=== PATIENT | female | born 1960 | race Caucasian/White ===

== ENCOUNTER 2020-05-12 14:01 | Outpatient (REF) | payer OTHER, SELFPAY | END 2020-05-12 14:02 | disposition home or self-care (01) | LOC: HO.HMGCX 14:01 | PROVIDERS: PCP Internal Medicine; Visit Provider Internal Medicine | DX: Z20.828 Contact with and (suspected) exposure to other viral communicable diseases (principal) | CPT/HCPCS: C9803; U0003 ==

== ENCOUNTER 2020-07-01 11:53 | Outpatient (REF) | payer OTHER, SELFPAY ==
--- NOTE | 2020-07-01 11:57 | MM_ITS ---
EXAMINATION: MM SCREENING DIGITAL BREAST TOMOSYNTHESIS, BILATERAL CLINICAL INFORMATION: Screening. Asymptomatic. The lifetime risk of breast cancer based on the Tyrer-Cuzick Model is 7%. COMPARISON: Mammography: 02/18/2019, 02/14/2019, 01/25/2018, 12/12/2016 TECHNIQUE: Digital breast tomosynthesis is performed in both the craniocaudal and mediolateral oblique views along with computer-aided detection (CAD). Synthesized 2D images are generated from the tomosynthesis. FINDINGS: There are scattered areas of fibroglandular density (ACR BI-RADS breast composition Category b). There are no significant masses, abnormal calcifications, or other abnormalities. There is biopsy clip marker again seen central 6:00 left breast. There is no developing density. No significant changes from prior exams. MM/MM tomosynthesis screening BI IMPRESSION: No mammographic evidence of malignancy. ASSESSMENT: BI-RADS 1: Negative RECOMMENDATION: Routine annual mammography screening. This patient's information was entered into a reminder system with a target due date for their next mammogram.
== END 2020-07-01 11:54 | disposition home or self-care (01) ==
LOC: HO.MAMMO 11:53
PROVIDERS: PCP Internal Medicine; Visit Provider Internal Medicine
DX: Z12.31 Encounter for screening mammogram for malignant neoplasm of breast (principal)
CPT/HCPCS: 77063; 77067

== ENCOUNTER 2020-07-30 11:33 | Outpatient (REF) | payer OTHER, SELFPAY ==
[2020-08-05 06:02] LABS: HPV mRNA E6/E7 rflx Not Detected (Not Detected)
== END 2020-07-30 11:34 | disposition home or self-care (01) ==
LOC: HO.LNP 11:33
PROVIDERS: Visit Provider Internal Medicine
DX: M81.0 Age-related osteoporosis without current pathological fracture (principal); Z78.0 Asymptomatic menopausal state; I48.0 Paroxysmal atrial fibrillation; E03.9 Hypothyroidism, unspecified; Z12.4 Encounter for screening for malignant neoplasm of cervix
CPT/HCPCS: 87624; 88142

== ENCOUNTER 2020-08-24 | Outpatient (REF) | payer OTHER, SELFPAY ==
[2020-08-28 14:15] LABS: FIT Int Ctl YES; FIT1 NEGATIVE (NEGATIVE); FIT2 NEGATIVE (NEGATIVE)
== END 2020-08-24 00:01 | disposition home or self-care (01) ==
LOC: HO.LNP
PROVIDERS: Visit Provider Internal Medicine
DX: Z12.11 Encounter for screening for malignant neoplasm of colon (principal)
CPT/HCPCS: 82274

== ENCOUNTER 2020-08-28 09:11 | Outpatient (REF) | payer OTHER, SELFPAY ==
[2020-08-28 11:10] LABS: MANUAL DIFF FLAG NO
[2020-08-28 11:25] LABS: Basophils Percent Auto 0.5 % (0-2); Eosinophils Absolute Auto 0.3 X10*3/uL (0.0-0.4); Eosinophils Percent Auto 7.5 % (0-4); Hematocrit 40.5 % (37-47); Hemoglobin 12.9 g/dl (12.0-16.0); Lymphocytes Absolute Auto 1.4 X10*3/uL (1.2-4.9); Lymphocytes Percent Auto 37.9 % (20-40); Mean Corpuscular HGB Conc 31.9 g/dl (31.0-35.0); Mean Corpuscular Hemoglobin 29.7 pg (27.0-33.0); Mean Corpuscular Volume 93.1 fL (80-98); Mean Platelet Volume 10.4 fL (9.4-12.3); Monocytes Absolute Auto 0.4 X10*3/uL (0.1-1.2); Monocytes Percent Auto 11.5 % (2-11); Neutrophils Absolute Auto 1.6 X10*3/uL (2.0-8.3); Neutrophils Percent Auto 42.6 % (45-73); Platelet Count 177 X10*3/uL (160-400); Red Blood Count 4.35 X10*6/uL (4.20-5.50); Red Cell Distribution Width 12.5 % (11.0-16.0); White Blood Count 3.8 X10*3/uL (4.8-10.8)
[2020-08-28 12:15] LABS: Free T4 (Free Thyroxine) 1.21 ng/dL (0.71-1.85); Thyroid Stimulating Hormone 2.94 uIU/mL (0.32-4.0); Vitamin D 25-OH Total 32.8 ng/mL (>30)
[2020-08-28 12:19] LABS: Alanine Aminotransferase 19 U/L (0-31); Albumin Level 4.3 g/dL (3.5-5.0); Alkaline Phosphatase 76 U/L (39-117); Anion Gap 14 (12-20); Aspartate Amino Transferase 19 U/L (5-31); Bilirubin Total 0.7 mg/dL (0.0-1.0); Blood Urea Nitrogen 15 mg/dL (9-16); Calcium 9.2 mg/dL (8.4-10.2); Carbon Dioxide 28 mmol/L (22-29); Chloride 106 mmol/L (96-108); Cholesterol 234 mg/dL; Estimated Glomerular Filt Rate > 60; Glucose Fasting 91 mg/dL (60-99); HDL Cholesterol 79 mg/dL; LDL Cholesterol Calculated 143 mg/dl; Potassium 4.5 mmol/L (3.3-5.1); Sodium 143 mmol/L (135-145); Total Protein 7.3 g/dL (6.5-8.0); Triglycerides 63 mg/dL
== END 2020-08-28 09:12 | disposition home or self-care (01) ==
LOC: HO.HMGCLDS 09:11
PROVIDERS: PCP Internal Medicine; Visit Provider Internal Medicine
DX: Z00.01 Encounter for general adult medical examination with abnormal findings (principal); I48.0 Paroxysmal atrial fibrillation; M81.0 Age-related osteoporosis without current pathological fracture; E03.9 Hypothyroidism, unspecified; Z78.0 Asymptomatic menopausal state
CPT/HCPCS: 36415; 80053; 80061; 82306; 84439; 84443; 85025

== ENCOUNTER 2021-06-10 11:19 | Outpatient (REF) | payer OTHER, SELFPAY | END 2021-06-10 11:20 | disposition home or self-care (01) | LOC: HO.HMGCLDS 11:19 | PROVIDERS: Visit Provider Internal Medicine | DX: Z20.822 Contact with and (suspected) exposure to COVID-19 (principal) | CPT/HCPCS: C9803; U0003; U0005 ==

== ENCOUNTER 2021-07-20 10:29 | Outpatient (REF) | payer OTHER, SELFPAY ==
--- NOTE | ~2021-07-20 | MM_ITS ---
EXAMINATION: MM SCREENING DIGITAL BREAST TOMOSYNTHESIS, BILATERAL CLINICAL INFORMATION: Screening. Asymptomatic. The lifetime risk of breast cancer based on the Tyrer-Cuzick Model is 6%. COMPARISON: Mammography: 07/01/2020, 02/18/2019, 02/14/2019, 01/25/2018 TECHNIQUE: Digital breast tomosynthesis is performed in both the craniocaudal and mediolateral oblique views along with computer-aided detection (CAD). Synthesized 2D images are generated from the tomosynthesis. FINDINGS: There are scattered areas of fibroglandular density (ACR BI-RADS breast composition Category b). There are no significant masses, abnormal calcifications, or other abnormalities. Parenchymal pattern is similar to prior studies. No developing density. Biopsy clip marker again noted central left breast. MM/MM tomosynthesis screening BI IMPRESSION: No mammographic evidence of malignancy. ASSESSMENT: BI-RADS 1: Negative RECOMMENDATION: Routine annual mammography screening. This patient's information was entered into a reminder system with a target due date for their next mammogram.
== END 2021-07-20 10:30 | disposition home or self-care (01) ==
LOC: HO.MAMMO 10:29
PROVIDERS: Visit Provider Internal Medicine
DX: Z12.31 Encounter for screening mammogram for malignant neoplasm of breast (principal)
CPT/HCPCS: 77063; 77067

== ENCOUNTER 2021-10-04 14:36 | Outpatient (REF) | payer OTHER, SELFPAY ==
[2021-10-04 16:51] LABS: Appearance Urine HAZY; Color Urine STRAW; Glucose Urine UA NEG (NEG); Leukocyte Esterase Urine NEG (NEG); Nitrite Urine NEG (NEG); Specific Gravity - Urine <= 1.005 (1.005-1.025); Urine Blood NEG (NEG); Urine Ketones NEG (NEG); Urine Protein NEG (NEG-TRACE)
== END 2021-10-04 14:37 | disposition home or self-care (01) ==
LOC: HO.HMGCLDS 14:36
PROVIDERS: Visit Provider Nurse Practitioner Family
DX: R30.0 Dysuria (principal)
CPT/HCPCS: 81003

== ENCOUNTER 2021-12-08 08:14 | Outpatient (REF) | payer OTHER, SELFPAY ==
[2021-12-08 12:12] LABS: Alanine Aminotransferase 13 U/L (0-31); Anion Gap 12 (12-20); Aspartate Amino Transferase 16 U/L (5-31); Blood Urea Nitrogen 8 mg/dL (9-16); Calcium 9.2 mg/dL (8.4-10.2); Carbon Dioxide 26 mmol/L (22-29); Chloride 108 mmol/L (96-108); Cholesterol 215 mg/dL; Estimated Glomerular Filt Rate > 60; Glucose Fasting 93 mg/dL (60-99); HDL Cholesterol 61 mg/dL; LDL Cholesterol Calculated 140 mg/dl; Sodium 142 mmol/L (135-145); Triglycerides 72 mg/dL
[2021-12-08 12:21] LABS: Free T4 (Free Thyroxine) 1.16 ng/dL (0.71-1.85); Thyroid Stimulating Hormone 1.57 uIU/mL (0.32-4.0); Vitamin D 25-OH Total 44.4 ng/mL (>30)
== END 2021-12-08 08:15 | disposition home or self-care (01) ==
LOC: HO.HMGCLDS 08:14
PROVIDERS: PCP Internal Medicine; Visit Provider Internal Medicine
DX: E03.9 Hypothyroidism, unspecified (principal); I48.0 Paroxysmal atrial fibrillation; I10 Essential (primary) hypertension; N95.9 Unspecified menopausal and perimenopausal disorder; M81.0 Age-related osteoporosis without current pathological fracture; Z78.0 Asymptomatic menopausal state
CPT/HCPCS: 36415; 80048; 80061; 82306; 84439; 84443; 84450; 84460

== ENCOUNTER 2022-01-18 15:17 | Outpatient (REF) | payer OTHER, SELFPAY ==
--- NOTE | ~2022-01-18 | US_ITS ---
EXAMINATION: US THYROID CLINICAL INFORMATION: Dysphagia, unspecified. COMPARISON: None TECHNIQUE: Linear transducer grayscale and color Doppler examination with attention to the region of the thyroid. FINDINGS: SIZE: Measurements of the thyroid lobes and nodules are given in sagittal, anteroposterior and transverse dimensions respectively. Right Thyroid Lobe: 2.6 x 0.8 x 0.8 cm, volume 0.6 mL. Parenchyma: The gland echotexture is heterogeneous. Thyroid vascularity is normal. Left Thyroid Lobe: 2.5 x 1.0 x 0.7 cm, volume 1.0 mL. Parenchyma: The gland echotexture is heterogeneous. Thyroid vascularity is normal. Isthmus: 0.1 cm in maximum AP dimension. No focal thyroid nodule is seen. NODES: No lymphadenopathy is seen in the tissue surrounding the thyroid gland. US/US thyroid IMPRESSION: Heterogeneous atrophic thyroid which can be seen in the setting of chronic thyroiditis. ACR TI-RADS RECOMMENDATION REFERENCE: Ultrasound-guided fine-needle aspiration, followup ultrasound, no further follow up. * TR1 (0 point) and TR 2 (2 points): No FNA or follow up * TR3 (3 points): FNA if more than or equal to 2.5 cm in maximum dimension, followup ultrasound in 1, 3 and 5 years if 1.5 to 2.4 cm in maximum dimension. * TR4 (4-6 points): FNA if more than or equal to 1.5 cm in maximum dimension, followup ultrasound in 1, 2, 3 and 5 years if 1 to 1.4 cm in maximum dimension. * TR5 (more than or equal to 7 points): FNA if more than or equal to 1 cm in maximum dimension, followup ultrasound every year for 5 years if 0.5 to 0.9 cm in maximum dimension. * TR3, TR4 or TR5 nodules that are below the size threshold for follow up receive no follow up.
== END 2022-01-18 15:18 | disposition home or self-care (01) ==
LOC: HO.HMGCX 15:17
PROVIDERS: Visit Provider Internal Medicine
DX: R13.10 Dysphagia, unspecified (principal); E03.9 Hypothyroidism, unspecified
CPT/HCPCS: 76536

== ENCOUNTER 2022-03-17 10:10 | Outpatient (REF) | payer OTHER, SELFPAY ==
--- NOTE | ~2022-03-17 | FL_ITS ---
EXAMINATION: FL BARIUM SWALLOW CLINICAL INFORMATION: Dysphagia. COMPARISON: None TECHNIQUE: Barium swallow examination is performed using fluoroscopic evaluation in addition to multiple fluoroscopic spot views. The patient is imaged both upright and prone and using both thick and thin sulfate along with effervescent granules. Fluoroscopy Time: 1.9 minutes. DAP: 5.49 Gycm2. Images: 57. FINDINGS: Following oral administration of thick barium, barium coated solid food such as turkey and barium tablet, there is normal propagation of bolus from the oral cavity through the pharynx, esophagus into stomach without any evidence of obstruction or narrowing. There is no extrinsic compression either. The barium tablet travelled faster than visualized by fluoroscopy. There is no laryngeal penetration, aspiration or retention of food in the valleculae or piriform sinuses. FL/FL barium swallow IMPRESSION: Unremarkable barium swallow exam.
== END 2022-03-17 10:11 | disposition home or self-care (01) ==
LOC: HO.XRAY 10:10
PROVIDERS: PCP Internal Medicine; Visit Provider Otolaryngology
DX: R13.10 Dysphagia, unspecified (principal); K21.9 Gastro-esophageal reflux disease without esophagitis
CPT/HCPCS: 74220

== ENCOUNTER 2022-07-19 09:21 | Outpatient (REF) | payer OTHER, SELFPAY ==
[2022-07-19 12:43] LABS: Cholesterol 234 mg/dL; HDL Cholesterol 74 mg/dL; LDL Cholesterol Calculated 147 mg/dl; Triglycerides 69 mg/dL
[2022-07-19 13:12] LABS: Free T4 (Free Thyroxine) 1.05 ng/dL (0.71-1.85); Thyroid Stimulating Hormone 6.14 uIU/mL (0.32-4.0); Vitamin D 25-OH Total 48.9 ng/mL (>30)
[2022-07-19 14:49] LABS: Folate 8.3 ng/mL (> or = 4.0); Vitamin B12 302 pg/mL (200-900)
== END 2022-07-19 09:22 | disposition home or self-care (01) ==
LOC: HO.HMGCLDS 09:21
PROVIDERS: PCP Internal Medicine; Visit Provider Internal Medicine
DX: F51.04 Psychophysiologic insomnia (principal); R53.83 Other fatigue; E03.9 Hypothyroidism, unspecified; E78.5 Hyperlipidemia, unspecified; M81.0 Age-related osteoporosis without current pathological fracture; N95.9 Unspecified menopausal and perimenopausal disorder
CPT/HCPCS: 36415; 80061; 82306; 82607; 82746; 84439; 84443

== ENCOUNTER 2022-07-26 09:23 | Outpatient (REF) | payer OTHER, SELFPAY ==
--- NOTE | ~2022-07-26 | MM_ITS ---
EXAMINATION: MM SCREENING DIGITAL BREAST TOMOSYNTHESIS, BILATERAL CLINICAL INFORMATION: Screening. Asymptomatic. The lifetime risk of breast cancer based on the Tyrer-Cuzick Model is 9%. COMPARISON: Mammography: July 20 2021 and studies dating back to November 16, 2015 TECHNIQUE: Digital breast tomosynthesis is performed in both the craniocaudal and mediolateral oblique views along with computer-aided detection (CAD). Synthesized 2D images are generated from the tomosynthesis. FINDINGS: There are scattered areas of fibroglandular density (ACR BI-RADS breast composition Category b). There are no significant masses, abnormal calcifications, or other abnormalities. MM/MM tomosynthesis screening BI IMPRESSION: No significant changes from prior exam. ASSESSMENT: BI-RADS 1: Negative RECOMMENDATION: Routine annual mammography screening. This patient's information was entered into a reminder system with a target due date for their next mammogram.
== END 2022-07-26 09:24 | disposition home or self-care (01) ==
LOC: HO.MAMMO 09:23
PROVIDERS: PCP Internal Medicine; Visit Provider Internal Medicine
DX: Z12.31 Encounter for screening mammogram for malignant neoplasm of breast (principal)
CPT/HCPCS: 77063; 77067

== ENCOUNTER 2022-09-09 11:29 | Outpatient (REF) | payer OTHER, SELFPAY ==
[2022-09-09 15:39] LABS: Thyroid Stimulating Hormone 1.95 uIU/mL (0.32-4.0)
== END 2022-09-09 11:30 | disposition home or self-care (01) ==
LOC: HO.HMGCLDS 11:29
PROVIDERS: PCP Internal Medicine; Visit Provider Internal Medicine
DX: E03.9 Hypothyroidism, unspecified (principal)
CPT/HCPCS: 36415; 84443

== ENCOUNTER 2022-10-26 07:43 | Outpatient (REF) | payer OTHER, SELFPAY ==
[2022-10-26 11:23] LABS: Cholesterol 213 mg/dL; HDL Cholesterol 66 mg/dL; LDL Cholesterol Calculated 132 mg/dl; Triglycerides 77 mg/dL
== END 2022-10-26 07:44 | disposition home or self-care (01) ==
LOC: HO.HMGCLDS 07:43
PROVIDERS: PCP Internal Medicine; Visit Provider Internal Medicine
DX: I48.0 Paroxysmal atrial fibrillation (principal); E78.00 Pure hypercholesterolemia, unspecified
CPT/HCPCS: 36415; 80061

== ENCOUNTER 2022-12-14 08:54 | Outpatient (REF) | payer OTHER, SELFPAY ==
--- NOTE | ~2022-12-14 | XR_ITS ---
EXAMINATION: XR CERVICAL SPINE CLINICAL INFORMATION: Neck pain COMPARISON: None available. TECHNIQUE: 5 views of the cervical spine were obtained. FINDINGS: Bone alignment is normal. No fracture or dislocation. The bones may be osteopenic. Disc spaces are normal. There is right-sided mild neuroforaminal narrowing at C3-C4 from bony osteophyte. There is is left-sided mild neuroforaminal narrowing from bony osteophyte at C3-C4 and C4-C5. Prevertebral soft tissues are normal. XR/XR cervical spine 4V IMPRESSION: Mild degenerative changes.
== END 2022-12-14 08:55 | disposition home or self-care (01) ==
LOC: HO.HMGCX 08:54
PROVIDERS: PCP Internal Medicine; Visit Provider Internal Medicine
DX: M54.2 Cervicalgia (principal)
CPT/HCPCS: 72050

== ENCOUNTER 2023-04-25 09:15 | Outpatient (REF) | payer MEDICARE, SELFPAY ==
[2023-04-25 11:20] LABS: MANUAL DIFF FLAG NO
[2023-04-25 11:45] LABS: Basophils Percent Auto 0.9 % (0-2); Eosinophils Absolute Auto 0.2 X10*3/uL (0.0-0.4); Eosinophils Percent Auto 5.1 % (0-4); Hematocrit 40.9 % (37.0-47.0); Hemoglobin 13.3 g/dl (12.0-16.0); Lymphocytes Absolute Auto 1.2 X10*3/uL (1.2-4.9); Lymphocytes Percent Auto 36.4 % (20-40); Mean Corpuscular HGB Conc 32.5 g/dl (31.0-35.0); Mean Corpuscular Hemoglobin 29.8 pg (27.0-33.0); Mean Corpuscular Volume 91.7 fL (80.0-98.0); Monocytes Absolute Auto 0.3 X10*3/uL (0.1-1.2); Monocytes Percent Auto 7.8 % (2-11); Neutrophils Absolute Auto 1.7 x10*3/uL (2.0-8.3); Neutrophils Percent Auto 49.8 % (45-73); Platelet Count 175 X10*3/uL (160-400); Red Blood Count 4.46 X10*6/uL (4.20-5.50); Red Cell Distribution Width 12.6 % (11.0-16.0); White Blood Count 3.3 X10*3/uL (4.8-10.8)
[2023-04-25 12:27] LABS: Alanine Aminotransferase 14 U/L (0-31); Anion Gap 13 (12-20); Aspartate Amino Transferase 15 U/L (5-31); Blood Urea Nitrogen 12 mg/dL (9-16); Calcium 9.5 mg/dL (8.4-10.2); Carbon Dioxide 26 mmol/L (22-29); Chloride 108 mmol/L (96-108); Cholesterol 217 mg/dL (<200); Estimated Glomerular Filt Rate > 60; Glucose Fasting 88 mg/dL (60-99); HDL Cholesterol 75 mg/dL (>40); LDL Cholesterol Calculated 130 mg/dL (<100); Potassium 4.2 mmol/L (3.3-5.1); Sodium 143 mmol/L (135-145); Triglycerides 62 mg/dL (<150)
[2023-04-25 12:32] LABS: Free T4 (Free Thyroxine) 1.03 ng/dL (0.71-1.85); Thyroid Stimulating Hormone 2.83 uIU/mL (0.32-4.0)
== END 2023-04-25 09:16 | disposition home or self-care (01) ==
LOC: HO.HMGCLDS 09:15
PROVIDERS: PCP Internal Medicine; Visit Provider Internal Medicine
DX: E78.5 Hyperlipidemia, unspecified (principal); I10 Essential (primary) hypertension; E03.9 Hypothyroidism, unspecified
CPT/HCPCS: 36415; 80048; 80061; 84439; 84443; 84450; 84460; 85025

== ENCOUNTER 2023-05-02 10:41 | Outpatient (AMB) | payer MEDICARE, SELFPAY ==
--- NOTE | 2023-05-02 10:42 | MHC.OFFVIS ---
Intake Vital Signs 05/02/23 10:46 Height 5 ft 6 in Weight 190 lb 3 oz BMI 30.7 BP 190/94 H Blood Pressure Location Rt brachial Position Sitting Pulse 68 Pulse Source Pulse Oximeter Pulse Oximetry (%) 100 Oxygen Delivery Method Room Air Intake Visit Reasons: CERVICALGIA/CONFIRMED Intake Note: Pain today 7/10. Re Recording Mixer Required: No Accompanied by: Self / Same As Patient Allergies levofloxacin [Levaquin] Allergy (Unknown, Verified 05/02/23 10:45) hives Sulfa (Sulfonamide Antibiotics) Allergy (Unknown, Verified 05/02/23 10:45) itchy, hives sulfamethoxazole [From Bactrim] Allergy (Unknown, Verified 05/02/23 10:45) itchy, hives Tetanus Vaccines and Toxoid Allergy (Unknown, Verified 05/02/23 10:45) convulsion trimethoprim [From Bactrim] Allergy (Unknown, Verified 05/02/23 10:45) itchy, hives codeine cough syrup Allergy (Unknown, Uncoded 12/14/22 08:18) hives zpack Adverse Reaction (Unknown, Uncoded 12/14/22 08:18) vomiting HPI CERVICALGIA/CONFIRMED HPI Details Patient is a pleasant 63 years old female presents today for initial evaluation for neck pain. Medical history noted for paroxysmal atrial fibrillation s/p ablation and osteoporosis. Denies any trauma, injury or falls. Neck pain increases with movements, looking down while reading or working on computer at home, and side rotations, especially on the right side or driving and quick rotations to the right will significantly increase her pain. Occasionally pain will radiate into her left lower arm and shoulders and more frequently into her lower occipital regions. Right hand dominant. Reports previous left shoulder surgery. Patient did not make any gains regarding pain or function with physical therapy. Pain is rated at 7/10. Denies spine surgery or injections. PT, TENS unit, position modifications, NSAIDs have not been beneficial to her. Pain affects her daily activities, functioning, sleep, social activities and quality of life. Denies any fever, chills, weight loss, visual disturbances, headaches, clumsiness of hands and feet, tenderness at the posterior midline of cervical spine, changes in gait, lack of coordination, bladder or bowel incontinence or saddle anesthesia. Patient presents with a normal level of alertness without any focal neurological deficits. Recent cervical spine imaging consistent with degenerative changes and spondylosis. Location Neck pain Duration October 2022 Characteristics of symptom or complaint Aching, sharp, numbness, stabbing, tingling, shooting Aggravating or associated factors Movement, sleeping Relieving factors Ibuprofen, rest-partial relief Treatment PT- made pain worse, TENS unit [facility] Medical History Degenerative disc disease, cervical Anxiety with flying Cervicalgia Hair loss Dysphagia Chronic insomnia Fatigue Dyslipidemia Essential hypertension Essential hypertension Postmenopause Atrophic vaginitis Paroxysmal atrial fibrillation Osteoporosis Acquired hypothyroidism Surgical History History of prior ablation treatment Family History Father Hx of CABG Craig's palsy Thyroid disorder Myocardial infarction Mother HTN (hypertension) Hypothyroidism Sister Hypothyroidism Multiple sclerosis Pancreatic cancer Breast cancer Brother No problems noted. Brother No problems noted. Brother No problems noted. Sister Substance use disorder Sister No problems noted. Son No problems noted. Social History Housing: House Alcohol intake: current Patient Tobacco Use Status: Never used Tobacco e-Cigarette/Vaping Use: Never Used service: No Current occupational status: retired Cognitive needs: No Hearing needs: No Vision needs: Yes Review of Systems Const All systems reviewed & are unremarkable except as noted in HPI and below ENT Reports Normal hearing present Neuro Reports Normal hearing present and Denies Sensory deficit (Neuro) Physical Exam Vital Signs: Last Vital Signs Pulse 68 05/02/23 10:46 BP 190/94 H 05/02/23 10:46 Pulse Ox 100 05/02/23 10:46 Oxygen Delivery Method Room Air 05/02/23 10:46 BMI result Body Mass Index 30.7 General: Appears afebrile. Alert and oriented. Mood and affect appropriate. Follows and participates in conversation appropriately. Respiratory effort is unlabored. No cough. Able to transition from sit to stand unassisted. Ambulates with bilaterally normal heel strike and toe off. Eyes Pupils: Equal, round and reactive pupils present Neck Other: Patient with decreased cervical ROM in all planes/especially with right lateral rotation. Reports increased pain with cervical extension and minimally with flexion. Spurling compression test is negative. Pain is unchanged by Spurling maneuver with retraction. Elvey's tension test was negative bilaterally. Lhermitte's test was negative. 2 + radial pulses. Mild to moderate tightness throughout right upper trapezius as well as TTP throughout bilateral upper trapezius muscles. No paravertebral tenderness over facet joints. Neck: Yes no lymphadenopathy, Yes supple, No anterior neck swelling, Yes no JVD, No prominent supraclavicular fat pad and No prominent dorsocervical fat pad Back/Spine/Pelvis Cervical Spine: cervical ROM normal, cervical muscular tenderness, pain with cervical ROM, No Cervical spine scars present, cervical spasm, No Cervical spine tenderness and No step off deformity Thoracic/Lumbar Spine: thoracic and lumbar spine normal to inspection, No Thoracic/lumbar spine scar(s), Lasegue's sign negative, No thoracic spinal tenderness and No lumbar spinal tenderness Neuro General: moves all extremities, Normal light touch and pain sensation and deep tendon reflexes 2+ bilaterally Cranial nerves: Yes CN's II-XII intact bilaterally, Yes Equal, round and reactive pupils present, Yes Nystagmus not present, Yes Normal hearing present and Yes Ability to bilaterally elevate shoulders present Cognition (Neuro): normal cognition Gait exam (Neuro): Normal gait present Motor exam (neuro): 5/5 motor strength present throughout, no tremor noted and Motor abnormalities not present Sensory Exam: No Sensory deficit (Neuro) Results Reviewed Results Reviewed: XR CERVICAL SPINE 12/14/22 CLINICAL INFORMATION: Neck pain COMPARISON: None available. TECHNIQUE: 5 views of the cervical spine were obtained. FINDINGS: Bone alignment is normal. No fracture or dislocation. The bones may be osteopenic. Disc spaces are normal. There is right-sided mild neuroforaminal narrowing at C3-C4 from bony osteophyte. There is is left-sided mild neuroforaminal narrowing from bony osteophyte at C3-C4 and C4-C5. Prevertebral soft tissues are normal. IMPRESSION: Mild degenerative changes. Assessment & Plan Assessment & Plan (1) Degenerative disc disease, cervical: Code(s): M50.30 - Other cervical disc degeneration, unspecified cervical region (2) Cervicalgia: Code(s): M54.2 - Cervicalgia (3) Muscle spasm: Code(s): M62.838 - Other muscle spasm (4) Cervical spondylosis: Code(s): M47.812 - Spondylosis without myelopathy or radiculopathy, cervical region Plan Discussed treatments for axial cervical spine pain, including diagnostic cervical medial branch blocks for potential Sprint PNS trial or cervical medial branch RFA. She has history of osteoporosis, we will avoid therapeutic injections. At this time, patient would like to continue to use TENS unit and medically treat her symptoms. Scripts sent for Tylenol Arthritis, methocarbamol and topical applications. Side effects and precautions were reviewed with patient. Continue home exercise program, good posture, adequate hydration, and TENS unit. All questions and concerns have been answered and patient agreed with the plan. Follow up for medication review and sooner if needed. Medications: New acetaminophen ER (Arthritis Pain Relief (acetaminophen) ER) 1,300 mg (2 x 650 mg) PO Q12H 30 days PRN 120 tabs 0RF fever or pain M50.30 - Other cervical disc degeneration, unspecified cervical region, M54.2 - Cervicalgia, M62.838 - Other muscle spasm methocarbamol 750 mg PO BID 30 days PRN 60 tabs 0RF muscle spasm M50.30 - Other cervical disc degeneration, unspecified cervical region, M54.2 - Cervicalgia, M62.838 - Other muscle spasm diclofenac sodium 1% (Voltaren Arthritis Pain) 4 grams topical QID 100 grams 0RF pain M50.30 - Other cervical disc degeneration, unspecified cervical region, M54.2 - Cervicalgia lidocaine 5% 1 patch topical DAILY 30 days 30 ea 0RF pain M50.30 - Other cervical disc degeneration, unspecified cervical region, M54.2 - Cervicalgia Coding Level of Care Code New Pt Level 4 (75613) Diagnoses Degenerative disc disease, cervical M50.30 Cervicalgia M54.2 Muscle spasm M62.838 Cervical spondylosis M47.812
[2023-05-02 10:46] VITALS: BP 190/94; PULSE 68; O2SAT 100; BMI 30.7
== END 2023-05-02 11:26 | disposition home or self-care (01) ==
PROVIDERS: PCP Internal Medicine; Referring Provider Internal Medicine; Visit Provider Nurse Practitioner Family
DX: M50.30 Other cervical disc degeneration, unspecified cervical region (principal); M62.838 Other muscle spasm; M47.812 Spondylosis without myelopathy or radiculopathy, cervical region
CPT/HCPCS: 99204

== ENCOUNTER → 2023-05-02 10:41 | Outpatient (BNVA) | payer MEDICARE, SELFPAY | PROVIDERS: PCP Internal Medicine; Referring Provider Internal Medicine; Visit Provider Nurse Practitioner Family | DX: M50.30 Other cervical disc degeneration, unspecified cervical region (principal); M54.2 Cervicalgia; M62.838 Other muscle spasm; M47.812 Spondylosis without myelopathy or radiculopathy, cervical region | CPT/HCPCS: 99202 ==

== ENCOUNTER 2023-07-25 09:21 | Outpatient (REF) | payer MEDICARE, SELFPAY | END 2023-07-25 09:22 | disposition home or self-care (01) | LOC: HO.HMGCLDS 09:21 | PROVIDERS: PCP Internal Medicine; Visit Provider Internal Medicine | DX: E03.9 Hypothyroidism, unspecified (principal); E78.5 Hyperlipidemia, unspecified; I10 Essential (primary) hypertension | CPT/HCPCS: 36415; 84439 ==

== ENCOUNTER 2023-07-27 12:27 | Outpatient (REF) | payer MEDICARE, SELFPAY ==
--- NOTE | ~2023-07-27 | MM_ITS ---
EXAMINATION: MM SCREENING DIGITAL BREAST TOMOSYNTHESIS, BILATERAL CLINICAL INFORMATION: Screening. Asymptomatic. COMPARISON: Mammography: This study is compared with prior exams dating back to 2019. TECHNIQUE: Digital breast tomosynthesis is performed in both the craniocaudal and mediolateral oblique views along with computer-aided detection (CAD). Synthesized 2D images are generated from the tomosynthesis. FINDINGS: There are scattered areas of fibroglandular density (ACR BI-RADS breast composition Category b). There are no significant masses, abnormal calcifications, or other abnormalities. There is a tissue marker in the central portion of the left breast. There are few, coarse benign calcifications in the superior aspect of the left breast. MM/MM tomosynthesis screening BI IMPRESSION: No mammographic evidence of malignancy. ASSESSMENT: BI-RADS BI-RADS 2 - Benign Findings RECOMMENDATION: Routine annual mammography screening. 1 year F/U This examination should not preclude the clinical evaluation of a suspicious palpable abnormality. This patient's information was entered into a reminder system with a target due date for their next mammogram.
--- NOTE | ~2023-07-27 | MM_ITS ---
EXAMINATION: BONE DENSITOMETRY CLINICAL INDICATION: Age-related osteoporosis without current pathological fracture. COMPARISON: Previous BD dated 02/26/2019 and baseline BD dated 07/21/2008. TECHNIQUE: Using a [employer] DXA System (software version: 13.1) manufactured by [employer], dual-energy x-ray absorptiometry was performed of the lumbar spine and left hip. The images are of good technical quality. Summary results are attached. FINDINGS: AP SPINE L1-L4: Current: BMD 0.768 g/cm2, Z-score -2.5, T-score -3.4, osteoporosis, 11.1% decrease from previous, 14.9% decrease from baseline (<5% change is not significant). Prior: BMD 0.864 g/cm2. Baseline: BMD 0.902 g/cm2. LEFT FEMUR, NECK: Current: BMD 0.778 g/cm2, Z-score -0.8, T-score -1.9, osteopenia. Prior: BMD 0.808 g/cm2. Baseline: BMD 0.876 g/cm2. LEFT FEMUR, TOTAL: Current: BMD 0.776 g/cm2, Z-score -1.1, T-score -1.8, osteopenia, 1.4% decrease from previous, 10.3% decrease from baseline (<5% change is not significant). Prior: BMD 0.787 g/cm2. Baseline: BMD 0.865 g/cm2. IDENTIFIED RISK FACTORS: Menopause. HISTORY OF FRACTURE: None listed. MEDICATIONS: Vitamin D. MM/XR DEXA axial skeleton IMPRESSION: 1. DIAGNOSIS: Osteoporosis based on the lowest T-score value of -3.4 in the lumbar spine applying World Health Organization criteria. 2. 10-YEAR FRACTURE RISK PREDICTION, FRAX: According to the guidelines, FRAX calculation should only be performed on patients in the osteopenia bone density category.?Therefore, FRAX was not performed on this patient.? 3. Treatment Recommendations: NOF guidelines recommend consideration for treatment in postmenopausal women and men age 50 and older presenting with the following: -A hip or vertebral (clinical or morphometric) fracture. -T-score less than or equal to -2.5 at the femoral neck or spine after appropriate evaluation to exclude secondary causes. -Low bone mass at the hip or spine and a 10-year fracture probability by FRAX of greater than or equal to 3% for hip fracture or greater than or equal to 20% for major osteoporotic fracture based on the [place] adapted WHO algorithm. 4. Other Recommendations: All treatment decisions require clinical judgment and consideration of individual patient factors, including patient preferences, comorbidities, previous drug use, risk factors not captured in the FRAX model (e.g. frailty, falls, vitamin D deficiency, increased bone turnover, interval significant decline in bone density) and possible under or overestimation of fracture risk by FRAX. Additional medical evaluation for secondary cause of low bone mineral density may be appropriate. FUTURE SCAN RECOMMENDATION: People with diagnosed cases of osteoporosis or at high risk for fracture should have regular bone mineral density tests. For patients eligible for Medicare, routine testing is allowed once every 2 years. The testing frequency can be increased to one year for patients who have rapidly progressing disease, those who are receiving or discontinuing medical therapy to restore bone mass, or have additional risk factors.
== END 2023-07-27 12:28 | disposition home or self-care (01) ==
LOC: HO.MAMMO 12:27
PROVIDERS: PCP Internal Medicine; Visit Provider Internal Medicine
DX: M81.0 Age-related osteoporosis without current pathological fracture (principal); Z12.31 Encounter for screening mammogram for malignant neoplasm of breast
CPT/HCPCS: 77063; 77067; 77080

== ENCOUNTER → 2023-07-27 13:00 | Outpatient (BNV) | payer MEDICARE, SELFPAY | PROVIDERS: PCP Internal Medicine; Visit Provider Radiology Diagnostic Radiology | DX: Z12.31 Encounter for screening mammogram for malignant neoplasm of breast (principal) | CPT/HCPCS: 77063; 77067 ==

== ENCOUNTER 2023-11-15 13:30 | Outpatient (AMB) | payer MEDICARE, SELFPAY ==
[2023-11-15 13:58] VITALS: BP 140/72; PULSE 102; O2SAT 99; BMI 31.0
--- NOTE | 2023-11-15 13:58 | A.OFFPC_ITS ---
Vital Signs 11/15/23 13:58 Height 5 ft 6 in Weight 192 lb BMI 31.0 BP 140/72 H Blood Pressure Location Rt brachial Position Sitting Pulse 102 H Pulse Source Pulse Oximeter Pulse Oximetry (%) 99 Oxygen Delivery Method Room Air Intake Visit Reasons: veritgo Intake Note: Pt is here today c/o vertigo: orthostatic b/p lying 146/72, sitting 146/90 and standing 144/92 no dizziness noted Allergies levofloxacin [Levaquin] Allergy (Unknown, Verified 11/15/23 14:47) hives Sulfa (Sulfonamide Antibiotics) Allergy (Unknown, Verified 11/15/23 14:47) itchy, hives sulfamethoxazole [From Bactrim] Allergy (Unknown, Verified 11/15/23 14:47) itchy, hives Tetanus Vaccines and Toxoid Allergy (Unknown, Verified 11/15/23 14:47) convulsion trimethoprim [From Bactrim] Allergy (Unknown, Verified 11/15/23 14:47) itchy, hives codeine cough syrup Allergy (Unknown, Uncoded 11/15/23 14:47) hives zpack Adverse Reaction (Unknown, Uncoded 11/15/23 14:47) vomiting Medication List - Last Reconciled 11/15/23 by Iliana Lopez MD acetaminophen ER (Arthritis Pain Relief (acetaminophen) ER) 1,300 mg (2 x 650 mg) PO Q12H PRN 30 days aspirin (Adult Low Dose Aspirin) 81 mg PO DAILY calcium carbonate-vitamin D3 600 mg-12.5 mcg (500 unit) (Calcium 600 with Vitamin D3) caps PO cholecalciferol (vitamin D3) 50 mcg PO DAILY diclofenac sodium 1% (Voltaren Arthritis Pain) 4 grams topical QID Levoxyl (levothyroxine) 100 mcg PO QAM NS lorazepam 0.5 mg PO DAILY PRN metoprolol tartrate 50 mg PO BID zolpidem 5 mg PO BEDTIME PRN Tobacco use date assessed: 11/15/23 Fall risk assessment: No Falls in past year Last assessed Fall Risk: 11/15/23 Dental Screening Dental Screen Date: 11/15/23 Did you have a dental visit in the last 12 months?: No Was dental information given to patient?: Patient has dentist SANDHYA lester HPI Details 63-year-old lady here today complaining of intermittent episodes of lightheadedness, positional in nature. Blood pressure at home has been running from between 120/70 to 130/80 with pulse running between 55-60 beats per minute. Blood pressure here at office small elevated with no evidence of orthostatic hypotension. She has also been having frequent episodes of anxiety attacks, anhedonia, has difficulty with sleeping, has been taking zolpidem most nights to help her sleep. [facility] Medical History (Updated 12/21/23 @ 08:23 by Iliana Lopez MD) Depression with anxiety Generalized anxiety disorder Degenerative disc disease, cervical Anxiety with flying Cervicalgia Hair loss Dysphagia Chronic insomnia Fatigue Dyslipidemia Essential hypertension Postmenopause Atrophic vaginitis Paroxysmal atrial fibrillation Osteoporosis Acquired hypothyroidism Surgical History History of prior ablation treatment Family History Father Hx of CABG Craig's palsy Thyroid disorder Myocardial infarction Mother HTN (hypertension) Hypothyroidism Sister Hypothyroidism Multiple sclerosis Pancreatic cancer Breast cancer Brother No problems noted. Brother No problems noted. Brother No problems noted. Sister Substance use disorder Sister No problems noted. Son No problems noted. Social History Housing: House Alcohol intake: current Patient Tobacco Use Status: Never used Tobacco e-Cigarette/Vaping Use: Never Used service: No Current occupational status: retired Cognitive needs: No Hearing needs: No Vision needs: Yes Questionnaire PHQ-9 Over the last 2 weeks, how often have you been bothered by any of the following problems? 1. Little interest or pleasure in doing things: not at all 2. Feeling down, depressed, or hopeless: several days 3. Trouble falling or staying asleep, or sleeping too much: several days 4. Feeling tired or having little energy: several days 5. Poor appetite or overeating: several days 6. Feeling bad about yourself - or that you are a failure or have let yourself or your family down: several days 7. Trouble concentrating on things, such as reading the newspaper or watching television: several days 8. Moving or speaking so slowly that other people could have noticed. Or the opposite - being so fidgety or restless that you have been moving around a lot more than usual: several days 9. Thoughts that you would be better off or of hurting yourself in some way: not at all Total score: 7 Depression Screening Interpretation: Positive Depression Screening Follow-up: Existing condition, In treatment and New Medication prescribed Depression Screening Done: Yes Source: Developed by Drs. Angel Linder, Shanta Campbell, Hernan Baldwin and colleagues, with an educational landon from [employer]. Thrive Questionnaire Date Thrive assessed: 11/15/23 I am a: Patient What is your living situation today?: I have a steady place to live Within the past 12 months, did the food you bought not last and you didn't have the money to get more?: Never true Within the past 12 months, did you worry whether your food would run out before you got money to buy more?: Never true Do you have trouble paying for medicines?: No Do you have trouble getting transportation to medical appointments?: No Do you have trouble paying your heating and electricity bill?: No Do you have trouble taking care of your child, family member or friend?: No Do you have trouble with day-to-day activities such as bathing, preparing meals, shopping, managing finances, etc.?: No Are you currently unemployed and looking for a job?: No Are you interested in more education?: No THRIVE Score: 0 AUDIT C Alcohol Use Questionnaire (AUDIT-C) 1. How often do you have a drink containing alcohol?: Never Total Score: 0 LARA-7 AMB Questionnaire LARA-7 Date LARA - 7 assessed: 11/15/23 Feeling nervous, anxious, or on edge: 1 = Several days Not being able to stop or control worryin = Several days Worrying too much about different things: 1 = Several days Trouble relaxin = Not at all Being so restless that it is hard to sit still: 0 = Not at all Becoming easily annoyed or irritable: 1 = Several days Feeling afraid as if something awful might happen: 0 = Not at all Total LARA-7 score (0-4 normal; 5-9 mild; 10-14 moderate; 15-21 severe): 4 Source: Developed by Shanta Conde, Hernan Baldwin and colleagues, with an educational landon from [employer]. Review of Systems Const Denies fever(s), Denies headache(s), Denies snoring, Denies stops breathing during sleep and Denies weakness Eyes Details: Is up-to-date with her eye exam ENT Denies headache(s) and Denies nasal congestion Card Denies chest pain, Denies palpitations and Denies dyspnea Resp Denies chest congestion, Denies cough, Denies dyspnea, Denies snoring and Denies wheezing GI Denies abdominal pain, Denies change in bowel habits and Denies heartburn Denies urinary frequency, Denies dysuria, Reports urinary incontinence (Occasional incontinence with sneezing or coughing) and Reports vaginal dryness Musc Denies back pain, Denies myalgias, Denies arthralgias, Denies muscle cramps and Denies muscle weakness Skin/Breast Denies lesions and Denies rash Neuro Denies headache(s) and Denies weakness Psych Reports as per HPI Endo Denies polydipsia, Denies polyuria and Denies palpitations Shay/Lymph Denies easy bruising Aller/Immun Denies seasonal rhinorrhea and Denies wheezing Physical exam (Primary Care) Vital Signs: Last Vital Signs Pulse 102 H 11/15/23 13:58 BP 140/72 H 11/15/23 13:58 Pulse Ox 99 11/15/23 13:58 Oxygen Delivery Method Room Air 11/15/23 13:58 BMI result Body Mass Index 31.0 Tobacco/Smoking Status: Tobacco use Status Tobacco use date assessed 11/15/23 11/15/23 13:59 Patient Tobacco Use Status Never used Tobacco 11/15/23 13:59 e-Cigarette/Vaping Use Never Used 11/15/23 13:59 PHQ-9: PHQ-9 Score PHQ-9: Total score 12 11/15/23 15:10 Depression Screening Interpretation: Positive Depression Screening Follow-up: Existing condition, In treatment and New Medication prescribed Thrive Assessment: Date of Thrive Assessment Date Thrive assessed 11/15/23 11/15/23 14:13 Const General: comfortable, no acute distress and alert Orientation/consciousness: patient oriented x3 HENMT Ears: external ears normal, TM's normal bilaterally and EAC's normal General nose exam: Normal external nose present and No nasal discharge present Mouth: Normal oral and palatal mucosa present, oropharynx normal and moist mucous membranes Eyes General: appearance normal, both eyes and all related structures Conjunctivae: conjunctivae normal Sclerae: sclerae normal Pupils: Equal, round and reactive pupils present EOM: EOMs intact bilaterally Neck Neck: Yes full ROM, Yes no lymphadenopathy and Yes supple Resp Effort & Inspection: normal respiratory effort and able to speak in complete sentences Auscultation: clear to auscultation bilaterally Cardio Rate: regular rate Rhythm: regular rhythm Heart sounds: S1 normal heart sound present and S2 normal heart sound present GI Palpation (GI): Soft to palpation, nontender and no masses Auscultation: normal bowel sounds Back/Spine/Pelvis Back: No back tenderness Skin General skin exam: no rashes or lesions noted Neuro General: patient oriented x3, gait normal, tone normal, moves all extremities, Normal light touch and pain sensation and no focal motor deficits Cranial nerves: Yes CN's II-XII intact bilaterally and Yes Equal, round and reactive pupils present Cognition (Neuro): normal cognition Extrem General: Yes full ROM, Yes no joint enlargement, Yes no clubbing, cyanosis or edema and Yes no calf tenderness Psych Appearance: grossly normal and well kempt Mental Status: mental status grossly normal Speech and movement: Normal speech and movement present Affect: normal affect Attitude: cooperative Thought process: Normal thought process present Thought content: Normal thought content present Assessment and Plan Assessment & Plan (1) Depression with anxiety: Code(s): F41.8 - Other specified anxiety disorders Plan: Started on escitalopram 5 mg per tablet to take once a day, Discussed symptoms of anxiety. Prescribed lorazepamdiscuss 0.5 mg 1 tablet only as needed for acute anxiety attacks. Pt instructed to take medicines exactly as directed and that these medications can be habit forming. Discussed other ways to relieve stress including : exercise or a massage, Get enough rest, Avoid alcohol, caffeine, nicotine, and illegal drugs which can increase your anxiety level and cause sleep problems. Will see her back for follow-up on her next visit for his physical in December 2023 (2) Chronic insomnia: Code(s): F51.04 - Psychophysiologic insomnia Plan: Currently on zolpidem 5 mg 1 tablet at bedtime as needed for difficulty sleeping Orders: Orders Vitamin D 25-OH Total 12/11/23 E03.9 - Hypothyroidism, unspecified, M81.0 - Age-related osteoporosis without current pathological fracture, I10 - Essential (primary) hypertension, E78.5 - Hyperlipidemia, unspecified Aspartate Amino Transferase 12/11/23 E03.9 - Hypothyroidism, unspecified, M81.0 - Age-related osteoporosis without current pathological fracture, I10 - Essential (primary) hypertension, E78.5 - Hyperlipidemia, unspecified Alanine Aminotransferase 12/11/23 E03.9 - Hypothyroidism, unspecified, M81.0 - Age-related osteoporosis without current pathological fracture, I10 - Essential (primary) hypertension, E78.5 - Hyperlipidemia, unspecified Thyroid Stimulating Hormone 12/11/23 E03.9 - Hypothyroidism, unspecified, M81.0 - Age-related osteoporosis without current pathological fracture, I10 - Essential (primary) hypertension, E78.5 - Hyperlipidemia, unspecified Free T4 (Free Thyroxine) 12/11/23 E03.9 - Hypothyroidism, unspecified, M81.0 - Age-related osteoporosis without current pathological fracture, I10 - Essential (primary) hypertension, E78.5 - Hyperlipidemia, unspecified Lipid Panel 12/11/23 E03.9 - Hypothyroidism, unspecified, M81.0 - Age-related osteoporosis without current pathological fracture, I10 - Essential (primary) hypertension, E78.5 - Hyperlipidemia, unspecified Basic Metabolic Panel Fasting 12/11/23 E03.9 - Hypothyroidism, unspecified, M81.0 - Age-related osteoporosis without current pathological fracture, I10 - Essential (primary) hypertension, E78.5 - Hyperlipidemia, unspecified Medications: New escitalopram oxalate 5 mg PO DAILY 30 tabs 1RF F41.1 - Generalized anxiety disorder Refilled lorazepam 0.5 mg PO DAILY PRN 30 tabs 0RF Acute anxiety/panic attack Coding Level of Care Code Est Pt Level 4 (42264) Diagnoses Depression with anxiety F41.8 Chronic insomnia F51.04
== END 2023-11-15 16:27 | disposition home or self-care (01) ==
PROVIDERS: PCP Internal Medicine; Visit Provider Internal Medicine
DX: F41.8 Other specified anxiety disorders (principal); F51.04 Psychophysiologic insomnia
CPT/HCPCS: 99214

== ENCOUNTER 2023-12-01 09:34 | Outpatient (REF) | payer MEDICARE, SELFPAY ==
[2023-12-01 11:32] LABS: Alanine Aminotransferase 14 U/L (0-31); Anion Gap 17 (12-20); Aspartate Amino Transferase 15 U/L (5-31); Blood Urea Nitrogen 18 mg/dL (9-16); Calcium 9.7 mg/dL (8.4-10.2); Carbon Dioxide 25 mmol/L (22-29); Chloride 104 mmol/L (96-108); Cholesterol 237 mg/dL (<200); Estimated Glomerular Filt Rate > 60; Glucose Fasting 93 mg/dL (60-99); HDL Cholesterol 70 mg/dL (>40); LDL Cholesterol Calculated 151 mg/dL (<100); Sodium 142 mmol/L (135-145); Triglycerides 81 mg/dL (<150)
[2023-12-01 11:52] LABS: Free T4 (Free Thyroxine) 1.01 ng/dL (0.71-1.85); Thyroid Stimulating Hormone 3.45 uIU/mL (0.32-4.0); Vitamin D 25-OH Total 51.8 ng/mL (>30)
== END 2023-12-01 09:35 | disposition home or self-care (01) ==
LOC: HO.HMGCLDS 09:34
PROVIDERS: PCP Internal Medicine; Visit Provider Internal Medicine
DX: E03.9 Hypothyroidism, unspecified (principal); M81.0 Age-related osteoporosis without current pathological fracture; I10 Essential (primary) hypertension; E78.5 Hyperlipidemia, unspecified
CPT/HCPCS: 36415; 80048; 80061; 82306; 84439; 84443; 84450; 84460

== ENCOUNTER 2023-12-21 08:03 | Outpatient (AMB) | payer MEDICARE, SELFPAY ==
--- NOTE | 2023-12-21 08:04 | A.OFFPC_ITS ---
Vital Signs 12/21/23 08:06 Height 5 ft 6 in Weight 194 lb 8 oz BMI 31.4 BP 130/80 Blood Pressure Location Lt brachial Position Sitting Pulse 64 Pulse Source Pulse Oximeter Pulse Oximetry (%) 98 Oxygen Delivery Method Room Air Intake Visit Reasons: Follow-up lipids, hypothyroidism, osteoporosis Allergies levofloxacin [Levaquin] Allergy (Unknown, Verified 12/22/23 10:29) hives Sulfa (Sulfonamide Antibiotics) Allergy (Unknown, Verified 12/22/23 10:29) itchy, hives sulfamethoxazole [From Bactrim] Allergy (Unknown, Verified 12/22/23 10:29) itchy, hives Tetanus Vaccines and Toxoid Allergy (Unknown, Verified 12/22/23 10:29) convulsion trimethoprim [From Bactrim] Allergy (Unknown, Verified 12/22/23 10:29) itchy, hives codeine cough syrup Allergy (Unknown, Uncoded 12/22/23 10:29) hives zpack Adverse Reaction (Unknown, Uncoded 12/22/23 10:29) vomiting Medication List - Last Reconciled 12/21/23 by Iliana Lopez MD acetaminophen ER (Arthritis Pain Relief (acetaminophen) ER) 1,300 mg (2 x 650 mg) PO Q12H PRN 30 days aspirin (Adult Low Dose Aspirin) 81 mg PO DAILY azelastine 2 sprays intranasal BID calcium carbonate-vitamin D3 600 mg-12.5 mcg (500 unit) (Calcium 600 with Vitamin D3) caps PO cholecalciferol (vitamin D3) 50 mcg PO DAILY diclofenac sodium 1% (Voltaren Arthritis Pain) 4 grams topical QID escitalopram oxalate 5 mg PO DAILY Levoxyl (levothyroxine) 100 mcg PO QAM NS lorazepam 0.5 mg PO DAILY PRN metoprolol tartrate 50 mg PO BID zolpidem 5 mg PO BEDTIME PRN Tobacco use date assessed: 11/15/23 Fall risk assessment: No Falls in past year Last assessed Fall Risk: 12/21/23 Dental Screening Dental Screen Date: 11/15/23 HPI Follow-up lipids, hypothyroidism, osteoporosis HPI Details 63-year-old lady with hypothyroidism, hy perlipidemia, here today for follow-up. Has been compliant with her diet, but as not been has not regularly. She is feeling well on current dose of levothyroxine at 100 mcg daily in a.m.. Recent bone density scan showed presence of osteoporosis in her lumbar spine, with a T-score of-3.4, osteopenia in femoral neck and left femur. She takes calcium with vitamin-D supplements and additional vitamin-D supplements as well. She has taken Boniva in the past but only took it for several months but stopped taking it due to severe GI upset. No history of fracture She was started on escitalopram 5 mg taken once a day at night on last visit for her generalized anxiety disorder. No side effects ordered from taking medication except fluids for some sleepiness but does not feel much difference in her anxiety level Has been having more frequent posterior neck pain now radiating to upper back and down shoulder and sometimes going down the arms accompanied by some numbness and tingling in fingers. Denies any accompanying weakness. Takes acetaminophen ER 650 mg every 8 hours as needed for pain which affords only temporary relief Complains of recurrent nasal congestion and postnasal drainage, taking fluticasone nasal spray which she states has not really been helping much. She has been having recurrent episodes of sleep paralysis where in she is lying in bed and could not move for several seconds. This has been occurring at least once a month for the last several months. Patient states her father has the same problem. [facility] Medical History (Updated 12/22/23 @ 16:48 by Iliana Lopez MD) Seasonal allergies Recurrent isolated sleep paralysis Cervical radiculopathy due to degenerative joint disease of spine Depression with anxiety Degenerative disc disease, cervical Anxiety with flying Cervicalgia Hair loss Dysphagia Chronic insomnia Fatigue Dyslipidemia Essential hypertension Postmenopause Atrophic vaginitis Paroxysmal atrial fibrillation Osteoporosis Acquired hypothyroidism Surgical History History of prior ablation treatment Family History Father Hx of CABG Craig's palsy Thyroid disorder Myocardial infarction Mother HTN (hypertension) Hypothyroidism Sister Hypothyroidism Multiple sclerosis Pancreatic cancer Breast cancer Brother No problems noted. Brother No problems noted. Brother No problems noted. Sister Substance use disorder Sister No problems noted. Son No problems noted. Social History Housing: House Alcohol intake: current Patient Tobacco Use Status: Never used Tobacco e-Cigarette/Vaping Use: Never Used service: No Current occupational status: retired Cognitive needs: No Hearing needs: No Vision needs: Yes Questionnaire PHQ-9 Over the last 2 weeks, how often have you been bothered by any of the following problems? 1. Little interest or pleasure in doing things: several days 2. Feeling down, depressed, or hopeless: several days 3. Trouble falling or staying asleep, or sleeping too much: several days 4. Feeling tired or having little energy: several days 5. Poor appetite or overeating: more than half the days 6. Feeling bad about yourself - or that you are a failure or have let yourself or your family down: not at all 7. Trouble concentrating on things, such as reading the newspaper or watching television: not at all 8. Moving or speaking so slowly that other people could have noticed. Or the opposite - being so fidgety or restless that you have been moving around a lot more than usual: not at all 9. Thoughts that you would be better off or of hurting yourself in some way: not at all Total score: 6 Depression Screening Interpretation: Negative Depression Screening Done: Yes 67837 - PHQ-9 Billing: Yes Source: Developed by Drs. Angel Linder, Shanta Campbell, Hernan Baldwin and colleagues, with an educational landon from [employer]. Thrive Questionnaire Date Thrive assessed: 11/15/23 I am a: Patient What is your living situation today?: I have a steady place to live Within the past 12 months, did the food you bought not last and you didn't have the money to get more?: Never true Within the past 12 months, did you worry whether your food would run out before you got money to buy more?: Never true Do you have trouble paying for medicines?: No Do you have trouble getting transportation to medical appointments?: No Do you have trouble paying your heating and electricity bill?: No Do you have trouble taking care of your child, family member or friend?: No Do you have trouble with day-to-day activities such as bathing, preparing meals, shopping, managing finances, etc.?: No Are you currently unemployed and looking for a job?: No Are you interested in more education?: No Please select the resources that you would like help with: None Currently or been in a relationship where the following occur: no concerns reported THRIVE Score: 0 AUDIT C Alcohol Use Questionnaire (AUDIT-C) 1. How often do you have a drink containing alcohol?: Monthly or less 2. How many drinks containing alcohol do you have on a typical day when you are drinking?: 1 or 2 3. How often do you have six or more drinks on one occasion?: Never Total Score: 1 LARA-7 AMB Questionnaire LARA-7 Date LARA - 7 assessed: 11/15/23 Feeling nervous, anxious, or on edge: 2 = More than half the days Not being able to stop or control worryin = More than half the days Worrying too much about different things: 2 = More than half the days Trouble relaxin = Several days Being so restless that it is hard to sit still: 0 = Not at all Becoming easily annoyed or irritable: 1 = Several days Feeling afraid as if something awful might happen: 2 = More than half the days Total LARA-7 score (0-4 normal; 5-9 mild; 10-14 moderate; 15-21 severe): 10 Source: Developed by Drs. Angel Linder, Shanta Campbell, Hernan Baldwin and colleagues, with an educational landon from [employer]. LARA-7 Assessment Billing LARA-7 Assessment Tool: LARA-7 Assessment 55122 Review of Systems Const Reports as per HPI, Denies fever(s), Denies headache(s), Denies snoring, Denies stops breathing during sleep and Denies weakness Eyes Details: Is up-to-date with her eye exam ENT Reports as per HPI and Denies headache(s) Card Denies chest pain, Denies palpitations and Denies dyspnea Resp Denies chest congestion, Denies cough, Denies dyspnea, Denies snoring and Denies wheezing GI Denies abdominal pain, Denies change in bowel habits and Denies heartburn Denies urinary frequency, Denies dysuria, Reports urinary incontinence (Occasional incontinence with sneezing or coughing) and Reports vaginal dryness Musc Reports as per HPI, Denies myalgias, Denies arthralgias, Denies muscle cramps and Denies muscle weakness Skin/Breast Denies lesions and Denies rash Neuro Reports as per HPI, Denies headache(s) and Denies weakness Psych Reports as per HPI Endo Denies polydipsia, Denies polyuria and Denies palpitations Shay/Lymph Denies easy bruising Aller/Immun Reports as per HPI and Denies wheezing Physical exam (Primary Care) Vital Signs: Last Vital Signs Pulse 64 12/21/23 08:06 BP 130/80 12/21/23 08:06 Pulse Ox 98 12/21/23 08:06 Oxygen Delivery Method Room Air 12/21/23 08:06 BMI result Body Mass Index 31.4 Tobacco/Smoking Status: Tobacco use Status Tobacco use date assessed 11/15/23 12/21/23 08:05 Patient Tobacco Use Status Never used Tobacco 12/21/23 08:05 e-Cigarette/Vaping Use Never Used 12/21/23 08:05 PHQ-9: PHQ-9 Score PHQ-9: Total score 6 12/22/23 10:31 Depression Screening Interpretation: Negative Thrive Assessment: Date of Thrive Assessment Date Thrive assessed 11/15/23 12/21/23 08:05 Currently or been in a relationship where the following occur: no concerns reported Const General: comfortable, no acute distress and alert Orientation/consciousness: patient oriented x3 HENMT Ears: external ears normal, TM's normal bilaterally and EAC's normal General nose exam: Normal external nose present and No nasal discharge present Mouth: Normal oral and palatal mucosa present, oropharynx normal and moist mucous membranes Eyes General: appearance normal, both eyes and all related structures Neck Neck: Yes full ROM, Yes no lymphadenopathy, Yes supple and Yes other (Tenderness on paraspinal muscles cervical area and both trapezius) Resp Effort & Inspection: normal respiratory effort and able to speak in complete sentences Auscultation: clear to auscultation bilaterally Cardio Rate: regular rate Rhythm: regular rhythm Heart sounds: S1 normal heart sound present and S2 normal heart sound present GI Palpation (GI): Soft to palpation, nontender and no masses Auscultation: normal bowel sounds Back/Spine/Pelvis Other: Tenderness on palpation over paracervical muscles and trapezius Skin General skin exam: no rashes or lesions noted Neuro General: patient oriented x3, gait normal, tone normal, moves all extremities, Normal light touch and pain sensation and no focal motor deficits Cranial nerves: Yes CN's II-XII intact bilaterally Cognition (Neuro): normal cognition Extrem General: Yes full ROM, Yes no joint enlargement, Yes no clubbing, cyanosis or edema and Yes no calf tenderness Psych Appearance: grossly normal and well kempt Mental Status: mental status grossly normal Speech and movement: Normal speech and movement present Affect: normal affect Attitude: cooperative Thought process: Normal thought process present Thought content: Normal thought content present Results Reviewed Results Reviewed: Name: Libra Sandoval Age/Sex: 63/F : 1960 Unit#: [id number] Attend Dr: Iliana Lopez MD Re12/01/23 Status: DEP [facility] Disch: SPEC : [id number] BEN: 12/01/23 STATUS: COMP REQ : [id number] RECD: 12/01/23-[address]: Iliana Lopez MD COMP: 12/01/23 ENTERED: 12/01/[address]: ORDERED: Met Prof Fast, AST, ALT, Lipid Panel, Vitamin D 25-OH, Free T4, TSH Test Result Flag Reference Sodium 142 135-145 mmol/L Potassium 4.0 3.3-5.1 mmol/L CL 104 96-108 mmol/L CO2 25 22-29 mmol/L Gap 17 12-20 BUN 18 H 9-16 mg/dL Creat 0.86 0.5-1.4 mg/dL EGFR > 60 NOTE: For -[place] individuals, multiply the result by 1.210. Chronic Kidney Disease: Estimated GFR < 60 mL/min/1. 73m2 Severe Kidney Disease: Estimated GFR < 15 mL/min/1.73m2 FBS 93 60-99 mg/dL CA 9.7 8.4-10.2 mg/dL AST (GOT) 15 5-31 U/L ALT (GPT) 14 0-31 U/L Triglyceride 81 <150 mg/dL Desirable Triglyceride: less than 150 mg/dL Borderline High Triglyceride 150-199 mg/dL High Triglyceride: 200-499 mg/dL Very High Triglyceride: greater than or equal to 5OO mg/dL Cholesterol 237 H <200 mg/dL Desirable Cholesterol: less than 200 mg/dL Borderline High Cholesterol: 200-239 mg/dL High Cholesterol: greater than 239 mg/dL LDL Calculated 151 H <100 mg/dL Desirable LDL: less than 100 mg/dL Near Optimal/Above Optimal LDL: 110-129 mg/dL Borderline High LDL: 130-159 mg/dL High LDL: 160-189 mg/dL Very High LDL: greater than or equal to 190 mg/dL HDL 70 >40 mg/dL Desirable HDL: greater than 40 mg/dL Note: This HDL assay may give artificially low results in patients with liver disease. Vit D 25-OH Tot 51.8 >30 ng/mL Health Based Reference Values* < 20 ng/mL Deficient 20-30 ng/mL Insufficient > 30 ng/mL Sufficient Assessment and Plan Assessment & Plan (1) Dyslipidemia: Code(s): E78.5 - Hyperlipidemia, unspecified Plan: Reviewed recent fasting lipid profile with patient with elevated LDL levels . Reinforced adherence to low-cholesterol diet and regular exercise, at least 30 minutes 3 to 4 times a week. Advised patient to make healthy food choices, eat more fruits, vegetables, whole grains, wild caught fish and low-fat dairy. Limit amount of meat and fried or fatty food products, as well as processed foods and fast foods. (2) Osteoporosis: Code(s): M81.0 - Age-related osteoporosis without current pathological fracture Qualifiers: Osteoporosis type: age-related Presence of current pathological fracture: without current pathological fracture Qualified Code(s): M81.0 - Age- related osteoporosis without current pathological fracture Plan: Referred to endocrine clinic, patient unable to tolerate Boniva due to severe GI upset, does not want to try Fosamax, advised to continue with her vitamin D3 and calcium supplements, encouraged to start doing regular weight-bearing exercise (3) Acquired hypothyroidism: Code(s): E03.9 - Hypothyroidism, unspecified Plan: Continue with current dose of levothyroxine (4) Cervical radiculopathy due to degenerative joint disease of spine: Code(s): M47.22 - Other spondylosis with radiculopathy, cervical region Plan: Worsening pain in posterior neck, unrelieved with conservative measures, with intermittent numbness and tingling going down posterior back and extremities. Will obtain MRI of cervical spine (5) Recurrent isolated sleep paralysis: Code(s): G47.53 - Recurrent isolated sleep paralysis (6) Seasonal allergies: Code(s): J30.2 - Other seasonal allergic rhinitis Plan: Continue with Fluticasone nasal spray, prescription also sent for as a lasting nasal spray 1-2 sprays per nostril twice a day as needed (7) Depression with anxiety: Code(s): F41.8 - Other specified anxiety disorders Plan: Will increase escitalopram dose to 10 mg once a day. Orders: Orders Thyroid Stimulating Hormone 3 Months E03.9 - Hypothyroidism, unspecified, E78.5 - Hyperlipidemia, unspecified, M81.0 - Age-related osteoporosis without current pathological fracture, Z78.0 - Asymptomatic menopausal state Free T4 (Free Thyroxine) 3 Months E03.9 - Hypothyroidism, unspecified, E78.5 - Hyperlipidemia, unspecified, M81.0 - Age-related osteoporosis without current pathological fracture, Z78.0 - Asymptomatic menopausal state Alanine Aminotransferase 3 Months E03.9 - Hypothyroidism, unspecified, E78.5 - Hyperlipidemia, unspecified, M81.0 - Age-related osteoporosis without current pathological fracture, Z78.0 - Asymptomatic menopausal state Aspartate Amino Transferase 3 Months E03.9 - Hypothyroidism, unspecified, E78.5 - Hyperlipidemia, unspecified, M81.0 - Age-related osteoporosis without current pathological fracture, Z78.0 - Asymptomatic menopausal state Lipid Panel 3 Months E03.9 - Hypothyroidism, unspecified, E78.5 - Hyperlipidemia, unspecified, M81.0 - Age-related osteoporosis without current pathological fracture, Z78.0 - Asymptomatic menopausal state Complete Blood Count Auto Diff 3 Months E03.9 - Hypothyroidism, unspecified, E78.5 - Hyperlipidemia, unspecified, M81.0 - Age-related osteoporosis without current pathological fracture, Z78.0 - Asymptomatic menopausal state MR cervical spine wo con 12/21/23 M47.22 - Other spondylosis with radiculopathy, cervical region, M54.2 - Cervicalgia Referrals Endocrinology Referral M81.0 - Age-related osteoporosis without current pathological fracture Sleep Medicine Referral G47.53 - Recurrent isolated sleep paralysis Medications: New azelastine administer into each nostril 2 sprays intranasal BID 30 mL 0RF Changed From escitalopram oxalate 5 mg PO DAILY 30 tabs 1RF F41.1 - Generalized anxiety disorder To escitalopram oxalate 10 mg PO DAILY 30 tabs 1RF F41.1 - Generalized anxiety disorder Coding Level of Care Code Est Pt Level 4 (95528) Diagnoses Dyslipidemia E78.5 Age-related osteoporosis without current pathological fracture M81.0 Osteoporosis type: age-related Presence of current pathological fracture: without current pathological fracture Acquired hypothyroidism E03.9 Cervical radiculopathy due to degenerative joint disease of spine M47.22 Recurrent isolated sleep paralysis G47.53 Seasonal allergies J30.2 Depression with anxiety F41.8 Additional Codes LARA-7 Assessment Billing - LARA-7 Assessment Tool: LARA-7 Assessment 60641 ([id number])
[2023-12-21 08:06] VITALS: BP 130/80; PULSE 64; O2SAT 98; BMI 31.4
== END 2023-12-21 16:03 | disposition home or self-care (01) ==
PROVIDERS: PCP Internal Medicine; Visit Provider Internal Medicine
DX: E78.5 Hyperlipidemia, unspecified (principal); M81.0 Age-related osteoporosis without current pathological fracture; E03.9 Hypothyroidism, unspecified; M47.22 Other spondylosis with radiculopathy, cervical region; G47.53 Recurrent isolated sleep paralysis; J30.2 Other seasonal allergic rhinitis; F41.8 Other specified anxiety disorders
CPT/HCPCS: 99214

== ENCOUNTER 2024-01-25 08:53 | Outpatient (AMB) | payer MEDICARE, SELFPAY ==
[2024-01-25 09:05] VITALS: BP 152/86; PULSE 47
--- NOTE | 2024-01-25 09:05 | A.OFFVIS_ITS ---
Vital Signs 01/25/24 09:05 Height 5 ft 6 in BP 152/86 H Blood Pressure Location Lt brachial Position Sitting Pulse 47 L Pulse Source Pulse Oximeter Intake Visit Reasons: Osteoporosis-confirmed Intake Note: Patient present today for Osteoporosis follow up visit. 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 Services Required: No Accompanied by: Self / Same As Patient Allergies levofloxacin [Levaquin] Allergy (Unknown, Verified 01/25/24 09:09) hives Sulfa (Sulfonamide Antibiotics) Allergy (Unknown, Verified 01/25/24 09:09) itchy, hives sulfamethoxazole [From Bactrim] Allergy (Unknown, Verified 01/25/24 09:09) itchy, hives Tetanus Vaccines and Toxoid Allergy (Unknown, Verified 01/25/24 09:09) convulsion trimethoprim [From Bactrim] Allergy (Unknown, Verified 01/25/24 09:09) itchy, hives codeine cough syrup Allergy (Unknown, Uncoded 01/25/24 09:09) hives zpack Adverse Reaction (Unknown, Uncoded 01/25/24 09:09) vomiting HPI Comments Details: 63 YO Female is seen in consultation at the request of PCP for Osteoporosis. First diagnosed in Jul 2023 . Received treatment in the past with Boniva , 1 mo several yrs ago . Could not Tolerated treatment because of GERD No history of pathologic fracture or ONJ. Has several servings of dietary calcium per day in the form of cheese , ice cream . Not Takes Calcium supplement . Takes 2000 IU of Vitamin D daily. Takes PPI intermittedly , anticoagulant, antiepileptic or glucocorticoid medication. Not Does weight bearing exercise Fracture history: No Height loss: No [employer] history: menarche at age 12 - menopause at age 48 Denies history of Kidney stones: Denies family history of Osteoporosis or hip fracture. UTD on dental cleanings and sees dentist every 6 months. No planned upcoming dental work or extractions. No smoking DXA dated 07/27/23 :FINDINGS: AP SPINE L1-L4: Current: BMD 0.768 g/cm2, Z-score -2.5, T-score -3.4, osteoporosis, 11.1% decrease from previous, 14.9% decrease from baseline (<5% change is not significant). Prior: BMD 0.864 g/cm2. Baseline: BMD 0.902 g/cm2. LEFT FEMUR, NECK: Current: BMD 0.778 g/cm2, Z-score -0.8, T-score -1.9, osteopenia. Prior: BMD 0.808 g/cm2. Baseline: BMD 0.876 g/cm2. LEFT FEMUR, TOTAL: Current: BMD 0.776 g/cm2, Z-score -1.1, T-score -1.8, osteopenia, 1.4% decrease from previous, 10.3% decrease from baseline (<5% change is not significant). Prior: BMD 0.787 g/cm2. Baseline: BMD 0.865 g/cm2. IDENTIFIED RISK FACTORS: Menopause. HISTORY OF FRACTURE: None listed. MEDICATIONS: Vitamin D. MM/XR DEXA axial skeleton IMPRESSION: 1. DIAGNOSIS: Osteoporosis based on the lowest T-score value of -3.4 in the lumbar spine applying World Health Organization criteria. Labs: [facility] Medical History (Updated 12/22/23 @ 16:48 by Iliana Lopez MD) Seasonal allergies Recurrent isolated sleep paralysis Cervical radiculopathy due to degenerative joint disease of spine Depression with anxiety Degenerative disc disease, cervical Anxiety with flying Cervicalgia Hair loss Dysphagia Chronic insomnia Fatigue Dyslipidemia Essential hypertension Postmenopause Atrophic vaginitis Paroxysmal atrial fibrillation Osteoporosis Acquired hypothyroidism Surgical History History of prior ablation treatment Family History Father Hx of CABG Craig's palsy Thyroid disorder Myocardial infarction Mother HTN (hypertension) Hypothyroidism Sister Hypothyroidism Multiple sclerosis Pancreatic cancer Breast cancer Brother No problems noted. Brother No problems noted. Brother No problems noted. Sister Substance use disorder Sister No problems noted. Son No problems noted. Social History Housing: House Alcohol intake: current Patient Tobacco Use Status: Never used Tobacco e-Cigarette/Vaping Use: Never Used service: No Current occupational status: retired Cognitive needs: No Hearing needs: No Vision needs: Yes Physical Exam There are no Cushingoid features. Absence of blue sclera. Absence of kyphosis. Thyroid gland is of nl size and weighs 15 gms. There are no thyroid nodules palpated. Lungs CTA. Heart S1 S2 Reg R/R Abdominal exam benign. Muscle strength 5/5 . Examination of spine reveals absence of tenderness on palpation Assessment & Plan Assessment & Plan (1) Osteoporosis: Code(s): M81.0 - Age-related osteoporosis without current pathological fracture Category: Medical Qualifiers: Osteoporosis type: age-related Presence of current pathological fracture: without current pathological fracture Qualified Code(s): M81.0 - Age- related osteoporosis without current pathological fracture Plan: This is a 63-year-old white female with a history of osteoporosis. We will comp lete secondary workup. Plan is to check a 24 hour urine for calcium and creatinine, serum phosphorus, SPEP, urine immunofixation. We will ensure 1200 mg of calcium and vitamin-D supplementation. Assuming above is normal will talk to patient about pharmacologic therapy and considering very low bone density and spine would consider anabolic therapy initially with either Evenity. Brett or Yvan proceeded by anti resorptive therapy Orders: Orders Protein Electrophoresis, Serum Today M81.0 - Age-related osteoporosis without current pathological fracture Immunofixation, Random Urine Today M81.0 - Age-related osteoporosis without current pathological fracture Phosphorus Today M81.0 - Age-related osteoporosis without current pathological fracture Calcium, 24 Hr Ur Today M81.0 - Age-related osteoporosis without current pathological fracture Creatinine, 24 Hr Group Today M81.0 - Age-related osteoporosis without current pathological fracture Coding Level of Care Code New Pt Level 4 (65787) Diagnoses Age-related osteoporosis without current pathological fracture M81.0 Osteoporosis type: age-related Presence of current pathological fracture: without current pathological fracture
== END 2024-01-25 09:40 | disposition home or self-care (01) ==
PROVIDERS: PCP Internal Medicine; Visit Provider Internal Medicine Endocrinology, Diabetes & Metabolism
DX: M81.0 Age-related osteoporosis without current pathological fracture (principal)
CPT/HCPCS: 99204

== ENCOUNTER → 2024-01-25 08:53 | Outpatient (BNVA) | payer MEDICARE, SELFPAY | PROVIDERS: PCP Internal Medicine; Visit Provider Internal Medicine Endocrinology, Diabetes & Metabolism | DX: M81.0 Age-related osteoporosis without current pathological fracture (principal); E27.49 Other adrenocortical insufficiency; Z78.0 Asymptomatic menopausal state; Z79.01 Long term (current) use of anticoagulants | CPT/HCPCS: 99202 ==

== ENCOUNTER 2024-02-20 10:10 | Outpatient (REF) | payer MEDICARE, SELFPAY ==
[2024-02-20 14:00] LABS: Phosphorus 3.5 mg/dL (2.7-4.5)
[2024-02-22 12:48] LABS: Prot Elec - Albumin 4.1 g/dL (3.8-4.8); Prot Elec - Alpha1 0.3 g/dL (0.2-0.3); Prot Elec - Alpha2 0.7 g/dL (0.5-0.9); Prot Elec - Beta 1 0.5 g/dL (0.4-0.6); Prot Elec - Beta 2 0.4 g/dL (0.2-0.5); Prot Elec - Gamma 1.2 g/dL (0.8-1.7)
== END 2024-02-20 10:11 | disposition home or self-care (01) ==
LOC: HO.HMGCLDS 10:10
PROVIDERS: PCP Internal Medicine; Visit Provider Internal Medicine Endocrinology, Diabetes & Metabolism
DX: M81.0 Age-related osteoporosis without current pathological fracture (principal)
CPT/HCPCS: 84100; 84165; 86335

== ENCOUNTER 2024-02-26 07:40 | Outpatient (REF) | payer MEDICARE, SELFPAY ==
[2024-02-26 11:35] LABS: Creatinine, mg/dL 71.26
[2024-02-26 14:10] LABS: Creatinine, 24Hr Urine 1.1 G/Day (1.0-2.0); Total Volume 24 Hour Urine 1500 mL
[2024-02-27 20:03] LABS: Calcium, 24 Hr Urine 87 mg/24 h; Calcium/Creatinine Ratio 81 mg/g creat (30-275); Creatinine 24Hr Urine 1.08 g/24 h (0.50-2.15)
== END 2024-02-26 07:41 | disposition home or self-care (01) ==
LOC: HO.HMGCLDS 07:40
PROVIDERS: PCP Internal Medicine; Visit Provider Internal Medicine Endocrinology, Diabetes & Metabolism
DX: M81.0 Age-related osteoporosis without current pathological fracture (principal)
CPT/HCPCS: 82340; 82570

== ENCOUNTER 2024-03-12 14:53 | Outpatient (AMB) | payer MEDICARE, SELFPAY ==
--- NOTE | 2024-03-12 15:07 | MHC.OFFVIS ---
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: No Accompanied by: Self / Same As Patient Allergies levofloxacin [Levaquin] Allergy (Unknown, Verified 03/12/24 15:11) hives Sulfa (Sulfonamide Antibiotics) Allergy (Unknown, Verified 03/12/24 15:11) itchy, hives sulfamethoxazole [From Bactrim] Allergy (Unknown, Verified 03/12/24 15:11) itchy, hives Tetanus Vaccines and Toxoid Allergy (Unknown, Verified 03/12/24 15:11) convulsion trimethoprim [From Bactrim] Allergy (Unknown, Verified 03/12/24 15:11) itchy, hives codeine cough syrup Allergy (Unknown, Uncoded 01/25/24 09:09) hives zpack Adverse Reaction (Unknown, Uncoded 01/25/24 09:09) vomiting HPI Comments Details: Patient presents today for follow up for worsening neck pain and new onset low back pain. Reports lifting her 2 years old grandchild in December with worsening of her neck pain with occasional numbness and tingling in her left occipital region and left upper extremity with weakness. Previously, neck pain was worse on the right side. She also reports low back pain with bilateral radiculopathy with most movements, bending, twisting, backwards extension and prolonged walking. She completed PT last year with minimal relief and chiropractic adjustments in neck this spring which resolved in significant vertigo and required Vestibular PT with 4 Epleys maneuvers. Recent bone density scan showed osteoporosis in her lumbar spine, with a T-score of-3.4, osteopenia in femoral neck and left femur. Takes calcium with vitamin-D supplements. Patient was unable to tolerate Boniva in the past due to severe GI upset. Denies history of compression fractures. Patient reports she had follow up with her PCP provider in December for worsening symptoms and MRI was ordered but no one is contacting her to schedule it. Patient reports she has significant claustrophobia and requires open MRI and oral Ativan. Denies any fever, chills, abdominal or groin pain, shortness of breaths, chest pain, gait imbalances, foot drop, bladder or bowel dysfunction or saddle anesthesia. PRIOR 05/02/23: Patient is a pleasant 63 years old female presents today for initial evaluation for neck pain. Medical history noted for paroxysmal atrial fibrillation s/p ablation and osteoporosis. Denies any trauma, injury or falls. Neck pain increases with movements, looking down while reading or working on computer at home, and side rotations, especially on the right side or driving and quick rotations to the right will significantly increase her pain. Occasionally pain will radiate into her left lower arm and shoulders and more frequently into her lower occipital regions. Right hand dominant. Reports previous left shoulder surgery. Patient did not make any gains regarding pain or function with physical therapy. Pain is rated at 7/10. Denies spine surgery or injections. PT, TENS unit, position modifications, NSAIDs have not been beneficial to her. Pain affects her daily activities, functioning, sleep, social activities and quality of life. Denies any fever, chills, weight loss, visual disturbances, headaches, clumsiness of hands and feet, tenderness at the posterior midline of cervical spine, changes in gait, lack of coordination, bladder or bowel incontinence or saddle anesthesia. Patient presents with a normal level of alertness without any focal neurological deficits. Recent cervical spine imaging consistent with degenerative changes and spondylosis. Location Neck pain Duration October 2022 Characteristics of symptom or complaint Aching, sharp, numbness, stabbing, tingling, shooting Aggravating or associated factors Movement, sleeping Relieving factors Ibuprofen, rest-partial relief Treatment PT- made pain worse, TENS unit [facility] Medical History (Updated 03/12/24 @ 15:19 by DARRICK Abarca) Seasonal allergies Recurrent isolated sleep paralysis Cervical radiculopathy due to degenerative joint disease of spine Depression with anxiety Degenerative disc disease, cervical Anxiety with flying Cervicalgia Hair loss Dysphagia Chronic insomnia Fatigue Dyslipidemia Essential hypertension Postmenopause Atrophic vaginitis Paroxysmal atrial fibrillation Osteoporosis Acquired hypothyroidism Surgical History History of prior ablation treatment Family History Father Hx of CABG Craig's palsy Thyroid disorder Myocardial infarction Mother HTN (hypertension) Hypothyroidism Sister Hypothyroidism Multiple sclerosis Pancreatic cancer Breast cancer Brother No problems noted. Brother No problems noted. Brother No problems noted. Sister Substance use disorder Sister No problems noted. Son No problems noted. Social History Housing: House Alcohol intake: current Patient Tobacco Use Status: Never used Tobacco e-Cigarette/Vaping Use: Never Used service: No Current occupational status: retired Cognitive needs: No Hearing needs: No Vision needs: Yes Review of Systems Const All systems reviewed & are unremarkable except as noted in HPI and below Physical Exam Vital Signs: Last Vital Signs Pulse 69 03/12/24 15:11 BP 147/68 H 03/12/24 15:11 Pulse Ox 98 03/12/24 15:11 Oxygen Delivery Method Room Air 03/12/24 15:11 General: Appears afebrile. Alert and oriented. Mood and affect appropriate. Follows and participates in conversation appropriately. Respiratory effort is unlabored. No cough. Able to transition from sit to stand unassisted. Ambulates with bilaterally normal heel strike and toe off. Neck Other: Patient with decreased cervical ROM in all planes/especially with right lateral rotation and bending down. Reports increased pain with cervical extension and flexion. Spurling compression test is negative. Pain is unchanged by Spurling maneuver with retraction. Elvey's tension test reproduces pain from neck into her left upper arm and elbow with tingling in her fingers. Lhermitte's test was negative. 2 + radial pulses. Mild to moderate tightness throughout bilateral upper trapezius muscles. No paravertebral tenderness over facet joints. Neck: Yes normal visual inspection, Yes no lymphadenopathy, Yes supple, No anterior neck swelling, Yes no JVD, No prominent supraclavicular fat pad and No prominent dorsocervical fat pad General: Yes no CVA tenderness Back/Spine/Pelvis Other: Limited lumbar ROM due to pain. Positive facet loading bilaterally. Minimal midline tenderness in the lower lumbar spine, no midline tenderness in cervical or thoracic spine. Strength 5/5 hip flexion bilaterally. DTR intact and symmetric, no clonus. Negative Alex's test. Back: no CVA tenderness Cervical Spine: cervical muscular tenderness, pain with cervical ROM, No Cervical spine scars present, cervical spasm, No Cervical spine tenderness and No step off deformity Thoracic/Lumbar Spine: thoracic and lumbar spine normal to inspection, No Thoracic/lumbar spine scar(s), Lasegue's sign negative, straight leg raise negative bilaterally, pain with thoraco-lumbar ROM, paraspinal muscle tenderness, thoraco-lumbar ROM limited, No thoracic spinal tenderness and lumbar spinal tenderness (L4-S1) Pelvis: no buttock tenderness Sacroiliac joints: bilaterally nontender Results Reviewed Results Reviewed: XR CERVICAL SPINE 12/14/22 FINDINGS: Bone alignment is normal. No fracture or dislocation. The bones may be osteopenic. Disc spaces are normal. There is right-sided mild neuroforaminal narrowing at C3-C4 from bony osteophyte. There is is left-sided mild neuroforaminal narrowing from bony osteophyte at C3-C4 and C4-C5. Prevertebral soft tissues are normal. IMPRESSION: Mild degenerative changes. MM/XR DEXA axial skeleton 07/27/23 IMPRESSION: 1. DIAGNOSIS: Osteoporosis based on the lowest T-score value of -3.4 in the lumbar spine applying World Health Organization criteria. Assessment & Plan Assessment & Plan (1) Lumbar radiculopathy: Code(s): M54.16 - Radiculopathy, lumbar region Category: Medical (2) Lumbosacral spondylosis: Code(s): M47.817 - Spondylosis without myelopathy or radiculopathy, lumbosacral region Category: Medical (3) Osteoporosis: Code(s): M81.0 - Age-related osteoporosis without current pathological fracture Category: Medical Qualifiers: Osteoporosis type: age-related Presence of current pathological fracture: without current pathological fracture Qualified Code(s): M81.0 - Age-related osteoporosis without current pathological fracture (4) Cervical radiculopathy due to degenerative joint disease of spine: Code(s): M47.22 - Other spondylosis with radiculopathy, cervical region Category: Medical (5) Cervical spondylosis: Code(s): M47.812 - Spondylosis without myelopathy or radiculopathy, cervical region Category: Medical Plan MRI of the cervical and lumbar spine to assess for neural integrity and compression. Neck pain with radicular symptoms has been resistant to conservative treatments for one year, including PT, chiropractic therapy, NSAIDs, TENS unit. Patient recently was started on Eliquis with h/o Afib, cannot take oral NSAIDs. Back pain with localized midline tenderness and osteoporosis in the lumbar spine with pain exacerbation >3 months after lifting injury. Patient will return to the clinic to discuss results of the MRI findings when it is done and consider interventional therapy as indicated.?She requests open MRI at [facility] with oral Ativan. Script provided. Refills provided for methocarbamol and diclofenac gel. Continue to monitor for side effects. All questions and concerns have been answered and patient agreed with the treatment plan. Follow up for MRI results and sooner as needed. Orders: Orders MR cervical spine wo con Today M47.22 - Other spondylosis with radiculopathy, cervical region, Z86.59 - Personal history of other mental and behavioral disorders MR lumbar spine wo con Today M47.817 - Spondylosis without myelopathy or radiculopathy, lumbosacral region, M54.16 - Radiculopathy, lumbar region, M81.0 - Age-related osteoporosis without current pathological fracture, Z86.59 - Personal history of other mental and behavioral disorders Medications: New lorazepam Please take one tablet 30 min prior to MRI, may repeat x1 1 mg PO ONCE PRN 2 tabs 0RF anxiety M47.22 - Other spondylosis with radiculopathy, cervical region, M54.16 - Radiculopathy, lumbar region, Z86.59 - Personal history of other mental and behavioral disorders Refilled diclofenac sodium 1% (Voltaren Arthritis Pain) 4 grams topical QID 100 grams 0RF pain M50.30 - Other cervical disc degeneration, unspecified cervical region, M54.2 - Cervicalgia methocarbamol 750 mg PO BID 30 days PRN 60 tabs 0RF muscle spasm M50.30 - Other cervical disc degeneration, unspecified cervical region, M54.2 - Cervicalgia, M62.838 - Other muscle spasm Coding Level of Care Code Est Pt Level 4 (05287) Complex EM visit Add On G2211 Diagnoses Lumbar radiculopathy M54.16 Lumbosacral spondylosis M47.817 Age-related osteoporosis without current pathological fracture M81.0 Osteoporosis type: age-related Presence of current pathological fracture: without current pathological fracture Cervical radiculopathy due to degenerative joint disease of spine M47.22 Cervical spondylosis M47.812
[2024-03-12 15:11] VITALS: BP 147/68; PULSE 69; O2SAT 98
== END 2024-03-12 15:33 | disposition home or self-care (01) ==
PROVIDERS: PCP Internal Medicine; Visit Provider Nurse Practitioner Family
DX: M54.16 Radiculopathy, lumbar region (principal); M47.817 Spondylosis without myelopathy or radiculopathy, lumbosacral region; M81.0 Age-related osteoporosis without current pathological fracture; M47.22 Other spondylosis with radiculopathy, cervical region; M47.812 Spondylosis without myelopathy or radiculopathy, cervical region
CPT/HCPCS: 99214; G2211

== ENCOUNTER → 2024-03-12 14:53 | Outpatient (BNVA) | payer MEDICARE, SELFPAY | PROVIDERS: PCP Internal Medicine; Visit Provider Nurse Practitioner Family | DX: M54.16 Radiculopathy, lumbar region (principal); M81.0 Age-related osteoporosis without current pathological fracture; M47.817 Spondylosis without myelopathy or radiculopathy, lumbosacral region; M47.812 Spondylosis without myelopathy or radiculopathy, cervical region | CPT/HCPCS: 99212 ==

== ENCOUNTER 2024-04-18 10:04 | Outpatient (AMB) | payer MEDICARE, SELFPAY ==
--- NOTE | 2024-04-18 10:12 | MHC.OFFVIS ---
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: No Accompanied by: Self / Same As Patient Allergies levofloxacin [Levaquin] Allergy (Unknown, Verified 04/18/24 10:16) hives Sulfa (Sulfonamide Antibiotics) Allergy (Unknown, Verified 04/18/24 10:16) itchy, hives sulfamethoxazole [From Bactrim] Allergy (Unknown, Verified 04/18/24 10:16) itchy, hives Tetanus Vaccines and Toxoid Allergy (Unknown, Verified 04/18/24 10:16) convulsion trimethoprim [From Bactrim] Allergy (Unknown, Verified 04/18/24 10:16) itchy, hives codeine cough syrup Allergy (Unknown, Uncoded 01/25/24 09:09) hives zpack Adverse Reaction (Unknown, Uncoded 01/25/24 09:09) vomiting HPI Comments Details: Patient presents today for follow up to discuss recent cervical and lumbar spine MRI results which she completed at [facility] on 03/21/24. Denies any recent cough, cold, infection, fever or other significant changes in medical history since last office visit. PRIOR: Patient presents today for follow up for worsening neck pain and new onset low back pain. Reports lifting her 2 years old grandchild in December with worsening of her neck pain with occasional numbness and tingling in her left occipital region and left upper extremity with weakness. Previously, neck pain was worse on the right side. She also reports low back pain with bilateral radiculopathy with most movements, bending, twisting, backwards extension and prolonged walking. She completed PT last year with minimal relief and chiropractic adjustments in neck this spring which resolved in significant vertigo and required Vestibular PT with 4 Epleys maneuvers. Recent bone density scan showed osteoporosis in her lumbar spine, with a T-score of-3.4, osteopenia in femoral neck and left femur. Takes calcium with vitamin-D supplements. Patient was unable to tolerate Boniva in the past due to severe GI upset. Denies history of compression fractures. Patient reports she had follow up with her PCP provider in December for worsening symptoms and MRI was ordered but no one is contacting her to schedule it. Patient reports she has significant claustrophobia and requires open MRI and oral Ativan. Denies any fever, chills, abdominal or groin pain, shortness of breaths, chest pain, gait imbalances, foot drop, bladder or bowel dysfunction or saddle anesthesia. PRIOR 05/02/23: Patient is a pleasant 63 years old female presents today for initial evaluation for neck pain. Medical history noted for paroxysmal atrial fibrillation s/p ablation and osteoporosis. Denies any trauma, injury or falls. Neck pain increases with movements, looking down while reading or working on computer at home, and side rotations, especially on the right side or driving and quick rotations to the right will significantly increase her pain. Occasionally pain will radiate into her left lower arm and shoulders and more frequently into her lower occipital regions. Right hand dominant. Reports previous left shoulder surgery. Patient did not make any gains regarding pain or function with physical therapy. Pain is rated at 7/10. Denies spine surgery or injections. PT, TENS unit, position modifications, NSAIDs have not been beneficial to her. Pain affects her daily activities, functioning, sleep, social activities and quality of life. Denies any fever, chills, weight loss, visual disturbances, headaches, clumsiness of hands and feet, tenderness at the posterior midline of cervical spine, changes in gait, lack of coordination, bladder or bowel incontinence or saddle anesthesia. Patient presents with a normal level of alertness without any focal neurological deficits. Recent cervical spine imaging consistent with degenerative changes and spondylosis. Location Neck pain Duration October 2022 Characteristics of symptom or complaint Aching, sharp, numbness, stabbing, tingling, shooting Aggravating or associated factors Movement, sleeping Relieving factors Ibuprofen, rest-partial relief Treatment PT- made pain worse, TENS unit [facility] Medical History (Updated 04/18/24 @ 16:17 by DARRICK Abarca) Seasonal allergies Recurrent isolated sleep paralysis Cervical radiculopathy due to degenerative joint disease of spine Depression with anxiety Degenerative disc disease, cervical Anxiety with flying Cervicalgia Hair loss Dysphagia Chronic insomnia Fatigue Dyslipidemia Essential hypertension Postmenopause Atrophic vaginitis Paroxysmal atrial fibrillation Osteoporosis Acquired hypothyroidism Surgical History History of prior ablation treatment Family History Father Hx of CABG Craig's palsy Thyroid disorder Myocardial infarction Mother HTN (hypertension) Hypothyroidism Sister Hypothyroidism Multiple sclerosis Pancreatic cancer Breast cancer Brother No problems noted. Brother No problems noted. Brother No problems noted. Sister Substance use disorder Sister No problems noted. Son No problems noted. Social History Housing: House Alcohol intake: current Patient Tobacco Use Status: Never used Tobacco e-Cigarette/Vaping Use: Never Used service: No Current occupational status: retired Cognitive needs: No Hearing needs: No Vision needs: Yes Review of Systems Const All systems reviewed & are unremarkable except as noted in HPI and below Physical Exam Vital Signs: Last Vital Signs Pulse 64 04/18/24 10:16 BP 148/67 H 04/18/24 10:16 Pulse Ox 97 04/18/24 10:16 Oxygen Delivery Method Room Air 04/18/24 10:16 General: Appears afebrile. No acute distress. Alert and oriented. Mood and affect appropriate. Follows and participates in conversation appropriately. Respiratory effort is unlabored. No cough. Able to transition from sit to stand unassisted. Ambulates with bilaterally normal heel strike and toe off. Neck Other: Patient with decreased cervical ROM in all planes/especially with lateral rotations and bending down, left>right. Reports increased pain with cervical extension and flexion, worse with extension. Spurling compression test is negative. Pain is unchanged by Spurling maneuver with retraction. Elvey's tension test reproduces pain from neck into her left upper arm and elbow with tingling in her fingers. Lhermitte's test was negative. 2 + radial pulses. Mild to moderate tightness throughout bilateral upper trapezius muscles. No paravertebral tenderness over facet joints. Neck: Yes normal visual inspection, Yes no lymphadenopathy, Yes supple, No anterior neck swelling, No torticollis, Yes no JVD, No prominent supraclavicular fat pad and No prominent dorsocervical fat pad General: Yes no CVA tenderness Back/Spine/Pelvis Other: Limited lumbar ROM due to pain. Positive facet loading bilaterally. No midline tenderness in the lower lumbar spine, no midline tenderness in cervical or thoracic spine. Strength 5/5 hip flexion bilaterally. DTR intact and symmetric, no clonus. Negative Alex's test. Back: no CVA tenderness Cervical Spine: cervical muscular tenderness, pain with cervical ROM, No Cervical spine scars present, cervical spasm, No Cervical spine tenderness and No step off deformity Thoracic/Lumbar Spine: thoracic and lumbar spine normal to inspection, No Thoracic/lumbar spine scar(s), Lasegue's sign negative, straight leg raise negative bilaterally, pain with thoraco-lumbar ROM, paraspinal muscle tenderness, thoraco-lumbar ROM limited, No thoracic spinal tenderness and lumbar spinal tenderness (L4-S1) Pelvis: no buttock tenderness Sacroiliac joints: bilaterally nontender Extrem General: Yes capillary refill normal, Yes no clubbing, cyanosis or edema and Yes no calf tenderness Results Reviewed Results Reviewed: XR CERVICAL SPINE 12/14/22 FINDINGS: Bone alignment is normal. No fracture or dislocation. The bones may be osteopenic. Disc spaces are normal. There is right-sided mild neuroforaminal narrowing at C3-C4 from bony osteophyte. There is is left-sided mild neuroforaminal narrowing from bony osteophyte at C3-C4 and C4-C5. Prevertebral soft tissues are normal. IMPRESSION: Mild degenerative changes. MM/XR DEXA axial skeleton 07/27/23 IMPRESSION: 1. DIAGNOSIS: Osteoporosis based on the lowest T-score value of -3.4 in the lumbar spine applying World Health Organization criteria. MR SPINE LUMBAR without CONTRAST 03/21/24 at [facility] INDICATION: Lumbar Spine Spondylosis. Lower back pain radiating to both sides since 10/2022 COMPARISON: None Available. FINDINGS: Slight dextroscoliosis. Otherwise normal lumbar alignment is demonstrated. There is a Schmorl''s node involving the superior endplate of L1 on the right. There appears to be slight depression of the superior endplate of L4 on the left. There is no associated edema to suggest these are acute findings. The height of the vertebral bodies is otherwise maintained. Bone marrow signal is within normal limits, and no suspicious osseous lesion is identified. Conus medullaris is unremarkable. Paraspinal soft tissues and visualized portions of the abdomen and pelvis are unremarkable. At T12-L1 there is no significant disc herniation or protrusion. No central canal or neural foraminal stenosis is demonstrated. At L1-2 there is no significant disc herniation or protrusion. No central canal or neural foraminal stenosis is demonstrated. At L2-3 there is disc desiccation with a mild bulging disc. Mild hypertrophic changes in the posterior elements. Mild narrowing of the central spinal canal with the AP dimension of the thecal sac reduced to approximately 10 mm. Mild bilateral encroachment upon the neural foramina. At L3-4 there is a mild bulging disc. Mild hypertrophic changes in the posterior elements. Mild spinal stenosis with narrowing of the AP dimension of the thecal sac to approximately 9 mm. Mild bilateral encroachment upon the neural foramina. At L4-5 there is minimal bulging of the disc with minimal endplate osteophytes. There is only slight narrowing of the canal with mild bilateral encroachment upon the neural foramina. At L5-S1 there is minimal bulging of the disc. No central canal or neural foraminal stenosis is demonstrated. IMPRESSION: Mild degenerative changes in the lumbar spine. Mild spinal stenosis at L2-3 and L3-4. Mild bilateral encroachment upon the neural foramina at L2-3 and L3-4. MR SPINE CERVICAL without CONTRAST 03/21/24 at [facility] INDICATION: Cervicalgia. Spondylosis with radiculopathy, cervical region. COMPARISON: None available. FINDINGS: Normal cervical alignment is demonstrated. Vertebral heights are well maintained. Craniocervical junction is unremarkable. Bone marrow signal is within normal limits, and no suspicious osseous lesion is identified. Prevertebral and paraspinal soft tissues are within normal limits. Visualized portions of the posterior fossa are unremarkable. Cervical cord demonstrates normal course, caliber, and signal characteristics. No epidural fluid collection or hematoma is identified. At C2-3 there is no significant disc herniation or protrusion. No central canal or neural foraminal stenosis is demonstrated. At C3-4 there is minor broad-based central disc osteophyte without significant central canal stenosis or foraminal narrowing. At C4-5 there is minor central disc bulge without significant central canal stenosis. There is mild facet arthrosis on the right with uncovertebral joint degenerative change causing moderate right neural foraminal narrowing. Probable impingement exiting nerve root. Left neural foramen preserved. At C5-6 there is no significant disc herniation or protrusion. No central canal or neural foraminal stenosis is demonstrated. At C6-7 there is no significant disc herniation or protrusion. No central canal or neural foraminal stenosis is demonstrated. At C7-T1 there is no significant disc herniation or protrusion. No central canal or neural foraminal stenosis is demonstrated. Right-sided neural sheath cysts approximately 5 mm in size seen at C7-T1 and T1-2 levels. IMPRESSION: Mild degenerative change of the cervical spine with moderate right C4-5 neural foraminal narrowing with probable impingement exiting nerve root. Assessment & Plan Assessment & Plan (1) Cervical spondylosis: Code(s): M47.812 - Spondylosis without myelopathy or radiculopathy, cervical region Category: Medical (2) Degenerative disc disease, cervical: Code(s): M50.30 - Other cervical disc degeneration, unspecified cervical region Category: Medical (3) Muscle spasms of neck: Code(s): M62.838 - Other muscle spasm Category: Medical (4) Lumbosacral spondylosis: Code(s): M47.817 - Spondylosis without myelopathy or radiculopathy, lumbosacral region Category: Medical (5) Cervical radiculopathy due to degenerative joint disease of spine: Code(s): M47.22 - Other spondylosis with radiculopathy, cervical region Category: Medical (6) Muscle spasm: Code(s): M62.838 - Other muscle spasm Category: Medical (7) Perineural cysts: Code(s): G96.191 - Perineural cyst Category: Medical Plan MRI of the cervical and lumbar spine imaging results were discussed with patient today. Neck pain has been more bothersome than lower back pain. Discussed interventional treatments for axial neck pain. Cervical spine MRI noted for mild degenerative change of the cervical spine with moderate right C4-5 neural foraminal narrowing with probable impingement exiting nerve root. Right-sided neural sheath cysts approximately 5 mm in size seen at C7-T1 and T1-2 levels. We will plan for Bilateral Diagnostic C4-C5-C6 MBB with local and fluoroscopy for potential Sprint PNS trial or RFA procedures. If no pain relief, will consider ultrasound-guided selective nerve root block on cervical perineural cysts at right C7-T1 and T1-T2 levels if remains symptomatic. Patient has significant osteoporosis in the lumbar spine and is not candidate for therapeutic injections. Script provided for tizanidine. We will stop methocarbamol. Side effects and precautions were discussed with patient. All questions and concerns have been answered and patient agreed with the treatment plan. Follow up after injections and sooner as needed. Medications: New tizanidine 2 mg PO TID PRN 90 tabs 0RF muscle spasm 30 days M47.812 - Spondylosis without myelopathy or radiculopathy, cervical region, M50.30 - Other cervical disc degeneration, unspecified cervical region, M62.838 - Other muscle spasm Discontinued methocarbamol Discontinued Reason: Patient no longer taking 750 mg PO BID 30 days PRN 60 tabs 0RF muscle spasm M50.30 - Other cervical disc degeneration, unspecified cervical region, M54.2 - Cervicalgia, M62.838 - Other muscle spasm Coding Level of Care Code Est Pt Level 4 (18746) Complex EM visit Add On G2211 Diagnoses Cervical spondylosis M47.812 Degenerative disc disease, cervical M50.30 Muscle spasms of neck M62.838 Lumbosacral spondylosis M47.817 Cervical radiculopathy due to degenerative joint disease of spine M47.22 Muscle spasm M62.838 Perineural cysts G96.191
[2024-04-18 10:16] VITALS: BP 148/67; PULSE 64; O2SAT 97
== END 2024-04-18 10:46 | disposition home or self-care (01) ==
PROVIDERS: PCP Internal Medicine; Visit Provider Nurse Practitioner Family
DX: M47.812 Spondylosis without myelopathy or radiculopathy, cervical region (principal); M50.30 Other cervical disc degeneration, unspecified cervical region; M62.838 Other muscle spasm; M47.817 Spondylosis without myelopathy or radiculopathy, lumbosacral region; M47.22 Other spondylosis with radiculopathy, cervical region; G96.191 Perineural cyst
CPT/HCPCS: 99214; G2211

== ENCOUNTER → 2024-04-18 10:04 | Outpatient (BNVA) | payer MEDICARE, SELFPAY | PROVIDERS: PCP Internal Medicine; Visit Provider Nurse Practitioner Family | DX: M50.30 Other cervical disc degeneration, unspecified cervical region (principal); M62.838 Other muscle spasm; M47.817 Spondylosis without myelopathy or radiculopathy, lumbosacral region; M47.22 Other spondylosis with radiculopathy, cervical region; G96.191 Perineural cyst; Z71.2 Person consulting for explanation of examination or test findings | CPT/HCPCS: 99212 ==

== ENCOUNTER 2024-04-19 12:58 | Outpatient (AMB) | payer MEDICARE, SELFPAY ==
--- NOTE | 2024-04-19 13:11 | MHC.OFFVIS ---
Vital Signs 04/19/24 13:14 Height 5 ft 6 in Intake Visit Reasons: INP-Sleep Paralisis Intake Note: Patient presents for sleep paralisis Allergies levofloxacin [Levaquin] Allergy (Unknown, Verified 04/19/24 13:15) hives Sulfa (Sulfonamide Antibiotics) Allergy (Unknown, Verified 04/19/24 13:15) itchy, hives sulfamethoxazole [From Bactrim] Allergy (Unknown, Verified 04/19/24 13:15) itchy, hives Tetanus Vaccines and Toxoid Allergy (Unknown, Verified 04/19/24 13:15) convulsion trimethoprim [From Bactrim] Allergy (Unknown, Verified 04/19/24 13:15) itchy, hives codeine cough syrup Allergy (Unknown, Uncoded 04/19/24 13:15) hives zpack Adverse Reaction (Unknown, Uncoded 04/19/24 13:15) vomiting Medication List - Last Reconciled 04/19/24 by Anabel Ramos MD acetaminophen ER (Arthritis Pain Relief (acetaminophen) ER) 1,300 mg (2 x 650 mg) PO Q12H PRN 30 days apixaban (Eliquis) 5 mg PO BID aspirin (Adult Low Dose Aspirin) 81 mg PO DAILY azelastine 2 sprays intranasal BID calcium carbonate-vitamin D3 600 mg-12.5 mcg (500 unit) (Calcium 600 with Vitamin D3) caps PO cholecalciferol (vitamin D3) 50 mcg PO DAILY diclofenac sodium 1% (Voltaren Arthritis Pain) 4 grams topical QID escitalopram oxalate 10 mg PO DAILY gabapentin 300 mg PO BEDTIME Levoxyl (levothyroxine) 100 mcg PO QAM NS lorazepam 1 mg PO ONCE PRN metoprolol tartrate 50 mg PO BID tizanidine 2 mg PO TID PRN 30 days zolpidem 5 mg PO BEDTIME PRN HPI Comments Details: 64y/o female comes here for evaluation of sleep issues. she has trouble falling asleep and staying asleep for over 15 years. she goes to bed around 9.20-10 tosses and turns , legs bother her and finally sleeps around 11pm. she wakes up twice to use the bathroom and stays awake for 2-3 hrs before she sleeps . she wakes up at 7.30am and is very fatigued. But she is unable to nap. she snores intermittently. she has on and off leg discomfort at night in bed better with movement.It does not wake her up from sleep. No leg spasms. she has vivid dreams . No cataplexy like symptoms she has very rare sleep paralysis and her father used to get it. [facility] Medical History (Updated 04/19/24 @ 13:52 by Anabel Ramos MD) Restless legs syndrome (RLS) Sleep paralysis Insomnia Snoring Hypersomnia Seasonal allergies Recurrent isolated sleep paralysis Cervical radiculopathy due to degenerative joint disease of spine Depression with anxiety Degenerative disc disease, cervical Anxiety with flying Cervicalgia Hair loss Dysphagia Chronic insomnia Fatigue Dyslipidemia Essential hypertension Postmenopause Atrophic vaginitis Paroxysmal atrial fibrillation Osteoporosis Acquired hypothyroidism Surgical History History of prior ablation treatment Family History Father Hx of CABG Craig's palsy Thyroid disorder Myocardial infarction Mother HTN (hypertension) Hypothyroidism Sister Hypothyroidism Multiple sclerosis Pancreatic cancer Breast cancer Brother No problems noted. Brother No problems noted. Brother No problems noted. Sister Substance use disorder Sister No problems noted. Son No problems noted. Social History Housing: House Alcohol intake: current Patient Tobacco Use Status: Never used Tobacco e-Cigarette/Vaping Use: Never Used service: No Current occupational status: retired Cognitive needs: No Hearing needs: No Vision needs: Yes Physical Exam Const General: cooperative, healthy appearing and comfortable Nutritional Appearance: average body habitus and overweight Orientation/consciousness: patient oriented x3 Eyes Pupils: Equal, round and reactive pupils present Neuro General: patient oriented x3, gait normal, tone normal, moves all extremities and no focal motor deficits Cranial nerves: Yes Facial sensation intact/muscles of mastication intact, Yes Equal, round and reactive pupils present, Yes Bilaterally intact EOM present, Yes Nystagmus not present, Yes Normal facial strength present, Yes Midline tongue present and Yes Symmetric palate elevation present Cognition (Neuro): normal cognition Gait exam (Neuro): Normal gait present Motor exam (neuro): 5/5 motor strength present throughout and Normal motor muscle tone present throughout Deep tendon reflexes (DTR's): Right triceps reflex intensity grade: 3+, Left triceps reflex intensity grade: 3+, Rt Biceps (C5, C6): 3+, Left biceps reflex intensity grade: 3+, Right brachioradialis reflex intensity grade: 3+, Left brachioradialis reflex intensity grade: 3+, Right patellar reflex intensity grade: 3+ and Left patellar reflex intensity grade: 3+ Coordination: [id number] test normal Assessment & Plan Assessment & Plan (1) Hypersomnia: Code(s): G47.10 - Hypersomnia, unspecified Category: Medical (2) Insomnia: Code(s): G47.00 - Insomnia, unspecified Category: Medical Qualifiers: Insomnia type: psychophysiologic Qualified Code(s): F51.04 - Psychophysiologic insomnia (3) Sleep paralysis: Code(s): G47.8 - Other sleep disorders Category: Medical (4) Restless legs syndrome (RLS): Code(s): G25.81 - Restless legs syndrome Category: Medical Plan Sleep study to r/o sleep apnea gabapentin 300mg qhs for RLS and insomnia will monitor sleep paralysis Discussed sleep hygiene Orders: Orders RT home sleep study Today G47.10 - Hypersomnia, unspecified, R06.83 - Snoring Medications: New gabapentin 300 mg PO BEDTIME 30 caps 3RF Coding Level of Care Code New Pt Level 4 (79855) Complex EM visit Add On G2211 Diagnoses Hypersomnia G47.10 Psychophysiological insomnia F51.04 Insomnia type: psychophysiologic Sleep paralysis G47.8 Restless legs syndrome (RLS) G25.81
== END 2024-04-19 13:49 | disposition home or self-care (01) ==
PROVIDERS: PCP Internal Medicine; Visit Provider Psychiatry & Neurology Neurology
DX: G47.10 Hypersomnia, unspecified (principal); F51.04 Psychophysiologic insomnia; G47.8 Other sleep disorders; G25.81 Restless legs syndrome
CPT/HCPCS: 99204; G2211

== ENCOUNTER → 2024-04-19 12:58 | Outpatient (BNVA) | payer MEDICARE, SELFPAY | PROVIDERS: PCP Internal Medicine; Visit Provider Psychiatry & Neurology Neurology | DX: G47.10 Hypersomnia, unspecified (principal); G47.00 Insomnia, unspecified; F51.04 Psychophysiologic insomnia; G47.8 Other sleep disorders; G25.81 Restless legs syndrome | CPT/HCPCS: 99202 ==

== ENCOUNTER 2024-05-09 08:48 | Outpatient (AMB) | payer MEDICARE, SELFPAY ==
--- NOTE | 2024-05-09 08:50 | A.OFFVIS_ITS ---
Vital Signs 05/09/24 08:54 Height 5 ft 6.52 in Weight 203 lb 11.314 oz BMI 32.4 BP 134/76 Blood Pressure Location Rt brachial Position Sitting Pulse 60 Pulse Source Pulse Oximeter Intake Visit Reasons: Osteoporosis-lvm Intake Note: Patient present today for Osteoporosis follow up visit. 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 Accompanied by: Self / Same As Patient Allergies levofloxacin [Levaquin] Allergy (Unknown, Verified 05/09/24 08:55) hives Sulfa (Sulfonamide Antibiotics) Allergy (Unknown, Verified 05/09/24 08:55) itchy, hives sulfamethoxazole [From Bactrim] Allergy (Unknown, Verified 05/09/24 08:55) itchy, hives Tetanus Vaccines and Toxoid Allergy (Unknown, Verified 05/09/24 08:55) convulsion trimethoprim [From Bactrim] Allergy (Unknown, Verified 05/09/24 08:55) itchy, hives codeine cough syrup Allergy (Unknown, Uncoded 05/09/24 08:55) hives zpack Adverse Reaction (Unknown, Uncoded 05/09/24 08:55) vomiting HPI Comments Details: 64 YO Female is seen in consultation at the request of PCP for Osteoporosis. First diagnosed in Jul 2023 . Received treatment in the past with Boniva , 1 mo several yrs ago . Could not Tolerated treatment because of GERD No history of pathologic fracture or ONJ. Has several servings of dietary calcium per day in the form of cheese , ice cream . Not Takes Calcium supplement . Takes 2000 IU of Vitamin D daily. Takes PPI intermittedly , anticoagulant, antiepileptic or glucocorticoid medication. 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 UTD on dental cleanings and sees dentist every 6 months. No planned upcoming dental work or extractions. No smoking DXA dated 07/27/23 :FINDINGS: AP SPINE L1-L4: Current: BMD 0.768 g/cm2, Z-score -2.5, T-score -3.4, osteoporosis, 11.1% decrease from previous, 14.9% decrease from baseline (<5% change is not significant). Prior: BMD 0.864 g/cm2. Baseline: BMD 0.902 g/cm2. LEFT FEMUR, NECK: Current: BMD 0.778 g/cm2, Z-score -0.8, T-score -1.9, osteopenia. Prior: BMD 0.808 g/cm2. Baseline: BMD 0.876 g/cm2. LEFT FEMUR, TOTAL: Current: BMD 0.776 g/cm2, Z-score -1.1, T-score -1.8, osteopenia, 1.4% decrease from previous, 10.3% decrease from baseline (<5% change is not significant). Prior: BMD 0.787 g/cm2. Baseline: BMD 0.865 g/cm2. IDENTIFIED RISK FACTORS: Menopause. HISTORY OF FRACTURE: None listed. MEDICATIONS: Vitamin D. MM/XR DEXA axial skeleton IMPRESSION: 1. DIAGNOSIS: Osteoporosis based on the lowest T-score value of -3.4 in the lumbar spine applying World Health Organization criteria. Labs: Secondary workup was negative [facility] Medical History (Updated 04/19/24 @ 13:52 by Anabel Ramos MD) Restless legs syndrome (RLS) Sleep paralysis Insomnia Snoring Hypersomnia Seasonal allergies Recurrent isolated sleep paralysis Cervical radiculopathy due to degenerative joint disease of spine Depression with anxiety Degenerative disc disease, cervical Anxiety with flying Cervicalgia Hair loss Dysphagia Chronic insomnia Fatigue Dyslipidemia Essential hypertension Postmenopause Atrophic vaginitis Paroxysmal atrial fibrillation Osteoporosis Acquired hypothyroidism Surgical History History of prior ablation treatment Family History Father Hx of CABG Craig's palsy Thyroid disorder Myocardial infarction Mother HTN (hypertension) Hypothyroidism Sister Hypothyroidism Multiple sclerosis Pancreatic cancer Breast cancer Brother No problems noted. Brother No problems noted. Brother No problems noted. Sister Substance use disorder Sister No problems noted. Son No problems noted. Social History Housing: House Alcohol intake: current Patient Tobacco Use Status: Never used Tobacco e-Cigarette/Vaping Use: Never Used service: No Current occupational status: retired Cognitive needs: No Hearing needs: No Vision needs: Yes Physical Exam Vital Signs: Last Vital Signs Pulse 60 05/09/24 08:54 BP 134/76 05/09/24 08:54 BMI result Body Mass Index 32.4 Assessment & Plan Assessment & Plan (1) Osteoporosis: Code(s): M81.0 - Age-related osteoporosis without current pathological fracture Category: Medical Qualifiers: Osteoporosis type: age-related Presence of current pathological fracture: without current pathological fracture Qualified Code(s): M81.0 - Age- related osteoporosis without current pathological fracture Plan: . This is a 63-year-old white female with a history of osteoporosis. Secondary workup was negative Plan is to talk to patient about pharmacologic therapy and considering very low bone density and spine and high risk for fracture would consider anabolic therapy initially with either Evenity. Tymlos or Forteo proceeded by anti resorptive therapy. After careful conversation with the patient, we decided on initiating Evenity which will be proceeded by anti resorptive agent. We will try to get approval from insurance for Evenity Coding Level of Care Code Est Pt Level 3 (22855) Diagnoses Age-related osteoporosis without current pathological fracture M81.0 Osteoporosis type: age-related Presence of current pathological fracture: without current pathological fracture
[2024-05-09 08:54] VITALS: BP 134/76; PULSE 60; BMI 32.4
== END 2024-05-09 09:14 | disposition home or self-care (01) ==
LOC: HO.ENCR 08:49
PROVIDERS: PCP Internal Medicine; Visit Provider Internal Medicine Endocrinology, Diabetes & Metabolism
DX: M81.0 Age-related osteoporosis without current pathological fracture (principal)
CPT/HCPCS: 99213

== ENCOUNTER → 2024-05-09 08:48 | Outpatient (BNVA) | payer MEDICARE, SELFPAY | PROVIDERS: PCP Internal Medicine; Visit Provider Internal Medicine Endocrinology, Diabetes & Metabolism | DX: M81.0 Age-related osteoporosis without current pathological fracture (principal); Z78.0 Asymptomatic menopausal state | CPT/HCPCS: 99212 ==

== ENCOUNTER 2024-05-13 09:49 | Outpatient (AMB) | payer MEDICARE, SELFPAY ==
--- NOTE | 2024-05-13 10:24 | AM.OFFVISNUR ---
Intake Visit Reasons: Evenity #1 Allergies levofloxacin [Levaquin] Allergy (Unknown, Verified 05/09/24 08:55) hives Sulfa (Sulfonamide Antibiotics) Allergy (Unknown, Verified 05/09/24 08:55) itchy, hives sulfamethoxazole [From Bactrim] Allergy (Unknown, Verified 05/09/24 08:55) itchy, hives Tetanus Vaccines and Toxoid Allergy (Unknown, Verified 05/09/24 08:55) convulsion trimethoprim [From Bactrim] Allergy (Unknown, Verified 05/09/24 08:55) itchy, hives codeine cough syrup Allergy (Unknown, Uncoded 05/09/24 08:55) hives zpack Adverse Reaction (Unknown, Uncoded 05/09/24 08:55) vomiting Office Meds romosozumab-aqqg 210 mg/2.34 mL(105 mg/1.17 mL x2)subcutaneous syringe Performing Provider: Angel Winters MD Performing Location: [facility] [place] Endocrinology Administered by: Solange Carroll RN on 05/13/24 10:25 Dose Route Admin Location Dispensed Lot Number Expiration Date [facility] 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 Pt tolerated injections well. Pt observed for 15 minutes following injection with out s/sx of reaction. Pt advised to watch area for any redness, warmth or swelling and to call our office. Pt is agreeable to plan. Assessment & Plan Assessment & Plan Orders: Orders AMB Romosozumab Injection Patient Supplied Today M81.0 - Age-related osteoporosis without current pathological fracture Medications: New romosozumab-aqqg 210 mg (2.34 mL) subcut ONCE 2.34 mL 0RF M81.0 - Age-related osteoporosis without current pathological fracture
== END 2024-05-13 10:42 | disposition home or self-care (01) ==
PROVIDERS: PCP Internal Medicine
DX: M81.0 Age-related osteoporosis without current pathological fracture (principal)

== ENCOUNTER → 2024-05-13 09:49 | Outpatient (BNVA) | payer MEDICARE, SELFPAY | PROVIDERS: PCP Internal Medicine | DX: M81.0 Age-related osteoporosis without current pathological fracture (principal) | CPT/HCPCS: 96372; J3111 ==

== ENCOUNTER → 2024-05-28 10:52 | Outpatient (REF) | payer MEDICARE, SELFPAY | LOC: HO.SL 10:52 | PROVIDERS: PCP Internal Medicine; Visit Provider Psychiatry & Neurology Neurology | DX: G47.10 Hypersomnia, unspecified (principal); R06.83 Snoring | CPT/HCPCS: 95806 ==

== ENCOUNTER → 2024-05-28 11:10 | Outpatient (BNV) | payer MEDICARE, SELFPAY | PROVIDERS: PCP Internal Medicine; Visit Provider Psychiatry & Neurology Neurology | DX: G47.10 Hypersomnia, unspecified (principal); R06.83 Snoring | CPT/HCPCS: 95806 ==

== ENCOUNTER 2024-06-06 11:52 | Outpatient (REF) | payer MEDICARE, SELFPAY ==
[2024-06-06 12:58] LABS: MANUAL DIFF FLAG NO
[2024-06-06 13:06] LABS: Basophils Percent Auto 0.2 % (0-2); Eosinophils Absolute Auto 0.2 X10*3/uL (0.0-0.4); Eosinophils Percent Auto 4.4 % (0-4); Hematocrit 39.9 % (37.0-47.0); Hemoglobin 12.8 g/dl (12.0-16.0); Imm Gran Abs Auto 0.01 X10*3/uL (0.00-0.03); Imm Gran Pct Auto 0.2 % (0.0-0.4); Lymphocytes Absolute Auto 1.4 X10*3/uL (1.2-4.9); Lymphocytes Percent Auto 33.7 % (20-40); Mean Corpuscular HGB Conc 32.1 g/dl (31.0-35.0); Mean Corpuscular Hemoglobin 29.5 pg (27.0-33.0); Mean Corpuscular Volume 91.9 fL (80.0-98.0); Mean Platelet Volume 9.6 fL (9.4-12.3); Monocytes Absolute Auto 0.5 X10*3/uL (0.1-1.2); Monocytes Percent Auto 11.1 % (2-11); Neutrophils Percent Auto 50.4 % (45-73); Platelet Count 166 X10*3/uL (160-400); Red Blood Count 4.34 X10*6/uL (4.20-5.50); Red Cell Distribution Width 12.9 % (11.0-16.0); White Blood Count 4.1 X10*3/uL (4.8-10.8)
[2024-06-06 13:26] LABS: Alanine Aminotransferase 15 U/L (0-31); Aspartate Amino Transferase 21 U/L (5-31)
[2024-06-06 13:42] LABS: Free T4 (Free Thyroxine) 1.05 ng/dL (0.71-1.85); Thyroid Stimulating Hormone 5.32 uIU/mL (0.32-4.0)
== END 2024-06-06 11:53 | disposition home or self-care (01) ==
LOC: HO.HMGCLDS 11:52
PROVIDERS: PCP Internal Medicine; Visit Provider Internal Medicine
DX: E78.5 Hyperlipidemia, unspecified (principal); Z78.0 Asymptomatic menopausal state; M81.0 Age-related osteoporosis without current pathological fracture; E03.9 Hypothyroidism, unspecified
CPT/HCPCS: 36415; 84439; 84443; 84450; 84460; 85025

== ENCOUNTER 2024-06-13 06:09 | Outpatient (REF) | payer MEDICARE, SELFPAY ==
--- NOTE | ~2024-06-13 | FL_ITS ---
EXAMINATION: FLUORO GUIDANCE IN TREATMENT ROOM CLINICAL INFORMATION: Spondylosis without myelopathy or radiculopathy, cervical region. COMPARISON: None available. TECHNIQUE: Fluoroscopy supervised by: Dr. Dawson Navarro. Fluoroscopy time: 0.1 minutes. Cumulative Dose: 0.300 mGy. DAP: 0.81993 mGy-m2 (milligray-meter squared). Images: 4. FINDINGS: 3 epidural needles are present on both the left and right at C3, C4 and C5 . Contrast is injected which appears to be in the epidural space. FL/FL guidance in treatment room IMPRESSION: Fluoroscopy guidance for pain management procedure. Electronically signed by: Clarence Cosme MD 08/01/2024 07:36 AM MARY
== END 2024-06-13 06:10 | disposition home or self-care (01) ==
LOC: CF 06:09
PROVIDERS: Visit Provider Internal Medicine
DX: M47.812 Spondylosis without myelopathy or radiculopathy, cervical region (principal)
CPT/HCPCS: 64490; 64491; J2795; Q9967

== ENCOUNTER 2024-06-13 10:02 | Outpatient (AMB) | payer MEDICARE, SELFPAY ==
[2024-06-13 10:23] VITALS: BP 152/82; PULSE 56; O2SAT 99
--- NOTE | 2024-06-13 10:23 | MHC.OFFVIS ---
Vital Signs 06/13/24 10:23 06/13/24 10:47 BP 152/82 H 149/82 H Blood Pressure Location Lt brachial Lt brachial Position Sitting Sitting Pulse 56 58 Pulse Source Pulse Oximeter Pulse Oximeter Pulse Oximetry (%) 99 100 Oxygen Delivery Method Room Air Room Air Intake Visit Reasons: Sampson Dx C4-C5-C6 MBB/ Ativan Allergies levofloxacin [Levaquin] Allergy (Unknown, Verified 05/09/24 08:55) hives Sulfa (Sulfonamide Antibiotics) Allergy (Unknown, Verified 05/09/24 08:55) itchy, hives sulfamethoxazole [From Bactrim] Allergy (Unknown, Verified 05/09/24 08:55) itchy, hives Tetanus Vaccines and Toxoid Allergy (Unknown, Verified 05/09/24 08:55) convulsion trimethoprim [From Bactrim] Allergy (Unknown, Verified 05/09/24 08:55) itchy, hives codeine cough syrup Allergy (Unknown, Uncoded 05/09/24 08:55) hives zpack Adverse Reaction (Unknown, Uncoded 05/09/24 08:55) vomiting HPI HPI Sampson Dx C4-C5-C6 MBB/ Ativan: Details: Patient presents for scheduled procedure. Denies any recent cough, cold, infection, fever or other significant changes in medical history since last office visit. [facility] Medical History (Updated 04/19/24 @ 13:52 by Anabel Ramos MD) Restless legs syndrome (RLS) Sleep paralysis Insomnia Snoring Hypersomnia Seasonal allergies Recurrent isolated sleep paralysis Cervical radiculopathy due to degenerative joint disease of spine Depression with anxiety Degenerative disc disease, cervical Anxiety with flying Cervicalgia Hair loss Dysphagia Chronic insomnia Fatigue Dyslipidemia Essential hypertension Postmenopause Atrophic vaginitis Paroxysmal atrial fibrillation Osteoporosis Acquired hypothyroidism Surgical History History of prior ablation treatment Family History Father Hx of CABG Craig's palsy Thyroid disorder Myocardial infarction Mother HTN (hypertension) Hypothyroidism Sister Hypothyroidism Multiple sclerosis Pancreatic cancer Breast cancer Brother No problems noted. Brother No problems noted. Brother No problems noted. Sister Substance use disorder Sister No problems noted. Son No problems noted. Social History Housing: House Alcohol intake: current Patient Tobacco Use Status: Never used Tobacco e-Cigarette/Vaping Use: Never Used service: No Current occupational status: retired Cognitive needs: No Hearing needs: No Vision needs: Yes Physical Exam Vital Signs: Last Vital Signs Pulse 58 06/13/24 10:47 BP 149/82 H 06/13/24 10:47 Pulse Ox 100 06/13/24 10:47 Oxygen Delivery Method Room Air 06/13/24 10:47 Office Procedures Cervical/Thoracic Facet Inj Details: Diagnostic Cervical Medial Branch Block, Bilateral C3, C4, C5 medial branches After obtaining written consent, pre-procedure blood pressure and pulse were recorded and are in the nursing record for review. The patient was placed in a lateral position. The respective cervical area was prepped with chloraprep and draped in sterile fashion. The skin over the target medial branch nerves was anesthetized with 0.5% lidocaine. A 25 gauge 1.5 inch needle was inserted into the target medial branch nerve under fluoroscopic guidance. No paresthesias were elicited with needle placement and aspiration was negative for blood and CSF. Next, 0.2cc of omnipaque 180 was injected to verify positioning. Next 0.5 ml 0.5% ropivicaine was injected (0.5 cc total per level). The identical procedure was performed at the remaining levels. The skin was cleansed and a sterile bandage was applied. Following the procedure the patient's vital signs were stable. The patient tolerated the procedure well and no complications were encountered. Following the procedure the patient's vital signs were stable. The patient was discharged home in good condition with post-procedural instructions. Time Out: Immediately prior to the procedure, the following was verbally confirmed that there is a signed consent form and that the correct patient, planned procedure, site and side are consistent with documentation and that necessary equipment and/or blood products are available prior to the start of the case. Complications: none EBL: <5 cc 59032 - with Fluoroscopy 75150 - second level, with Fluoroscopy (bilateral) Procedure code (CPT) selection complete Assessment & Plan Assessment & Plan (1) Cervical spondylosis: Code(s): M47.812 - Spondylosis without myelopathy or radiculopathy, cervical region Category: Medical Plan Patient is status post bilateral C3, C4, C5 diagnostic medial branch blocks. The C3, C4, C5 levels were chosen due to patient's history of cervicogenic occipital pain.. Patient tolerated procedure well and was discharged home in stable condition with discharge instructions. All questions were answered. We will follow-up via telephone or in clinic to assess response to therapy. A follow-up appointment was made during today's visit. Orders: Orders FL guidance in treatment room Today M47.812 - Spondylosis without myelopathy or radiculopathy, cervical region Medications: New lorazepam (Ativan) Take 30 minutes prior to arrival to procedure 1 mg PO ONCE 1 tab 0RF anxiety Coding Level of Care Code Procedure Only Diagnoses Cervical spondylosis M47.812 CPT Codes Facet Injection Cervical/Thoracic - CPT: 57789 - with Fluoroscopy ([id number]) Facet Injection Cervical/Thoracic - CPT: 07224 - second level, with Fluoroscopy ([id number])
[2024-06-13 10:47] VITALS: BP 149/82; PULSE 58; O2SAT 100
== END 2024-06-13 10:48 | disposition home or self-care (01) ==
LOC: HO.PMCPRC 10:02
PROVIDERS: PCP Internal Medicine; Visit Provider Internal Medicine
DX: M47.812 Spondylosis without myelopathy or radiculopathy, cervical region (principal)
CPT/HCPCS: 64490; 64491

== ENCOUNTER 2024-06-20 09:23 | Outpatient (AMB) | payer MEDICARE, SELFPAY ==
--- NOTE | 2024-06-20 09:30 | A.OFFVIS_ITS ---
Vital Signs 06/20/24 09:34 Height 5 ft 6 in BMI Reason not done Patient refused/unable BP 194/93 H Blood Pressure Location Rt brachial Position Sitting Pulse 62 Pulse Source Pulse Oximeter Pulse Oximetry (%) 98 Oxygen Delivery Method Room Air Intake Visit Reasons: s/p madhu Dx C4-C5-C6 MBB Intake Note: Pain today 7.5/10 [place] Required: No Accompanied by: Self / Same As Patient Allergies levofloxacin [Levaquin] Allergy (Unknown, Verified 06/20/24 09:34) hives Sulfa (Sulfonamide Antibiotics) Allergy (Unknown, Verified 06/20/24 09:34) itchy, hives sulfamethoxazole [From Bactrim] Allergy (Unknown, Verified 06/20/24 09:34) itchy, hives Tetanus Vaccines and Toxoid Allergy (Unknown, Verified 06/20/24 09:34) convulsion trimethoprim [From Bactrim] Allergy (Unknown, Verified 06/20/24 09:34) itchy, hives codeine cough syrup Allergy (Unknown, Uncoded 05/09/24 08:55) hives zpack Adverse Reaction (Unknown, Uncoded 05/09/24 08:55) vomiting HPI Comments Details: Patient presents today 1 week status post Bilateral Diagnostic C3-C4-C5 MBB on 06/13/[address] Navarro. Patient reports 100% pain relief for first 2-3 hours and 50% for 4-6 hours after procedure with partial improvement in her neck pain, improved functioning and ROM. She continues to endorse left sided head and neck pain with sharp, burning, and tingling sensations. Patient is interested to repeat repeat diagnostic cervical medial branch block injections in order to establish reproducible response to the treatment for potential RFA procedure as well as undergo left occipital nerve block. Denies any recent cough, cold, infection, fever or other significant changes in medical history since last office visit. She presents with asymptomatic elevated BP today due to road rage on [place] and traffic. Denies any chest pain or tightness, shortness of breaths, dizziness, nausea, dyspnea or radicular symptoms. Past Procedures: 06/13/24: Bilateral Diagnostic N3-D1-O6-100% for initial 2-3 hours, 50% pain for 4-6 hours after procedure PRIOR: Patient presents today for follow up for worsening neck pain and new onset low back pain. Reports lifting her 2 years old grandchild in December with worsening of her neck pain with occasional numbness and tingling in her left occipital region and left upper extremity with weakness. Previously, neck pain was worse on the right side. She also reports low back pain with bilateral radiculopathy with most movements, bending, twisting, backwards extension and prolonged walking. She completed PT last year with minimal relief and chiropractic adjustments in neck this spring which resolved in significant vertigo and required Vestibular PT with 4 Epleys maneuvers. Recent bone density scan showed osteoporosis in her lumbar spine, with a T-score of-3.4, osteopenia in femoral neck and left femur. Takes calcium with vitamin-D supplements. Patient was unable to tolerate Boniva in the past due to severe GI upset. Denies history of compression fractures. Patient reports she had follow up with her PCP provider in December for worsening symptoms and MRI was ordered but no one is contacting her to schedule it. Patient reports she has significant claustrophobia and requires open MRI and oral Ativan. Denies any fever, chills, abdominal or groin pain, shortness of breaths, chest pain, gait imbalances, foot drop, bladder or bowel dysfunction or saddle anesthesia. PRIOR 05/02/23: Patient is a pleasant 63 years old female presents today for initial evaluation for neck pain. Medical history noted for paroxysmal atrial fibrillation s/p ablation and osteoporosis. Denies any trauma, injury or falls. Neck pain increases with movements, looking down while reading or working on computer at home, and side rotations, especially on the right side or driving and quick rotations to the right will significantly increase her pain. Occasionally pain will radiate into her left lower arm and shoulders and more frequently into her lower occipital regions. Right hand dominant. Reports previous left shoulder surgery. Patient did not make any gains regarding pain or function with physical therapy. Pain is rated at 7/10. Denies spine surgery or injections. PT, TENS unit, position modifications, NSAIDs have not been beneficial to her. Pain affects her daily activities, functioning, sleep, social activities and quality of life. Denies any fever, chills, weight loss, visual disturbances, headaches, clumsiness of hands and feet, tenderness at the posterior midline of cervical spine, changes in gait, lack of coordination, bladder or bowel incontinence or saddle anesthesia. Patient presents with a normal level of alertness without any focal neurological deficits. Recent cervical spine imaging consistent with degenerative changes and spondylosis. Location Neck pain Duration October 2022 Characteristics of symptom or complaint Aching, sharp, numbness, stabbing, tingling, shooting Aggravating or associated factors Movement, sleeping Relieving factors Ibuprofen, rest-partial relief Treatment PT- made pain worse, TENS unit PFS Medical History Restless legs syndrome (RLS) Sleep paralysis Insomnia Snoring Hypersomnia Seasonal allergies Recurrent isolated sleep paralysis Cervical radiculopathy due to degenerative joint disease of spine Depression with anxiety Degenerative disc disease, cervical Anxiety with flying Cervicalgia Hair loss Dysphagia Chronic insomnia Fatigue Dyslipidemia Essential hypertension Postmenopause Atrophic vaginitis Paroxysmal atrial fibrillation Osteoporosis Acquired hypothyroidism Surgical History History of prior ablation treatment Family History Father Hx of CABG Craig's palsy Thyroid disorder Myocardial infarction Mother HTN (hypertension) Hypothyroidism Sister Hypothyroidism Multiple sclerosis Pancreatic cancer Breast cancer Brother No problems noted. Brother No problems noted. Brother No problems noted. Sister Substance use disorder Sister No problems noted. Son No problems noted. Social History Housing: House Alcohol intake: current Patient Tobacco Use Status: Never used Tobacco e-Cigarette/Vaping Use: Never Used service: No Current occupational status: retired Cognitive needs: No Hearing needs: No Vision needs: Yes Review of Systems Const All systems reviewed & are unremarkable except as noted in HPI and below Physical Exam Vital Signs: Last Vital Signs Pulse 62 06/20/24 09:34 BP 194/93 H 06/20/24 09:34 Pulse Ox 98 06/20/24 09:34 Oxygen Delivery Method Room Air 06/20/24 09:34 General: Appears afebrile. No acute distress. Alert and oriented. Mood and affect appropriate. Follows and participates in conversation appropriately. Respiratory effort is unlabored. No cough. Able to transition from sit to stand unassisted. Ambulates with bilaterally normal heel strike and toe off. Neck Other: Neck ROM is limited due to pain and muscle stiffness, left>right. Reports increased pain with cervical extension and flexion, worse with extension. Spurling compression test is negative. Pain is unchanged by Spurling maneuver with retraction. Elvey's tension test reproduces pain from neck into her left upper arm and elbow with tingling in her fingers. Lhermitte's test was negative. 2 + radial pulses. Mild to moderate tightness throughout bilateral upper trapezius muscles. No paravertebral tenderness over facet joints. Neck: Yes normal visual inspection, Yes no lymphadenopathy, Yes supple, No anterior neck swelling, No torticollis, Yes no JVD, No prominent supraclavicular fat pad and No prominent dorsocervical fat pad Back/Spine/Pelvis Cervical Spine: No Lhermitte's sign positive, cervical muscular tenderness, pain with cervical ROM, No Cervical spine scars present, cervical spasm, No Cervical spine tenderness and No step off deformity Thoracic/Lumbar Spine: thoracic and lumbar spine normal to inspection, No Thoracic/lumbar spine scar(s), pain with thoraco-lumbar ROM, paraspinal muscle tenderness, thoraco-lumbar ROM limited, No thoracic spinal tenderness and lumbar spinal tenderness (L4-S1) Pelvis: no buttock tenderness Sacroiliac joints: bilaterally nontender Results Reviewed Results Reviewed: XR CERVICAL SPINE 12/14/22 FINDINGS: Bone alignment is normal. No fracture or dislocation. The bones may be osteopenic. Disc spaces are normal. There is right-sided mild neuroforaminal narrowing at C3-C4 from bony osteophyte. There is is left-sided mild neuroforaminal narrowing from bony osteophyte at C3-C4 and C4-C5. Prevertebral soft tissues are normal. IMPRESSION: Mild degenerative changes. MM/XR DEXA axial skeleton 07/27/23 IMPRESSION: 1. DIAGNOSIS: Osteoporosis based on the lowest T-score value of -3.4 in the lumbar spine applying World Health Organization criteria. MR SPINE LUMBAR without CONTRAST 03/21/24 at [facility] INDICATION: Lumbar Spine Spondylosis. Lower back pain radiating to both sides since 10/2022 COMPARISON: None Available. FINDINGS: Slight dextroscoliosis. Otherwise normal lumbar alignment is demonstrated. There is a Schmorl''s node involving the superior endplate of L1 on the right. There appears to be slight depression of the superior endplate of L4 on the left. There is no associated edema to suggest these are acute findings. The height of the vertebral bodies is otherwise maintained. Bone marrow signal is within normal limits, and no suspicious osseous lesion is identified. Conus medullaris is unremarkable. Paraspinal soft tissues and visualized portions of the abdomen and pelvis are unremarkable. At T12-L1 there is no significant disc herniation or protrusion. No central canal or neural foraminal stenosis is demonstrated. At L1-2 there is no significant disc herniation or protrusion. No central canal or neural foraminal stenosis is demonstrated. At L2-3 there is disc desiccation with a mild bulging disc. Mild hypertrophic changes in the posterior elements. Mild narrowing of the central spinal canal with the AP dimension of the thecal sac reduced to approximately 10 mm. Mild bilateral encroachment upon the neural foramina. At L3-4 there is a mild bulging disc. Mild hypertrophic changes in the posterior elements. Mild spinal stenosis with narrowing of the AP dimension of the thecal sac to approximately 9 mm. Mild bilateral encroachment upon the neural foramina. At L4-5 there is minimal bulging of the disc with minimal endplate osteophytes. There is only slight narrowing of the canal with mild bilateral encroachment upon the neural foramina. At L5-S1 there is minimal bulging of the disc. No central canal or neural foraminal stenosis is demonstrated. IMPRESSION: Mild degenerative changes in the lumbar spine. Mild spinal stenosis at L2-3 and L3-4. Mild bilateral encroachment upon the neural foramina at L2-3 and L3-4. MR SPINE CERVICAL without CONTRAST 03/21/24 at [facility] INDICATION: Cervicalgia. Spondylosis with radiculopathy, cervical region. COMPARISON: None available. FINDINGS: Normal cervical alignment is demonstrated. Vertebral heights are well maintained. Craniocervical junction is unremarkable. Bone marrow signal is within normal limits, and no suspicious osseous lesion is identified. Prevertebral and paraspinal soft tissues are within normal limits. Visualized portions of the posterior fossa are unremarkable. Cervical cord demonstrates normal course, caliber, and signal characteristics. No epidural fluid collection or hematoma is identified. At C2-3 there is no significant disc herniation or protrusion. No central canal or neural foraminal stenosis is demonstrated. At C3-4 there is minor broad-based central disc osteophyte without significant central canal stenosis or foraminal narrowing. At C4-5 there is minor central disc bulge without significant central canal stenosis. There is mild facet arthrosis on the right with uncovertebral joint degenerative change causing moderate right neural foraminal narrowing. Probable impingement exiting nerve root. Left neural foramen preserved. At C5-6 there is no significant disc herniation or protrusion. No central canal or neural foraminal stenosis is demonstrated. At C6-7 there is no significant disc herniation or protrusion. No central canal or neural foraminal stenosis is demonstrated. At C7-T1 there is no significant disc herniation or protrusion. No central canal or neural foraminal stenosis is demonstrated. Right-sided neural sheath cysts approximately 5 mm in size seen at C7-T1 and T1- 2 levels. IMPRESSION: Mild degenerative change of the cervical spine with moderate right C4-5 neural foraminal narrowing with probable impingement exiting nerve root. Assessment & Plan Assessment & Plan (1) Cervical spondylosis: Code(s): M47.812 - Spondylosis without myelopathy or radiculopathy, cervical region Category: Medical (2) Degenerative disc disease, cervical: Code(s): M50.30 - Other cervical disc degeneration, unspecified cervical region Category: Medical (3) Muscle spasms of neck: Code(s): M62.838 - Other muscle spasm Category: Medical (4) Cervicogenic headache: Code(s): G44.86 - Cervicogenic headache Category: Medical (5) Occipital neuralgia of left side: Code(s): M54.81 - Occipital neuralgia Category: Medical Plan For ongoing left occipital cervicogenic headache, will schedule Left Occipital Nerve Block with local and US guidance with Dr. Navarro. Schedule repeat Bilateral Diagnostic C3-C4-C5 MBB with local and fluoroscopy for potential RFA procedure. We also reviewed Sprint PNS trial. Patient has significant osteoporosis in the lumbar spine and is not candidate for therapeutic injections. Patient will trial gabapentin BID, instead of at bedtime only and monitor for her symptoms relief. She will notify our office or Neurologist if this would be helpful at which time we will update her prescription. All questions and concerns have been answered and patient agreed with the treatment plan. Follow up after injections and sooner as needed. Coding Level of Care Code Est Pt Level 4 (69274) Complex EM visit Add On G2211 Diagnoses Cervical spondylosis M47.812 Degenerative disc disease, cervical M50.30 Muscle spasms of neck M62.838 Cervicogenic headache G44.86 Occipital neuralgia of left side M54.81
[2024-06-20 09:34] VITALS: BP 194/93; PULSE 62; O2SAT 98
== END 2024-06-20 10:22 | disposition home or self-care (01) ==
PROVIDERS: PCP Internal Medicine; Visit Provider Nurse Practitioner Family
DX: M47.812 Spondylosis without myelopathy or radiculopathy, cervical region (principal); M50.30 Other cervical disc degeneration, unspecified cervical region; M62.838 Other muscle spasm; G44.86 Cervicogenic headache; M54.81 Occipital neuralgia
CPT/HCPCS: 99214; G2211

== ENCOUNTER → 2024-06-20 09:23 | Outpatient (BNVA) | payer MEDICARE, SELFPAY | PROVIDERS: PCP Internal Medicine; Visit Provider Nurse Practitioner Family | DX: M47.812 Spondylosis without myelopathy or radiculopathy, cervical region (principal); M50.30 Other cervical disc degeneration, unspecified cervical region; M62.838 Other muscle spasm; M54.81 Occipital neuralgia; G44.86 Cervicogenic headache | CPT/HCPCS: 99212 ==

== ENCOUNTER 2024-06-24 13:06 | Outpatient (AMB) | payer MEDICARE, SELFPAY ==
--- NOTE | 2024-06-24 13:47 | AM.OFFVISNUR ---
Intake Visit Reasons: Evenity #2 Allergies levofloxacin [Levaquin] Allergy (Unknown, Verified 06/20/24 09:34) hives Sulfa (Sulfonamide Antibiotics) Allergy (Unknown, Verified 06/20/24 09:34) itchy, hives sulfamethoxazole [From Bactrim] Allergy (Unknown, Verified 06/20/24 09:34) itchy, hives Tetanus Vaccines and Toxoid Allergy (Unknown, Verified 06/20/24 09:34) convulsion trimethoprim [From Bactrim] Allergy (Unknown, Verified 06/20/24 09:34) itchy, hives codeine cough syrup Allergy (Unknown, Uncoded 05/09/24 08:55) hives zpack Adverse Reaction (Unknown, Uncoded 05/09/24 08:55) vomiting Office Meds romosozumab-aqqg 210 mg/2.34 mL(105 mg/1.17 mL x2)subcutaneous syringe Performing Provider: Angel Winters MD [place] [facility] Administered by: Solange Carroll RN on 06/24/24 13:47 Dose Route Admin Location Dispensed Lot Number Expiration Date [employer]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 Pt tolerated injection well. Pt reporting headache did resolve and she will alert our office if headache were to return after this injection. Pt is aware we will have her met with Dr. Winters at this point to discuss other treatment options. Pt denies other adverse reactions. Assessment & Plan Assessment & Plan Orders: Orders AMB Romosozumab Injection Patient Supplied Today M81.0 - Age-related osteoporosis without current pathological fracture Medications: New romosozumab-aqqg 210 mg (2.34 mL) subcut ONCE 2.34 mL 0RF M81.0 - Age-related osteoporosis without current pathological fracture
== END 2024-06-24 13:28 | disposition home or self-care (01) ==
PROVIDERS: PCP Internal Medicine
DX: M81.0 Age-related osteoporosis without current pathological fracture (principal)

== ENCOUNTER → 2024-06-24 13:06 | Outpatient (BNVA) | payer MEDICARE, SELFPAY | PROVIDERS: PCP Internal Medicine | DX: M81.0 Age-related osteoporosis without current pathological fracture (principal) | CPT/HCPCS: 96372; J3111 ==

== ENCOUNTER 2024-07-05 09:04 | Outpatient (AMB) | payer MEDICARE, SELFPAY ==
[2024-07-05 09:20] VITALS: BP 137/68; PULSE 64; O2SAT 96; BMI 33.1
--- NOTE | 2024-07-05 09:20 | A.OFFVIS_ITS ---
Vital Signs 07/05/24 09:20 Height 5 ft 6 in Weight 205 lb BMI 33.1 BP 137/68 Blood Pressure Location Lt brachial Position Sitting Pulse 64 Pulse Source Pulse Oximeter Pulse Oximetry (%) 96 Oxygen Delivery Method Room Air Intake Visit Reasons: Left Occipital NB Allergies levofloxacin [Levaquin] Allergy (Unknown, Verified 06/20/24 09:34) hives Sulfa (Sulfonamide Antibiotics) Allergy (Unknown, Verified 06/20/24 09:34) itchy, hives sulfamethoxazole [From Bactrim] Allergy (Unknown, Verified 06/20/24 09:34) itchy, hives Tetanus Vaccines and Toxoid Allergy (Unknown, Verified 06/20/24 09:34) convulsion trimethoprim [From Bactrim] Allergy (Unknown, Verified 06/20/24 09:34) itchy, hives codeine cough syrup Allergy (Unknown, Uncoded 05/09/24 08:55) hives zpack Adverse Reaction (Unknown, Uncoded 05/09/24 08:55) vomiting HPI HPI Left Occipital NB: Details: Patient presents for scheduled procedure. Denies any recent cough, cold, infection, fever or other significant changes in medical history since last office visit. [facility] Medical History Restless legs syndrome (RLS) Sleep paralysis Insomnia Snoring Hypersomnia Seasonal allergies Recurrent isolated sleep paralysis Cervical radiculopathy due to degenerative joint disease of spine Depression with anxiety Degenerative disc disease, cervical Anxiety with flying Cervicalgia Hair loss Dysphagia Chronic insomnia Fatigue Dyslipidemia Essential hypertension Postmenopause Atrophic vaginitis Paroxysmal atrial fibrillation Osteoporosis Acquired hypothyroidism Surgical History History of prior ablation treatment Family History Father Hx of CABG Craig's palsy Thyroid disorder Myocardial infarction Mother HTN (hypertension) Hypothyroidism Sister Hypothyroidism Multiple sclerosis Pancreatic cancer Breast cancer Brother No problems noted. Brother No problems noted. Brother No problems noted. Sister Substance use disorder Sister No problems noted. Son No problems noted. Social History Housing: House Alcohol intake: current Patient Tobacco Use Status: Never used Tobacco e-Cigarette/Vaping Use: Never Used service: No Current occupational status: retired Cognitive needs: No Hearing needs: No Vision needs: Yes Physical Exam Vital Signs: Last Vital Signs Pulse 64 07/05/24 09:20 BP 137/68 07/05/24 09:20 Pulse Ox 96 07/05/24 09:20 Oxygen Delivery Method Room Air 07/05/24 09:20 BMI result Body Mass Index 33.1 Office Procedures Nerve Block Details: Greater and Lesser Occipital Nerve Block, left Physical exam was used to isolate the location of the targeted nerves. These injection sites were prepped with alcohol. Using sterile technique, a 30 gauge 1.5 inch needle was introduced into each each overlying nerve. A total of 5 mL ropivacaine 0.5% was injected around the left greater and lesser occipital nerves in a fan-like motion. The patient tolerated the procedure well and no complications were encountered. Following the procedure the patient's vital signs were stable. The patient was discharged home in good condition with post-procedural instructions. Time Out: Immediately prior to the procedure, the following was verbally confirmed that there is a signed consent form and that the correct patient, planned procedure, site and side are consistent with documentation and that necessary equipment and/or blood products are available prior to the start of the case. Complications: none EBL: <5 cc CPT: 81722-[id number] Occipital Procedure code (CPT) selection complete Assessment & Plan Assessment & Plan (1) Occipital neuralgia of left side: Code(s): M54.81 - Occipital neuralgia Category: Medical Plan Patient is status post left occipital nerve block. Patient tolerated procedure well and was discharged home in stable condition with discharge instructions. All questions were answered. We will follow-up via telephone or in clinic to assess response to therapy. A follow-up appointment was made during today's visit. Coding Level of Care Code Procedure Only Diagnoses Occipital neuralgia of left side M54.81 CPT Codes Nerve Block - CPT: [id number] Occipital ([id number])
== END 2024-07-05 09:32 | disposition home or self-care (01) ==
PROVIDERS: PCP Internal Medicine; Visit Provider Internal Medicine
DX: M54.81 Occipital neuralgia (principal)
CPT/HCPCS: 64405; 64450

== ENCOUNTER → 2024-07-05 09:04 | Outpatient (BNVA) | payer MEDICARE, SELFPAY | PROVIDERS: PCP Internal Medicine; Visit Provider Internal Medicine | DX: M54.81 Occipital neuralgia (principal) | CPT/HCPCS: 64405; 64450 ==

== ENCOUNTER → 2024-07-15 20:30 | Outpatient (REF) | payer MEDICARE, SELFPAY | LOC: HO.SL 20:30 | PROVIDERS: PCP Internal Medicine; Visit Provider Psychiatry & Neurology Neurology | DX: R06.83 Snoring (principal); G47.10 Hypersomnia, unspecified; G47.8 Other sleep disorders; G25.81 Restless legs syndrome | CPT/HCPCS: 95810 ==

== ENCOUNTER → 2024-07-15 20:30 | Outpatient (BNV) | payer MEDICARE, SELFPAY | PROVIDERS: PCP Internal Medicine; Visit Provider Psychiatry & Neurology Neurology | DX: R06.83 Snoring (principal); G47.10 Hypersomnia, unspecified | CPT/HCPCS: 95810 ==

== ENCOUNTER 2024-07-22 09:49 | Outpatient (AMB) | payer MEDICARE, SELFPAY ==
--- NOTE | 2024-07-22 10:02 | A.OFFVIS_ITS ---
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: No Accompanied by: Self / Same As Patient Allergies levofloxacin [Levaquin] Allergy (Unknown, Verified 07/22/24 10:07) hives Sulfa (Sulfonamide Antibiotics) Allergy (Unknown, Verified 07/22/24 10:07) itchy, hives sulfamethoxazole [From Bactrim] Allergy (Unknown, Verified 07/22/24 10:07) itchy, hives Tetanus Vaccines and Toxoid Allergy (Unknown, Verified 07/22/24 10:07) convulsion trimethoprim [From Bactrim] Allergy (Unknown, Verified 07/22/24 10:07) itchy, hives codeine cough syrup Allergy (Unknown, Uncoded 05/09/24 08:55) hives zpack Adverse Reaction (Unknown, Uncoded 05/09/24 08:55) vomiting HPI Comments Details: 64y/o female comes here for evaluation of sleep. She has trouble falling asleep and staying asleep for over 15 years. She goes to bed around 9.20-10 tosses and turns , legs bother her and finally sleeps around 11pm. She wakes up twice to use the bathroom and stays awake for 2-3 hrs before she sleeps. She wakes up at 7.30am feels fatigued. Denies napping. She has vivid dreams . No cataplexy like symptoms. She has sleep paralysis occasionally, her father used to have this also. Denies migraines. She has shooting pain from occipital lobe to the L. ear, lasting seconds, she moves her head and it goes away, and wears a neck-brace at night to sleep. She is followed by Pain management. She has vertigo spontaneously, with nausea, denies v/ +gait impairment, it lasts for a few seconds, takes Meclizine, prn and has Gill maneuvers with her chiropractor prn. RLS Legs are better, noticing less symptoms since starting Gabapentin, is planning to take it earlier in the evening. She has leg discomfort on and off at night, improves when she moves her legs, and it does not wake her from sleep. She denies cramps or spasms. HST, Jun 2024 is AHI is <2 with O2, and is awaiting PSG results - study. [facility] Medical History Restless legs syndrome (RLS) Sleep paralysis Insomnia Snoring Hypersomnia Seasonal allergies Recurrent isolated sleep paralysis Cervical radiculopathy due to degenerative joint disease of spine Depression with anxiety Degenerative disc disease, cervical Anxiety with flying Cervicalgia Hair loss Dysphagia Chronic insomnia Fatigue Dyslipidemia Essential hypertension Postmenopause Atrophic vaginitis Paroxysmal atrial fibrillation Osteoporosis Acquired hypothyroidism Surgical History History of prior ablation treatment Family History Father Hx of CABG Craig's palsy Thyroid disorder Myocardial infarction Mother HTN (hypertension) Hypothyroidism Sister Hypothyroidism Multiple sclerosis Pancreatic cancer Breast cancer Brother No problems noted. Brother No problems noted. Brother No problems noted. Sister Substance use disorder Sister No problems noted. Son No problems noted. Social History Housing: House Alcohol intake: current Patient Tobacco Use Status: Never used Tobacco e-Cigarette/Vaping Use: Never Used service: No Current occupational status: retired Cognitive needs: No Hearing needs: No Vision needs: Yes Review of Systems Const All systems reviewed & are unremarkable except as noted in HPI and below Physical Exam Vital Signs: Last Vital Signs Pulse 56 07/22/24 10:08 BP 160/80 H 07/22/24 10:08 Pulse Ox 98 07/22/24 10:08 Oxygen Delivery Method Room Air 07/22/24 10:08 Const Orientation/consciousness: patient oriented x3 Eyes Pupils: Equal, round and reactive pupils present Neuro General: patient oriented x3 and moves all extremities Cranial nerves: Yes CN's II-XII intact bilaterally, Yes Facial sensation intact/muscles of mastication intact, Yes Equal, round and reactive pupils present, Yes Normal accommodation reflex present, Yes Bilaterally intact EOM p resent, Yes Normal facial strength present, Yes Midline tongue present, Yes Ability to bilaterally rotate head present (pain on Ext and Flexion) and Yes Ability to bilaterally elevate shoulders present Cognition (Neuro): normal cognition Gait exam (Neuro): Normal gait present Motor exam (neuro): 5/5 motor strength present throughout and Normal motor muscle tone present throughout Deep tendon reflexes (DTR's): Right triceps reflex intensity grade: 3+, Left triceps reflex intensity grade: 3+, Rt Biceps (C5, C6): 3+, Left biceps reflex intensity grade: 3+, Right brachioradialis reflex intensity grade: 3+, Left brachioradialis reflex intensity grade: 3+, Right patellar reflex intensity grade: 3+ and Left patellar reflex intensity grade: 3+ Results Reviewed Results Reviewed: Labs HST Assessment & Plan Assessment & Plan (1) Hypersomnia: Code(s): G47.10 - Hypersomnia, unspecified Category: Medical (2) Insomnia: Code(s): G47.00 - Insomnia, unspecified Category: Medical Qualifiers: Insomnia type: psychophysiologic Qualified Code(s): F51.04 - Psychophysiologic insomnia (3) Sleep paralysis: Code(s): G47.8 - Other sleep disorders Category: Medical (4) Restless legs syndrome (RLS): Code(s): G25.81 - Restless legs syndrome Category: Medical Plan Sleep study completed 07/01/2024 inconclusive PSG - Completed on Jul 14, 2024 - awaiting results, will evaluate her. RLS: PLMD? PLMS? Gabapentin 300mg qhs for RLS and insomnia Patient Education: Sleep Hygiene, Dark room, no devices in bed, red light therapy in the bedroom can be relaxing, limit fluids 2-4 hours prior to bedtime. Vestibular Neuritis:Layrinthitis Continue chiropractor visits for gill maneuvers, and occipital blocks with pain management prn. Will F/U in 3 months. Coding Level of Care Code Est Pt Level 4 (71271) Diagnoses Hypersomnia G47.10 Psychophysiological insomnia F51.04 Insomnia type: psychophysiologic Sleep paralysis G47.8 Restless legs syndrome (RLS) G25.81 Time Spent (min) 30
[2024-07-22 10:08] VITALS: BP 160/80; PULSE 56; O2SAT 98
== END 2024-07-22 10:40 | disposition home or self-care (01) ==
PROVIDERS: PCP Internal Medicine; Visit Provider Physician Assistant Medical
DX: G47.10 Hypersomnia, unspecified (principal); F51.04 Psychophysiologic insomnia; G47.8 Other sleep disorders; G25.81 Restless legs syndrome
CPT/HCPCS: 99214

== ENCOUNTER → 2024-07-22 09:49 | Outpatient (BNVA) | payer MEDICARE, SELFPAY | PROVIDERS: PCP Internal Medicine; Visit Provider Physician Assistant Medical | DX: G47.10 Hypersomnia, unspecified (principal); G47.8 Other sleep disorders; G25.81 Restless legs syndrome; F51.04 Psychophysiologic insomnia | CPT/HCPCS: 96372; 99212; J3111 ==

== ENCOUNTER 2024-07-22 13:00 | Outpatient (AMB) | payer MEDICARE, SELFPAY ==
--- NOTE | 2024-07-22 13:26 | AM.OFFVISNUR ---
Intake Visit Reasons: Evenity #3 Allergies levofloxacin [Levaquin] Allergy (Unknown, Verified 07/22/24 10:07) hives Sulfa (Sulfonamide Antibiotics) Allergy (Unknown, Verified 07/22/24 10:07) itchy, hives sulfamethoxazole [From Bactrim] Allergy (Unknown, Verified 07/22/24 10:07) itchy, hives Tetanus Vaccines and Toxoid Allergy (Unknown, Verified 07/22/24 10:07) convulsion trimethoprim [From Bactrim] Allergy (Unknown, Verified 07/22/24 10:07) itchy, hives codeine cough syrup Allergy (Unknown, Uncoded 05/09/24 08:55) hives zpack Adverse Reaction (Unknown, Uncoded 05/09/24 08:55) vomiting Nursing Note Patient arrived for Evenity #3 injection. Pt denies any reactions to previous injections. Patient tolerated injection well. Observed x15 minutes. No adverse reactions noted. Patient scheduled for next procedure. Appt card given. Patient instructed to seek immediate medical attention should she notice any adverse symptoms including but not limited to , increased pain to injection site, redness, fever chills, rash, SOB. Office Meds romosozumab-aqqg 210 mg/2.34 mL(105 mg/1.17 mL x2)subcutaneous syringe Performing Provider: Angel Winters MD Performing Location: [facility] [place] Endocrinology Administered by: Helen Black RN on 07/22/24 13:59 Dose Route Admin Location Dispensed Lot Number Expiration Date NDC Paper Sorter And Counter 210 mg subcut 2.34 mL [id number] 09/30/26 11376-482-64 AMGEN Assessment & Plan Assessment & Plan Orders: Orders AMB Romosozumab Injection Patient Supplied 07/22/24 M81.0 - Age-related osteoporosis without current pathological fracture
--- NOTE | 2024-07-22 13:57 | AM.OFFVISNUR ---
Intake Visit Reasons: Evenity #3 Allergies levofloxacin [Levaquin] Allergy (Unknown, Verified 07/22/24 10:07) hives Sulfa (Sulfonamide Antibiotics) Allergy (Unknown, Verified 07/22/24 10:07) itchy, hives sulfamethoxazole [From Bactrim] Allergy (Unknown, Verified 07/22/24 10:07) itchy, hives Tetanus Vaccines and Toxoid Allergy (Unknown, Verified 07/22/24 10:07) convulsion trimethoprim [From Bactrim] Allergy (Unknown, Verified 07/22/24 10:07) itchy, hives codeine cough syrup Allergy (Unknown, Uncoded 05/09/24 08:55) hives zpack Adverse Reaction (Unknown, Uncoded 05/09/24 08:55) vomiting Office Meds romosozumab-aqqg 210 mg/2.34 mL(105 mg/1.17 mL x2)subcutaneous syringe Performing Provider: Angel Winters MD Performing Location: [facility] [place] Endocrinology Administered by: Helen Black RN on 07/22/24 13:59 Dose Route Admin Location Dispensed Lot Number Expiration Date NDC Typewriter Tester 210 mg subcut 2.34 mL [id number] 09/30/26 19518-121-43 [facility] Assessment & Plan Assessment & Plan Orders: Orders AMB Romosozumab Injection Patient Supplied Today M81.0 - Age-related osteoporosis without current pathological fracture
== END 2024-07-22 13:54 | disposition home or self-care (01) ==
PROVIDERS: PCP Internal Medicine
DX: M81.0 Age-related osteoporosis without current pathological fracture (principal)

== ENCOUNTER 2024-07-29 09:22 | Outpatient (AMB) | payer MEDICARE, SELFPAY ==
[2024-07-29 09:25] VITALS: BP 138/65; PULSE 62; RESP 16; O2SAT 97
--- NOTE | 2024-07-29 09:25 | MHC.OFFVIS ---
Vital Signs 07/29/24 09:25 Height 5 ft 6 in BP 138/65 Blood Pressure Location Lt brachial Position Sitting BP not taken reason Patient Refused Respiration 16 Pulse 62 Pulse Source Pulse Oximeter Pulse Oximetry (%) 97 Oxygen Delivery Method Room Air Intake Visit Reasons: 3 Week Follow Up Allergies levofloxacin [Levaquin] Allergy (Unknown, Verified 07/29/24 09:26) hives Sulfa (Sulfonamide Antibiotics) Allergy (Unknown, Verified 07/29/24 09:26) itchy, hives sulfamethoxazole [From Bactrim] Allergy (Unknown, Verified 07/29/24 09:26) itchy, hives Tetanus Vaccines and Toxoid Allergy (Unknown, Verified 07/29/24 09:26) convulsion trimethoprim [From Bactrim] Allergy (Unknown, Verified 07/29/24 09:26) itchy, hives codeine cough syrup Allergy (Unknown, Uncoded 07/29/24 09:26) hives zpack Adverse Reaction (Unknown, Uncoded 07/29/24 09:26) vomiting Medication List - Last Reconciled 07/29/24 by Elsy Bonner LPN apixaban (Eliquis) 5 mg PO BID cholecalciferol (vitamin D3) 50 mcg PO DAILY cyclobenzaprine 5 mg PO BEDTIME MDD 10mg MDD escitalopram oxalate 10 mg PO DAILY gabapentin 300 mg PO BID 30 days Levoxyl (levothyroxine) 112 mcg PO DAILY NS metoprolol tartrate 50 mg PO BID romosozumab-aqqg (Evenity) 210 mg (2.34 mL) subcut .q month HPI HPI 3 Week Follow Up: Details: History of Present Illness The patient is a 64-year-old female presenting with chronic cervicogenic headaches and occipital neuralgia. She has a history of cervical spondylosis contributing to her pain. Recently, she underwent bilateral cervical medial branch blocks and a left occipital nerve block, both providing temporary relief. During her last visit, an occipital nerve block was performed, offering eight hours of pain relief. The pain has since returned to its previous state. The patient has explored various oral medications, including NSAIDs, neuropathics, muscle relaxants, and Tylenol, but reports insufficient long-term relief. She experiences headaches primarily on the left side, and these headaches are worst during sleeping, causing sudden severe pain that radiates upwards. Movement of the neck sometimes alleviates the pain. It is suspected that the source of pain originates from the third occipital nerve, suggesting a component of neuralgia. Pain Description - Onset: Chronic with acute exacerbation. - Quality: Sharp and shooting pain. - Primary Location: Left side of the neck and head. - Radiation: Travels up the head from the neck. - Exacerbating Factors: Worsens during sleep and certain positions. - Relieving Factors: Movement of the neck can partially alleviate symptoms. - Activities Affected: Disturbed sleep with episodes of severe discomfort. Physical Exam Results Pain Management - Affect: The patient reports regularly waking up due to sharp pains impacting emotional well-being. - Analgesia: Previous use of various oral medications and nerve blocks with temporary relief noted. - Adverse Effects: Muscle relaxers deemed ineffective. - Activities of Daily Living: Pain disrupts sleep patterns and general daily function. - Aberrant Drug Related Behaviors: No evidence of misuse reported. [facility] Medical History Restless legs syndrome (RLS) Sleep paralysis Insomnia Snoring Hypersomnia Seasonal allergies Recurrent isolated sleep paralysis Cervical radiculopathy due to degenerative joint disease of spine Depression with anxiety Degenerative disc disease, cervical Anxiety with flying Cervicalgia Hair loss Dysphagia Chronic insomnia Fatigue Dyslipidemia Essential hypertension Postmenopause Atrophic vaginitis Paroxysmal atrial fibrillation Osteoporosis Acquired hypothyroidism Surgical History History of prior ablation treatment Family History Father Hx of CABG Craig's palsy Thyroid disorder Myocardial infarction Mother HTN (hypertension) Hypothyroidism Sister Hypothyroidism Multiple sclerosis Pancreatic cancer Breast cancer Brother No problems noted. Brother No problems noted. Brother No problems noted. Sister Substance use disorder Sister No problems noted. Son No problems noted. Social History Housing: House Alcohol intake: current Patient Tobacco Use Status: Never used Tobacco e-Cigarette/Vaping Use: Never Used service: No Current occupational status: retired Cognitive needs: No Hearing needs: No Vision needs: Yes Physical Exam Vital Signs: Last Vital Signs Pulse 62 07/29/24 09:25 Resp 16 07/29/24 09:25 BP 138/65 07/29/24 09:25 Pulse Ox 97 07/29/24 09:25 Oxygen Delivery Method Room Air 07/29/24 09:25 Assessment & Plan Assessment & Plan (1) Cervicogenic headache: Code(s): G44.86 - Cervicogenic headache Category: Medical (2) Occipital neuralgia of left side: Code(s): M54.81 - Occipital neuralgia Category: Medical Plan Plan - Proceed with temporary nerve stimulator placement at the third occipital nerve under fluoroscopy to assess suitability for long-term neural modulation. - Discontinuation of ineffective muscle relaxants. - Alternative medication regimen with NSAIDs and Tylenol. - Hold Eliquis three days prior to the procedural intervention. Patient was informed and verbally consented to the use of an ambient scribe for clinic note documentation during this visit. Discussion Notes I discussed with the patient the nature of her occipital neuralgia and cervicogenic headaches, both likely linked to her cervical spondylosis. I suggested nerve stimulation therapy as a preferred intervention for extended pain relief, explaining that it has a responder rate of approximately 70%. The procedure involves temporary implantation for eight weeks, with restrictions such as no swimming and precautions to maintain the device's viability. We also discussed radiofrequency ablation as an alternative, albeit a less preferred option due to potential for adverse effects. I conveyed the potential of relief spanning from months to years post-stimulation, emphasizing it is not a permanent solution. The patient was informed about ablation being a backup plan if nerve stimulation does not yield results or is not a viable option. Insurance coverage was discussed, with further procedural details to be provided during the scheduled hospital visit. Patient Instructions - Prepare for nerve stimulator placement with Eliquis held for three days prior. - Temporarily cease muscle relaxants if not providing relief. - Use ibuprofen and alternate with Tylenol for pain management. - Avoid submerging the stimulation site in water (no swimming) for the duration of the temporary device placement. - Plan for follow-up scheduling post-vacation for implementation of pain management strategy. Coding Level of Care Code Est Pt Level 4 (65452) Diagnoses Cervicogenic headache G44.86 Occipital neuralgia of left side M54.81
== END 2024-07-29 09:42 | disposition home or self-care (01) ==
PROVIDERS: PCP Internal Medicine; Visit Provider Internal Medicine
DX: G44.86 Cervicogenic headache (principal); M54.81 Occipital neuralgia
CPT/HCPCS: 99214

== ENCOUNTER → 2024-07-29 09:22 | Outpatient (BNVA) | payer MEDICARE, SELFPAY | PROVIDERS: PCP Internal Medicine; Visit Provider Internal Medicine | DX: G44.86 Cervicogenic headache (principal); M54.81 Occipital neuralgia | CPT/HCPCS: 99212 ==

== ENCOUNTER 2024-08-01 08:47 | Outpatient (REF) | payer MEDICARE, SELFPAY ==
--- OUTSIDE RECORDS SUMMARY | 2024-08-01 11:37 | XMS_ITS | Clinical Summary ---
Author Organization [facility] Address [address] [place] [address] Care Team Providers Care Associate Software Developer Name Role Phone Iliana Lopez MD Primary Care Provider Allergies Active Allergy Reactions Criticality Noted Date Comments Azithromycin 11/04/2020 Diphtheria, Pertussis, Tetan us Vaccine 11/04/2020 Levofloxacin 11/04/2020 Focukcend-Qsmfhjmes-Cehfmqx 11/05/19 21 Sulfa (Sulfonamide Antibiotics) 10/2020 Sulfamethoxazole 11/04/2020 From bactrim Tetanus Antitoxin 04/27/2022 Trimethoprim 11/04/2020 Medications Medication Sig Dispensed Refills Start Date End Date Status apixaban (Eliquis) 5 mg tablet Take 1 tablet (5 mg total) by mouth 2 (two) times a day. 12/07/2023 Active cholecalciferol (VITAMIN D-3) 50 mcg (2,000 unit) tablet Take by mouth. A ctive escitalopram (LEXAPRO) 5 mg tablet Take 1 tablet (5 mg total) by mouth 1 (one) time each day. Active levothyroxine (SYNTHROID, LEVOTHROID) 100 mcg tablet Take 100 mcg by mouth every morning. Active LORazepam (ATIVAN) 1 mg tablet Take 1 Tablet by mouth Once for 1 dose. Prior to MRI. 03/11/2024 Active metoprolol tartrate (LOPRESSOR) 50 mg tablet Take 1 tablet (50 mg total) by mouth 2 (two) times a day. 12/07/2023 Active Active Problems Problem Noted Date Diagnosed Date ASD (atrial septal defect) 05/24/2023 Overview (07/24/2024): Last Assessment & Plan: Patient has known atrial septal defect. This has been discussed in the past with Dr. Oliver. Patient is not a candidate for closure. She is asymptomatic. Dyslipidemia 04/27/2022 Overview (07/24/2024): Last Assessment & Plan: Patient follows a low-fat diet. She is not on any medical therapies. Also LDL cholesterol 130. This is borderline. We will update lipids. Essential hypertension 11/04/2020 Overview (07/24/2024): Last Assessment & Plan: Her blood pressure is elevated today but has been under good control at home. Will continue to monitor. Her EKG and echocardiogram did not show evidence of LVH. We did discuss the importance of keeping her blood pressure under good control as this increases her risk for heart attack and stroke as well. She will continue on her metoprolol. Paroxysmal atrial fibrillation 11/04/2020 Overview (07/24/2024): Last Assessment & Plan: Patient has history of paroxysmal atrial fibrillation. Her [id number] score is 2 representing a 2.2% risk for thromboembolism. She meets criteria for anticoagulation. Discussed her risk of stroke and that aspirin would not adequately protect her. We discussed options and patient is agreeable to starting Eliquis 5 mg twice daily. I prescribed this for her today. Stop aspirin. Encounters Date Type Department Care Team Description 06/28/2024 Telephone [facility] [address] [place] [address] Loida Gaines NP 05/14/2024 Telephone [facility] [address] [place] [address] Loida Gaines NP medication review from Last 3 Months Surgical History Surgery Date Site/Laterality Comments OTHER SURGICAL HISTORY PROCEDURE: HISTORY OTHER; COMMENT: History of prior ablation treatment Medical History Medical History Date Comments Acquired hypothyroidism DX:Acqui red hypothyroidism Atrophic vaginitis DX:Atrophic v aginitis Osteoporosis DX:Osteoporosis Postmenopause DX:Postmenopause Chronic insomnia DX:Chronic inso mnia Fatigue DX:Fatigue Family History Medical History Relation Name Comments CABG Father Heart attack Father Other: Craig's palsy Father Thyroid disease Father Hypertension Mother Hyperthyroidism Mother Hyperthyroidism Sister Relation Name Status Comments Brother Father Mother Sister Social History Tobacco Use Types Packs/Day Years Used Date Smoking Tobacco: Former Smokeless Tobacco: Never Alcohol Use Standard Drinks/Week Comments Yes 0 (1 standard drink = 0.6 oz pur e alcohol) Sex and Gender Information Value Date Recorded Sex Assigned at Not on file Gender Identity Not on file Sexual Orientation Not on file Obstetrics History Last Filed Vital Signs Vital Sign Reading Time Taken Comments Blood Pressure 144/84 12/22/2023 9:10 AM EDT Pulse 59 12/07/2023 9:11 AM EDT Temperature - - Respiratory Rate - - Oxygen Saturation - - Inhaled Oxygen Concentration - - Weight 88.9 kg (196 lb) 12/22/2023 9:10 AM EDT Height 167.6 cm (5' 6 ) 12/22/2023 9:10 AM EDT Body Mass Index 31.64 12/22/2023 9:10 AM EDT Plan of Treatment Upcoming Encounters Date Type Department Care Team (Late st Contact Info) Description 12/10/2024 8:20 AM EDT Office Visit [facility] [address] [place] [address] Nick Henry MD [address] [place] [address] [address] [place] [address] Health Maintenance Due Date Last Done Comments Breast Cancer Screening 1960 DTaP,Tdap,and Td Vaccines (1 - Tdap) 1977 Zoster Vaccines (1 of 2) 2008 RSV Immunization Patients 60 + Years Old (1 - Risk 60-74 years 1-dose series) 2018 Cholesterol Screening (Lipid Panel) 06/04/2022 Colorectal Cancer Screening: Colonoscopy 06/04/2022 Depression Screening 06/04/2022 Hepatitis C Screening 06/04/2022 Medicare Annual Wellness Visit 06/04/2022 Osteoporosis Screening (Bone Density Screening) 06/04/2022 Social Influencers of Health Screening 06/04/2022 Hypertension/CHF/CAD Annual BMP Blood Test 06/12/2022 Falls Risk Assessment 2023 Pneumococcal Vaccine: 65+ Ye ars (1 of 1 - PCV) 2023 COVID-19 Vaccine ( - 2023-2 5 season) 2024 Influenza Vaccine (#1) 2024 HIB Vaccines Aged Out No longer eligi ble based on patient's age to complete this topic HPV Vaccines Aged Out No longer eligi ble based on patient's age to complete this topic Hepatitis A Vaccines Aged Out No long er eligible based on patient's age to complete this topic Hepatitis B Vaccines Aged Out No long er eligible based on patient's age to complete this topic IPV Vaccines Aged Out No longer eligi ble based on patient's age to complete this topic MMR Vaccines Aged Out No longer eligi ble based on patient's age to complete this topic Meningococcal ACWY Vaccine Aged Out N o longer eligible based on patient's age to complete this topic RSV Immunization Patients Un arnold 20 months Aged Out No longer eligible b ased on patient's age to complete this topic Varicella Vaccines Aged Out No longer eligible based on patient's age to complete this topic Care Teams Associate Software Developer Relationship Specialty Start Date End Date Iliana Lopez MD [address] [facility] [place] [address] PCP - General Internal Medicine 07/16/12
== END 2024-08-01 08:48 | disposition home or self-care (01) ==
LOC: HO.MAMMO 08:47
PROVIDERS: PCP Internal Medicine; Visit Provider Internal Medicine
DX: Z12.31 Encounter for screening mammogram for malignant neoplasm of breast (principal)
CPT/HCPCS: 77063; 77067

== ENCOUNTER → 2024-08-01 09:00 | Outpatient (BNV) | payer MEDICARE, SELFPAY | PROVIDERS: PCP Internal Medicine; Visit Provider Internal Medicine | DX: Z12.31 Encounter for screening mammogram for malignant neoplasm of breast (principal) | CPT/HCPCS: 77063; 77067 ==

== ENCOUNTER 2024-08-22 10:17 | Outpatient (REF) | payer MEDICARE, SELFPAY ==
--- OUTSIDE RECORDS SUMMARY | 2024-08-22 11:23 | XMS_ITS | Clinical Summary ---
Author Organization [facility] Address [address] [place] [address] Care Team Providers Care Paint Striping Machine Operator Name Role Phone Iliana Lopez MD Primary Care Provider Allergies Active Allergy Reactions Criticality Noted Date Comments Azithromycin 11/04/2020 Diphtheria, Pertussis, Tetan us Vaccine 11/04/2020 Levofloxacin 11/04/2020 Eamwfivqr-Urnicowph-Uqeerlz 11/05/19 21 Sulfa (Sulfonamide Antibiotics) 10/2020 Sulfamethoxazole 11/04/2020 From bactrim Tetanus Antitoxin 04/27/2022 Trimethoprim 11/04/2020 Medications apixaban (Eliquis) 5 mg tablet Take 1 tablet (5 mg total) by mouth 2 (two) times a day. 12/07/2023 Active cholecalciferol (VITAMIN D-3) 50 mcg (2,000 unit) tablet Take by mouth. Active escitalopram (LEXAPRO) 5 mg tablet Take 1 [...] has history of paroxysmal atrial fibrillation. Her [id number] score is 2 representing a 2.2% risk for thromboembolism. She meets criteria for anticoagulation. Discussed her risk of stroke and that aspirin would not adequately protect her. We discussed options and patient is agreeable to starting Eliquis 5 mg twice daily. I prescribed this for her today. Stop aspirin. Encounters Date Type Department Care Team Description 06/28/2024 Telephone [facility] [address] [place] [address] Loida Gaines NP from Last 3 Months Surgical History Surgery [...] drink = 0.6 oz pur e alcohol) Comments Unknown Sex and Gender Information Value Date Recorded Sex Assigned at Not on file Legal Sex Female 7:59 PM EST Gender Identity Not on file Sexual Orientation [...] Description 12/10/2024 8:20 AM EDT Office Visit [facility] [address] [place] [address] Nick Henry MD [address] [place] [address] [address]IVE [address] [place] [address] Health Maintenance Due Date Last Done Comments Breast Cancer Screening 1960 DTaP,Tdap,and Td Vaccines (1 - Tdap) 1977 Pneumococcal Vaccine: 50+ Ye ars (1 of 1 - PCV) 2008 Zoster Vaccines (1 of 2) 2008 RSV [...] Blood Test 06/12/2022 Falls Risk Assessment 2023 COVID-19 Vaccine (1 - 2023-2 5 season) 2024 Influenza Vaccine [...] patient's age to complete this topic Meningococcal B Vacine Aged Out No lo nger eligible based on patient's age to complete this topic RSV Immunization Patients Un arnold 20 months Aged Out No longer eligible b ased on patient's age to complete this topic Varicella Vaccines Aged Out No longer eligible based on patient's age to complete this topic Insurance MEDICARE Care Teams Paint Striping Machine Operator Relationship Specialty Start Date End Date Iliana Lopez MD [address] [facility] [place] [address] PCP - General Internal Medicine 07/16/12
[2024-08-22 12:21] LABS: Iron 72 mcg/dL (30-160); Percent Iron Saturation 25 % (15-50); Total Iron Binding Capacity 286 mcg/dL (228-428); Unsaturated Iron Binding 214 ug/dL
[2024-08-22 12:33] LABS: Ferritin 84 ng/mL (10-250); Free T4 (Free Thyroxine) 1.26 ng/dL (0.71-1.85); TSH reflex Free T4 4.99 uIU/mL (0.32-4.0); Vitamin D 25-OH Total 50.6 ng/mL (>30)
[2024-08-22 12:46] LABS: Folate 11.5 ng/mL (> or = 4.0); Vitamin B12 706 pg/mL (200-900)
[2024-08-26 06:33] LABS: Methylmalonic Acid 115 nmol/L (69-390)
== END 2024-08-22 10:18 | disposition home or self-care (01) ==
LOC: HO.HMGCLDS 10:17
PROVIDERS: Absent Provider Physician Assistant Medical; PCP Internal Medicine; Visit Provider Internal Medicine
DX: G47.61 Periodic limb movement disorder (principal); G47.9 Sleep disorder, unspecified; R53.83 Other fatigue; G25.81 Restless legs syndrome; E03.9 Hypothyroidism, unspecified
CPT/HCPCS: 36415; 82306; 82607; 82728; 82746; 83090; 83540; 83921; 84439; 84443

== ENCOUNTER 2024-08-26 09:52 | Outpatient (AMB) | payer MEDICARE, SELFPAY ==
--- NOTE | 2024-08-26 10:11 | AM.OFFVISNUR ---
Intake Visit Reasons: Evenity #4 Allergies levofloxacin [Levaquin] Allergy (Unknown, Verified 07/29/24 09:26) hives Sulfa (Sulfonamide Antibiotics) Allergy (Unknown, Verified 07/29/24 09:26) itchy, hives sulfamethoxazole [From Bactrim] Allergy (Unknown, Verified 07/29/24 09:) itchy, hives Tetanus Vaccines and Toxoid Allergy (Unknown, Verified 07/29/24 09:26) convulsion trimethoprim [From Bactrim] Allergy (Unknown, Verified 07/29/24 09:26) itchy, hives codeine cough syrup Allergy (Unknown, Uncoded 07/29/24 09:26) hives zpack Adverse Reaction (Unknown, Uncoded 07/29/24 09:) vomiting Office Meds romosozumab-aqqg 210 mg/2.34 mL(105 mg/1.17 mL x2)subcutaneous syringe Performing Provider: Angel Winters MD Performing Location: [facility] Administered by: Solange Carroll RN on 08/26/24 10:11 Dose Route Admin Location Dispensed Lot Number Expiration Date [facility] Scale Attendant 210 mg subcut bilateral upper arms 2.34 mL [id number] 09/30/26 19355-984-53 AMGEN Comments: Consent form signed by patient. Pt tolerated injection well. Pt denies any adverse reactions with previous injections. Assessment & Plan Assessment & Plan Orders: Orders AMB Romosozumab Injection Patient Supplied Today M81.0 - Age-related osteoporosis without current pathological fracture Medications: New romosozumab-aqqg 210 mg (2.34 mL) subcut ONCE 2.34 mL 0RF M81.0 - Age-related osteoporosis without current pathological fracture Coding
--- OUTSIDE RECORDS SUMMARY | 2024-08-26 10:53 | XMS_ITS | Clinical Summary ---
Author Organization [facility] Address [address] [place] [address] Care Team Providers Care It Infrastructure Consultant Name Role Phone Iliana Lopez MD Primary Care Provider Allergies Active Allergy Reactions Criticality Noted Date Comments Azithromycin 11/04/2020 Diphtheria, Pertussis, Tetan us Vaccine 11/04/2020 Levofloxacin 11/04/2020 Pyrtsztmp-Hcpjcbfda-Xtyoqoa 11/05/19 21 Sulfa (Sulfonamide Antibiotics) 10/2020 Sulfamethoxazole [...] has history of paroxysmal atrial fibrillation. Her [id number] score is 2 representing a 2.2% risk for thromboembolism. She meets criteria for anticoagulation. Discussed her risk of stroke and that aspirin would not adequately protect her. We discussed options and patient is agreeable to starting Eliquis 5 mg twice daily. I prescribed this for her today. Stop aspirin. Encounters Date Type Department Care Team Description 06/28/2024 Telephone [facility] [address] [place] [address] Loida Gaines NP from Last [...] Description 12/10/2024 8:20 AM EDT Office Visit [facility] [address] [place] [address] Nick Henry MD [address] [place] [address] [address] [place] [address] Health Maintenance Due Date Last Done Comments [...] complete this topic Insurance MEDICARE Care Teams It Infrastructure Consultant Relationship Specialty Start Date End Date Iliana Lopez MD [address] [facility] [place] [address] PCP - General Internal Medicine 07/16/12
== END 2024-08-26 10:10 | disposition home or self-care (01) ==
PROVIDERS: PCP Internal Medicine
DX: M81.0 Age-related osteoporosis without current pathological fracture (principal)

== ENCOUNTER → 2024-08-26 09:52 | Outpatient (BNVA) | payer MEDICARE, SELFPAY | PROVIDERS: PCP Internal Medicine | DX: M81.0 Age-related osteoporosis without current pathological fracture (principal) | CPT/HCPCS: 96372; J3111 ==

== ENCOUNTER 2024-09-12 06:17 | Outpatient (REF) | payer MEDICARE, SELFPAY ==
--- NOTE | ~2024-09-12 | FL_ITS ---
EXAMINATION: FL GUIDANCE ONLY HISTORY: G44.86 - Cervicogenic headache COMPARISON: None available. TECHNIQUE: Fluoroscopy time: 0.2 minutes. Cumulative Dose: 1.42 mGy. DAP: 0.0188 mGym2 Images: 2. FINDINGS: AP and lateral fluoroscopic spot films of the cervical spine demonstrates leads in place. FL/FL guidance in treatment room IMPRESSION: Fluoroscopy during procedure. Please see procedure report for additional information. Electronically signed by: Angel Blanco MD 09/12/2024 12:55 PM EDT
--- OUTSIDE RECORDS SUMMARY | 2024-09-12 06:19 | XMS_ITS | Clinical Summary ---
Author Organization [facility] Address [address] [place] [address] Care Team Providers Care Wrecker Operator Name Role Phone Iliana Lopez MD Primary Care Provider Allergies Active Allergy Reactions Criticality Noted Date Comments Azithromycin 11/04/2020 Diphtheria, Pertussis, Tetan us Vaccine 11/04/2020 Levofloxacin 11/04/2020 Ywjfodrxa-Qxbllzfrl-Hvjdakz 11/05/19 21 Sulfa (Sulfonamide Antibiotics) 10/2020 Sulfamethoxazole [...] has history of paroxysmal atrial fibrillation. Her [id number]-SZWf score is 2 representing a 2.2% risk for thromboembolism. She meets criteria for anticoagulation. Discussed her risk of stroke and that aspirin would not adequately protect her. We discussed options and patient is agreeable to starting Eliquis 5 mg twice daily. I prescribed this for her today. Stop aspirin. Encounters Date Type Department Care Team Description 06/28/2024 Telephone [facility] [address] [place] [address] Loida Gaines NP from Last [...] Description 12/10/2024 8:20 AM EDT Office Visit [facility] [address] [place] [address] Nick Henry MD [address] [place] [address] [address]IVE [address] [place] [address] Health Maintenance Due Date Last Done Comments [...] complete this topic Insurance MEDICARE Care Teams Wrecker Operator Relationship Specialty Start Date End Date Iliana Lopez MD [address] [facility] [place] [address] PCP - General Internal Medicine 07/16/12
== END 2024-09-12 06:18 | disposition home or self-care (01) ==
LOC: CF 06:17
PROVIDERS: Visit Provider Internal Medicine
DX: G44.86 Cervicogenic headache (principal); M54.81 Occipital neuralgia
CPT/HCPCS: 64555; C1778; J2003

== ENCOUNTER 2024-09-12 10:52 | Outpatient (AMB) | payer MEDICARE, SELFPAY ==
[2024-09-12 11:01] VITALS: BP 185/85; PULSE 16; O2SAT 98
--- NOTE | 2024-09-12 11:01 | A.OFFVIS_ITS ---
Vital Signs 09/12/24 11:01 09/12/24 11:42 BP 185/85 H 164/91 H Blood Pressure Location Lt brachial Rt brachial Position Sitting Sitting Respiration 16 Pulse 16 L 64 Pulse Source Pulse Oximeter Pulse Oximeter Pulse Oximetry (%) 98 98 Oxygen Delivery Method Room Air Room Air Intake Visit Reasons: Left 3rd occipital Sprint Project Director Required: No Allergies levofloxacin [Levaquin] Allergy (Unknown, Verified 09/12/24 11:02) hives Sulfa (Sulfonamide Antibiotics) Allergy (Unknown, Verified 09/12/24 11:02) itchy, hives sulfamethoxazole [From Bactrim] Allergy (Unknown, Verified 09/12/24 11:02) itchy, hives Tetanus Vaccines and Toxoid Allergy (Unknown, Verified 09/12/24 11:02) convulsion trimethoprim [From Bactrim] Allergy (Unknown, Verified 09/12/24 11:02) itchy, hives codeine cough syrup Allergy (Unknown, Uncoded 09/12/24 11:02) hives zpack Adverse Reaction (Unknown, Uncoded 09/12/24 11:02) vomiting Medication List - Last Reconciled 09/12/24 by Elsy Bonner LPN apixaban (Eliquis) 5 mg PO BID cholecalciferol (vitamin D3) 50 mcg PO DAILY cyclobenzaprine 5 mg PO BEDTIME MDD 10mg MDD escitalopram oxalate 10 mg PO DAILY gabapentin 300 mg PO BID 30 days Levoxyl (levothyroxine) 112 mcg PO DAILY NS lorazepam (Ativan) 1 mg PO ONCE metoprolol tartrate 50 mg PO BID romosozumab-aqqg (Evenity) 210 mg (2.34 mL) subcut .q month [facility] Medical History Restless legs syndrome (RLS) Sleep paralysis Insomnia Snoring Hypersomnia Seasonal allergies Recurrent isolated sleep paralysis Cervical radiculopathy due to degenerative joint disease of spine Depression with anxiety Degenerative disc disease, cervical Anxiety with flying Cervicalgia Hair loss Dysphagia Chronic insomnia Fatigue Dyslipidemia Essential hypertension Postmenopause Atrophic vaginitis Paroxysmal atrial fibrillation Osteoporosis Acquired hypothyroidism Surgical History History of prior ablation treatment Family History Father Hx of CABG Craig's palsy Thyroid disorder Myocardial infarction Mother HTN (hypertension) Hypothyroidism Sister Hypothyroidism Multiple sclerosis Pancreatic cancer Breast cancer Brother No problems noted. Brother No problems noted. Brother No problems noted. Sister Substance use disorder Sister No problems noted. Son No problems noted. Social History Housing: House Alcohol intake: current Patient Tobacco Use Status: Never used Tobacco e-Cigarette/Vaping Use: Never Used service: No Current occupational status: retired Cognitive needs: No Hearing needs: No Vision needs: Yes Physical Exam Vital Signs: Last Vital Signs Pulse 64 09/12/24 11:42 Resp 16 09/12/24 11:42 BP 164/91 H 09/12/24 11:42 Pulse Ox 98 09/12/24 11:42 Oxygen Delivery Method Room Air 09/12/24 11:42 Office Procedures Details: Cervical Medial Branch Nerve Stimulation Lead Placement, SPR (Sprint) System, left C2-3/TON ? After the risks, benefits and alternatives were discussed with the patient and informed consent was obtained, patient was placed in the prone position and padded to foster comfort. The skin overlying the cervical spine was prepped and draped in sterile fashion. Fluoroscopy was used to identify the spinous process and lamina over the C2 articular pillar. After identifying and marking the intended target along the course of the medial branch nerve, the skin around the planned entry point and the subcutaneous tissues were injected with lidocaine 1%. An introducer needle and stimulating probe were assembled, inserted and advanced along the intended course of the 3rd occipital nerve, taking care to maintain the proper depth of insertion as the introducer was advanced under fluoroscopic guidance. The introducer needle was delivered to a location in proximity to the nerve. Multiple stimulation parameters were used to deliver stimulation to the target medial branch nerve in concert with stimulating at multiple positions around the nerve. Nerve target acquisition was confirmed noting generation of paresthesias in the left occipital regions corresponding to the nerve being stimulated. Various electrical parameter combinations were tested, and the lead location was adjusted (physically relocated) until the patient indicated paresthesia/muscle tension overlapping the distribution of the patient?s typical region of pain, including neck and occipital region. The stimulating probe was removed from the introducer and a percutaneous lead was guided through the needle and delivered to a location in similar proximity to the nerve. Final location was verified with electrical stimulation and documented with fluoroscopy. The introducer needle was removed, and the exposed end of the percutaneous lead was attached to an external stimulator unit. Various electrical parameter combinations were again tested until the patient indicated paresthesia or muscle tension overlapping the distribution of the patient?s typical region of pain. Fluoroscopy was used to document the location of the percutaneous lead in the deployed position. After confirming that lead impedance was in the normal range, the external unit was detached, the needle was removed, and the lead was anchored at the skin. The lead was threaded into the connector block and electrical continuity and desired patient response was confirmed. The connector block was attached to the external stimulator unit. The site was covered with a sterile occlusive pressure dressing. The patient was observed for stability of vital signs and comfort. Patient was dischared in stable condition. Sprint PNS Device: Sprint PNS Device [id number] Percutaneous Peripheral Neuroelectrode Procedure: 28375 - Percutaneous Peripheral Neuroelectrode Procedure code (CPT) selection complete Office Meds lidocaine HCl 10 mg/mL (1 %) injection solution Performing Provider: DARRICK Abarca [place]forming Location[place] [facility] [place] [facility] Administered by: Elsy Bonner LPN on 09/12/24 11:20 Dose Route Admin Location Dispensed Lot Number Expiration Date [facility] Senior Energy Consultant 5 mL subcut 5 mL Assessment & Plan Assessment & Plan (1) Occipital neuralgia of left side: Code(s): M54.81 - Occipital neuralgia Category: Medical (2) Cervicogenic headache: Code(s): G44.86 - Cervicogenic headache Category: Medical Plan Patient is status post left 3rd occipital nerve temporary stimulator placement. Patient tolerated procedure well and was discharged home in stable condition with discharge instructions. All questions were answered. We will follow-up via telephone or in clinic to assess response to therapy. A follow-up appointment was made during today's visit. Orders: Orders AMB Sprint PNS Today G44.86 - Cervicogenic headache, M54.81 - Occipital neuralgia FL guidance in treatment room Today G44.86 - Cervicogenic headache, M54.81 - Occipital neuralgia Coding Level of Care Code Procedure Only Diagnoses Occipital neuralgia of left side M54.81 Cervicogenic headache G44.86 CPT Codes Sprint PNS - Sprint PNS Device: Sprint PNS Device ([id number]) Sprint PNS - SPRINT: 26802 - Percutaneous Peripheral Neuroelectrode ([id number]) Implantable Device Implantable Device Implantable Devices Qty Senior Energy Consultant Implant Date Expiration Date Analgesic PENS system 1 [employer] 09/12/24
[2024-09-12 11:42] VITALS: BP 164/91; PULSE 64; RESP 16; O2SAT 98
--- OUTSIDE RECORDS SUMMARY | 2024-09-12 13:55 | XMS_ITS | Clinical Summary ---
Author Organization [facility] Address [address] [place] [address] Care Team Providers Care Geographic Information Systems Manager Name Role Phone Iliana Lopez MD Primary Care Provider Allergies Active Allergy Reactions Criticality Noted Date Comments Azithromycin 11/04/2020 Diphtheria, Pertussis, Tetan us Vaccine 11/04/2020 Levofloxacin 11/04/2020 Ffbhishwc-Rjbytrifn-Ifxdntj 11/05/19 21 Sulfa (Sulfonamide Antibiotics) 10/2020 Sulfamethoxazole [...] has history of paroxysmal atrial fibrillation. Her [id number] score is 2 representing a 2.2% risk for thromboembolism. She meets criteria for anticoagulation. Discussed her risk of stroke and that aspirin would not adequately protect her. We discussed options and patient is agreeable to starting Eliquis 5 mg twice daily. I prescribed this for her today. Stop aspirin. Encounters Date Type Department Care Team Description 06/28/2024 Telephone [facility] [address] [place] [address] Loida Gaines NP from Last [...] Description 12/10/2024 8:20 AM EDT Office Visit [facility] [address] [place] [address] Nick Henry MD [address] [place] [address] [address] [place] [address] Health Maintenance Due Date Last Done Comments [...] complete this topic Insurance MEDICARE Care Teams Geographic Information Systems Manager Relationship Specialty Start Date End Date Iliana Lopez MD [address] [place] [address] PCP - General Internal Medicine 07/16/12
== END 2024-09-12 11:48 | disposition home or self-care (01) ==
LOC: HO.PMCPRC 10:52
PROVIDERS: PCP Internal Medicine; Visit Provider Internal Medicine
DX: M54.81 Occipital neuralgia (principal); G44.86 Cervicogenic headache
CPT/HCPCS: 64555

== ENCOUNTER 2024-09-18 10:01 | Outpatient (AMB) | payer MEDICARE, SELFPAY ==
--- NOTE | 2024-09-18 10:08 | A.OFFVIS_ITS ---
Vital Signs 09/18/24 10:09 Height 5 ft 6 in BP 176/80 H Blood Pressure Location Lt brachial Position Sitting BP not taken reason Patient Refused Respiration 16 Pulse 62 Pulse Source Pulse Oximeter Pulse Oximetry (%) 97 Oxygen Delivery Method Room Air Intake Visit Reasons: s/p occipital Sprint Grader Green Meat Required: No Allergies levofloxacin [Levaquin] Allergy (Unknown, Verified 09/24/24 09:45) hives Sulfa (Sulfonamide Antibiotics) Allergy (Unknown, Verified 09/24/24 09:45) itchy, hives sulfamethoxazole [From Bactrim] Allergy (Unknown, Verified 09/24/24 09:45) itchy, hives Tetanus Vaccines and Toxoid Allergy (Unknown, Verified 09/24/24 09:45) convulsion trimethoprim [From Bactrim] Allergy (Unknown, Verified 09/24/24 09:45) itchy, hives codeine cough syrup Allergy (Unknown, Uncoded 09/24/24 09:45) hives zpack Adverse Reaction (Unknown, Uncoded 09/24/24 09:45) vomiting Medication List - Last Reconciled 09/18/24 by Elsy Bonner LPN apixaban (Eliquis) 5 mg PO BID cholecalciferol (vitamin D3) 50 mcg PO DAILY cyclobenzaprine 5 mg PO BEDTIME MDD 10mg MDD escitalopram oxalate 10 mg PO DAILY gabapentin 300 mg PO BID 30 days Levoxyl (levothyroxine) 112 mcg PO DAILY NS lorazepam (Ativan) 1 mg PO ONCE metoprolol tartrate 50 mg PO BID romosozumab-aqqg (Evenity) 210 mg (2.34 mL) subcut .q month HPI HPI s/p occipital Sprint: Details: History of Present Illness The patient is a 64-year-old female presenting with a follow-up for the replacement of the third occipital nerve stimulator on the left side. Approximately one week has elapsed since the procedure, and the patient reports limited improvement in her symptoms. While her headaches persist, their intensity may have reduced. Additionally, she experiences tenderness in her neck, particularly on the left side, and continues to encounter challenges in neck mobility. Despite difficulties, she notes a reduction in severe night-time pain. The patient expresses curiosity about the typical post-procedural course, seeking confirmation about whether her current symptoms are normal. Pain Description - Pain primarily located in the head and neck, mainly on the left side. - Occipital neuralgia-type symptoms with persistent headaches. - Mild tenderness noted post-procedure in the neck area. - Pain intensity at night has lessened; previously severe pain. - Some difficulty in moving the neck gdvq-xb-bdlk noted. - Headaches not noticeably improved since stimulator replacement. - Chronic nature, not highly affected externally except noted movement restriction. - Pain occurs mainly during the night, current stimulator effects to be awaited. Physical Exam - Musculoskeletal- Tenderness noted on palpation of the left side of the neck. Pain Management - Affect: The patient reports a reduction in severe night-time pain, yet pe rsistent headaches. - Analgesia: Current treatment involves the third occipital nerve stimulator with anticipated benefits awaiting full efficacy. - Adverse Effects: No significant adverse effects directly related to the stimulator replacement noted. - Activities of Daily Living: Some difficulty with neck movement, particularly laterally. - Aberrant Drug-Related Behaviors: No indications of medication misuse or abuse discussed. [facility] Medical History Restless legs syndrome (RLS) Sleep paralysis Insomnia Snoring Hypersomnia Seasonal allergies Recurrent isolated sleep paralysis Cervical radiculopathy due to degenerative joint disease of spine Depression with anxiety Degenerative disc disease, cervical Anxiety with flying Cervicalgia Hair loss Dysphagia Chronic insomnia Fatigue Dyslipidemia Essential hypertension Postmenopause Atrophic vaginitis Paroxysmal atrial fibrillation Osteoporosis Acquired hypothyroidism Surgical History History of prior ablation treatment Family History Father Hx of CABG Craig's palsy Thyroid disorder Myocardial infarction Mother HTN (hypertension) Hypothyroidism Sister Hypothyroidism Multiple sclerosis Pancreatic cancer Breast cancer Brother No problems noted. Brother No problems noted. Brother No problems noted. Sister Substance use disorder Sister No problems noted. Son No problems noted. Social History Housing: House Alcohol intake: current Patient Tobacco Use Status: Never used Tobacco e-Cigarette/Vaping Use: Never Used service: No Current occupational status: retired Cognitive needs: No Hearing needs: No Vision needs: Yes Physical Exam Vital Signs: Last Vital Signs Pulse 62 09/18/24 10:09 Resp 16 09/18/24 10:09 BP 176/80 H 09/18/24 10:09 Pulse Ox 97 09/18/24 10:09 Oxygen Delivery Method Room Air 09/18/24 10:09 Assessment & Plan Assessment & Plan (1) Occipital neuralgia of left side: Code(s): M54.81 - Occipital neuralgia Category: Medical Plan Plan For the ongoing treatment of third occipital neuralgia, the patient has undergone a nerve stimulator replacement, expecting maximum efficacy over the following weeks. Current symptoms include persistent headaches and neck tenderness. Communication indicated that the current symptoms are likely a part of the recovery process, and further improvement is expected within four weeks. The planned follow-up is set for seven weeks. Patient was informed and verbally consented to the use of an ambient scribe for clinic note documentation during this visit. Discussion Notes I reviewed with the patient the procedure undertaken for the replacement of the third occipital nerve stimulator and discussed the expected trajectory of symptom improvement. The mild tenderness and ongoing headaches are anticipated parts of the post-procedural recovery, with significant benefits often materializing up to four weeks post-procedure. We discussed that continued management and observational follow-up would be integral in evaluating the overall effectiveness of the stimulator. Any changes in severity or pattern of symptoms should be monitored and could adjust future management. Follow-up has been scheduled in seven weeks to reassess her condition and adjust treatment as needed. Patient Instructions - Monitor your symptoms, noting any changes in pain intensity or frequency. - Avoid excessive neck movement to prevent exacerbation of symptoms. - Contact the clinic if you experience a significant increase in pain or any new symptoms. - Attend the follow-up appointment in seven weeks as planned. - Report any adverse reactions or concerns with the stimulator promptly. Coding Level of Care Code Est Pt Level 3 (29859) Diagnoses Occipital neuralgia of left side M54.81
[2024-09-18 10:09] VITALS: BP 176/80; PULSE 62; RESP 16; O2SAT 97
== END 2024-09-18 10:22 | disposition home or self-care (01) ==
LOC: HO.PMC 10:02
PROVIDERS: PCP Internal Medicine; Visit Provider Internal Medicine
DX: M54.81 Occipital neuralgia (principal)
CPT/HCPCS: 99024

== ENCOUNTER → 2024-09-18 10:01 | Outpatient (BNVA) | payer MEDICARE, SELFPAY | PROVIDERS: PCP Internal Medicine; Visit Provider Internal Medicine | DX: M54.81 Occipital neuralgia (principal) | CPT/HCPCS: 99212 ==

== ENCOUNTER 2024-09-24 09:29 | Outpatient (AMB) | payer MEDICARE, SELFPAY ==
[2024-09-24 09:44] VITALS: BP 124/72; PULSE 60; O2SAT 96; BMI 32.5
--- NOTE | 2024-09-24 09:44 | A.OFFVIS_ITS ---
Vital Signs 09/24/24 09:44 Height 5 ft 6.87 in Weight 206 lb 9.17 oz BMI 32.5 BP 124/72 Blood Pressure Location Lt brachial Position Sitting Pulse 60 Pulse Source Pulse Oximeter Pulse Oximetry (%) 96 Oxygen Delivery Method Room Air Intake Visit Reasons: f/u osteoporosis/evenity #5 Intake Note: Patient present today for Osteoporosis follow up. 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: No Accompanied by: Self / Same As Patient Allergies levofloxacin [Levaquin] Allergy (Unknown, Verified 09/24/24 09:45) hives Sulfa (Sulfonamide Antibiotics) Allergy (Unknown, Verified 09/24/24 09:45) itchy, hives sulfamethoxazole [From Bactrim] Allergy (Unknown, Verified 09/24/24 09:45) itchy, hives Tetanus Vaccines and Toxoid Allergy (Unknown, Verified 09/24/24 09:45) convulsion trimethoprim [From Bactrim] Allergy (Unknown, Verified 09/24/24 09:45) itchy, hives codeine cough syrup Allergy (Unknown, Uncoded 09/24/24 09:45) hives zpack Adverse Reaction (Unknown, Uncoded 09/24/24 09:45) vomiting Medication List - Last Reconciled 09/24/24 by Angel Winters MD apixaban (Eliquis) 5 mg PO BID cholecalciferol (vitamin D3) 50 mcg PO DAILY cyclobenzaprine 5 mg PO BEDTIME MDD 10mg MDD escitalopram oxalate 10 mg PO DAILY gabapentin 300 mg PO BID 30 days Levoxyl (levothyroxine) 112 mcg PO DAILY NS lorazepam (Ativan) 1 mg PO ONCE metoprolol tartrate 50 mg PO BID romosozumab-aqqg (Evenity) 210 mg (2.34 mL) subcut .q month HPI Comments Details: 64 YO Female is seen in consultation at the request of PCP for Osteoporosis. First diagnosed in Jul 2023 . Received treatment in the past with Boniva , 1 mo several yrs ago . Could not Tolerated treatment because of GERD No history of pathologic fracture or ONJ. Has several servings of dietary calcium per day in the form of cheese , ice cream . Not Takes Calcium supplement . Takes 2000 IU of Vitamin D daily. Takes PPI intermittedly , anticoagulant, antiepileptic or glucocorticoid medication. 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 UTD on dental cleanings and sees dentist every 6 months. No planned upcoming dental work or extractions. No smoking DXA dated 07/27/23 :FINDINGS: AP SPINE L1-L4: Current: BMD 0.768 g/cm2, Z-score -2.5, T-score -3.4, osteoporosis, 11.1% decrease from previous, 14.9% decrease from baseline (<5% change is not significant). Prior: BMD 0.864 g/cm2. Baseline: BMD 0.902 g/cm2. LEFT FEMUR, NECK: Current: BMD 0.778 g/cm2, Z-score -0.8, T-score -1.9, osteopenia. Prior: BMD 0.808 g/cm2. Baseline: BMD 0.876 g/cm2. LEFT FEMUR, TOTAL: Current: BMD 0.776 g/cm2, Z-score -1.1, T-score -1.8, osteopenia, 1.4% decrease from previous, 10.3% decrease from baseline (<5% change is not significant). Prior: BMD 0.787 g/cm2. Baseline: BMD 0.865 g/cm2. IDENTIFIED RISK FACTORS: Menopause. HISTORY OF FRACTURE: None listed. MEDICATIONS: Vitamin D. MM/XR DEXA axial skeleton IMPRESSION: 1. DIAGNOSIS: Osteoporosis based on the lowest T-score value of -3.4 in the lumbar spine applying World Health Organization criteria. Labs: Secondary workup was negative Currently on Evenity injection # 5. Tolerating the Evenity nicely The patient is a 64-year-old female presenting with a follow-up visit for osteoporosis treatment and management of thyroid issues. 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 She has seen a dentist recently and no abnormality of the jaw was noted. While the headaches post-medication subside after two weeks, they are not debilitating. The patient is encouraged to maintain a calcium-rich diet to support bone health. The patient?s dietary intake of calcium is considered to be adequate, but supplementation to achieve a total intake of 1200 mg per day is recommended. [facility] Medical History Restless legs syndrome (RLS) Sleep paralysis Insomnia Snoring Hypersomnia Seasonal allergies Recurrent isolated sleep paralysis Cervical radiculopathy due to degenerative joint disease of spine Depression with anxiety Degenerative disc disease, cervical Anxiety with flying Cervicalgia Hair loss Dysphagia Chronic insomnia Fatigue Dyslipidemia Essential hypertension Postmenopause Atrophic vaginitis Paroxysmal atrial fibrillation Osteoporosis Acquired hypothyroidism Surgical History History of prior ablation treatment Family History Father Hx of CABG Craig's palsy Thyroid disorder Myocardial infarction Mother HTN (hypertension) Hypothyroidism Sister Hypothyroidism Multiple sclerosis Pancreatic cancer Breast cancer Brother No problems noted. Brother No problems noted. Brother No problems noted. Sister Substance use disorder Sister No problems noted. Son No problems noted. Social History Housing: House Alcohol intake: current Patient Tobacco Use Status: Never used Tobacco e-Cigarette/Vaping Use: Never Used service: No Current occupational status: retired Cognitive needs: No Hearing needs: No Vision needs: Yes Physical Exam Vital Signs: BMI result Body Mass Index 32.5 Assessment & Plan Assessment & Plan (1) Osteoporosis: Code(s): M81.0 - Age-related osteoporosis without current pathological fracture Category: Medical Qualifiers: Osteoporosis type: age-related Presence of current pathological fracture: without current pathological fracture Qualified Code(s): M81.0 - Age- related osteoporosis without current pathological fracture Plan: . This is a 63-year-old white female with a history of osteoporosis. Secondary workup was negative. Currently on Evenity for 5 months Plan is to continue the Evenity for full 1 year course which will be proceeded by anti resorptive agent most likely Prolia on completion. I discussed with the patient the management of her osteoporosis and the importance of continuing her current regimen for maximal benefit. Transition to future therapies like Prolia is possible, depending on post-treatment bone density results. We also discussed the unusual TMJ symptoms, exploring non-ov erlapping options such as dental evaluation for management. Patient education on dietary calcium intake was included. Guidance regarding the continuation of vigilant safety measures to prevent falls and secondary fractures was also provided. Coding Level of Care Code Est Pt Level 3 (73513) Diagnoses Age-related osteoporosis without current pathological fracture M81.0 Osteoporosis type: age-related Presence of current pathological fracture: without current pathological fracture
--- OUTSIDE RECORDS SUMMARY | 2024-09-24 10:38 | XMS_ITS | Clinical Summary ---
Author Organization [facility] Address [address] [place] [address] Care Team Providers Care Boat Dock Operator Name Role Phone Iliana Lopez MD Primary Care Provider Allergies Active Allergy Reactions Criticality Noted Date Comments Azithromycin 11/04/2020 Diphtheria, Pertussis, Tetan us Vaccine 11/04/2020 Levofloxacin 11/04/2020 Kkyappoou-Kyeeeiwwh-Vjfbilo 11/05/19 21 Sulfa (Sulfonamide Antibiotics) 10/2020 Sulfamethoxazole [...] has history of paroxysmal atrial fibrillation. Her [id number] score is 2 representing a 2.2% risk for thromboembolism. She meets criteria for anticoagulation. Discussed her risk of stroke and that aspirin would not adequately protect her. We discussed options and patient is agreeable to starting Eliquis 5 mg twice daily. I prescribed this for her today. Stop aspirin. Encounters Date Type Department Care Team Description 06/28/2024 Telephone [facility] [address] [facility] [place] [address] Loida Gaines NP from Last [...] Description 12/10/2024 8:20 AM EDT Office Visit [facility] [address] [place] [address] Nick Henry MD [address] [place] [address] [address]IVE [address] [place] [address] Health Maintenance Due Date Last Done Comments [...] complete this topic Insurance MEDICARE Care Teams Boat Dock Operator Relationship Specialty Start Date End Date Iliana Lopez MD [address] [facility] [place] [id number] PCP - General Internal Medicine 07/16/12
== END 2024-09-26 08:33 | disposition home or self-care (01) ==
LOC: HO.ENCR 09:30
PROVIDERS: PCP Internal Medicine; Visit Provider Internal Medicine Endocrinology, Diabetes & Metabolism
DX: M81.0 Age-related osteoporosis without current pathological fracture (principal)
CPT/HCPCS: 99213

== ENCOUNTER → 2024-09-24 09:29 | Outpatient (BNVA) | payer MEDICARE, SELFPAY | PROVIDERS: PCP Internal Medicine; Visit Provider Internal Medicine Endocrinology, Diabetes & Metabolism | DX: M81.0 Age-related osteoporosis without current pathological fracture (principal) | CPT/HCPCS: 96372; 99212; J3111 ==

== ENCOUNTER 2024-10-22 09:24 | Outpatient (AMB) | payer MEDICARE, SELFPAY ==
--- NOTE | 2024-10-22 09:44 | AM.OFFVISNUR ---
Intake Visit Reasons: Evenity #6 Allergies levofloxacin [Levaquin] Allergy (Unknown, Verified 09/24/24 09:45) hives Sulfa (Sulfonamide Antibiotics) Allergy (Unknown, Verified 09/24/24 09:45) itchy, hives sulfamethoxazole [From Bactrim] Allergy (Unknown, Verified 09/24/24 09:45) itchy, hives Tetanus Vaccines and Toxoid Allergy (Unknown, Verified 09/24/24 09:45) convulsion trimethoprim [From Bactrim] Allergy (Unknown, Verified 09/24/24 09:45) itchy, hives codeine cough syrup Allergy (Unknown, Uncoded 09/24/24 09:45) hives zpack Adverse Reaction (Unknown, Uncoded 09/24/24 09:45) vomiting Office Meds romosozumab-aqqg 210 mg/2.34 mL(105 mg/1.17 mL x2)subcutaneous syringe Performing Provider: Angel Winters MD Performing Location: [facility] Endocrinology Administered by: Solange Ibrahim RN on 10/22/24 09:44 Dose Route Admin Location Dispensed Lot Number Expiration Date [facility] Maintenance 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 Pt tolerated injection well. Pt denies any adverse reactions to previous injections. Assessment & Plan Assessment & Plan Orders: Orders AMB Romosozumab Injection Patient Supplied Today M81.0 - Age-related osteoporosis without current pathological fracture Medications: New romosozumab-aqqg 210 mg (2.34 mL) subcut ONCE 2.34 mL 0RF M81.0 - Age-related osteoporosis without current pathological fracture Coding
--- OUTSIDE RECORDS SUMMARY | 2024-10-22 10:16 | XMS_ITS | Clinical Summary ---
Author Organization [facility] Address [address] [place] [address] Care Team Providers Care Mail Handler Name Role Phone Iliana Lopez MD Primary Care Provider Allergies Active Allergy Reactions Criticality Noted Date Comments Azithromycin 11/04/2020 Diphtheria, Pertussis, Tetan us Vaccine 11/04/2020 Levofloxacin 11/04/2020 Ompiruqkn-Qnrgandrc-Afhpavx 11/05/19 21 Sulfa (Sulfonamide Antibiotics) 10/2020 Sulfamethoxazole 11/04/2020 From bactrim Tetanus Antitoxin 04/27/2022 Trimethoprim 11/04/2020 Medications cholecalciferol (VITAMIN D-3) 50 mcg (2,000 unit) tablet Take by mouth. Active escitalopram (LEXAPRO) 5 mg tablet Take 1 tablet (5 mg total) by mouth 1 (one) time each day. Active levothyroxine (SYNTHROID, LEVOTHROID) 100 mcg tablet Take 100 mcg by mouth every morning. Active LORazepam (ATIVAN) 1 mg tablet Take 1 Tablet by mouth Once for 1 dose. Prior to MRI. 4 Active metoprolol tartrate (LOPRESSOR) 50 mg tablet TAKE ONE TABLET BY MOUTH TWICE A DAY 180 tablet 2 5 Active Eliquis 5 mg tablet TAKE ONE TABLET BY MOUTH TWICE A DAY 180 tablet 2 5 Active apixaban (Eliquis) 5 mg tablet Take 1 tablet (5 mg total) by mouth 2 (two) times a day. 4 10/11/19 25 Discontinued metoprolol tartrate (LOPRESSOR) 50 mg tablet Take 1 tablet (50 mg total) by mouth 2 (two) times a day. 4 10/11/19 25 Discontinued Active Problems Problem Noted Date Diagnosed Date [...] continue on her metoprolol. Paroxysmal atrial fibrillation (CMS/HCC V24, CMS /HCC V28) 11/04/2020 Overview (07/24/2024): Last Assessment & Plan: Patient has history of paroxysmal atrial fibrillation. Her [id number] score is 2 representing a 2.2% risk for thromboembolism. She meets criteria for anticoagulation. Discussed her risk of stroke and that aspirin would not adequately protect her. We discussed options and patient is agreeable to starting Eliquis 5 mg twice daily. I prescribed this for her today. Stop aspirin. Surgical History Surgery Date Site/Laterality Comments OTHER [...] Visit [facility] [address] [place] [address] Nick Henry MD [address] [place] [address] [address]IVE [address] [place] [address] Health Maintenance Due Date Last Done Comments Breast Cancer Screening 1960 DTaP,Tdap,and Td Vaccines (1 - Tdap) 1977 Pneumococcal Vaccine: 50+ Ye ars (1 of 1 - PCV) 2008 Zoster Vaccines (1 of 2) 2008 RSV Immunization Adult Patie nts (1 - Risk 60-74 years 1-dose series) 2018 Cholesterol Screening (Lipid Panel) 06/04/2022 Colorectal Cancer Screening: Colonoscopy 06/04/2022 Depression Screening 06/04/2022 Hepatitis C Screening 06/04/2022 Medicare Annual Wellness Visit 06/04/2022 Osteoporosis Screening (Bone Density Screening) 06/04/2022 Social Influencers of Health Screening 06/04/2022 Hypertension/CHF/CAD Annual BMP Blood Test 06/12/2022 Falls Risk Assessment 2023 COVID-19 Vaccine (2023-2 5 season) 2024 Influenza Vaccine (Season Ended) 2025 HIB Vaccines Aged Out No longer eligi [...] age to complete this topic Meningococcal B Vaccine Aged Out No l onger eligible based on patient's age to complete this topic RSV Immunization Patients Un arnold 20 months Aged Out No longer eligible b ased on patient's age to complete this topic Varicella Vaccines Aged Out No longer eligible based on patient's age to complete this topic Insurance MEDICARE Care Teams Mail Handler Relationship Specialty Start Date End Date Iliana Lopez MD [address] [facility] [place] [id number] PCP - General Internal Medicine 07/16/12
== END 2024-10-22 09:42 | disposition home or self-care (01) ==
LOC: HO.ENCR 09:25
PROVIDERS: PCP Internal Medicine; Visit Provider Internal Medicine Endocrinology, Diabetes & Metabolism
DX: M81.0 Age-related osteoporosis without current pathological fracture (principal)

== ENCOUNTER → 2024-10-22 09:24 | Outpatient (BNVA) | payer MEDICARE, SELFPAY | PROVIDERS: PCP Internal Medicine; Visit Provider Internal Medicine Endocrinology, Diabetes & Metabolism | DX: Z13.89 Encounter for screening for other disorder (principal) | CPT/HCPCS: 96372; J3111 ==

== ENCOUNTER 2024-10-22 09:49 | Outpatient (REF) | payer MEDICARE, SELFPAY ==
--- OUTSIDE RECORDS SUMMARY | 2024-10-22 11:00 | XMS_ITS | Clinical Summary ---
Author Organization [facility] Address [address] [place] [address] Care Team Providers Care Restaurant Assistant Name Role Phone Iliana Lopez MD Primary Care Provider Allergies Active Allergy Reactions Criticality Noted Date Comments Azithromycin 11/04/2020 Diphtheria, Pertussis, Tetan us Vaccine 11/04/2020 Levofloxacin 11/04/2020 Gmyczgfdo-Edzxawbmw-Abakxhk 11/05/19 21 Sulfa (Sulfonamide Antibiotics) 10/2020 Sulfamethoxazole [...] has history of paroxysmal atrial fibrillation. Her [id number] score is 2 representing a 2.2% risk [...] 8:20 AM EDT Office Visit [facility] [address] [place] [address] Nick Henry MD [address] [place] [address] [address] [place] [address] Health Maintenance Due Date Last Done Comments [...] complete this topic Insurance MEDICARE Care Teams Restaurant Assistant Relationship Specialty Start Date End Date Iliana Lopez MD [address] [facility] [place] [id number] PCP - General Internal Medicine 07/16/12
[2024-10-22 14:14] LABS: Cholesterol 210 mg/dL (<200); HDL Cholesterol 68 mg/dL (>40); LDL Cholesterol Calculated 125 mg/dL (<100); Triglycerides 87 mg/dL (<150)
== END 2024-10-22 09:50 | disposition home or self-care (01) ==
LOC: HO.10HDL 09:49
PROVIDERS: Visit Provider Internal Medicine
DX: M81.0 Age-related osteoporosis without current pathological fracture (principal); E78.5 Hyperlipidemia, unspecified; E03.9 Hypothyroidism, unspecified; Z78.0 Asymptomatic menopausal state
CPT/HCPCS: 36415; 80061; 96372; J3111

== ENCOUNTER 2024-10-28 09:16 | Outpatient (AMB) | payer MEDICARE, SELFPAY ==
--- NOTE | 2024-10-28 09:31 | A.OFFVIS_ITS ---
Intake Vital Signs 10/28/24 09:32 Height 5 ft 6 in Weight 203 lb BMI 32.8 BP 138/70 Blood Pressure Location Rt brachial Position Sitting Respiration 16 Pulse 63 Pulse Source Pulse Oximeter Temp 98.1 F Temp Source Oral Pulse Oximetry (%) 96 Oxygen Delivery Method Room Air Intake Visit Reasons: AWV G0438 Intake Note: Pt is here today for her AWV: Last mammogram 08/01/24, bone density scan 07/27/23, cologuard 12/23/21 Allergies levofloxacin [Levaquin] Allergy (Unknown, Verified 10/28/24 09:57) hives Sulfa (Sulfonamide Antibiotics) Allergy (Unknown, Verified 10/28/24 09:57) itchy, hives sulfamethoxazole [From Bactrim] Allergy (Unknown, Verified 10/28/24 09:57) itchy, hives Tetanus Vaccines and Toxoid Allergy (Unknown, Verified 10/28/24 09:57) convulsion trimethoprim [From Bactrim] Allergy (Unknown, Verified 10/28/24 09:57) itchy, hives codeine cough syrup Allergy (Unknown, Uncoded 10/28/24 09:57) hives zpack Adverse Reaction (Unknown, Uncoded 10/28/24 09:57) vomiting Medication List - Last Reconciled 10/28/24 by Iliana Lopez MD apixaban (Eliquis) 5 mg PO BID cholecalciferol (vitamin D3) 50 mcg PO DAILY escitalopram oxalate 10 mg PO DAILY gabapentin 300 mg PO BID 30 days Levoxyl (levothyroxine) 112 mcg PO DAILY NS metoprolol tartrate 50 mg PO BID romosozumab-aqqg (Evenity) 210 mg (2.34 mL) subcut .q month HPI AWV G0438 HPI Details AWV ? 64 year old lady lady with history of dyslipidemia, hypertension, paroxysmal atrial fibrillation currently on apixaban, acquired hypothyroidism, osteoporosis , chronic insomnia, depression with anxiety, and chronic back pain due to degenerative disc disease in spine, here today for her initial annual [facility] . She is up-to-date with her screening mammogram, last done 08/01/2024 with normal findings, had a bone density scan done 07/30/2023 which showed presence of osteoporosis in her lumbar spine and osteopenia in left femoral neck and left femur, currently on on Evenity every 4 months, given by Dr. Winters. She had colon cancer screening done with [place], last done 12/23/2021 with negative findings, due again this year . Last Pap smear was done in 2020 wit h benign findings, declines further screening. She had a fasting lipid panel done 10/22/2024 which showed normal results, and a fasting glucose was checked 12/01/2023 which came back within normal limits . She does not want to get any Tdap, declined shingles vaccine and flu vaccine, as well as RSV vaccine, gets her COVID booster. ? Medical / Social History Reviewed? Past Medical History ?Yes . ? [place] of Care / Care Team list updated ?Yes . ? Surgical/Hospitalization History ?Yes . ? Current Medications (including OTC and supplements) ?Yes . ? Family History ?Yes . ? Tobacco Control form ?Yes . ? AUDIT-C (Alcohol use) form ?Yes . ? Illicit drug use in Social History ?Yes . ? Current diagnosis of depression? ?No ? Appropriate PHQ2/PHQ9 completed ?Yes . ? Data entered by ?[employer] and reviewed by provider ? Fall Risk ? Fall History? Have you had any falls with injury in the past year? ?No . ? Have you had two or more falls in the past year? ?No . ? Fall Risk Assessment: ?No falls in the past year . ? HRA filled out by the patient, reviewed by Provider and scanned. ? AWV ? Balance? Romberg negative ? Tandem walk ?Yes . ? Walk and Turn ?Yes . ? Rise from sit to stand ?Yes . ?Vision? Corrective lens ?Yes ? Vision screen ? Up-to-date, currently sees Dr. Carter ?Hearing? Whisper test ?pass . ?Written Plan?Completed. MOLST and healthcare proxy form already completed [facility] Medical History (Updated 10/28/24 @ 13:37 by Iliana Lopez MD) Restless legs syndrome (RLS) Sleep paralysis Insomnia Snoring Hypersomnia Seasonal allergies Recurrent isolated sleep paralysis Cervical radiculopathy due to degenerative joint disease of spine Depression with anxiety Degenerative disc disease, cervical Anxiety with flying Cervicalgia Hair loss Dysphagia Chronic insomnia Fatigue Dyslipidemia Essential hypertension Postmenopause Atrophic vaginitis Paroxysmal atrial fibrillation Osteoporosis Acquired hypothyroidism Surgical History History of prior ablation treatment Family History Father Hx of CABG Craig's palsy Thyroid disorder Myocardial infarction Mother HTN (hypertension) Hypothyroidism Sister Hypothyroidism Multiple sclerosis Pancreatic cancer Breast cancer Brother No problems noted. Brother No problems noted. Brother No problems noted. Sister Substance use disorder Sister No problems noted. Son No problems noted. Social History Housing: House Alcohol intake: current Patient Tobacco Use Status: Never used Tobacco e-Cigarette/Vaping Use: Never Used service: No Current occupational status: retired Cognitive needs: No Hearing needs: No Vision needs: Yes Questionnaire Medicare Wellness Checkup What [age] 65-67 What gender do you identify with?: female During the past 4 weeks, how much have you been bothered by emotional problems such as feeling anxious, depressed, irritable, sad or downhearted, and blue?: slightly During the past 4 weeks, has your physical & emotional health limited your social activities with family, friends, neighbors, or groups?: not at all During the past 4 weeks, how much bodily pain have you generally had?: severe pain During the past 4 weeks, was someone available to help you if you needed & wanted help?: yes, as much as I wanted During the past 4 weeks, what was the hardest physical activity you could do for at least 2 minutes?: heavy Can you get to places out of walking distance without help? (For eg., can you travel alone on buses, taxis or drive your car?): Yes Can you prepare your own meals?: Yes Can you do your housework without help?: Yes Because of any health problems, do you need the help of another person with your personal care needs such as eating, bathing, dressing or getting around the house?: No Can you handle your own money without help?: Yes During the past 4 weeks, how would you rate your health in general?: very good During the past 4 weeks how have things been going for you?: pretty well Are you having difficulties driving your car?: no Do you always fasten your seat belt when you are in a car?: yes, usually During past 4 weeks, have you been bothered by the following: never: Trouble eating well? and Teeth or denture problems? and sometimes: Falling or dizzy when standing up, Sexual problems? and Tiredness or fatigue? Have you fallen 2 or more times in the past year?: No Are you afraid of falling?: No Are you a smoker?: no During the past 4 weeks, how many drinks of wine, beer, or other alcoholic beverages did you have?: 1 drink or less per week Do you exercise for about 20 minutes 3 or more times a week?: yes, all the time Have you been given information to help with the following?: no: Hazards in your house that might hurt you? and no: Keeping track of your medications? How often do you have trouble taking medicines the way you have been told to take them?: I always take medicine as prescribed How confident are you that you can control & manage most of your health problems?: very confident What is your race?: White Mini Mental State Exam (MMSE) Orientation What is the (year) (season) (date) (day) (month)?: year (2024), season (Spring), date (10/28/2024), day (Monday) and month (October) Where are we (state) (county) (town or city) (hospital) (floor)?: state ([place]), county ([place]), town or city ([place]) and hospital/clinic ([facility]) Score Score: 9 Activity of Daily Living Bathing - sponge bath, tub bath or shower: receives no assistance (gets in/out by self, if usual bathing means Dressing - getting clothes from closets & drawers, including inner/outer garments & fasteners.: gets clothes & gets completely dressed without help Toileting - going to the 'toilet room' for urine/bowel elimination & cleaning self/arranging clothes: goes to toilet room, cleans self, arranges clothes without help Transfer: moves in & out of bed and chair without help (may use support object) Continence: controls urination/bowel movements completely by self Feeding: feeds self without help Total Score: 0 Information obtained from: patient Using telephone: independent Traveling: independent Shopping: independent Preparing meals: independent Housework: independent Taking medicine: independent Managing money: independent PHQ-9 Over the last 2 weeks, how often have you been bothered by any of the following problems? 1. Little interest or pleasure in doing things: not at all 2. Feeling down, depressed, or hopeless: not at all 3. Trouble falling or staying asleep, or sleeping too much: nearly every day 4. Feeling tired or having little energy: several days 5. Poor appetite or overeating: more than half the days 6. Feeling bad about yourself - or that you are a failure or have let yourself or your family down: not at all 7. Trouble concentrating on things, such as reading the newspaper or watching television: not at all 8. Moving or speaking so slowly that other people could have noticed. Or the opposite - being so fidgety or restless that you have been moving around a lot more than usual: not at all 9. Thoughts that you would be better off or of hurting yourself in some way: not at all Total score: 6 Depression Screening Interpretation: Negative Depression Screening Done: Yes 54979 - PHQ-9 Billing: Yes Source: Developed by Drs. Angel Linder, Shanta Campbell, Hernan Baldwin and colleagues, with an educational landon from [employer]. Physical Exam Vital Signs: Last Vital Signs Temp 98.1 F 10/28/24 09:32 Pulse 63 10/28/24 09:32 Resp 16 10/28/24 09:32 BP 138/70 10/28/24 09:32 Pulse Ox 96 10/28/24 09:32 Oxygen Delivery Method Room Air 10/28/24 09:32 BMI result Body Mass Index 32.8 Results Reviewed Results Reviewed: RUN: 10/28/24 1023 PAGE 1 [facility] [address] [place] [id number] Development Intern: Jorge New M.D. Specimen Inquiry Name: Libra Sandoval Age/Sex: 64/F : 1960 Unit#: [id number] Attend Dr: Iliana Lopez MD Re08/22/24 Status: DEP [facility]F [facility] Disch: SPEC : [id number] BEN: 08/22/24 STATUS: COMP REQ : [id number] RECD: 08/22/[address]: Dedrick Padilla PA-C COMP: 08/22/24-1233 ENTERED: 08/22/24-[address]: Iliana Lopez MD ORDERED: IRON PROF, Ferritin, Vitamin D 25-OH Test Result Flag Reference Iron 72 30-160 mcg/dL TIBC 286 228-428 mcg/dL Saturation 25 15-50 % UIBC 214 ug/dL Ferritin 84 10-250 ng/mL Vit D 25-OH Tot 50.6 >30 ng/mL Health Based Reference Values* < 20 ng/mL Deficient 20-30 ng/mL Insufficient > 30 ng/mL Sufficient *Rachel MCNEAL. N Engl J Med. 2007;[id number] Laboratory Tests 10/26/22 08/22/24 07:52 11:48 Triglycerides 77 Cholesterol 213 LDL Cholesterol, Calc 132 HDL Cholesterol 66 Homocysteine 12.0 H TSH 4.99 H Free T4 1.26 Assessment & Plan Assessment & Plan (1) Encounter for initial annual wellness visit (AWV) in Medicare patient: Code(s): Z00.00 - Encounter for general adult medical examination without abnormal findings Plan: Medical wellness checklist reviewed, discussed with patient and updated. Patient declines vaccines recommended, but is up-to-date with the rest of her screening, Cologuard test ordered for colon cancer screening (2) Acquired hypothyroidism: Code(s): E03.9 - Hypothyroidism, unspecified Plan: Continue with current dose of Levoxyl 112 mcg daily, will see her back for follow-up in six-months, after fasting labs done again to check thyroid levels and cholesterol (3) Anxiety with flying: Code(s): F40.243 - Fear of flying Plan: Prescription sent for lorazepam 1 mg per tablet to take at least an hour before travel (4) Chronic insomnia: Code(s): F51.04 - Psychophysiologic insomnia Plan: Continue zolpidem 5 mg per tablet 1 tablet at bedtime as needed for difficulty sleeping (5) Dyslipidemia: Code(s): E78.5 - Hyperlipidemia, unspecified Plan: Reinforced importance of following a low-cholesterol diet and doing at least 30 minutes of moderate intensity exercise 3 to 4 times a week. (6) Essential hypertension: Comment: ff'd by Dr Bobby Oliver Code(s): I10 - Essential (primary) hypertension Plan: Currently on metoprolol tartrate 50 mg 1 tablet twice a day (7) Paroxysmal atrial fibrillation: Comment: Status post cardiac ablation done by Dr. Fernandes at [facility] Code(s): I48.0 - Paroxysmal atrial fibrillation Plan: Currently on apixaban 5 mg 1 tablet twice a day and metoprolol tartrate 50 mg 1 tablet b.i.d. followed by cardiology (8) Osteoporosis: Code(s): M81.0 - Age-related osteoporosis without current pathological fracture Qualifiers: Osteoporosis type: age-related Presence of current pathological fracture: without current pathological fracture Qualified Code(s): M81.0 - Age- related osteoporosis without current pathological fracture Plan: Followed by Dr. Winters, continued on vitamin-D 3 supplements, has an appointment scheduled later this month (9) Cervical radiculopathy due to degenerative joint disease of spine: Code(s): M47.22 - Other spondylosis with radiculopathy, cervical region Plan: Currently on gabapentin 300 mg 1 tablet twice a day, followed by Neurosurgery at [facility], sees Dr. Ortiz (10) Advanced directives, counseling/discussion: Code(s): Z71.89 - Other specified counseling Plan: Initiated the conversation about Advanced Directives. Advanced Directives help patients prepare for current and future decisions about their medical treatment and place of care. Discussed with patient that it is a process where a patients current condition and prognosis are reviewed, their wishes for information regarding their illness are elicited, and likely medical dilemmas are presented and options discussed. Healthcare proxy form and MOLST form completed today. These forms can be amended as needed, reviewed yearly and make changes as needed Orders: Orders Thyroid Stimulating Hormone 10/28/24 E03.9 - Hypothyroidism, unspecified Free T4 (Free Thyroxine) 10/28/24 E03.9 - Hypothyroidism, unspecified Thyroid Peroxidase Antibodies 10/28/24 E03.9 - Hypothyroidism, unspecified Referrals Cologuard Test Z12.11 - Encounter for screening for malignant neoplasm of colon, Z12.12 - Encounter for screening for malignant neoplasm of rectum Medications: Changed From lorazepam Take 30 minutes prior to arrival to procedure 1 mg PO ONCE 1 tab 0RF anxiety To lorazepam (Ativan) Take 30 minutes prior to flying 1 mg PO ONCE 10 tabs 0RF anxiety Refilled zolpidem 5 mg PO BEDTIME PRN 30 tabs 1RF sleep/ insomnia Quality Reporting (2019) Depression/Bipolar (159/160/161/177) PHQ-9: Total score: 6 Coding Level of Care Code Medicare First (G0438) Diagnoses Encounter for initial annual wellness visit (AWV) in Medicare patient Z00.00 Acquired hypothyroidism E03.9 Anxiety with flying F40.243 Chronic insomnia F51.04 Dyslipidemia E78.5 Essential hypertension I10 Paroxysmal atrial fibrillation I48.0 Age-related osteoporosis without current pathological fracture M81.0 Osteoporosis type: age-related Presence of current pathological fracture: without current pathological fracture Cervical radiculopathy due to degenerative joint disease of spine M47.22 Advanced directives, counseling/discussion Z71.89 CPT Codes Advance Care Planning - Time spent: 16-45 minutes ([id number]) Additional Codes PHQ-9 - 99547 - PHQ-9 Billing: Yes ([id number]) Advance Care Planning Advance Care Planning discussion: Completed/Scanned Date of discussion: 10/28/24 Who was present: Patient Forms completed: Health Care Proxy and MOLST Time spent: 16-45 minutes Actual minutes spent: 5
[2024-10-28 09:32] VITALS: BP 138/70; PULSE 63; RESP 16; TEMP 36.7; O2SAT 96; BMI 32.8
--- OUTSIDE RECORDS SUMMARY | 2024-10-28 10:11 | XMS_ITS | Clinical Summary ---
Author Organization [facility] Address [address] [place] [address] Care Team Providers Care School Program Director Name Role Phone Iliana Lopez MD Primary Care Provider Allergies Active Allergy Reactions Criticality Noted Date Comments Azithromycin 11/04/2020 Diphtheria, Pertussis, Tetan us Vaccine 11/04/2020 Levofloxacin 11/04/2020 Ovissfeaw-Jmlvildep-Epejfei 11/05/19 21 Sulfa (Sulfonamide Antibiotics) 10/2020 Sulfamethoxazole [...] has history of paroxysmal atrial fibrillation. Her SPT8RQ2-JFNr score is 2 representing a 2.2% risk [...] Description 12/10/2024 8:20 AM EDT Office Visit [facility] [address] [place] [address] Nick Henry MD [address] [place] [address] [address]IVE [address] [place] [address] Health Maintenance Due Date Last Done Comments [...] complete this topic Insurance MEDICARE Care Teams School Program Director Relationship Specialty Start Date End Date Iliana Lopez MD [address] [facility] [place] [id number] PCP - General Internal Medicine 07/16/12
== END 2024-10-28 12:41 | disposition home or self-care (01) ==
LOC: HO.HMCC 09:17
PROVIDERS: PCP Internal Medicine; Visit Provider Internal Medicine
DX: Z00.00 Encounter for general adult medical examination without abnormal findings (principal); E03.9 Hypothyroidism, unspecified; I48.0 Paroxysmal atrial fibrillation; F40.243 Fear of flying; F51.04 Psychophysiologic insomnia; E78.5 Hyperlipidemia, unspecified; I10 Essential (primary) hypertension; M81.0 Age-related osteoporosis without current pathological fracture; M47.22 Other spondylosis with radiculopathy, cervical region; Z71.89 Other specified counseling

== ENCOUNTER → 2024-10-28 09:16 | Outpatient (BNVA) | payer MEDICARE, SELFPAY | PROVIDERS: PCP Internal Medicine; Visit Provider Internal Medicine | DX: Z00.00 Encounter for general adult medical examination without abnormal findings (principal); E03.9 Hypothyroidism, unspecified; E78.5 Hyperlipidemia, unspecified; F40.243 Fear of flying; F51.04 Psychophysiologic insomnia; I10 Essential (primary) hypertension; I48.0 Paroxysmal atrial fibrillation; M81.0 Age-related osteoporosis without current pathological fracture; M47.22 Other spondylosis with radiculopathy, cervical region; Z71.89 Other specified counseling | CPT/HCPCS: 96127 ==

== ENCOUNTER 2024-10-30 08:54 | Outpatient (REF) | payer MEDICARE, SELFPAY ==
--- OUTSIDE RECORDS SUMMARY | 2024-10-30 09:19 | XMS_ITS | Clinical Summary ---
Author Organization [facility] Address [address] [place] [address] Care Team Providers Care Trampoline Team Coach Name Role Phone Iliana Lopez MD Primary Care Provider Allergies Active Allergy Reactions Criticality Noted Date Comments Azithromycin 11/04/2020 Diphtheria, Pertussis, Tetan us Vaccine 11/04/2020 Levofloxacin 11/04/2020 Ivkodsjae-Ngzxvwigj-Mrpdyuh 11/05/19 21 Sulfa (Sulfonamide Antibiotics) 10/2020 Sulfamethoxazole [...] has history of paroxysmal atrial fibrillation. Her FNE7TG2-AVXs score is 2 representing a 2.2% risk [...] Description 12/10/2024 8:20 AM EDT Office Visit [facility] [address] [place] [address] Nick Henry MD [address] [place] [address] [address]IVE [address] [place] [address] Health Maintenance Due Date Last Done Comments [...] complete this topic Insurance MEDICARE Care Teams Trampoline Team Coach Relationship Specialty Start Date End Date Iliana Lopez MD [address] [facility] [place] [phone] PCP - General Internal Medicine 07/16/12
[2024-10-31 22:14] LABS: Thyroid Peroxidase Antibodies 14 IU/mL (<9)
== END 2024-10-30 08:55 | disposition home or self-care (01) ==
LOC: HO.HMGCLDS 08:54
PROVIDERS: PCP Internal Medicine; Referring Provider Internal Medicine Cardiovascular Disease; Visit Provider Internal Medicine
DX: E03.9 Hypothyroidism, unspecified (principal)
CPT/HCPCS: 36415; 84439; 84443; 86376

== ENCOUNTER 2024-11-01 08:44 | Outpatient (AMB) | payer MEDICARE, SELFPAY ==
--- NOTE | 2024-11-01 08:41 | A.OFFPC_ITS ---
Intake Visit Reasons: discuss med to suppress appetite Allergies levofloxacin [Levaquin] Allergy (Unknown, Verified 11/01/24 08:53) hives Sulfa (Sulfonamide Antibiotics) Allergy (Unknown, Verified 11/01/24 08:53) itchy, hives sulfamethoxazole [From Bactrim] Allergy (Unknown, Verified 11/01/24 08:53) itchy, hives Tetanus Vaccines and Toxoid Allergy (Unknown, Verified 11/01/24 08:53) convulsion trimethoprim [From Bactrim] Allergy (Unknown, Verified 11/01/24 08:53) itchy, hives codeine cough syrup Allergy (Unknown, Uncoded 11/01/24 08:53) hives zpack Adverse Reaction (Unknown, Uncoded 11/01/24 08:53) vomiting Medication List - Last Reconciled 11/01/24 by Iliana Lopez MD apixaban (Eliquis) 5 mg PO BID cholecalciferol (vitamin D3) 50 mcg PO DAILY escitalopram oxalate 10 mg PO DAILY gabapentin 300 mg PO BID 30 days Levoxyl (levothyroxine) 112 mcg PO DAILY NS lorazepam (Ativan) 1 mg PO ONCE metoprolol tartrate 50 mg PO BID romosozumab-aqqg (Evenity) 210 mg (2.34 mL) subcut .q month zolpidem 5 mg PO BEDTIME PRN Tobacco use date assessed: 11/01/24 Fall risk assessment: No Falls in past year Last assessed Fall Risk: 11/01/24 Dental Screening Dental Screen Date: 11/01/24 Did you have a dental visit in the last 12 months?: Yes Did you have a dental problem in the last 6 months where you did not have access to dental care?: No Was dental information given to patient?: Patient has dentist HPI discuss med to suppress appetite HPI Details 64 year old lady lady with history of dy slipidemia, hypertension, pa roxysmal atrial fibrillation currently on apixaban, acquired hypothyroidism, osteoporosis , chronic insomnia, depression with anxiety, and chronic back pain due to degenerative disc disease in spine, here today to discuss other treatment options for help with weight loss. She has consulted with dietitian/manager vehicle in the past, has been trying to follow recommendations, but unable to still lose weight she is unable to suppress her appetite much. She stays active however, dose lot of walking for exercise. [facility] Medical History (Updated 11/01/24 @ 09:07 by Iliana Lopez MD) Obesity (BMI 30.0-34.9) Restless legs syndrome (RLS) Sleep paralysis Insomnia Snoring Hypersomnia Seasonal allergies Recurrent isolated sleep paralysis Cervical radiculopathy due to degenerative joint disease of spine Depression with anxiety Degenerative disc disease, cervical Anxiety with flying Cervicalgia Hair loss Dysphagia Chronic insomnia Fatigue Dyslipidemia Essential hypertension Postmenopause Atrophic vaginitis Paroxysmal atrial fibrillation Osteoporosis Acquired hypothyroidism Surgical History History of prior ablation treatment Family History Father Hx of CABG Craig's palsy Thyroid disorder Myocardial infarction Mother HTN (hypertension) Hypothyroidism Sister Hypothyroidism Multiple sclerosis Pancreatic cancer Breast cancer Brother No problems noted. Brother No problems noted. Brother No problems noted. Sister Substance use disorder Sister No problems noted. Son No problems noted. Social History Housing: House Alcohol intake: current Patient Tobacco Use Status: Never used Tobacco e-Cigarette/Vaping Use: Never Used service: No Current occupational status: retired Cognitive needs: No Hearing needs: No Vision needs: Yes Questionnaire PHQ-9 Over the last 2 weeks, how often have you been bothered by any of the following problems? 1. Little interest or pleasure in doing things: not at all 2. Feeling down, depressed, or hopeless: not at all 3. Trouble falling or staying asleep, or sleeping too much: not at all 4. Feeling tired or having little energy: not at all 5. Poor appetite or overeating: not at all 6. Feeling bad about yourself - or that you are a failure or have let yourself or your family down: not at all 7. Trouble concentrating on things, such as reading the newspaper or watching television: not at all 8. Moving or speaking so slowly that other people could have noticed. Or the opposite - being so fidgety or restless that you have been moving around a lot more than usual: not at all 9. Thoughts that you would be better off or of hurting yourself in some way: not at all Total score: 0 Depression Screening Interpretation: Negative Depression Screening Done: Yes 46886 - PHQ-9 Billing: Yes Source: Developed by Drs. Angel Linder, Shanta Campbell, Hernan Baldwin and colleagues, with an educational landon from [employer]. Thrive Questionnaire Date Thrive assessed: 11/15/23 AUDIT C Alcohol Use Questionnaire (AUDIT-C) 3. How often do you have six or more drinks on one occasion?: Never Total Score: 0 LARA-7 AMB Questionnaire LARA-7 Date LARA - 7 assessed: 11/01/24 Feeling nervous, anxious, or on edge: 0 = Not at all Not being able to stop or control worryin = Not at all Worrying too much about different things: 0 = Not at all Trouble relaxin = Not at all Being so restless that it is hard to sit still: 0 = Not at all Becoming easily annoyed or irritable: 0 = Not at all Feeling afraid as if something awful might happen: 0 = Not at all Total LARA-7 score (0-4 normal; 5-9 mild; 10-14 moderate; 15-21 severe): 0 Source: Developed by Drs. Angel Linder, Shanta Campbell, Hernan Baldwin and colleagues, with an educational landon from [employer]. Review of Systems Const Reports as per HPI, Denies fever(s), Denies headache(s), Denies snoring, Denies stops breathing during sleep and Denies weakness Eyes Details: Is up-to-date with her eye exam ENT Reports as per HPI and Denies headache(s) Card Denies chest pain, Denies palpitations and Denies dyspnea Resp Denies chest congestion, Denies cough, Denies dyspnea, Denies snoring and Denies wheezing GI Denies abdominal pain, Denies change in bowel habits and Denies heartburn Denies urinary frequency, Denies dysuria, Reports urinary incontinence (Occasional incontinence with sneezing or coughing) and Reports vaginal dryness Musc Reports as per HPI, Denies myalgias, Denies arthralgias, Denies muscle cramps and Denies muscle weakness Skin/Breast Denies lesions and Denies rash Neuro Reports as per HPI, Denies headache(s) and Denies weakness Psych Reports as per HPI Endo Denies polydipsia, Denies polyuria and Denies palpitations Shay/Lymph Denies easy bruising Aller/Immun Reports as per HPI and Denies wheezing Physical exam (Primary Care) Tobacco/Smoking Status: Tobacco use Status Tobacco use date assessed 11/01/24 11/01/24 08:41 Patient Tobacco Use Status Never used Tobacco 11/01/24 08:41 e-Cigarette/Vaping Use Never Used 11/01/24 08:41 PHQ-9: PHQ-9 Score PHQ-9: Total score 0 11/01/24 09:09 Depression Screening Interpretation: Negative Thrive Assessment: Date of Thrive Assessment Date Thrive assessed 11/15/23 11/01/24 08:41 Telehealth Telehealth Telehealth Platform: [employer] Location of provider rendering services: practice address Location of patient: address on file Patient Identification confirmed using: Name, : Yes Telehealth method: video Patient verbally consented to treatment: Yes Patient verbally consented to billing insurance company: Yes Patient informed of any privacy concerns related to visit: Yes Minutes spent on Phone/Video with Pt.: 15 Coding Level of Care Code Tele Est Pt Level 4 (14069) Diagnoses Obesity (BMI 30.0-34.9) E66.811 Additional Codes PHQ-9 - 07009 - PHQ-9 Billing: Yes ([id number]) Assessment & Plan Assessment & Plan (1) Obesity (BMI 30.0-34.9): Code(s): E66.811 - Obesity, class 1 Category: Medical Plan: Continue with adherence to a healthy diet, advised to start following a Mediterranean diet, with a lot of whole grains, lean meat fish, fresh vegetables, avoidance of processed foods, do not eat later at night. Continue with moderate intensity exercise at least 30 minutes 3 to 4 times a week. Will try on phentermine-topiramate 3.75-23 mg extended release to take 1 tablet once a day in the morning with a without food for 14 days, call after 2 weeks on the medication to see how she is doing. If tolerating medication well, will send a prescription for the next higher dose to take for another 12 weeks. Medications: New phentermine-topiramate 3.75-23 mg ER 1 cap PO DAILY 14 caps 0RF 14 days
--- OUTSIDE RECORDS SUMMARY | 2024-11-01 09:10 | XMS_ITS | Clinical Summary ---
Author Organization [facility] Address [address] [place] [address] Care Team Providers Care Vp Director Of Finance Name Role Phone Iliana Lopez MD Primary Care Provider Allergies Active Allergy Reactions Criticality Noted Date Comments Azithromycin 11/04/2020 Diphtheria, Pertussis, Tetan us Vaccine 11/04/2020 Levofloxacin 11/04/2020 Kdeqdaybm-Mleggmkvb-Mojuyjw 11/05/19 21 Sulfa (Sulfonamide Antibiotics) 10/2020 Sulfamethoxazole [...] has history of paroxysmal atrial fibrillation. Her [id number] score is 2 representing a 2.2% risk [...] Description 12/10/2024 8:20 AM EDT Office Visit [facility] [address] [place] [address] Nick Henry MD [address] [place] [address] [address] [place] [address] Health Maintenance Due Date Last Done Comments [...] complete this topic Insurance MEDICARE Care Teams Vp Director Of Finance Relationship Specialty Start Date End Date Iliana Lopez MD [address] [facility] [place] [address] PCP - General Internal Medicine 07/16/12
== END 2024-11-01 09:40 | disposition home or self-care (01) ==
LOC: HO.HMCC 08:44
PROVIDERS: PCP Internal Medicine; Visit Provider Internal Medicine
DX: E66.811 Obesity, class 1 (principal)

== ENCOUNTER → 2024-11-01 08:44 | Outpatient (BNVA) | payer MEDICARE, SELFPAY | PROVIDERS: PCP Internal Medicine; Visit Provider Internal Medicine | DX: E66.811 Obesity, class 1 (principal); Z71.3 Dietary counseling and surveillance | CPT/HCPCS: 96127 ==

== ENCOUNTER 2024-11-06 09:17 | Outpatient (AMB) | payer MEDICARE, SELFPAY ==
--- NOTE | 2024-11-06 09:37 | MHC.OFFVIS ---
Vital Signs 11/06/24 09:39 Height 5 ft 6 in BMI Reason not done Patient refused/unable BP 183/79 H Blood Pressure Location Lt brachial Position Sitting Respiration 16 Pulse 65 Pulse Source Pulse Oximeter Pulse Oximetry (%) 97 Oxygen Delivery Method Room Air Intake Visit Reasons: Sprint removal Intake Note: Sprint lead removed entirely, including the tip Test Manager Required: No Allergies levofloxacin [Levaquin] Allergy (Unknown, Verified 11/06/24 09:40) hives Sulfa (Sulfonamide Antibiotics) Allergy (Unknown, Verified 11/06/24 09:40) itchy, hives sulfamethoxazole [From Bactrim] Allergy (Unknown, Verified 11/06/24 09:40) itchy, hives Tetanus Vaccines and Toxoid Allergy (Unknown, Verified 11/06/24 09:40) convulsion trimethoprim [From Bactrim] Allergy (Unknown, Verified 11/06/24 09:40) itchy, hives codeine cough syrup Allergy (Unknown, Uncoded 11/06/24 09:40) hives zpack Adverse Reaction (Unknown, Uncoded 11/06/24 09:40) vomiting Medication List - Last Reconciled 11/06/24 by Elsy Bonner LPN apixaban (Eliquis) 5 mg PO BID cholecalciferol (vitamin D3) 50 mcg PO DAILY escitalopram oxalate 10 mg PO DAILY gabapentin 300 mg PO BID 30 days Levoxyl (levothyroxine) 112 mcg PO DAILY NS lorazepam (Ativan) 1 mg PO ONCE metoprolol tartrate 50 mg PO BID phentermine-topiramate 3.75-23 mg ER 1 cap PO DAILY 14 days romosozumab-aqqg (Evenity) 210 mg (2.34 mL) subcut .q month zolpidem 5 mg PO BEDTIME PRN HPI HPI Sprint removal: Details: History of Present Illness The patient is a 64-year-old female presenting with chronic cervical pain. She reports continuous neck pain, primarily affecting the left side. This pain radiates towards her head, complicating head movement towards the left and indicating potential high cervical spine involvement. The patient underwent two rounds of diagnostic medial branch blocks, each providing only temporary relief for about a day. She has been managing the discomfort with a soft collar worn at night, though significant stiffness remains. The history of pain's persistence and the limitations in neck mobility have prompted further evaluation and management, specifically considering radiofrequency ablation. Pain Description - Onset and Timing: Chronic, persistent neck pain worsening over several months. - Quality and Character: Constant, radiating towards the head. - Primary Location: Cervical region, predominantly on the left side. - Areas of Radiation: Towards the head, indicating high cervical involvement. - Exacerbating Factors: Turning the head, particularly to the left. - Relieving Factors: Wearing a soft collar at night offers minimal relief. - Interference: Hampers range of motion in the neck, especially turning towards the left. Physical Exam - Appears afebrile. - Alert and oriented. - Mood and affect appropriate. - Follows and participates in conversation appropriately. - Respiratory effort is unlabored. - Able to transition from sit to stand unassisted. - Ambulates with bilaterally normal heel strike and toe off. - Able to stand and walk on toes and heels. - Limited lateral cervical range of motion reproduces pain in the neck and shoulder region Results - 2 rounds of diagnostic cervical medial branch blocks have previously provided more than 80% relief for the duration of the anesthetic phase Pain Management - Affect: Chronic pain impacting daily activities and mood. - Analgesia: Discomfort persists despite interventions; radiofrequency ablation discussed. - Adverse Effects: Not explicitly mentioned. - Activities of Daily Living: Movement restrictions due to neck stiffness and pain. - Aberrant Drug Related Behaviors: Not present as per conversation. [facility] Medical History (Updated 11/01/24 @ 09:07 by Iliana Lopez MD) Obesity (BMI 30.0-34.9) Restless legs syndrome (RLS) Sleep paralysis Insomnia Snoring Hypersomnia Seasonal allergies Recurrent isolated sleep paralysis Cervical radiculopathy due to degenerative joint disease of spine Depression with anxiety Degenerative disc disease, cervical Anxiety with flying Cervicalgia Hair loss Dysphagia Chronic insomnia Fatigue Dyslipidemia Essential hypertension Postmenopause Atrophic vaginitis Paroxysmal atrial fibrillation Osteoporosis Acquired hypothyroidism Surgical History History of prior ablation treatment Family History Father Hx of CABG Craig's palsy Thyroid disorder Myocardial infarction Mother HTN (hypertension) Hypothyroidism Sister Hypothyroidism Multiple sclerosis Pancreatic cancer Breast cancer Brother No problems noted. Brother No problems noted. Brother No problems noted. Sister Substance use disorder Sister No problems noted. Son No problems noted. Social History Housing: House Alcohol intake: current Patient Tobacco Use Status: Never used Tobacco e-Cigarette/Vaping Use: Never Used service: No Current occupational status: retired Cognitive needs: No Hearing needs: No Vision needs: Yes Physical Exam Vital Signs: Last Vital Signs Pulse 65 11/06/24 09:39 Resp 16 11/06/24 09:39 BP 183/79 H 11/06/24 09:39 Pulse Ox 97 11/06/24 09:39 Oxygen Delivery Method Room Air 11/06/24 09:39 Assessment & Plan Assessment & Plan (1) Cervical spondylosis: Code(s): M47.812 - Spondylosis without myelopathy or radiculopathy, cervical region Category: Medical Plan Plan - Proceed with radiofrequency ablation medial branches C3, C4, C5 on the left side for chronic cervical pain relief. - Stop Eliquis three days before the procedure for safety. - Order insurance authorization for the procedure. - Prescribe Ativan for pre-procedural anxiety management. - Encourage the patient to continue using the soft collar during nighttime for any relief it provides. Patient was informed and verbally consented to the use of an ambient scribe for clinic note documentation during this visit. Discussion Notes I discussed with the patient the chronic nature of her cervical pain and the temporary effectiveness of prior diagnostic blocks. The primary focus is to proceed with a radiofrequency ablation targeting the left cervical region to potentially provide lasting relief. We discussed the need to discontinue Eliquis three days before to minimize procedural bleeding risk. Ativan will be prescribed to ease pre-procedural anxiety. We also deliberated on insurance authorization as a prerequisite. The patient is informed about the potential discomfort associated with the procedure compared to prior treatments but acknowledges its designed benefit of alleviating radiating neck pain. Patient Instructions - Stop taking Eliquis three days before the scheduled procedure. - Take Ativan a few hours before the procedure to help with anxiety. - Continue using the soft collar at night for support. - Await further communication regarding the insurance authorization and procedure schedule. Medications: New lorazepam pre-procedure 1 mg PO BEDTIME PRN 1 tab 0RF anxiety oxycodone Partial Fill upon patient request. 5 mg PO ONCE PRN 1 tab 0RF pain Coding Level of Care Code Est Pt Level 3 (61238) Diagnoses Cervical spondylosis M47.812
[2024-11-06 09:39] VITALS: BP 183/79; PULSE 65; RESP 16; O2SAT 97
--- OUTSIDE RECORDS SUMMARY | 2024-11-06 09:56 | XMS_ITS | Clinical Summary ---
Author Organization [facility] Address [address] [place] [address] Care Team Providers Care Heading Repairer Name Role Phone Iliana Lopez MD Primary Care Provider Allergies Active Allergy Reactions Criticality Noted Date Comments Azithromycin 11/04/2020 Diphtheria, Pertussis, Tetan us Vaccine 11/04/2020 Levofloxacin 11/04/2020 Gkprygqxy-Gtdqcqype-Kvapgcw 11/05/19 21 Sulfa (Sulfonamide Antibiotics) 10/2020 Sulfamethoxazole [...] has history of paroxysmal atrial fibrillation. Her XMN1GI9-XUHb score is 2 representing a 2.2% risk [...] Description 12/10/2024 8:20 AM EDT Office Visit [facility] [address] [place] [address] Nick Henry MD [address] [place] [address] [address]IVE [address] [place] [address] Health Maintenance Due Date Last Done Comments [...] complete this topic Insurance MEDICARE Care Teams Heading Repairer Relationship Specialty Start Date End Date Iliana Lopez MD [address] [facility] [place] [address] PCP - General Internal Medicine 07/16/12
== END 2024-11-06 10:13 | disposition home or self-care (01) ==
LOC: HO.PMC 09:18
PROVIDERS: PCP Internal Medicine; Visit Provider Internal Medicine
DX: M47.812 Spondylosis without myelopathy or radiculopathy, cervical region (principal)
CPT/HCPCS: 99213

== ENCOUNTER → 2024-11-06 09:17 | Outpatient (BNVA) | payer MEDICARE, SELFPAY | PROVIDERS: PCP Internal Medicine; Visit Provider Internal Medicine | DX: M47.812 Spondylosis without myelopathy or radiculopathy, cervical region (principal); Z45.42 Encounter for adjustment and management of neurostimulator | CPT/HCPCS: 99212 ==

== ENCOUNTER 2024-11-19 09:22 | Outpatient (AMB) | payer MEDICARE, SELFPAY ==
--- NOTE | 2024-11-19 09:40 | AM.OFFVISNUR ---
Intake Visit Reasons: Evenity #7 Allergies levofloxacin [Levaquin] Allergy (Unknown, Verified 11/06/24 09:40) hives Sulfa (Sulfonamide Antibiotics) Allergy (Unknown, Verified 11/06/24 09:40) itchy, hives sulfamethoxazole [From Bactrim] Allergy (Unknown, Verified 11/06/24 09:40) itchy, hives Tetanus Vaccines and Toxoid Allergy (Unknown, Verified 11/06/24 09:40) convulsion trimethoprim [From Bactrim] Allergy (Unknown, Verified 11/06/24 09:40) itchy, hives codeine cough syrup Allergy (Unknown, Uncoded 11/06/24 09:40) hives zpack Adverse Reaction (Unknown, Uncoded 11/06/24 09:40) vomiting Office Meds romosozumab-aqqg 210 mg/2.34 mL(105 mg/1.17 mL x2)subcutaneous syringe Performing Provider: Angel Winters MD Performing Location: [facility] Endocrinology Administered by: Marielena Shine RN on 11/19/24 09:40 Dose Route Admin Location Dispensed Lot Number Expiration Date [facility] [employer]icult[employer]Floricult[employer] Teacher 210 mg subcut bilater upper arms 2.34 mL [id number] 10/30/26 70818-426-41 AMGEN Comments: No adverse reactions reported from previous injection. Pt tolerated injection well. No questions at this time. Assessment & Plan Assessment & Plan Orders: Orders AMB Romosozumab Injection Patient Supplied Today M81.0 - Age-related osteoporosis without current pathological fracture Medications: New romosozumab-aqqg 210 mg (2.34 mL) subcut ONCE 2.34 mL 0RF M81.0 - Age-related osteoporosis without current pathological fracture Coding
--- OUTSIDE RECORDS SUMMARY | 2024-11-19 10:10 | XMS_ITS | Clinical Summary ---
Author Organization [facility] Address [address] [place] [address] Care Team Providers Care Service Girl Name Role Phone Iliana Lopez MD Primary Care Provider Allergies Active Allergy Reactions Criticality Noted Date Comments Azithromycin 11/04/2020 Diphtheria, Pertussis, Tetan us Vaccine 11/04/2020 Levofloxacin 11/04/2020 Xfzabkugn-Wzxlekwcr-Mdogtgb 11/05/19 21 Sulfa (Sulfonamide Antibiotics) 10/2020 Sulfamethoxazole [...] MOUTH TWICE A DAY 180 tablet 2 10/10/2024 Active Eliquis 5 mg tablet TAKE ONE TABLET BY MOUTH TWICE A DAY 180 tablet 2 10/10/2024 Active Active Problems Problem Noted Date Diagnosed [...] continue on her metoprolol. Paroxysmal atrial fibrillation ([facility] V24, [facility] V28) 11/04/2020 Overview (07/24/2024): Last Assessment & Plan: Patient has history of paroxysmal atrial fibrillation. Her ZIO1IG4-TKZj score is 2 representing a 2.2% risk [...] Description 12/10/2024 8:20 AM EDT Office Visit [facility] [address] [place] [id number] Nick Henry MD [address] [place] [address] [address] [place] [address] Health Maintenance Due Date Last Done Comments Breast Cancer Screening 1960 DTaP,Tdap,and Td Vaccines (1 - Tdap) 1977 Pneumococcal Vaccine: 50+ Ye ars (1 of 1 - PCV) 2008 Zoster Vaccines (1 of 2) 2008 Cholesterol Screening (Lipid Panel) 06/04/2022 Colorectal Cancer Screening: Colonoscopy 06/04/2022 Depression Screening 06/04/2022 Hepatitis C Screening 06/04/2022 Medicare Annual Wellness Visit 06/04/2022 Osteoporosis Screening (Bone Density Screening) 06/04/2022 Social Influencers of Health Screening 06/04/2022 Hypertension/CHF/CAD Annual BMP Blood Test 06/12/2022 Falls Risk Assessment 2023 COVID-19 Vaccine ( - 2023-2 5 season) 2024 Influenza Vaccine (Season Ended) 2025 RSV Immunization Adult Patie nts (1 - 1-dose 75+ series) 2033 HIB Vaccines Aged Out No longer eligi [...] patient's age to complete this topic Insurance * Guarantor: Libra Sandoval Account Type Relation to Patient Date of Phone Billing Address Personal/Family Self 1960 [address] [facility] [place] [address] MEDICARE Care Teams Service Girl Relationship Specialty Start Date End Date Iliana Lopez MD [address] [facility] [place] [address] PCP - General Internal Medicine 07/16/12
== END 2024-11-19 09:39 | disposition home or self-care (01) ==
LOC: HO.ENCR 09:22
PROVIDERS: PCP Internal Medicine; Visit Provider Internal Medicine Endocrinology, Diabetes & Metabolism
DX: M81.0 Age-related osteoporosis without current pathological fracture (principal)

== ENCOUNTER → 2024-11-19 09:22 | Outpatient (BNVA) | payer MEDICARE, SELFPAY | PROVIDERS: PCP Internal Medicine; Visit Provider Internal Medicine Endocrinology, Diabetes & Metabolism | DX: M81.0 Age-related osteoporosis without current pathological fracture (principal) | CPT/HCPCS: 96372; J3111 ==

== ENCOUNTER 2024-11-22 11:59 | Outpatient (AMB) | payer MEDICARE, SELFPAY ==
--- NOTE | 2024-11-22 11:59 | MHC.OFFVIS ---
Intake Visit Reasons: Denial FU Allergies levofloxacin [Levaquin] Allergy (Unknown, Verified 11/06/24 09:40) hives Sulfa (Sulfonamide Antibiotics) Allergy (Unknown, Verified 11/06/24 09:40) itchy, hives sulfamethoxazole [From Bactrim] Allergy (Unknown, Verified 11/06/24 09:40) itchy, hives Tetanus Vaccines and Toxoid Allergy (Unknown, Verified 11/06/24 09:40) convulsion trimethoprim [From Bactrim] Allergy (Unknown, Verified 11/06/24 09:40) itchy, hives codeine cough syrup Allergy (Unknown, Uncoded 11/06/24 09:40) hives zpack Adverse Reaction (Unknown, Uncoded 11/06/24 09:40) vomiting HPI HPI Denial FU: Details: History of Present Illness The patient is a 64-year-old female presenting with chronic neck pain. She has a history of cervical spondylosis and the pain predominantly affects the left side. Previous diagnostic medial branch blocks C3, C4, C5 yielded significant short-term pain relief. Specifically, 100% relief was experienced for the anesthetic phase, with a 50% decrease in pain thereafter. The patient has reported severe disability due to neck pain, as indicated by an TAMARA neck pain disability score of 27. She is considering further intervention with cervical medial branch radiofrequency ablation pending reassessment through a repeat round of diagnostic blocks to evaluate candidacy and outcome prediction. Pain Description - Onset: Chronic - Quality: Significant reduction following procedures - Primary location: Neck, with the left side being predominantly worse - Radiation: Not specified - Exacerbating factors: Not specified - Relieving factors: Diagnostic medial branch blocks provided short-term relief - Functional interference: Indicated by a severe disability score of 27 Physical Exam - Televisit Results - Diagnostic tests: - Medial branch block providing 100% relief for initial 3 hours, then 50% relief thereafter. - TAMARA neck pain disability score is 27, indicating severe disability. Pain Management - Affect: Chronic pain is severely affecting the patient's daily living, as indicated by the disability score. - Analgesia: Previous medial branch blocks provided significant short-term relief. - Adverse Effects: Not mentioned. - Activities of Daily Living: Severely affected due to neck pain. - Aberrant Drug Related Behaviors: Not mentioned. [facility] Medical History (Updated 11/01/24 @ 09:07 by Iliana Lopez MD) Obesity (BMI 30.0-34.9) Restless legs syndrome (RLS) Sleep paralysis Insomnia Snoring Hypersomnia Seasonal allergies Recurrent isolated sleep paralysis Cervical radiculopathy due to degenerative joint disease of spine Depression with anxiety Degenerative disc disease, cervical Anxiety with flying Cervicalgia Hair loss Dysphagia Chronic insomnia Fatigue Dyslipidemia Essential hypertension Postmenopause Atrophic vaginitis Paroxysmal atrial fibrillation Osteoporosis Acquired hypothyroidism Surgical History History of prior ablation treatment Family History Father Hx of CABG Craig's palsy Thyroid disorder Myocardial infarction Mother HTN (hypertension) Hypothyroidism Sister Hypothyroidism Multiple sclerosis Pancreatic cancer Breast cancer Brother No problems noted. Brother No problems noted. Brother No problems noted. Sister Substance use disorder Sister No problems noted. Son No problems noted. Social History Housing: House Alcohol intake: current Patient Tobacco Use Status: Never used Tobacco e-Cigarette/Vaping Use: Never Used service: No Current occupational status: retired Cognitive needs: No Hearing needs: No Vision needs: Yes Telehealth Telehealth Telehealth Platform: [employer] Location of provider rendering services: practice address Location of patient: address on file Patient Identification confirmed using: Name, : Yes Telehealth method: video Patient verbally consented to treatment: No Patient verbally consented to billing insurance company: No Patient informed of any privacy concerns related to visit: No Minutes spent on Phone/Video with Pt.: 10 Assessment & Plan Assessment & Plan (1) Cervical spondylosis: Code(s): M47.812 - Spondylosis without myelopathy or radiculopathy, cervical region Category: Medical Plan Plan - Proceed with repeat diagnostic medial branch blocks, bilateral C3, C4, C5 MBBs - Plan radiofrequency ablation contingent upon insurance approval. - Patient instructed to halt Eliquis 3 days before procedure to manage bleeding risks. - Schedule coordination pending approval notification. Patient was informed and verbally consented to the use of an ambient scribe for clinic note documentation during this visit. Discussion Notes I discussed the patient's chronic neck pain and the significant impact it has on her daily life due to cervical spondylosis. We reviewed the outcomes of the prior medial branch blocks, which provided short-term relief. The plan to repeat the diagnostic blocks as a step before considering radiofrequency ablation was explained, along with the necessity to suspend Eliquis three days prior to minimize procedural risks. We agreed that once insurance approval is granted, my team would contact her to schedule the procedure. Risks, benefits, and alternatives, particularly concerning anticoagulation therapy, were discussed in detail, and the patient expressed an understanding and agreement with the planned course of action. Patient Instructions - Stop taking Eliquis 3 days before the procedure. - Await notification from our team once insurance approval is received for scheduling. - Contact the office if there are questions or concerns regarding the procedure or instructions. Coding Level of Care Code Tele Est Pt Level 3 (11288) Diagnoses Cervical spondylosis M47.812
--- OUTSIDE RECORDS SUMMARY | 2024-11-22 12:01 | XMS_ITS | Clinical Summary ---
Author Organization [facility] Address [address] [place] [address] Care Team Providers [employer] Director Name Role Phone Iliana Lopez MD Primary Care Provider Allergies Active Allergy Reactions Criticality Noted Date Comments Azithromycin 11/04/2020 Diphtheria, Pertussis, Tetan us Vaccine 11/04/2020 Levofloxacin 11/04/2020 Yoslwobio-Hvcwjahfy-Cazvpyx 11/05/19 21 Sulfa (Sulfonamide Antibiotics) 10/2020 Sulfamethoxazole [...] continue on her metoprolol. Paroxysmal atrial fibrillation ([facility] V24, [facility] V28) 11/04/2020 Overview (07/24/2024): Last Assessment & Plan: Patient has history of paroxysmal atrial fibrillation. Her [id number] score is 2 representing a 2.2% risk [...] Description 12/10/2024 8:20 AM EDT Office Visit [facility] Cardiology [address] [place] [id number] Nick Henry MD [address] [place] [address] [address] [place] [address] Health Maintenance Due Date Last Done Comments [...] complete this topic Insurance MEDICARE Care Teams [employer] Director Relationship Specialty Start Date End Date Iliana Lopez MD [address] [facility] [place] [address] PCP - General Internal Medicine 07/16/12
== END 2024-11-22 12:00 | disposition home or self-care (01) ==
LOC: HO.PMC 11:59
PROVIDERS: PCP Internal Medicine; Visit Provider Internal Medicine
DX: M47.812 Spondylosis without myelopathy or radiculopathy, cervical region (principal)
CPT/HCPCS: 99213

== ENCOUNTER → 2024-11-22 11:59 | Outpatient (BNVA) | payer MEDICARE, SELFPAY | PROVIDERS: PCP Internal Medicine; Visit Provider Internal Medicine ==

== ENCOUNTER 2024-12-19 09:18 | Outpatient (AMB) | payer MEDICARE, SELFPAY ==
--- NOTE | 2024-12-19 09:38 | AM.OFFVISNUR ---
Intake Visit Reasons: Evenity #8 Allergies levofloxacin (Levaquin) Allergy (Unknown, Verified 11/06/24 09:40) hives Sulfa (Sulfonamide Antibiotics) Allergy (Unknown, Verified 11/06/24 09:40) itchy, hives sulfamethoxazole (From Bactrim) Allergy (Unknown, Verified 11/06/24 09:40) itchy, hives Tetanus Vaccines and Toxoid Allergy (Unknown, Verified 11/06/24 09:40) convulsion trimethoprim (From Bactrim) Allergy (Unknown, Verified 11/06/24 09:40) itchy, hives codeine cough syrup Allergy (Unknown, Uncoded 11/06/24 09:40) hives zpack Adverse Reaction (Unknown, Uncoded 11/06/24 09:40) vomiting Office Meds romosozumab-aqqg 210 mg/2.34 mL(105 mg/1.17 mL x2)subcutaneous syringe Performing Provider: Angel Winters MD [place] [facility] Administered by: Marielena Shine RN on 12/19/24 09:38 Dose Route Admin Location Dispensed Lot Number Expiration Date [facility] Platform Attendant 210 mg subcut bilateral upper arms 2.34 mL [id number] 01/30/27 44086-493-92 AM[employer] Total Dispensed Waste 2.34 mL 0 % Comments: Pt tolerated injection well. Pt stated that she has been having aches and pains on the left side of her jaw. She said that the pain has gotten progressively worse after each injection and affects the way she eats at times. She stated that she went to her dentist to consult and the dentist told her that he has pt's who are also on evenity and this is a common side effect for them as well. Other than the jaw pain/ache mentioned there are no other adverse reactions reported. I advised pt to call our office if there are worsening side effects and she was agreeable with no further questions. Assessment & Plan Assessment & Plan Orders: Orders AMB Romosozumab Injection Patient Supplied Today M81.0 - Age-related osteoporosis without current pathological fracture Coding
--- OUTSIDE RECORDS SUMMARY | 2024-12-19 09:57 | XMS_ITS | Clinical Summary ---
Author Organization [facility] Address [address] [place] [address] Phone Care Team Providers Care Shop Assistant Name Role Phone Iliana Lopez MD Primary Care Provider [phone] Allergies Active Allergy Reactions Criticality Noted Date Comments Azithromycin 11/04/2020 Diphtheria, Pertussis, Tetanus Vaccine 11/04/2020 Levofloxacin 11/04/2020 Edividith-Dnhfbzuvj-Otmnxeq 11/05/19 21 Sulfa (Sulfonamide Antibiotics) 10/2020 Tetanus Antitoxin 04/27/2022 Trimethoprim 11/04/2020 Medications cholecalcifero l (VITAMIN D-3) 50 mcg (2,000 unit) tablet Take 1 tablet (2,000 Units total) by mouth 1 (one) time each day. Active escitalopram (LEXAPRO) 5 mg tablet Take 1 tablet (5 mg total) by mouth 1 (one) time each day. Active LORazepam (ATIVAN) 1 mg tablet Take 1 Tablet by mouth Once for 1 dose. Prior to MRI. 4 Active metoprolol tartrate (LOPRESSOR) 50 mg tablet TAKE ONE TABLET BY MOUTH TWICE A DAY 180 tablet 2 5 Active Eliquis 5 mg tablet TAKE ONE TABLET BY MOUTH TWICE A DAY 180 tablet 2 5 Active levothyroxine (SYNTHROID, LEVOTHROID) 112 mcg tablet Take 1 tablet (112 mcg total) by mouth 1 (one) time each day before breakfast. Active Evenity Inject 2.34 mL (210 mg total) under the skin. Once injection monthly for 1 year Active levothyroxine (SYNTHROID, LEVOTHROID) 100 mcg tablet Take 100 mcg by mouth every morning. 12/11/19 25 Discontinue d(Discontin ued by another clinician) Active Problems Problem Noted Date Diagnosed Date ASD (atrial septal defect) 05/24/2023 Overview (07/24/2024): Last Assessment & Plan: Patient has known atrial septal defect. This has been discussed in the past with Dr. Oliver. Patient is not a candidate for closure. She is asymptomatic. Assessment & Plan (12/10/2024 5:15 PM EDT): MRI verifies the presence of a secundum atrial septal defect. Deemed not in need of repair at this time. At this time there is no evidence of right heart failure or pulmonary hypertension. Qp/Qs is is 1.2 to 1% volume is 29 mL. No history of paradoxical embolus. Patient is chronically anticoagulated for A-fib Dyslipidemia 04/27/2022 Overview (07/24/2024): Last Assessment & [...] well. She will continue on her metoprolol. Assessment & Plan (12/10/2024 5:15 PM EDT): History of hypertension on medical management Orders: ECG 12 lead Paroxysmal atrial fibrillation (CMS/HCC V24, CMS /HCC V28) 11/04/2020 Overview (07/24/2024): Last Assessment & Plan: Patient has history of paroxysmal atrial fibrillation. Her [id number]-CEUx score is 2 representing a 2.2% risk for thromboembolism. She meets criteria for anticoagulation. Discussed her risk of stroke and that aspirin would not adequately protect her. We discussed options and patient is agreeable to starting Eliquis 5 mg twice daily. I prescribed this for her today. Stop aspirin. Assessment & Plan (12/10/2024 5:15 PM EDT): Patient with a history of paroxysmal atrial fibrillation remains chronically anticoagulated Orders: ECG 12 lead Encounters Date Type Department Care Team Description 12/10/2024 8:20 AM EDT Office Visit [facility] [address] [place] [address] Jesse Henry MD Paroxysmal atrial fibrillation (CMS/HCC V24, CMS/HCC V28) (Primary Dx); Essential hypertension; ASD (atrial septal defect) from Last 3 Months Surgical History Surgery [...] Packs/Day Years Used Date Smoking Tobacco: Former Cigarettes Smokeless Tobacco: Never Tobacco Cessation:Counseling Given: Not Answered Alcohol Use Standard Drinks/Week Comments Yes 0 (1 standard drink = 0.6 oz pur e alcohol) occasional Comments Unknown Sex and Gender Information Value Date Recorded Sex Assigned at Not on file Legal Sex Female 7:59 PM EST Gender Identity Not on file Sexual Orientation Not on file Obstetrics History Last Filed Vital Signs Vital Sign Reading Time Taken Comments Blood Pressure 160/80 12/10/2024 8:30 AM EDT Pulse 56 12/10/2024 8:30 AM EDT Temperature - - Respiratory Rate - - Oxygen Saturation 98% 12/10/2024 8:30 AM EDT Inhaled Oxygen Concentration - - Weight 88.9 kg (196 lb) 12/22/2023 9:10 AM EDT Height 167.6 cm (5' 6 ) 12/22/2023 9:10 AM EDT Body Mass Index 31.64 12/22/2023 9:10 AM EDT Plan of Treatment Health Maintenance Due Date Last Done Comments Breast Cancer Screening 1960 DTaP,Tdap,and Td Vaccines (1 - Tdap) 1977 Pneumococcal Vaccine: 50+ Years (1 of 2 - PCV) 1977 Cholesterol Screening (Lipid Panel) 06/04/2022 Depression Screening 06/04/2022 Hepatitis C Screening 06/04/2022 Medicare Annual Wellness Visit 06/04/2022 Osteoporosis Screening (Bone Density Screening) 06/04/2022 Social Influencers of Health Screening 06/04/2022 Hypertension/CHF/CAD Annual BMP Blood Test 06/12/2022 Falls Risk Assessment 2023 COVID-19 Vaccine (8 - Pfizer risk season) 2024 03/26/2024, 05/15/2023, 07/13/2022, Additional history exists Colorectal Cancer Screening: FIT-DNA (Cologuard) 12/23/2024 12/23/2021 Influenza Vaccine (Season Ended) 2025 RSV Immunization Adult Patients (1 - 1-dose 75+ series) 2033 Zoster Vaccines Completed 05/16/2022, 12/16/2021 HIB Vaccines Aged Out No longer eligi [...] to complete this topic RSV Immunization Patients Under 20 months Aged Out No longer eligible based on patient's age to complete this topic Varicella Vaccines Aged Out No longer eligible based on patient's age to complete this topic Procedures Procedure Name Priority Date/Time Associated Diagnosis Comments ECG 12-LEAD Routine 12/10/2024 8:37 AM EDT Paroxysmal atrial fibrillation (CMS/HCC V24, CMS/HCC V28) Essential hypertension from Last 3 Months Results * ECG 12 lead (12/10/2024 8:37 AM EDT) Ventricular Rate ECG 57 BPM GEMUSE Atrial Rate 57 BPM GEMUSE P-R Interval 130 ms GEMUSE QRS Duration 90 ms GEMUSE Q-T Interval 450 ms GEMUSE QTc 438 ms GEMUSE P Wave [place] 54 degrees GEMUSE R [place] 89 degrees GEMUSE T [place] 63 degrees GEMUSE ECG Interpretation Sinus bradycardia Otherwise normal ECG When compared with ECG of 02-OCT-2013 09:30, Nonspecific T wave abnormality no longer evident in Inferior leads T wave amplitude has increased in Anterolateral leads Confirmed by Annmarie HENRY, JESSE ([id number]) on 12/10/2024 3:36:23 PM GEMUSE 12/10/2024 8:37 AM EDT 12/10/2024 3:36 PM EDT us Jesse Henry MD ECG ORDERABLES Final Result GEMUSE from Last 3 Months Insurance MEDICARE [facility] Care Teams Shop Assistant Relationship Specialty Start Date End Date Iliana Lopez MD [address] [place] [address] PCP - General Internal Medicine 07/16/12
== END 2024-12-19 09:36 | disposition home or self-care (01) ==
LOC: HO.ENCR 09:18
PROVIDERS: PCP Internal Medicine; Visit Provider Internal Medicine Endocrinology, Diabetes & Metabolism
DX: M81.0 Age-related osteoporosis without current pathological fracture (principal)

== ENCOUNTER → 2024-12-19 09:18 | Outpatient (BNVA) | payer MEDICARE, SELFPAY | PROVIDERS: PCP Internal Medicine; Visit Provider Internal Medicine Endocrinology, Diabetes & Metabolism | DX: M81.0 Age-related osteoporosis without current pathological fracture (principal) | CPT/HCPCS: 96372; J3111 ==

== ENCOUNTER 2025-01-16 09:21 | Outpatient (AMB) | payer MEDICARE, SELFPAY ==
--- OUTSIDE RECORDS SUMMARY | 2025-01-16 09:38 | XMS_ITS | Clinical Summary ---
Author Organization [facility] Address [address] [place] [address] Phone Care Team Providers Care Film Spooler Name Role Phone Iliana Lopez MD Primary Care Provider [phone]- [phone] Allergies Active Allergy Reactions Criticality Noted Date Comments Azithromycin 11/04/2020 Diphtheria, Pertussis, Tetanus Vaccine 11/04/2020 Levofloxacin 11/04/2020 Lpdfanrzg-Jllvmvswt-Ranzpfs 11/05/19 21 Sulfa (Sulfonamide Antibiotics) 10/2020 Tetanus Antitoxin 04/27/2022 Trimethoprim 11/04/2020 Medications cholecalciferol [...] Once injection monthly for 1 year Active Active Problems Problem Noted Date Diagnosed [...] has history of paroxysmal atrial fibrillation. Her [id number] score is 2 representing a 2.2% risk [...] Description 12/10/2024 8:20 AM EDT Office Visit [facility] [address] [place] [address] Jesse Henry MD Paroxysmal atrial [...] PCV) 1977 Cholesterol Screening (Lipid Panel) 06/04/2022 Hepatitis C Screening 06/04/2022 Medicare Annual Wellness Visit 06/04/2022 Osteoporosis Screening (Bone Density Screening) 06/04/2022 Social Influencers of Health Screening 06/04/2022 Hypertension/CHF/CAD Annual BMP Blood Test 06/12/2022 Falls Risk Assessment 2023 Depression Screening 07/03/2024 COVID-19 Vaccine (8 - Pfizer risk 2023- season) 2024 03/26/2024, 05/15/2023, 07/13/2022, Additional history exists Colorectal Cancer Screening: FIT-DNA (Cologuard) 12/23/2024 12/23/2021 Influenza Vaccine (#1) 2025 RSV Immunization Adult Patients (1 - [...] GEMUSE QTc 438 ms GEMUSE P Wave [place] 54 degrees GEMUSE R [place] 89 degrees GEMUSE T [place] 63 degrees GEMUSE ECG Interpretation Sinus bradycardia [...] GEMUSE from Last 3 Months Insurance MEDICARE [facility] Care Teams Film Spooler Relationship Specialty Start Date End Date Iliana Lopez MD [address] [place] [address] PCP - General Internal Medicine 07/16/12
--- NOTE | 2025-01-16 09:54 | AM.OFFVISNUR ---
Intake Visit Reasons: Evenity #9 Allergies levofloxacin (Levaquin) Allergy (Unknown, Verified 11/06/24 09:40) hives Sulfa (Sulfonamide Antibiotics) Allergy (Unknown, Verified 11/06/24 09:40) itchy, hives sulfamethoxazole (From Bactrim) Allergy (Unknown, Verified 11/06/24 09:40) itchy, hives Tetanus Vaccines and Toxoid Allergy (Unknown, Verified 11/06/24 09:40) convulsion trimethoprim (From Bactrim) Allergy (Unknown, Verified 11/06/24 09:40) itchy, hives codeine cough syrup Allergy (Unknown, Uncoded 11/06/24 09:40) hives zpack Adverse Reaction (Unknown, Uncoded 11/06/24 09:40) vomiting Office Meds romosozumab-aqqg 210 mg/2.34 mL(105 mg/1.17 mL x2)subcutaneous syringe Performing Provider: Angel Winters MD [place] [facility] [place] Administered by: Marielena Shine RN on 01/16/25 09:54 Dose Route Admin Location Dispensed Lot Number Expiration Date [facility] [place] 210 mg subcut bilateral upper arms 2.34 mL [id number] 04/01/27 15484-459-36 AMGEN Total Dispensed Waste 2.34 mL 0 % Comments: No adverse reactions reported from previous injection. Pt tolerated injection well. Pt scheduled in 4 weeks for next appt. Pt had no further questions at this time. Assessment & Plan Assessment & Plan Orders: Orders AMB Romosozumab Injection Patient Supplied Today M81.0 - Age-related osteoporosis without current pathological fracture Coding
== END 2025-01-16 09:52 | disposition home or self-care (01) ==
LOC: HO.ENCR 09:22
PROVIDERS: PCP Internal Medicine; Visit Provider Internal Medicine Endocrinology, Diabetes & Metabolism
DX: M81.0 Age-related osteoporosis without current pathological fracture (principal)

== ENCOUNTER → 2025-01-16 09:21 | Outpatient (BNVA) | payer MEDICARE, SELFPAY | PROVIDERS: PCP Internal Medicine; Visit Provider Internal Medicine Endocrinology, Diabetes & Metabolism | DX: M81.0 Age-related osteoporosis without current pathological fracture (principal) | CPT/HCPCS: 96372; J3111 ==

== ENCOUNTER 2025-01-20 09:51 | Outpatient (AMB) | payer MEDICARE, SELFPAY ==
[2025-01-20 10:06] VITALS: BP 146/92; PULSE 58; O2SAT 96
--- NOTE | 2025-01-20 10:06 | A.OFFVIS_ITS ---
Vital Signs 01/20/25 10:06 Height 5 ft 6 in BMI Reason not done Patient refused/unable BP 146/92 H Blood Pressure Location Lt brachial Position Sitting Pulse 58 Pulse Source Pulse Oximeter Pulse Oximetry (%) 96 Oxygen Delivery Method Room Air Intake Visit Reasons: 6mon follow-up Intake Note: Patient presents follow up Sleep/RLS. PSG in chart(AHI-2, MAYTE-87%) Accompanied by: Self / Same As Patient Allergies levofloxacin (Levaquin) Allergy (Unknown, Verified 01/20/25 10:14) hives Sulfa (Sulfonamide Antibiotics) Allergy (Unknown, Verified 01/20/25 10:14) itchy, hives sulfamethoxazole (From Bactrim) Allergy (Unknown, Verified 01/20/25 10:14) itchy, hives Tetanus Vaccines and Toxoid Allergy (Unknown, Verified 01/20/25 10:14) convulsion trimethoprim (From Bactrim) Allergy (Unknown, Verified 01/20/25 10:14) itchy, hives codeine cough syrup Allergy (Unknown, Uncoded 11/06/24 09:40) hives zpack Adverse Reaction (Unknown, Uncoded 11/06/24 09:40) vomiting HPI Comments Details: 64y/o female with Afib presents for evaluation of Insomnia and Restless leg syndrome. HST AHI c/w AHI <2 and oxygen Nadirs to 82%. 07/15/2024 PSG c/w AHI 2 oxygen Mayte 87%, periodic limb movements, few associated with arousals. She continues to have difficulty falling asleep and staying asleep after her bathroom breaks at night usually 2x / night. She goes to bed around 10pm tosses and turns until 2am, and her legs bother, she can't relax, moves into a separate room and will fall asleep in colder temperatures. She wakes up fatigued daily. Denies napping through the day. She has vivid dreams. She has sleep paralysis occasionally and she pulls the cover over her head denies h/o childhood trauma. Denies migraines. She has occipital neuralgia, with shooting pain from occipital lobe to the L. ear, lasts seconds, she moves her head and it goes away. She wears a neck-brace at night to sleep. She is pending a nerve ablation consult with pain management, currently she gets nerve blocks and this improves the pain for one day. She has vertigo spontaneously in bed, denies n/v, vision and gait impairment. Meclizine doesn't help her symptoms much. She has Gill maneuvers with her chiropractor and last episode was in October 2023. RLS symptoms syndrome, PSG shows she does have frequent movements of the limbs. She still has bilateral numbness, tingling and burning in legs. She ran out of gabapentin will r/f it today as she continues to have discomfort through the night, and it does improve when she moves her legs. She denies cramps and spasms which cause her to wake up at night. Mood is good, diet she is seeing weight management/ manager demand at [facility] and we discussed walking daily for 30 min. Memory is stable. [facility]LY [facility] Medical History Obesity (BMI 30.0-34.9) Restless legs syndrome (RLS) Sleep paralysis Insomnia Snoring Hypersomnia Seasonal allergies Recurrent isolated sleep paralysis Cervical radiculopathy due to degenerative joint disease of spine Depression with anxiety Degenerative disc disease, cervical Anxiety with flying Cervicalgia Hair loss Dysphagia Chronic insomnia Fatigue Dyslipidemia Essential hypertension Postmenopause Atrophic vaginitis Paroxysmal atrial fibrillation Osteoporosis Acquired hypothyroidism Surgical History History of prior ablation treatment Family History Father Hx of CABG Craig's palsy Thyroid disorder Myocardial infarction Mother HTN (hypertension) Hypothyroidism Sister Hypothyroidism Multiple sclerosis Pancreatic cancer Breast cancer Brother No problems noted. Brother No problems noted. Brother No problems noted. Sister Substance use disorder Sister No problems noted. Son No problems noted. Social History Housing: House Alcohol intake: current Patient Tobacco Use Status: Never used Tobacco e-Cigarette/Vaping Use: Never Used service: No Current occupational status: retired Cognitive needs: No Hearing needs: No Vision needs: Yes Physical Exam Vital Signs: Last Vital Signs Pulse 58 01/20/25 10:06 BP 146/92 H 01/20/25 10:06 Pulse Ox 96 07/21/25 10:06 Oxygen Delivery Method Room Air 01/20/25 10:06 Const Orientation/consciousness: patient oriented x3 Eyes Pupils: Equal, round and reactive pupils present Neuro General: patient oriented x3 and moves all extremities Cranial nerves: Yes CN's II-XII intact bilaterally, Yes Facial sensation intact/muscles of mastication intact, Yes Equal, round and reactive pupils present, Yes Normal accommodation reflex present, Yes Bilaterally intact EOM present, Yes Normal facial strength present, Yes Midline tongue present, Yes Ability to bilaterally rotate head present (pain on Ext and Flexion) and Yes Ability to bilaterally elevate shoulders present Cognition (Neuro): normal cognition Gait exam (Neuro): Normal gait present Motor exam (neuro): 5/5 motor strength present throughout and Normal motor muscle tone present throughout Psych Appearance: grossly normal Mental Status: mental status grossly normal Thought process: Normal thought process present Thought content: Normal thought content present Results Reviewed Results Reviewed: Reviewed labs and PSG results with patient today. Assessment & Plan Assessment & Plan (1) Chronic insomnia: Comment: Melatonin 3 mg po and she has ambien. Code(s): F51.04 - Psychophysiologic insomnia Category: Medical (2) Lumbosacral spondylosis: Comment: EMG?NCS? in future? radiculopathy- treatment would not change. Code(s): M47.817 - Spondylosis without myelopathy or radiculopathy, lumbosacral region Category: Medical Qualifiers: Spinal osteoarthritis complication: with radiculopathy Qualified Code(s): M47.27 - Other spondylosis with radiculopathy, lumbosacral region (3) Restless legs syndrome (RLS): Comment: gabapentin 600mg po at bedtime Code(s): G25.81 - Restless legs syndrome Category: Medical (4) Hypersomnia: Code(s): G47.10 - Hypersomnia, unspecified Category: Medical (5) Insomnia: Code(s): G47.00 - Insomnia, unspecified Category: Medical Qualifiers: Insomnia type: psychophysiologic Qualified Code(s): F51.04 - Psychophysiologic insomnia (6) Sleep paralysis: Code(s): G47.8 - Other sleep disorders Category: Medical Plan Insomnia PSG - Completed on Jul 14, 2024 - no evidence of WILLIS, continue melatonin 3mg po daily 3 hours from bedtime. RLS continue gabapentin 600mg po daily at bedtime Vestibular Neuritis Layrinthitis continue chiropractor visits for gill maneuvers, and occipital blocks with pain management prn. Will F/U in 3 months. Medications: New melatonin take one 3mg capsule 3 hours prior to bedtime for insomnia. 3 mg PO BEDTIME PRN 90 caps 0RF sleep 3 months MDD 3mg F51.04 - Psychophysiologic insomnia Changed From gabapentin 300 mg PO BID 30 days 60 caps 0RF pain G25.81 - Restless legs syndrome, M47.817 - Spondylosis without myelopathy or radiculopathy, lumbosacral region To gabapentin take 600mg po daily at bedtime. 600 mg (2 x 300 mg) PO ONCE 60 caps 1RF pain 30 days MDD 600mg G25.81 - Restless legs syndrome, M47.817 - Spondylosis without myelopathy or radiculopathy, lumbosacral region Patient Instructions: Sleep Hygiene provided: set a scheduled bedtime and wake time to help regulate the circadian rhythm and balance the release of pituitary hormones. Sleep in a dark room, temperatures below 68 degrees, and no devices n bed. Limit caffeinated products 6 hours prior to bed, and limit fluids 2-4 hours prior to bed. Gentle night yoga, diffusing essential oils, and playing soft music can be relaxing. Coding Level of Care Code Est Pt Level 4 (45929) Diagnoses Chronic insomnia F51.04 Osteoarthritis of spine with radiculopathy, lumbosacral region M47.27 Spinal osteoarthritis complication: with radiculopathy Restless legs syndrome (RLS) G25.81 Hypersomnia G47.10 Psychophysiological insomnia F51.04 Insomnia type: psychophysiologic Sleep paralysis G47.8 Time Spent (min) 30 Comment Improving
--- OUTSIDE RECORDS SUMMARY | 2025-01-20 10:35 | XMS_ITS | Clinical Summary ---
Author Organization [facility] [employer] Address [address] [address] Phone Care Team Providers Care Ballast Cleaning Machine Operator Name Role Phone Iliana Lopez MD Primary Care Provider [phone] Allergies Active Allergy Reactions Criticality Noted Date Comments Azithromycin 11/04/2020 Diphtheria, Pertussis, Tetanus Vaccine 11/04/2020 Levofloxacin 11/04/2020 Nangftnaj-Idwkmfdhn-Bprueog 11/05/19 21 Sulfa (Sulfonamide Antibiotics) 10/2020 Tetanus [...] has history of paroxysmal atrial fibrillation. Her [id number] score is 2 representing a 2.2% risk [...] Description 12/10/2024 8:20 AM EDT Office Visit [facility] [address] [place] [address] Jesse Henry MD Paroxysmal atrial [...] 1977 Pneumococcal Vaccine: 50+ Years (1 of 1 - PCV) 2008 Cholesterol Screening (Lipid Panel) 06/04/2022 Hepatitis C Screening 06/04/2022 Medicare Annual Wellness Visit 06/04/2022 Osteoporosis Screening (Bone Density Screening) 06/04/2022 Social Influencers of Health Screening 06/04/2022 Hypertension/CHF/CAD Annual BMP Blood Test 06/12/2022 Falls Risk Assessment 2023 Depression Screening 07/03/2024 COVID-19 Vaccine ( season) 2024 03/26/2024, 05/15/2023, 07/13/2022, Additional history [...] GEMUSE QTc 438 ms GEMUSE P Wave [place] 54 degrees GEMUSE R [place] 89 degrees GEMUSE T [place] 63 degrees GEMUSE ECG Interpretation Sinus bradycardia [...] GEMUSE from Last 3 Months Insurance MEDICARE [facility] Care Teams Ballast Cleaning Machine Operator Relationship Specialty Start Date End Date Iliana Lopez MD [address] [place] [address] PCP - General Internal Medicine 07/16/12
== END 2025-01-20 10:54 | disposition home or self-care (01) ==
LOC: HO.HSMS 09:52
PROVIDERS: PCP Internal Medicine; Visit Provider Physician Assistant Medical
DX: F51.04 Psychophysiologic insomnia (principal); M47.27 Other spondylosis with radiculopathy, lumbosacral region; G25.81 Restless legs syndrome; G47.10 Hypersomnia, unspecified; G47.8 Other sleep disorders
CPT/HCPCS: 99214

== ENCOUNTER → 2025-01-20 09:51 | Outpatient (BNVA) | payer MEDICARE, SELFPAY | PROVIDERS: PCP Internal Medicine; Visit Provider Physician Assistant Medical | DX: F51.04 Psychophysiologic insomnia (principal); M47.27 Other spondylosis with radiculopathy, lumbosacral region; G25.81 Restless legs syndrome; G47.10 Hypersomnia, unspecified; G47.8 Other sleep disorders | CPT/HCPCS: 99212 ==

== ENCOUNTER 2025-01-22 08:52 | Outpatient (REF) | payer MEDICARE, SELFPAY ==
--- OUTSIDE RECORDS SUMMARY | 2025-01-22 09:17 | XMS_ITS | Clinical Summary ---
Author Organization [facility] [employer] Address [address] [place] [address] Phone Care Team Providers Care Fire Engine Pump Operator Name Role Phone Iliana Lopez MD Primary Care Provider [phone] Allergies Active Allergy Reactions Criticality Noted Date Comments Azithromycin 11/04/2020 Diphtheria, Pertussis, Tetanus Vaccine 11/04/2020 Levofloxacin 11/04/2020 Cxsmpsqzt-Lbbxsllfa-Bsfkdgw 11/05/19 21 Sulfa (Sulfonamide Antibiotics) 10/2020 Tetanus [...] has history of paroxysmal atrial fibrillation. Her [id number] score is 2 representing a 2.2% risk [...] Description 12/10/2024 8:20 AM EDT Office Visit [facility] [place] [address] [place] [address] Jesse Henry MD Paroxysmal atrial [...] GEMUSE QTc 438 ms GEMUSE P Wave [place] 54 degrees GEMUSE R [place] 89 degrees GEMUSE T [place] 63 degrees GEMUSE ECG Interpretation Sinus bradycardia Otherwise normal ECG When compared with ECG of 02-OCT-2013 09:30, Nonspecific T wave abnormality no longer evident in Inferior leads T wave amplitude has increased in Anterolateral leads Confirmed by Annmarie HENRY, JESES ([id number]) on 12/10/2024 3:36:23 PM GEMUSE 12/10/2024 8:37 AM EDT 12/10/2024 3:36 PM EDT us Jesse Henry MD ECG ORDERABLES Final Result GEMUSE from Last 3 Months Insurance MEDICARE [facility] Care Teams Fire Engine Pump Operator Relationship Specialty Start Date End Date Iliana Lopez MD [address] [place] [address] PCP - General Internal Medicine 07/16/12
[2025-01-22 10:42] LABS: Ferritin 50 ng/mL (10-250); Magnesium 2.1 mg/dL (1.6-2.6)
[2025-01-22 10:59] LABS: Folate 8.6 ng/mL (> or = 4.0); Vitamin B12 396 pg/mL (200-900)
== END 2025-01-22 08:53 | disposition home or self-care (01) ==
LOC: HO.LAB 08:52
PROVIDERS: PCP Internal Medicine; Visit Provider Physician Assistant Medical
DX: R53.83 Other fatigue (principal); G47.9 Sleep disorder, unspecified; G47.19 Other hypersomnia
CPT/HCPCS: 36415; 82306; 82607; 82728; 82746; 83090; 83735; 83921

== ENCOUNTER 2025-01-28 11:56 | Outpatient (REF) | payer MEDICARE, SELFPAY ==
--- OUTSIDE RECORDS SUMMARY | 2025-01-28 12:55 | XMS_ITS | Encounter Summary ---
Author Organization [facility] Address [address] [place] [address] Care Team Providers Care Head Counselor Name Role Phone Iliana Lopez MD Primary Care Provider [phone] Reason for Referral * Cardiac Stress Testing (Routine) - Authorized Specialty Diagnoses / Procedures Referred By Blake obrien Referred To Contact Cardiology Diagnoses Paroxysmal atrial fibrillation (CMS/HCC V24, CMS/HCC V28) Procedures Cardiac holter monitor (<= 48 hours) MN ECG EXTERNAL UP TO 48 HOURS RECORDING MN ECG EXTERNAL < 48 HOURS CONTINUOUS RECORDING/STORAGE R&I BY A PHYS/QHP MN EXTERNAL ECG UP TO 48 HRS INCL RECORDING SCANNING ANLYS W REPORT Serge Licona NP [address] [place] [address] [address] [place] [address] Phone: tel: fax: [facility] Referral ID Status Reason Start Date Expiration Date V isits Requested Visits Authorized [id number] Authorized 01/27/2025 01/27/2026 1 1 Reason for Visit * Reason Onset Date Comments Palpitations 01/27/2025 Encounter Details Date Type Department Care Team (Late st Contact Info) Description 01/27/2025 Telephone [facility] [address] [place] [address] Nick Henry MD [address] [place] [address] [address] [place] [address] Palpitations Social History Tobacco Use Types Packs/Day Years Used Date Smoking Tobacco: Former Cigarettes Smokeless Tobacco: Never Alcohol Use Standard Drinks/Week Comments Yes 0 (1 standard drink = 0.6 oz pur e alcohol) occasional Comments Unknown Sex and Gender Information Value Date Recorded Sex Assigned at Not on file Legal Sex Female 7:59 PM EST Gender Identity Not on file Sexual Orientation Not on file documented as of this encounter Progress Notes * Belkys Rico - 01/28/2025 8:01 AM EDT Good morning, Patient has been booked for 24 Hr Holter on 02/03/25 @8:30 am. Thank you. * Delaney Tan RN - 01/27/2025 5:14 PM EDT I spoke to the patient and informed her of the below message from [facility] She verbalized understanding. Diagnostic scheduling, please contact the patient to arrange 24 hr Holter monitor. Thank you. * Serge Licona NP - 01/27/2025 5:02 PM EDTAddended by: BRITT LICONA on: 01/27/2025 05:02 PM Modules accepted: Orders * Serge Licona NP - 01/27/2025 5:02 PM EDT Just one extra dose to see if it settles everything down - regular dosing tomorrow - Holter ordered. * Delaney Tan RN - 01/27/2025 4:48 PM EDT I spoke to Libra and informed her of the below message. She is agreeable to proceed with 24 hour holter monitor. She was advised to take an extra dose of Metoprolol this evening. Should she continue taking an extra dose of Metoprolol each evening going forward for a total dose of Metoprolol 50 mg in the AM, 100 mg in the PM? * Serge Licona NP - 01/27/2025 4:16 PM EDT She can take an extra dose of metoprolol and please ask if she would be willing to do a 24 hr holter monitor? * Delaney Tan RN - 01/27/2025 3:27 PM EDT Libra Sandoval is a 64 y.o. female, followed by Dr. Henry/ NANCY Loida Gaines with cardiac history of hypertension, paroxysmal A-fib, hyperlipidemia, history of an ASD. [id number] is 2 on Eliquis 5 mg twice daily. Patient's been deemed not a candidate for closure of her ASD. She was last seen in the office on 12/10/24. I spoke to the patient who reports constant palpitations with a HR in the 90's since Monday. Her baseline HR is in the 60's, sometimes high 50's. She cannot recall what she was doing when the palpitations started. On Monday, she consumed half of an alcoholic beverage and noted she rarely drinks alcohol. The patient reports minimal shortness of breath on exertion that resolves quickly with rest that she believes started Monday. She denies chest pain, dizziness, lightheadedness, and recent illness. The patient reports compliance with Eliquis 5 mg BID and Metoprolol Tartrate 50 mg BID- no missed doses. She doesn't have a [employer] Device or [employer] with EKG taking abilities. The patient checked her BP today. At first, her BP was elevated 168/80. Recheck BP this afternoon resulted 128/ 60 something with a HR of 78 bpm. She's also noticed her HR increase to 118 bpm when she gets up in the middle of the night to use the bathroom, which is not new. Educated the patient regarding ER precautions. She questioned if she can have labs ordered to check her thyroid levels. * Deana Mccormack - 01/27/2025 2:27 PM EDT Patient called, she states she has been having constant palpitations and heart rate in the 90s since Monday. Please contact patient to discuss, documented in this encounter Plan of Treatment Upcoming Encounters Date Type Department Care Team (Late st Contact Info) Description 02/03/2025 8:30 AM EDT Ancillary Procedure [facility] - [address] [place] [address] Scheduled Orders Name Type Priority Associated Diagnoses Orde r Schedule Cardiac holter monitor (<= 48 hours) Cardiac Services Routine Paroxysmal atrial fibrillation (CMS/HCC V24, CMS/HCC V28) 1 Occurrences starting 01/27/2025 until 01/27/2026 documented as of this encounter Visit Diagnoses Diagnosis Paroxysmal atrial fibrillation (CMS/HCC V24, CMS/HCC V28)- Primary Atrial fibrillation documented in this encounter Care Teams Head Counselor Relationship Specialty Start Date End Date Iliana Lopez MD [address] [place] [address] PCP - General Internal Medicine 07/16/12 documented as of this encounter
[2025-01-28 13:57] LABS: Free T4 (Free Thyroxine) 1.34 ng/dL (0.71-1.85); Thyroid Stimulating Hormone 0.40 uIU/mL (0.32-4.0)
== END 2025-01-28 11:57 | disposition home or self-care (01) ==
LOC: HO.HMGCLDS 11:56
PROVIDERS: PCP Internal Medicine; Visit Provider Internal Medicine
DX: E03.9 Hypothyroidism, unspecified (principal)
CPT/HCPCS: 36415; 84439; 84443

== ENCOUNTER 2025-01-31 10:58 | Outpatient (AMB) | payer MEDICARE, SELFPAY ==
--- NOTE | 2025-01-31 11:05 | MHC.PC.OV ---
Intake Visit Reasons: results review Allergies levofloxacin (Levaquin) Allergy (Unknown, Verified 01/31/25 11:14) hives Sulfa (Sulfonamide Antibiotics) Allergy (Unknown, Verified 01/31/25 11:14) itchy, hives sulfamethoxazole (From Bactrim) Allergy (Unknown, Verified 01/31/25 11:14) itchy, hives Tetanus Vaccines and Toxoid Allergy (Unknown, Verified 01/31/25 11:14) convulsion trimethoprim (From Bactrim) Allergy (Unknown, Verified 01/31/25 11:14) itchy, hives codeine cough syrup Allergy (Unknown, Uncoded 01/31/25 11:14) hives zpack Adverse Reaction (Unknown, Uncoded 01/31/25 11:14) vomiting Medication List - Last Reconciled 01/31/25 by Iliana Lopez MD apixaban (Eliquis) 5 mg PO BID cholecalciferol (vitamin D3) 50 mcg PO DAILY escitalopram oxalate 10 mg PO DAILY gabapentin 600 mg (2 x 300 mg) PO ONCE 30 days MDD 600mg Levoxyl (levothyroxine) 112 mcg PO DAILY NS lorazepam 1 mg PO BEDTIME PRN melatonin 3 mg PO BEDTIME PRN 3 months MDD 3mg metoprolol tartrate 50 mg PO BID romosozumab-aqqg (Evenity) 210 mg (2.34 mL) subcut .q month zolpidem 5 mg PO BEDTIME PRN Tobacco use date assessed: 11/01/24 Fall risk assessment: No Falls in past year Last assessed Fall Risk: 01/31/25 Dental Screening Dental Screen Date: 11/01/24 HPI results review HPI Details 64-year-old lady with history of acquired hypothyroidism, here today for follow-up. Currently on Levoxyl 112 mcg daily, with recent thyroid levels within normal limits but free T4 is higher than last check. However, she still complains of occasional episodes of palpitations and fatigue. [facility] Medical History Obesity (BMI 30.0-34.9) Restless legs syndrome (RLS) Sleep paralysis Insomnia Snoring Hypersomnia Seasonal allergies Recurrent isolated sleep paralysis Cervical radiculopathy due to degenerative joint disease of spine Depression with anxiety Degenerative disc disease, cervical Anxiety with flying Cervicalgia Hair loss Dysphagia Chronic insomnia Fatigue Dyslipidemia Essential hypertension Postmenopause Atrophic vaginitis Paroxysmal atrial fibrillation Osteoporosis Acquired hypothyroidism Surgical History History of prior ablation treatment Family History Father Hx of CABG Craig's palsy Thyroid disorder Myocardial infarction Mother HTN (hypertension) Hypothyroidism Sister Hypothyroidism Multiple sclerosis Pancreatic cancer Breast cancer Brother No problems noted. Brother No problems noted. Brother No problems noted. Sister Substance use disorder Sister No problems noted. Son No problems noted. Social History Housing: House Alcohol intake: current Patient Tobacco Use Status: Never used Tobacco e-Cigarette/Vaping Use: Never Used service: No Current occupational status: retired Cognitive needs: No Hearing needs: No Vision needs: Yes Questionnaire Thrive Questionnaire Date Thrive assessed: 01/31/25 I am a: Patient What is your living situation today?: I have a steady place to live Within the past 12 months, did the food you bought not last and you didn't have the money to get more?: Never true Within the past 12 months, did you worry whether your food would run out before you got money to buy more?: Never true Do you have trouble paying for medicines?: No Do you have trouble getting transportation to medical appointments?: No Do you have trouble paying your heating and electricity bill?: No Do you have trouble taking care of your child, family member or friend?: No Do you have trouble with day-to-day activities such as bathing, preparing meals, shopping, managing finances, etc.?: No Are you currently unemployed and looking for a job?: No Are you interested in more education?: No Please select the resources that you would like help with: None Currently or been in a relationship where the following occur: No concerns reported THRIVE Score: 0 AUDIT C Alcohol Use Questionnaire (AUDIT-C) 1. How often do you have a drink containing alcohol?: Monthly or less 3. How often do you have six or more drinks on one occasion?: Never Total Score: 1 Score Reviewed/Action Taken: Yes LARA-7 AMB Questionnaire LARA-7 Date LARA - 7 assessed: 11/01/24 Source: Developed by Drs. Angel Linder, Shanta Campbell, Hernan Baldwin and colleagues, with an educational landon from [employer]. Review of Systems Const All systems reviewed & are unremarkable except as noted in HPI and below Physical exam (Primary Care) Tobacco/Smoking Status: Tobacco use Status Tobacco use date assessed 11/01/24 01/31/25 11:08 Patient Tobacco Use Status Never used Tobacco 01/31/25 11:08 e-Cigarette/Vaping Use Never Used 01/31/25 11:08 Thrive Assessment: Date of Thrive Assessment Date Thrive assessed 01/31/25 01/31/25 11:08 Currently or been in a relationship where the following occur: No concerns reported Telehealth Telehealth Telehealth Platform: [employer] Location of provider rendering services: practice address Location of patient: address on file Patient Identification confirmed using: Name, : Yes Telehealth method: video Patient verbally consented to treatment: Yes Patient verbally consented to billing insurance company: Yes Patient informed of any privacy concerns related to visit: Yes Minutes spent on Phone/Video with Pt.: 15 Results Reviewed Results Reviewed: flako: Libra Sandoval Age/Sex: 64/F : 1960 Unit#: [id number] Attend Dr: Iliana Lopez MD Re01/28/25 Status: DEP REF Location: [facility] [address] Disch: SPEC : [id number] BEN: 01/28/25 STATUS: COMP REQ : [id number] RECD: 01/28/[address]: Iliana Lopez MD COMP: 01/28/25 ENTERED: 01/28/[address]: ORDERED: Free T4, TSH Test Result Flag Reference Free T4 1.34 0.71-1.85 ng/dL TSH 3rd Gen. 0.40 0.32-4.0 uIU/mL TSH 3rd Generation ([facility]) Coding Level of Care Code Tele Est Pt Level 4 (88833) Diagnoses Acquired hypothyroidism E03.9 Assessment & Plan Assessment & Plan (1) Acquired hypothyroidism: Code(s): E03.9 - Hypothyroidism, unspecified Category: Medical Plan: Will decrease dose of Levoxyl to 100 mcg taken once a day in a.m. an hour before breakfast. Repeat another TSH, free T4 and thyroid peroxidase antibodies in 2 months. Orders: Orders Thyroid Stimulating Hormone 2 Months E03.9 - Hypothyroidism, unspecified Free T4 (Free Thyroxine) 2 Months E03.9 - Hypothyroidism, unspecified Thyroid Peroxidase Antibodies 2 Months E03.9 - Hypothyroidism, unspecified Medications: New Levoxyl (levothyroxine) 100 mcg PO DAILY 90 tabs 1RF NS E03.9 - Hypothyroidism, unspecified Discontinued Levoxyl (levothyroxine) Discontinued Reason: Doctor's Order 112 mcg PO DAILY 90 tabs 1RF NS E03.9 - Hypothyroidism, unspecified
--- OUTSIDE RECORDS SUMMARY | 2025-01-31 11:05 | XMS_ITS | Encounter Summary ---
Author Organization [facility] Address [address] [place] [address] Care Team Providers Care Russian Language Professor Name Role Phone Iliana Lopez MD Primary Care Provider [phone] Reason for Referral * Cardiac Stress Testing (Routine) - Authorized Specialty Diagnoses / Procedures Referred By Blake obrien Referred To Contact Cardiology Diagnoses Paroxysmal atrial fibrillation (CMS/HCC V24, CMS/HCC V28) Procedures Cardiac holter monitor (<= 48 hours) NV ECG EXTERNAL UP TO 48 HOURS RECORDING NV ECG EXTERNAL < 48 HOURS CONTINUOUS RECORDING/STORAGE R&I BY A PHYS/QHP NV EXTERNAL ECG UP TO 48 HRS INCL RECORDING SCANNING ANLYS W REPORT Serge Licona NP [address] [place] [address] [address] [place] [address] Phone: tel: fax: [facility] Referral ID Status Reason Start Date Expiration Date V isits Requested Visits Authorized [id number] Authorized 01/27/2025 01/27/2026 1 1 Reason for Visit * Reason Onset Date Comments Palpitations 01/27/2025 Encounter Details Date Type Department Care Team (Late st Contact Info) Description 01/27/2025 Telephone [facility] [address] [place] [address] [place] [address] Nick Henry MD [address] [place] [address] [address] [place] [address] Palpitations Social History Tobacco Use [...] informed her of the below message from [facility]. She verbalized understanding. Diagnostic scheduling, please contact [...] paroxysmal A-fib, hyperlipidemia, history of an ASD. [id number] is 2 on Eliquis 5 mg twice [...] no missed doses. She doesn't have a [employer] Device or [employer] with EKG taking abilities. The patient checked [...] Description 02/03/2025 8:30 AM EDT Ancillary Procedure [facility] - [address] [place] [address] Scheduled Orders Name Type Priority Associated Diagnoses Orde r Schedule Cardiac holter monitor (<= 48 hours) Cardiac Services Routine Paroxysmal atrial fibrillation (CMS/HCC V24, CMS/HCC V28) 1 Occurrences starting 01/27/2025 until 01/27/2026 documented as of this encounter Visit Diagnoses Diagnosis Paroxysmal atrial fibrillation (CMS/HCC V24, CMS/HCC V28)- Primary Atrial fibrillation documented in this encounter Care Teams Russian Language Professor Relationship Specialty Start Date End Date Iliana Lopez MD [address] [place] [address] PCP - General Internal Medicine 07/16/12 documented as of this encounter
== END 2025-01-31 11:44 | disposition home or self-care (01) ==
LOC: HO.HMCC 10:58
PROVIDERS: PCP Internal Medicine; Visit Provider Internal Medicine
DX: E03.9 Hypothyroidism, unspecified (principal)

== ENCOUNTER 2025-02-13 09:20 | Outpatient (AMB) | payer MEDICARE, SELFPAY ==
--- OUTSIDE RECORDS SUMMARY | 2025-02-04 05:15 | XMS_ITS ---
Author Organization [facility] [address] Address [address] [place] [address] Care Team Providers Care Checkman Name Role Phone SHANEL NUÑEZ Primary Care Provider Unav ailable DENIZ DIAS Unavailable [phone] Encounters Encounter Location Date Provider Diagnosis [facility] [address] [place] [address] 02/04/2025 DENIZ DIAS Plan Of Treatment Next Appt Details Provider Name:DENIZ DIAS , 02/21/2025 09:15:00 AM, [address], [address], [place], [address], Progress Notes * Elliott GARCIAeDOB:1960 (64 yo F)Acc No.[id number]:02/04/2025 Patient: Libra MOSES Provider: Cosmo DIAS :1960 A ge:64 Y S ex:Female Date:02/04/2025 Address:[address] [place] [address] D[place]ne [facility] Pcp:SHANEL NUÑEZ Subjective: * Chief Complaints: * * Medical History: Objective: * Vitals: Assessment: Plan: * Treatment: * Images: Billing Information: * Visit Code: * Procedure Codes: * Electronic signature of MARYJANE DIAS PA-C, [id number] on 02/13/2025 at 09:53 AM EDT Sign off status: Pending * Provider: Cosmo DIAS Date: 02/04/2025 Generated for Printi ng/Faxing/eTransmitting on: 02/13/2025 09:53 AM EDT
--- NOTE | 2025-02-13 09:35 | AM.OFFVISNUR ---
Intake Visit Reasons: Evenity #10 Allergies levofloxacin (Levaquin) Allergy (Unknown, Verified 01/31/25 11:14) hives Sulfa (Sulfonamide Antibiotics) Allergy (Unknown, Verified 01/31/25 11:14) itchy, hives sulfamethoxazole (From Bactrim) Allergy (Unknown, Verified 01/31/25 11:14) itchy, hives Tetanus Vaccines and Toxoid Allergy (Unknown, Verified 01/31/25 11:14) convulsion trimethoprim (From Bactrim) Allergy (Unknown, Verified 01/31/25 11:14) itchy, hives codeine cough syrup Allergy (Unknown, Uncoded 01/31/25 11:14) hives zpack Adverse Reaction (Unknown, Uncoded 01/31/25 11:14) vomiting Office Meds romosozumab-aqqg 210 mg/2.34 mL(105 mg/1.17 mL x2)subcutaneous syringe Performing Provider: Angel Winters MD Performing [place] [facility] Administered by: Marielena Shine RN on 02/13/25 09:36 Dose Route Admin Location Dispensed Lot Number Expiration Date [facility] Machine Folder 210 mg subcut bilateral upper arms 2.34 mL [id number] 04/01/27 83472-658-30 [employer] Total Dispensed Waste 2.34 mL 0 % Comments: No adverse reactions reported from previous injection. Pt tolerated injection well. Pt scheduled in 4 weeks for next appt. No further questions at this time. Assessment & Plan Assessment & Plan Orders: Orders AMB Romosozumab Injection Patient Supplied Today M81.0 - Age-related osteoporosis without current pathological fracture Coding
--- OUTSIDE RECORDS SUMMARY | 2025-02-13 09:54 | XMS_ITS | Clinical Summary ---
Author Organization [facility] Address [address] [place] [address] Phone Care Team Providers Care Technical Intern Name Role Phone Iliana Lopez MD Primary Care Provider [phone] Allergies Active Allergy Reactions Criticality Noted Date Comments Azithromycin 11/04/2020 Diphtheria, Pertussis, Tetanus Vaccine 11/04/2020 Levofloxacin 11/04/2020 Vzucjvjwm-Ybcxumybx-Qlcbrix 11/05/19 21 Sulfa (Sulfonamide Antibiotics) 10/2020 Tetanus [...] Once for 1 dose. Prior to MRI. 03/11/20 24 Active Eliquis 5 mg tablet TAKE ONE TABLET BY MOUTH TWICE A DAY 180 tablet 2 10/11/19 25 Active Evenity Inject 2.34 mL (210 mg total) under the skin. 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 30 each 02/05/20 25 026 Active metoprolol tartrate (LOPRESSOR) 50 mg tabletIndication s:Paroxysmal atrial fibrillation (CMS/HCC V24, CMS/HCC V28) Take 1.5 tablets (75 mg total) by mouth 2 (two) times a day. 270 tablet 3 02/05/20 25 Active metoprolol tartrate (LOPRESSOR) 50 mg tablet TAKE ONE TABLET BY MOUTH TWICE A DAY 180 tablet 2 10/11/19 25 025 Discontinued levothyroxine (SYNTHROID, LEVOTHROID) 112 mcg tablet Take 1 tablet (112 mcg total) by mouth 1 (one) time each day before breakfast. 025 Discontinued Active Problems Problem Noted Date Diagnosed [...] has history of paroxysmal atrial fibrillation. Her [id number] score is 2 representing a 2.2% risk [...] Encounters Date Type Department Care Team Description 02/03/2025 8:30 AM EDT Ancillary Procedure [facility] [address] [place] [address] Paroxysmal atrial fibrillation (CMS/HCC V24, CMS/HCC V28) 01/27/2025 Telephone [facility] [address] [facility] [address] [place] [address] Jesse Henry MD Palpitations 12/10/2024 8:20 AM EDT Office Visit [facility] [address] [facility] [address] [place] [address] Jesse Henry MD Paroxysmal atrial fibrillation (CMS/HCC [...] Care Team (Late st Contact Info) Description 04/07/2025 9:30 AM EDT Ancillary Procedure [facility] [address] [facility] [address] [place] [address] Health Maintenance Due Date Last Done Comments [...] 2024 03/26/2024, 05/15/2023, 07/13/2022, Additional history exists Influenza Vaccine (#1) 2025 Colorectal Cancer Screening: FIT-DNA (Cologuard) 01/01/2028 12/31/2024, 12/23/2021 RSV Immunization Adult Patients (1 - 1-dose [...] Procedure Name Priority Date/Time Associated Diagnosis Comments CARDIAC HOLTER MONITOR (REPORT GENERATED IN HOUSE) Routine 02/03/2025 8:35 AM EDT Paroxysmal atrial fibrillation (CMS/HCC V24, CMS/HCC V28) ECG 12-LEAD Routine 12/10/2024 8:37 AM EDT Paroxysmal atrial fibrillation (CMS/HCC V24, CMS/HCC V28) Essential hypertension from Last 3 Months Results * CARDIAC HOLTER MONITOR (REPORT GENERATED IN HOUSE) (02/03/2025 8:35 AM EDT) Anatomical Region Laterality Modality Cardiac Diagnost ic Narrative 02/04/2025 5:10 PM EDT [facility] DIAGNOSTIC TESTING DEPARTMENT [address] [place] [address], [place] [address], [place] [address] TEL: FAX: Type of test: 24 hour Holter Monitor Date of test: 02/03/25 Ordering provider: Jose Licona NP Reason for Test: Paroxysmal Atrial Fibrillation PVCA Bag End Sewer Findings: 1: Atrial Fibrillation/ Flutter noted throughout recording period. 2: Ventricular rate range was 44- 185 bpm with an average of 96 bpm. 3: Frequent PVCs with occasional ventricular bi/trigeminy, rare couplets, and one triplet. 4: No significant pauses noted. Longest R-R 2.1 sec. 5: Diary returned with episodes of SOB on stairs. EKG at those times showed AFib/Flutter with ventricular rates of 101- 145 bpm. One episode had isolated PVCs. Impression: Patient with chronic A-fib now persistent. High ventricular response rates with symptoms. Patient is been called adjustments were made to medications Jesse Henry MD FACC FACP us Serge Licona NP CV CARDIAC SERVICES PROCEDU RES Final Result * ECG 12 lead (12/10/2024 8:37 AM EDT) Ventricular Rate ECG 57 BPM GEMUSE Atrial Rate 57 BPM GEMUSE P-R Interval 130 ms GEMUSE QRS Duration 90 ms GEMUSE Q-T Interval 450 ms GEMUSE QTc 438 ms GEMUSE P Wave [place] 54 degrees GEMUSE R [place] 89 degrees GEMUSE T [place] 63 degrees GEMUSE ECG Interpretation Sinus bradycardia Otherwise normal ECG When compared with ECG of 02-OCT-2013 09:30, Nonspecific T wave abnormality no longer evident in Inferior leads T wave amplitude has increased in Anterolateral leads Confirmed by Annmarie HENRY, JESSE ([id number]) on 12/10/2024 3:36:23 PM GEMUSE 12/10/2024 8:3 7 AM EDT 12/10/2024 3:36 PM EDT us Jesse Henry MD ECG ORDERABLES Final Result GEMUSE from Last 3 Months Insurance MEDICARE [facility] Care Teams Technical Intern Relationship Specialty Start Date End Date Iliana Lopez MD [address] [place] [address] PCP - General Internal Medicine 07/16/12
== END 2025-02-13 09:35 | disposition home or self-care (01) ==
LOC: HO.ENCR 09:22
PROVIDERS: PCP Internal Medicine; Visit Provider Internal Medicine Endocrinology, Diabetes & Metabolism
DX: M81.0 Age-related osteoporosis without current pathological fracture (principal)

== ENCOUNTER → 2025-02-13 09:20 | Outpatient (BNVA) | payer MEDICARE, SELFPAY | PROVIDERS: PCP Internal Medicine; Visit Provider Internal Medicine Endocrinology, Diabetes & Metabolism | DX: Z81.0 Family history of intellectual disabilities (principal); Z79.899 Other long term (current) drug therapy | CPT/HCPCS: 96372; J3111 ==

== ENCOUNTER 2025-02-17 14:15 | Outpatient (AMB) | payer MEDICARE, SELFPAY ==
--- OUTSIDE RECORDS SUMMARY | 2025-02-04 05:15 | XMS_ITS ---
Author Organization [facility] [address] Address [address] [place] [address] Care Team Providers Care Cna Caregiver Name Role Phone SHANEL NUÑEZ Primary Care Provider Unav ailable DENIZ DIAS Unavailable [phone] Encounters Encounter Location Date Provider Diagnosis [facility] [address] [place] [address] 02/04/2025 DENIZ DIAS Plan Of Treatment Next Appt Details Provider Name:DENIZ DIAS , 02/21/2025 09:15:00 AM, [address], [address], [place], [address], Progress Notes * Elliott GARCIAeDOB:1960 (64 yo F)Acc No.[id number]:02/04/2025 Patient: Libra MOSES Provider: Cosmo DIAS :1960 A ge:64 Y S ex:Female Date:02/04/2025 Address:[address] [place] [address] D[place] [facility] Pcp:SHANEL NUÑEZ Subjective: * Chief Complaints: * * Medical History: Objective: * Vitals: Assessment: Plan: * Treatment: * Images: Billing Information: * Visit Code: * Procedure Codes: * Electronic signature of MARYJANE DIAS PA-C, [id number] on 02/17/2025 at 03:01 PM EDT Sign off status: Pending * Provider: Cosmo DIAS Date: 02/04/2025 Generated for Lyndsayi ng/Faxing/eTransmitting on: 02/17/2025 03:01 PM EDT
--- OUTSIDE RECORDS SUMMARY | 2025-02-17 15:01 | XMS_ITS | Clinical Summary ---
Author Organization [facility] Address [address] [place] [address] [place] [address] Phone Care Team Providers Care Education Administrator Name Role Phone Iliana Lopez MD Primary Care Provider [phone] Allergies Active Allergy Reactions Criticality Noted Date Comments Azithromycin 11/04/2020 Diphtheria, Pertussis, Tetanus Vaccine 11/04/2020 Levofloxacin 11/04/2020 Enclybduk-Bsmnlmanv-Pmrjzbl 11/05/19 21 Sulfa (Sulfonamide Antibiotics) 10/2020 Tetanus [...] has history of paroxysmal atrial fibrillation. Her [id number] score is 2 representing a 2.2% risk [...] 02/03/2025 8:30 AM EDT Ancillary Procedure [facility] Cardiology [facility] [address] [place] [address] Paroxysmal atrial fibrillation (CMS/HCC V24, CMS/HCC V28) 01/27/2025 Telephone [facility] Cardiology [facility] [address] [place] [address] Jesse Henry MD Palpitations 12/10/2024 8:20 AM EDT Office Visit [facility] [address] [facility] [address] [place] [address] Jesse Henry MD Paroxysmal atrial fibrillation (CMS/HCC [...] 04/07/2025 9:30 AM EDT Ancillary Procedure [facility] [address] [facility] [address] [place] [address] Health Maintenance Due Date Last [...] Diagnost ic Narrative 02/04/2025 5:10 PM EDT [facility] DIAGNOSTIC TESTING DEPARTMENT [address] [place] [address], [place] [address], [place] [address] TEL: FAX: Type of test: 24 hour Holter Monitor Date of test: 02/03/25 Ordering provider: Jose Licona NP Reason for Test: Paroxysmal Atrial Fibrillation [facility] [employer] Findings: 1: Atrial Fibrillation/ Flutter noted throughout [...] GEMUSE QTc 438 ms GEMUSE P Wave [place] 54 degrees GEMUSE R [place] 89 degrees GEMUSE T [place] 63 degrees GEMUSE ECG Interpretation Sinus bradycardia [...] GEMUSE from Last 3 Months Insurance MEDICARE [facility] Care Teams Education Administrator Relationship Specialty Start Date End Date Iliana Lopez MD [address] [place] [address] PCP - General Internal Medicine 07/16/12
== END 2025-02-17 14:23 | disposition home or self-care (01) ==
LOC: HO.HMGAL 14:15
PROVIDERS: PCP Internal Medicine; Visit Provider Registered Nurse Emergency
DX: J30.89 Other allergic rhinitis (principal)
CPT/HCPCS: 95117; 95165

== ENCOUNTER 2025-03-11 11:16 | Outpatient (REF) | payer MEDICARE, SELFPAY ==
--- OUTSIDE RECORDS SUMMARY | 2025-02-04 05:15 | XMS_ITS ---
Author Organization [facility] [address] Address [address] [place] [address] Care Team Providers Care Habilitation Specialist Name Role Phone SHANEL NUÑEZ Primary Care Provider Unav ailable DENIZ DIAS Unavailable [phone] Encounters Encounter Location Date Provider Diagnosis [facility] [address] [place] [address] 02/04/2025 DENIZ DIAS Plan Of Treatment Next Appt Details Provider Name:DENIZ DIAS , 04/10/2025 10:00:00 AM, [address], [address], [place], [address], Progress Notes * MEGAN GARCIA RISHIADOB:[birth year] (64 yo F)Acc No.[id number]:02/04/2025 Patient: MEGAN MOSES Provider: Cosmo DIAS :1960 A ge:64 Y S ex:Female Date:02/04/2025 Address:[address] [place] [address] D[place]ne [facility] Pcp:SHANEL NUÑEZ Subjective: * Chief Complaints: * * Medical History: Objective: * Vitals: Assessment: Plan: * Treatment: * Images: Billing Information: * Visit Code: * Procedure Codes: * Electronic signature of MARYJANE DIAS PA-C, [id number] on 03/11/2025 at 01:39 PM EDT Sign off status: Pending * Provider: Cosmo DIAS Date: 0 02/04/2025 Generated for Printi ng/Faxing/eTransmitting on: 0 03/11/2025 01:39 PM EDT
--- OUTSIDE RECORDS SUMMARY | 2025-03-11 13:40 | XMS_ITS | Patient Health Record ---
Author Organization [facility] [address] [address] Address [address] [place] [address] Care Team Providers Care Instructional Support Services Director Name Role Phone SHANEL NUÑEZ Primary Care Provider Dodie DENIZ Flores Unavailable [phone] Allergies No Known Allergies Reason For Referral No Information Medications Medication SIG (Take, Route, Frequency, Duration) Notes Start Date End Date Status Metoprolol Tartrate 50 MG TAKE ONE TABLE T BY MOUTH TWICE A DAY Oral; Duration: 90 Days Active Contrave 8-90 MG 1 tablet in the morning Orally Once a day; Duration: 30 days Week 1: Take 1 tablet in the morning. Week 2: Take 1 tablet in the morning, 1 tablet in the evening. Week 3: Take 2 tablets in the morning, 1 tablet in the evening. Week 4: Take 2 tablets in the morning, 2 tablets in the evening. 02/21/2025 Active Levoxyl 100 MCG Oral; Duration: 90 Days Active Eliquis 5 MG TAKE ONE TABLET BY M OUTH TWICE A DAY Oral; Duration: 90 Days Active Wegovy 0.25 MG/0.5ML Inject 0.25 mg Subc utaneous weekly; Duration: 28 days 03/04/2025 Active Gabapentin 300 MG 1 capsule Orally Once a day; Duration: 30 days Restless leg Active Evenity 105 MG/1.17ML Subcutaneous; Dura tion: 28 Days Active Problems Problem Type SNOMED Code ICD Code Onset Dates Problem Status W/U Status Risk Notes Problem Abnormal blood pressure (44193049) Encounter for examination of blood pressure with abnormal findings (Z01.31) Active confirmed Problem Restless legs syndrome (94782424) Restless leg syndrome (G25.81) Active confirmed Problem BMI 30+ - obesity (150629193) BMI 32.0-32.9,adult (Z68.32) Active confirmed Problem Adult-onset obesity (749035028) Adult-onset obesity (E66.9) Active confirmed Problem Osteoporosis (42581660) Osteoporosis (M81.0) Active confirmed Problem Atrial fibrillation (04902266) Atrial fibrillation (I48.91) Active confirmed Vital Signs Heart Rate 57 /min 02/21/2025 Blood pressure diastolic 80 mm Hg 02/21/2025 Oximetry 97 % 02/21/2025 Height 66 in 02/21/2025 Blood pressure systolic 142 mm Hg 02/21/2025 Weight 203 lbs 02/21/2025 BMI 32.76 kg/m2 02/21/2025 Encounters Encounter Location Date Provider Diagnosis [facility] [address] [address] 02/21/2025 DENIZ DIAS Adult-onset obesity E66.9 ; BMI 32.0-32.9,adult Z68.32 ; Atrial fibrillation I48.91 ; Restless leg syndrome G25.81 ; Dinorah thyroiditis E06.3 ; Osteoporosis M81.0 and Encounter for examination of blood pressure with abnormal findings Z01.31 [facility] [address] [facility] [address] [place] [address] 01/29/2025 DENIZ DIAS [facility] [address] [address] 02/21/2025 DENIZ DIAS Adult-onset obesity E66.9 [facility] [address] [address] 02/26/2025 DENIZ DIAS Assessments Encounter Date Diagnosis (ICD Code) Assessment Notes Treatment Notes Treatment Clinical Notes Section Notes 02/21/2025 Adult-onset obesity (ICD-10 - E66.9) Megan is a 64-year-old female with history of obesity who presents to the office today for weight management consult. Medical history, labs, allergies, medications, and social history reviewed with the patient. Provided education on healthy diet and lifestyle which includes high-protein, low carbohydrate, high-fiber, and a variety of fruits and vegetables. Patient encouraged to exercise with emphasis on resistance training minimum 3 times per week to maintain muscle mass and cardio to burn fat. All patient questions answered. Patient will follow-up in 2 to 4 weeks for weight management. 02/21/2025: Weight 203 pounds, BMI 32.76. Seca scan completed and discussed results with the patient. Patient has trialed several diets including weight watchers and hypnotism. Body composition analysis, 52% of body weight is fat mass amounting 106 pounds. She has 44 pounds of muscle mass which is increased. Visceral adiposity of 2.1 L. Weight circumference at 38 inches. Patient insured by Medicare, has no history of a major adverse cardiovascular event including myocardial infarction, stroke, or peripheral vascular disease. We discussed obesity medications including GLP-1's and oral medications. Reports ultimate goal will be to begin a GLP-1 medication. At this time we will trial use of Contrave. Discussed proper use of the medication and side effects. Discussed proper titration. Will monitor blood pressure and heart rate with concomitant use of metoprolol. Discussed goals of diet and exercise, follow-up in 6 weeks. # Atrial fibrillation: Continue metoprolol 50 mg 1 tablet twice daily. Continue Eliquis 5 mg 1 tablet twice daily. Continue follow-up with PCP and cardiology. # Restless leg syndrome: Continue gabapentin 300 mg 1 capsule daily. # Dinorah's: Last TSH 0.40. Continue Levoxyl 100 mcg once daily. # Osteoporosis: Continue Evenity subcutaneous injection. Patient was reassured and welcomed to the practice. We discussed that we stress a hollistic medical approach with emphasis on lifestyle modification. Patient was informed that a healthy lifestyle with exercise and good eating habits can help reduce their risk of medical complications. Patient is explained that obesity increases their risk of diabetes, cardiovascular disease, or organ damage. We spent a lot of time discussing the relationship between food, exercise, sleep, mental health and obesity. Patient was counseled on the importance EATING local, organic food when possible. Patient was educated on clean 15 and dirty dozen. I provided information about reading books called The Food Rules by Shmuel Velazquez and Eat Fat Get Lean by Dr Bryn Baugh. Self education is important in the journey for weight management. Patient was offered diagnostic testing/ SECA scale. We want to measure visceral adiposity, advanced body composition, adverse lipids, fatty acid balance, risk for heart disease and atherosclerosis, markers of inflammation and genetic susceptibility. Patient was counseled on weight management and was advised to lose weight using A. Meal Replacement Products Patient was educated on the replacement products called optifast. This is a good way of taking fixed amount of calories. It has been shown in studies to be ineffective weight management tool. This however has to be coupled with lifestyle intervention as well as laboratory data and EKG monitoring. It is impossible to know how a person will tolerate complete meal replacement. The side effects of meal replacement and weight loss could include syncopal attacks, dizziness, gallstones, potential cholecystectomy, possible heart attack and even . The benefits of meal replacement would be potential weight loss but no guarantees can be made. Meal replacement products are not covered by insurance. Once the patient has bought these products we cannot return them B. Lifestyle management which includes several strategies as below 1. Eat a low carbohydrate good fat good protein diet. Eliminate refined carbohydrates from the diet. Limit sugared beverages. Eat local organic when possible. Cook your own meals. Read food labels. Focus on healthy snacks. Portion control and food with low glycemic index 2. Exercise regularly. Try to get at least 6000 steps a day. Use a predominant to track activity level. Consider using apps like 7 minute excercise, myinnocutispal, lose it, stick as needed for self-monitoring and weight management. Consider group exercises. Consider hiring a personal injury specialist. Regular exercise is keita to sustainable health and prevents as a buffer against weight regain 3. Sleep is most important for healing. Try to sleep at least 6-8 hours a night. A good quality sleep needs a sleep ritual with ideal room temperature of around 68. It might help to take a shower and have no electronics in the room and sleep in a very dark room without artificial light. Start sleep routine and get up early in the morning and go to bed on time. 4. Make a social connection. Surround yourself with positive people with positive energy. Connect with friends and family. 5. Get into the habit of meditating and mindfulness while doing everything. 6. Go outside and connect with nature. C. Prescription medications Patient was educated on the use of prescription medications for medical weight loss. This is a growing list and includes phentermine, Topamax,Qsymia, contrave, belviq and saxenda, wegovy etc. All prescription medications could have side effects including but not limited to kidney stones, seizure disorder cardiac arrhythmias heart attack pancreatitis, GI effects, Etc. Patient was encouraged to read the prescription insert and have coaching with their pharmacist and make an informed decision about taking medication and know that these medications are being prescribed with good intentions and we do not know how a patient would react to the medication. Some medications are FDA approved for weight loss and there is also off label use depending on patient's inability to afford medications in an attempt to lose weight D. Behavioral counseling was done to establish a relationship between food and an mood. Patient was provided information about local counseling and psychiatry and Dr Patton at [facility]. We would like to cover regular topics and build on low glycemic eating exercise mindful eating, using yoga and meditation along with deep breathing and connecting with friends and family. E. MASS PAT reviewed, Patient's current medications were reviewed and opinion was given on medication that can cause weight gain and can be substituted F. Patient was assessed for risk with obesity including and not limiting to atherosclerosis heart disease stroke kidney disease, restrictive lung disease, irritable bowel syndrome and overall mortality. Risk of developing prediabetes diabetes and metabolic syndrome was discussed G. Therapeutic plan: We have decided to make therapeutic plan which would include choosing wisely on calories restricting portion getting active, tracking weight, getting good quality sleep and working on time management H. Patient will follow up in 4 weeks for weight management Total time spent today was 60 minutes of which greater than 50% was spent on coordinating and counseling After consultation and careful review of medical history, this patient would benefit from Contrave based off of the following criteria met: Patient is over the age of 18, has a BMI of 32.76. Additional comorbidities include atrial fibrillation, Dinorah's, osteoporosis, and restless leg syndrome. Patient has trialed other methods of weight loss including improving diet, exercise without success over three months. This medication is prescribed by or in consultation with a board certified obesity and weight management physician (Dr. Lexi Dominguez or Dr. George Dominguez). Case discussed with collaborating physician Roldan Dominguez who reviewed the assessment and plan. Chart, medications, labs, vital signs reviewed. Dictation was accomplished with the use of [employer] voice recognition software, prone to medical misidentifications and grammatical errors. This is unintentional and the practitioner does try to identify and correct these, but some could still be present. Please do not hesitate to contact practitioner for clarification. All questions answered to patients satisfaction. Patient verbalized understanding of diagnosis and treatments explained. To call sooner prior to next visit it any questions/concerns arise. 02/21/2025 BMI 32.0-32.9,adult (ICD-10 - Z68.32) Megan is a 64-year-old female with history of obesity who presents to the office today for weight management consult. Medical history, labs, allergies, medications, and social history reviewed with the patient. Provided education on healthy diet and lifestyle which includes high-protein, low carbohydrate, high-fiber, and a variety of fruits and vegetables. Patient encouraged to exercise with emphasis on resistance training minimum 3 times per week to maintain muscle mass and cardio to burn fat. All patient questions answered. Patient will follow-up in 2 to 4 weeks for weight management. 02/21/2025: Weight 203 pounds, BMI 32.76. Seca scan completed and discussed results with the patient. Patient has trialed several diets including weight watchers and hypnotism. Body composition analysis, 52% of body weight is fat mass amounting 106 pounds. She has 44 pounds of muscle mass which is increased. Visceral adiposity of 2.1 L. Weight circumference at 38 inches. Patient insured by Medicare, has no history of a major adverse cardiovascular event including myocardial infarction, stroke, or peripheral vascular disease. We discussed obesity medications including GLP-1's and oral medications. Reports ultimate goal will be to begin a GLP-1 medication. At this time we will trial use of Contrave. Discussed proper use of the medication and side effects. Discussed proper titration. Will monitor blood pressure and heart rate with concomitant use of metoprolol. Discussed goals of diet and exercise, follow-up in 6 weeks. # Atrial fibrillation: Continue metoprolol 50 mg 1 tablet twice daily. Continue Eliquis 5 mg 1 tablet twice daily. Continue follow-up with PCP and cardiology. # Restless leg syndrome: Continue gabapentin 300 mg 1 capsule daily. # Dinorah's: Last TSH 0.40. Continue Levoxyl 100 mcg once daily. # Osteoporosis: Continue Evenity subcutaneous injection. Patient was reassured and welcomed to the practice. We discussed that we stress a hollistic medical approach with emphasis on lifestyle modification. Patient was informed that a healthy lifestyle with exercise and good eating habits can help reduce their risk of medical complications. Patient is explained that obesity increases their risk of diabetes, cardiovascular disease, or organ damage. We spent a lot of time discussing the relationship between food, exercise, sleep, mental health and obesity. Patient was counseled on the importance EATING local, organic food when possible. Patient was educated on clean 15 and dirty dozen. I provided information about reading books called The Food Rules by Shmuel Velazquez and Eat Fat Get Lean by Dr Bryn Baugh. Self education is important in the journey for weight management. Patient was offered diagnostic testing/ SECA scale. We want to measure visceral adiposity, advanced body composition, adverse lipids, fatty acid balance, risk for heart disease and atherosclerosis, markers of inflammation and genetic susceptibility. Patient was counseled on weight management and was advised to lose weight using A. Meal Replacement Products Patient was educated on the replacement products called optifast. This is a good way of taking fixed amount of calories. It has been shown in studies to be ineffective weight management tool. This however has to be coupled with lifestyle intervention as well as laboratory data and EKG monitoring. It is impossible to know how a person will tolerate complete meal replacement. The side effects of meal replacement and weight loss could include syncopal attacks, dizziness, gallstones, potential cholecystectomy, possible heart attack and even . The benefits of meal replacement would be potential weight loss but no guarantees can be made. Meal replacement products are not covered by insurance. Once the patient has bought these products we cannot return them B. Lifestyle management which includes several strategies as below 1. Eat a low carbohydrate good fat good protein diet. Eliminate refined carbohydrates from the diet. Limit sugared beverages. Eat local organic when possible. Cook your own meals. Read food labels. Focus on healthy snacks. Portion control and food with low glycemic index 2. Exercise regularly. Try to get at least 6000 steps a day. Use a predominant to track activity level. Consider using apps like 7 minute excercise, myfitnesspal, lose it, stick as needed for self-monitoring and weight management. Consider group exercises. Consider hiring a personal injury specialist. Regular exercise is keita to sustainable health and prevents as a buffer against weight regain 3. Sleep is most important for healing. Try to sleep at least 6-8 hours a night. A good quality sleep needs a sleep ritual with ideal room temperature of around 68. It might help to take a shower and have no electronics in the room and sleep in a very dark room without artificial light. Start sleep routine and get up early in the morning and go to bed on time. 4. Make a social connection. Surround yourself with positive people with positive energy. Connect with friends and family. 5. Get into the habit of meditating and mindfulness while doing everything. 6. Go outside and connect with nature. C. Prescription medications Patient was educated on the use of prescription medications for medical weight loss. This is a growing list and includes phentermine, Topamax,Qsymia, contrave, belviq and saxenda, wegovy etc. All prescription medications could have side effects including but not limited to kidney stones, seizure disorder cardiac arrhythmias heart attack pancreatitis, GI effects, Etc. Patient was encouraged to read the prescription insert and have coaching with their pharmacist and make an informed decision about taking medication and know that these medications are being prescribed with good intentions and we do not know how a patient would react to the medication. Some medications are FDA approved for weight loss and there is also off label use depending on patient's inability to afford medications in an attempt to lose weight D. Behavioral counseling was done to establish a relationship between food and an mood. Patient was provided information about local counseling and psychiatry and Dr Patton at [facility]. We would like to cover regular topics and build on low glycemic eating exercise mindful eating, using yoga and meditation along with deep breathing and connecting with friends and family. E. MASS PAT reviewed, Patient's current medications were reviewed and opinion was given on medication that can cause weight gain and can be substituted F. Patient was assessed for risk with obesity including and not limiting to atherosclerosis heart disease stroke kidney disease, restrictive lung disease, irritable bowel syndrome and overall mortality. Risk of developing prediabetes diabetes and metabolic syndrome was discussed G. Therapeutic plan: We have decided to make therapeutic plan which would include choosing wisely on calories restricting portion getting active, tracking weight, getting good quality sleep and working on time management H. Patient will follow up in 4 weeks for weight management Total time spent today was 60 minutes of which greater than 50% was spent on coordinating and counseling After consultation and careful review of medical history, this patient would benefit from Contrave based off of the following criteria met: Patient is over the age of 18, has a BMI of 32.76. Additional comorbidities include atrial fibrillation, Dinorah's, osteoporosis, and restless leg syndrome. Patient has trialed other methods of weight loss including improving diet, exercise without success over three months. This medication is prescribed by or in consultation with a board certified obesity and weight management physician (Dr. Lexi Dominguez or Dr. George Dominguez). Case discussed with collaborating physician Roldan Dominguez who reviewed the assessment and plan. Chart, medications, labs, vital signs reviewed. Dictation was accomplished with the use of [employer] voice recognition software, prone to medical misidentifications and grammatical errors. This is unintentional and the practitioner does try to identify and correct these, but some could still be present. Please do not hesitate to contact practitioner for clarification. All questions answered to patients satisfaction. Patient verbalized understanding of diagnosis and treatments explained. To call sooner prior to next visit it any questions/concerns arise. 02/21/2025 Adult-onset obesity (ICD-10 - E66.9) Electronic Prior Authorization was requested for Contrave 8-90 MG Tablet Extended Release 12 Hour. Provider can order medication once approval received. 02/21/2025 Atrial fibrillation (ICD-10 - I48.91) Megan is a 64-year-old female with history of obesity who presents to the office today for weight management consult. Medical history, labs, allergies, medications, and social history reviewed with the patient. Provided education on healthy diet and lifestyle which includes high-protein, low carbohydrate, high-fiber, and a variety of fruits and vegetables. Patient encouraged to exercise with emphasis on resistance training minimum 3 times per week to maintain muscle mass and cardio to burn fat. All patient questions answered. Patient will follow-up in 2 to 4 weeks for weight management. 02/21/2025: Weight 203 pounds, BMI 32.76. Seca scan completed and discussed results with the patient. Patient has trialed several diets including weight watchers and hypnotism. Body composition analysis, 52% of body weight is fat mass amounting 106 pounds. She has 44 pounds of muscle mass which is increased. Visceral adiposity of 2.1 L. Weight circumference at 38 inches. Patient insured by Medicare, has no history of a major adverse cardiovascular event including myocardial infarction, stroke, or peripheral vascular disease. We discussed obesity medications including GLP-1's and oral medications. Reports ultimate goal will be to begin a GLP-1 medication. At this time we will trial use of Contrave. Discussed proper use of the medication and side effects. Discussed proper titration. Will monitor blood pressure and heart rate with concomitant use of metoprolol. Discussed goals of diet and exercise, follow-up in 6 weeks. # Atrial fibrillation: Continue metoprolol 50 mg 1 tablet twice daily. Continue Eliquis 5 mg 1 tablet twice daily. Continue follow-up with PCP and cardiology. # Restless leg syndrome: Continue gabapentin 300 mg 1 capsule daily. # Dinorah's: Last TSH 0.40. Continue Levoxyl 100 mcg once daily. # Osteoporosis: Continue Evenity subcutaneous injection. Patient was reassured and welcomed to the practice. We discussed that we stress a hollistic medical approach with emphasis on lifestyle modification. Patient was informed that a healthy lifestyle with exercise and good eating habits can help reduce their risk of medical complications. Patient is explained that obesity increases their risk of diabetes, cardiovascular disease, or organ damage. We spent a lot of time discussing the relationship between food, exercise, sleep, mental health and obesity. Patient was counseled on the importance EATING local, organic food when possible. Patient was educated on clean 15 and dirty dozen. I provided information about reading books called The Food Rules by Shmuel Velazquez and Eat Fat Get Lean by Dr Bryn Baugh. Self education is important in the journey for weight management. Patient was offered diagnostic testing/ SECA scale. We want to measure visceral adiposity, advanced body composition, adverse lipids, fatty acid balance, risk for heart disease and atherosclerosis, markers of inflammation and genetic susceptibility. Patient was counseled on weight management and was advised to lose weight using A. Meal Replacement Products Patient was educated on the replacement products called optifast. This is a good way of taking fixed amount of calories. It has been shown in studies to be ineffective weight management tool. This however has to be coupled with lifestyle intervention as well as laboratory data and EKG monitoring. It is impossible to know how a person will tolerate complete meal replacement. The side effects of meal replacement and weight loss could include syncopal attacks, dizziness, gallstones, potential cholecystectomy, possible heart attack and even . The benefits of meal replacement would be potential weight loss but no guarantees can be made. Meal replacement products are not covered by insurance. Once the patient has bought these products we cannot return them B. Lifestyle management which includes several strategies as below 1. Eat a low carbohydrate good fat good protein diet. Eliminate refined carbohydrates from the diet. Limit sugared beverages. Eat local organic when possible. Cook your own meals. Read food labels. Focus on healthy snacks. Portion control and food with low glycemic index 2. Exercise regularly. Try to get at least 6000 steps a day. Use a predominant to track activity level. Consider using apps like 7 minute excercise, Destineerpal, lose it, stick as needed for self-monitoring and weight management. Consider group exercises. Consider hiring a personal injury specialist. Regular exercise is keita to sustainable health and prevents as a buffer against weight regain 3. Sleep is most important for healing. Try to sleep at least 6-8 hours a night. A good quality sleep needs a sleep ritual with ideal room temperature of around 68. It might help to take a shower and have no electronics in the room and sleep in a very dark room without artificial light. Start sleep routine and get up early in the morning and go to bed on time. 4. Make a social connection. Surround yourself with positive people with positive energy. Connect with friends and family. 5. Get into the habit of meditating and mindfulness while doing everything. 6. Go outside and connect with nature. C. Prescription medications Patient was educated on the use of prescription medications for medical weight loss. This is a growing list and includes phentermine, Topamax,Qsymia, contrave, belviq and saxenda, wegovy etc. All prescription medications could have side effects including but not limited to kidney stones, seizure disorder cardiac arrhythmias heart attack pancreatitis, GI effects, Etc. Patient was encouraged to read the prescription insert and have coaching with their pharmacist and make an informed decision about taking medication and know that these medications are being prescribed with good intentions and we do not know how a patient would react to the medication. Some medications are FDA approved for weight loss and there is also off label use depending on patient's inability to afford medications in an attempt to lose weight D. Behavioral counseling was done to establish a relationship between food and an mood. Patient was provided information about local counseling and psychiatry and Dr Patton at [facility]. We would like to cover regular topics and build on low glycemic eating exercise mindful eating, using yoga and meditation along with deep breathing and connecting with friends and family. E. MASS PAT reviewed, Patient's current medications were reviewed and opinion was given on medication that can cause weight gain and can be substituted F. Patient was assessed for risk with obesity including and not limiting to atherosclerosis heart disease stroke kidney disease, restrictive lung disease, irritable bowel syndrome and overall mortality. Risk of developing prediabetes diabetes and metabolic syndrome was discussed G. Therapeutic plan: We have decided to make therapeutic plan which would include choosing wisely on calories restricting portion getting active, tracking weight, getting good quality sleep and working on time management H. Patient will follow up in 4 weeks for weight management Total time spent today was 60 minutes of which greater than 50% was spent on coordinating and counseling After consultation and careful review of medical history, this patient would benefit from Contrave based off of the following criteria met: Patient is over the age of 18, has a BMI of 32.76. Additional comorbidities include atrial fibrillation, Dinorah's, osteoporosis, and restless leg syndrome. Patient has trialed other methods of weight loss including improving diet, exercise without success over three months. This medication is prescribed by or in consultation with a board certified obesity and weight management physician (Dr. Lexi Dominguez or Dr. George Dominguez). Case discussed with collaborating physician Roldan Dominguez who reviewed the assessment and plan. Chart, medications, labs, vital signs reviewed. Dictation was accomplished with the use of [employer] voice recognition software, prone to medical misidentifications and grammatical errors. This is unintentional and the practitioner does try to identify and correct these, but some could still be present. Please do not hesitate to contact practitioner for clarification. All questions answered to patients satisfaction. Patient verbalized understanding of diagnosis and treatments explained. To call sooner prior to next visit it any questions/concerns arise. 02/21/2025 Restless leg syndrome (ICD-10 - G25.81) Megan is a 64-year-old female with history of obesity who presents to the office today for weight management consult. Medical history, labs, allergies, medications, and social history reviewed with the patient. Provided education on healthy diet and lifestyle which includes high-protein, low carbohydrate, high-fiber, and a variety of fruits and vegetables. Patient encouraged to exercise with emphasis on resistance training minimum 3 times per week to maintain muscle mass and cardio to burn fat. All patient questions answered. Patient will follow-up in 2 to 4 weeks for weight management. 02/21/2025: Weight 203 pounds, BMI 32.76. Seca scan completed and discussed results with the patient. Patient has trialed several diets including weight watchers and hypnotism. Body composition analysis, 52% of body weight is fat mass amounting 106 pounds. She has 44 pounds of muscle mass which is increased. Visceral adiposity of 2.1 L. Weight circumference at 38 inches. Patient insured by Medicare, has no history of a major adverse cardiovascular event including myocardial infarction, stroke, or peripheral vascular disease. We discussed obesity medications including GLP-1's and oral medications. Reports ultimate goal will be to begin a GLP-1 medication. At this time we will trial use of Contrave. Discussed proper use of the medication and side effects. Discussed proper titration. Will monitor blood pressure and heart rate with concomitant use of metoprolol. Discussed goals of diet and exercise, follow-up in 6 weeks. # Atrial fibrillation: Continue metoprolol 50 mg 1 tablet twice daily. Continue Eliquis 5 mg 1 tablet twice daily. Continue follow-up with PCP and cardiology. # Restless leg syndrome: Continue gabapentin 300 mg 1 capsule daily. # Dinorah's: Last TSH 0.40. Continue Levoxyl 100 mcg once daily. # Osteoporosis: Continue Evenity subcutaneous injection. Patient was reassured and welcomed to the practice. We discussed that we stress a hollistic medical approach with emphasis on lifestyle modification. Patient was informed that a healthy lifestyle with exercise and good eating habits can help reduce their risk of medical complications. Patient is explained that obesity increases their risk of diabetes, cardiovascular disease, or organ damage. We spent a lot of time discussing the relationship between food, exercise, sleep, mental health and obesity. Patient was counseled on the importance EATING local, organic food when possible. Patient was educated on clean 15 and dirty dozen. I provided information about reading books called The Food Rules by Shmuel Velazquez and Eat Fat Get Lean by Dr Bryn Baugh. Self education is important in the journey for weight management. Patient was offered diagnostic testing/ SECA scale. We want to measure visceral adiposity, advanced body composition, adverse lipids, fatty acid balance, risk for heart disease and atherosclerosis, markers of inflammation and genetic susceptibility. Patient was counseled on weight management and was advised to lose weight using A. Meal Replacement Products Patient was educated on the replacement products called optifast. This is a good way of taking fixed amount of calories. It has been shown in studies to be ineffective weight management tool. This however has to be coupled with lifestyle intervention as well as laboratory data and EKG monitoring. It is impossible to know how a person will tolerate complete meal replacement. The side effects of meal replacement and weight loss could include syncopal attacks, dizziness, gallstones, potential cholecystectomy, possible heart attack and even . The benefits of meal replacement would be potential weight loss but no guarantees can be made. Meal replacement products are not covered by insurance. Once the patient has bought these products we cannot return them B. Lifestyle management which includes several strategies as below 1. Eat a low carbohydrate good fat good protein diet. Eliminate refined carbohydrates from the diet. Limit sugared beverages. Eat local organic when possible. Cook your own meals. Read food labels. Focus on healthy snacks. Portion control and food with low glycemic index 2. Exercise regularly. Try to get at least 6000 steps a day. Use a predominant to track activity level. Consider using apps like 7 minute ex[employer]iligent [employer]ise, Destineerpal, lose it, stick as needed for self-monitoring and weight management. Consider group exercises. Consider hiring a personal injury specialist. Regular exercise is keita to sustainable health and prevents as a buffer against weight regain 3. Sleep is most important for healing. Try to sleep at least 6-8 hours a night. A good quality sleep needs a sleep ritual with ideal room temperature of around 68. It might help to take a shower and have no electronics in the room and sleep in a very dark room without artificial light. Start sleep routine and get up early in the morning and go to bed on time. 4. Make a social connection. Surround yourself with positive people with positive energy. Connect with friends and family. 5. Get into the habit of meditating and mindfulness while doing everything. 6. Go outside and connect with nature. C. Prescription medications Patient was educated on the use of prescription medications for medical weight loss. This is a growing list and includes phentermine, Topamax,Qsymia, contrave, belviq and saxenda, wegovy etc. All prescription medications could have side effects including but not limited to kidney stones, seizure disorder cardiac arrhythmias heart attack pancreatitis, GI effects, Etc. Patient was encouraged to read the prescription insert and have coaching with their pharmacist and make an informed decision about taking medication and know that these medications are being prescribed with good intentions and we do not know how a patient would react to the medication. Some medications are FDA approved for weight loss and there is also off label use depending on patient's inability to afford medications in an attempt to lose weight D. Behavioral counseling was done to establish a relationship between food and an mood. Patient was provided information about local counseling and psychiatry and Dr Patton at [facility]. We would like to cover regular topics and build on low glycemic eating exercise mindful eating, using yoga and meditation along with deep breathing and connecting with friends and family. E. MASS PAT reviewed, Patient's current medications were reviewed and opinion was given on medication that can cause weight gain and can be substituted F. Patient was assessed for risk with obesity including and not limiting to atherosclerosis heart disease stroke kidney disease, restrictive lung disease, irritable bowel syndrome and overall mortality. Risk of developing prediabetes diabetes and metabolic syndrome was discussed G. Therapeutic plan: We have decided to make therapeutic plan which would include choosing wisely on calories restricting portion getting active, tracking weight, getting good quality sleep and working on time management H. Patient will follow up in 4 weeks for weight management Total time spent today was 60 minutes of which greater than 50% was spent on coordinating and counseling After consultation and careful review of medical history, this patient would benefit from Contrave based off of the following criteria met: Patient is over the age of 18, has a BMI of 32.76. Additional comorbidities include atrial fibrillation, Dinorah's, osteoporosis, and restless leg syndrome. Patient has trialed other methods of weight loss including improving diet, exercise without success over three months. This medication is prescribed by or in consultation with a board certified obesity and weight management physician (Dr. Lexi Dominguez or Dr. George Dominguez). Case discussed with collaborating physician Roldan Dominguez who reviewed the assessment and plan. Chart, medications, labs, vital signs reviewed. Dictation was accomplished with the use of [employer] voice recognition software, prone to medical misidentifications and grammatical errors. This is unintentional and the practitioner does try to identify and correct these, but some could still be present. Please do not hesitate to contact practitioner for clarification. All questions answered to patients satisfaction. Patient verbalized understanding of diagnosis and treatments explained. To call sooner prior to next visit it any questions/concerns arise. 02/21/2025 Dinorah thyroiditis (ICD-10 - E06.3) Megan is a 64-year-old female with history of obesity who presents to the office today for weight management consult. Medical history, labs, allergies, medications, and social history reviewed with the patient. Provided education on healthy diet and lifestyle which includes high-protein, low carbohydrate, high-fiber, and a variety of fruits and vegetables. Patient encouraged to exercise with emphasis on resistance training minimum 3 times per week to maintain muscle mass and cardio to burn fat. All patient questions answered. Patient will follow-up in 2 to 4 weeks for weight management. 02/21/2025: Weight 203 pounds, BMI 32.76. Seca scan completed and discussed results with the patient. Patient has trialed several diets including weight watchers and hypnotism. Body composition analysis, 52% of body weight is fat mass amounting 106 pounds. She has 44 pounds of muscle mass which is increased. Visceral adiposity of 2.1 L. Weight circumference at 38 inches. Patient insured by Medicare, has no history of a major adverse cardiovascular event including myocardial infarction, stroke, or peripheral vascular disease. We discussed obesity medications including GLP-1's and oral medications. Reports ultimate goal will be to begin a GLP-1 medication. At this time we will trial use of Contrave. Discussed proper use of the medication and side effects. Discussed proper titration. Will monitor blood pressure and heart rate with concomitant use of metoprolol. Discussed goals of diet and exercise, follow-up in 6 weeks. # Atrial fibrillation: Continue metoprolol 50 mg 1 tablet twice daily. Continue Eliquis 5 mg 1 tablet twice daily. Continue follow-up with PCP and cardiology. # Restless leg syndrome: Continue gabapentin 300 mg 1 capsule daily. # Dinorah's: Last TSH 0.40. Continue Levoxyl 100 mcg once daily. # Osteoporosis: Continue Evenity subcutaneous injection. Patient was reassured and welcomed to the practice. We discussed that we stress a hollistic medical approach with emphasis on lifestyle modification. Patient was informed that a healthy lifestyle with exercise and good eating habits can help reduce their risk of medical complications. Patient is explained that obesity increases their risk of diabetes, cardiovascular disease, or organ damage. We spent a lot of time discussing the relationship between food, exercise, sleep, mental health and obesity. Patient was counseled on the importance EATING local, organic food when possible. Patient was educated on clean 15 and dirty dozen. I provided information about reading books called The Food Rules by Shmuel Velazquez and Eat Fat Get Lean by Dr Bryn Baugh. Self education is important in the journey for weight management. Patient was offered diagnostic testing/ SECA scale. We want to measure visceral adiposity, advanced body composition, adverse lipids, fatty acid balance, risk for heart disease and atherosclerosis, markers of inflammation and genetic susceptibility. Patient was counseled on weight management and was advised to lose weight using A. Meal Replacement Products Patient was educated on the replacement products called optifast. This is a good way of taking fixed amount of calories. It has been shown in studies to be ineffective weight management tool. This however has to be coupled with lifestyle intervention as well as laboratory data and EKG monitoring. It is impossible to know how a person will tolerate complete meal replacement. The side effects of meal replacement and weight loss could include syncopal attacks, dizziness, gallstones, potential cholecystectomy, possible heart attack and even . The benefits of meal replacement would be potential weight loss but no guarantees can be made. Meal replacement products are not covered by insurance. Once the patient has bought these products we cannot return them B. Lifestyle management which includes several strategies as below 1. Eat a low carbohydrate good fat good protein diet. Eliminate refined carbohydrates from the diet. Limit sugared beverages. Eat local organic when possible. Cook your own meals. Read food labels. Focus on healthy snacks. Portion control and food with low glycemic index 2. Exercise regularly. Try to get at least 6000 steps a day. Use a predominant to track activity level. Consider using apps like 7 minute excercise, myfitnesspal, lose it, stick as needed for self-monitoring and weight management. Consider group exercises. Consider hiring a personal injury specialist. Regular exercise is keita to sustainable health and prevents as a buffer against weight regain 3. Sleep is most important for healing. Try to sleep at least 6-8 hours a night. A good quality sleep needs a sleep ritual with ideal room temperature of around 68. It might help to take a shower and have no electronics in the room and sleep in a very dark room without artificial light. Start sleep routine and get up early in the morning and go to bed on time. 4. Make a social connection. Surround yourself with positive people with positive energy. Connect with friends and family. 5. Get into the habit of meditating and mindfulness while doing everything. 6. Go outside and connect with nature. C. Prescription medications Patient was educated on the use of prescription medications for medical weight loss. This is a growing list and includes phentermine, Topamax,Qsymia, contrave, belviq and saxenda, wegovy etc. All prescription medications could have side effects including but not limited to kidney stones, seizure disorder cardiac arrhythmias heart attack pancreatitis, GI effects, Etc. Patient was encouraged to read the prescription insert and have coaching with their pharmacist and make an informed decision about taking medication and know that these medications are being prescribed with good intentions and we do not know how a patient would react to the medication. Some medications are FDA approved for weight loss and there is also off label use depending on patient's inability to afford medications in an attempt to lose weight D. Behavioral counseling was done to establish a relationship between food and an mood. Patient was provided information about local counseling and psychiatry and Dr Patton at [facility]. We would like to cover regular topics and build on low glycemic eating exercise mindful eating, using yoga and meditation along with deep breathing and connecting with friends and family. E. MASS PAT reviewed, Patient's current medications were reviewed and opinion was given on medication that can cause weight gain and can be substituted F. Patient was assessed for risk with obesity including and not limiting to atherosclerosis heart disease stroke kidney disease, restrictive lung disease, irritable bowel syndrome and overall mortality. Risk of developing prediabetes diabetes and metabolic syndrome was discussed G. Therapeutic plan: We have decided to make therapeutic plan which would include choosing wisely on calories restricting portion getting active, tracking weight, getting good quality sleep and working on time management H. Patient will follow up in 4 weeks for weight management Total time spent today was 60 minutes of which greater than 50% was spent on coordinating and counseling After consultation and careful review of medical history, this patient would benefit from Contrave based off of the following criteria met: Patient is over the age of 18, has a BMI of 32.76. Additional comorbidities include atrial fibrillation, Dinorah's, osteoporosis, and restless leg syndrome. Patient has trialed other methods of weight loss including improving diet, exercise without success over three months. This medication is prescribed by or in consultation with a board certified obesity and weight management physician (Dr. Lexi Dominguez or Dr. George Dominguez). Case discussed with collaborating physician Roldan Dominguez who reviewed the assessment and plan. Chart, medications, labs, vital signs reviewed. Dictation was accomplished with the use of [employer] voice recognition software, prone to medical misidentifications and grammatical errors. This is unintentional and the practitioner does try to identify and correct these, but some could still be present. Please do not hesitate to contact practitioner for clarification. All questions answered to patients satisfaction. Patient verbalized understanding of diagnosis and treatments explained. To call sooner prior to next visit it any questions/concerns arise. 02/21/2025 Osteoporosis (ICD-10 - M81.0) Megan is a 64-year-old female with history of obesity who presents to the office today for weight management consult. Medical history, labs, allergies, medications, and social history reviewed with the patient. Provided education on healthy diet and lifestyle which includes high-protein, low carbohydrate, high-fiber, and a variety of fruits and vegetables. Patient encouraged to exercise with emphasis on resistance training minimum 3 times per week to maintain muscle mass and cardio to burn fat. All patient questions answered. Patient will follow-up in 2 to 4 weeks for weight management. 02/21/2025: Weight 203 pounds, BMI 32.76. Seca scan completed and discussed results with the patient. Patient has trialed several diets including weight watchers and hypnotism. Body composition analysis, 52% of body weight is fat mass amounting 106 pounds. She has 44 pounds of muscle mass which is increased. Visceral adiposity of 2.1 L. Weight circumference at 38 inches. Patient insured by Medicare, has no history of a major adverse cardiovascular event including myocardial infarction, stroke, or peripheral vascular disease. We discussed obesity medications including GLP-1's and oral medications. Reports ultimate goal will be to begin a GLP-1 medication. At this time we will trial use of Contrave. Discussed proper use of the medication and side effects. Discussed proper titration. Will monitor blood pressure and heart rate with concomitant use of metoprolol. Discussed goals of diet and exercise, follow-up in 6 weeks. # Atrial fibrillation: Continue metoprolol 50 mg 1 tablet twice daily. Continue Eliquis 5 mg 1 tablet twice daily. Continue follow-up with PCP and cardiology. # Restless leg syndrome: Continue gabapentin 300 mg 1 capsule daily. # Dinorah's: Last TSH 0.40. Continue Levoxyl 100 mcg once daily. # Osteoporosis: Continue Evenity subcutaneous injection. Patient was reassured and welcomed to the practice. We discussed that we stress a hollistic medical approach with emphasis on lifestyle modification. Patient was informed that a healthy lifestyle with exercise and good eating habits can help reduce their risk of medical complications. Patient is explained that obesity increases their risk of diabetes, cardiovascular disease, or organ damage. We spent a lot of time discussing the relationship between food, exercise, sleep, mental health and obesity. Patient was counseled on the importance EATING local, organic food when possible. Patient was educated on clean 15 and dirty dozen. I provided information about reading books called The Food Rules by Shmuel Velazquez and Eat Fat Get Lean by Dr Bryn Baugh. Self education is important in the journey for weight management. Patient was offered diagnostic testing/ SECA scale. We want to measure visceral adiposity, advanced body composition, adverse lipids, fatty acid balance, risk for heart disease and atherosclerosis, markers of inflammation and genetic susceptibility. Patient was counseled on weight management and was advised to lose weight using A. Meal Replacement Products Patient was educated on the replacement products called optifast. This is a good way of taking fixed amount of calories. It has been shown in studies to be ineffective weight management tool. This however has to be coupled with lifestyle intervention as well as laboratory data and EKG monitoring. It is impossible to know how a person will tolerate complete meal replacement. The side effects of meal replacement and weight loss could include syncopal attacks, dizziness, gallstones, potential cholecystectomy, possible heart attack and even . The benefits of meal replacement would be potential weight loss but no guarantees can be made. Meal replacement products are not covered by insurance. Once the patient has bought these products we cannot return them B. Lifestyle management which includes several strategies as below 1. Eat a low carbohydrate good fat good protein diet. Eliminate refined carbohydrates from the diet. Limit sugared beverages. Eat local organic when possible. Cook your own meals. Read food labels. Focus on healthy snacks. Portion control and food with low glycemic index 2. Exercise regularly. Try to get at least 6000 steps a day. Use a predominant to track activity level. Consider using apps like 7 minute excercise, Destineerpal, lose it, stick as needed for self-monitoring and weight management. Consider group exercises. Consider hiring a personal injury specialist. Regular exercise is keita to sustainable health and prevents as a buffer against weight regain 3. Sleep is most important for healing. Try to sleep at least 6-8 hours a night. A good quality sleep needs a sleep ritual with ideal room temperature of around 68. It might help to take a shower and have no electronics in the room and sleep in a very dark room without artificial light. Start sleep routine and get up early in the morning and go to bed on time. 4. Make a social connection. Surround yourself with positive people with positive energy. Connect with friends and family. 5. Get into the habit of meditating and mindfulness while doing everything. 6. Go outside and connect with nature. C. Prescription medications Patient was educated on the use of prescription medications for medical weight loss. This is a growing list and includes phentermine, Topamax,Qsymia, contrave, belviq and saxenda, wegovy etc. All prescription medications could have side effects including but not limited to kidney stones, seizure disorder cardiac arrhythmias heart attack pancreatitis, GI effects, Etc. Patient was encouraged to read the prescription insert and have coaching with their pharmacist and make an informed decision about taking medication and know that these medications are being prescribed with good intentions and we do not know how a patient would react to the medication. Some medications are FDA approved for weight loss and there is also off label use depending on patient's inability to afford medications in an attempt to lose weight D. Behavioral counseling was done to establish a relationship between food and an mood. Patient was provided information about local counseling and psychiatry and Dr Patton at [facility]. We would like to cover regular topics and build on low glycemic eating exercise mindful eating, using yoga and meditation along with deep breathing and connecting with friends and family. E. MASS PAT reviewed, Patient's current medications were reviewed and opinion was given on medication that can cause weight gain and can be substituted F. Patient was assessed for risk with obesity including and not limiting to atherosclerosis heart disease stroke kidney disease, restrictive lung disease, irritable bowel syndrome and overall mortality. Risk of developing prediabetes diabetes and metabolic syndrome was discussed G. Therapeutic plan: We have decided to make therapeutic plan which would include choosing wisely on calories restricting portion getting active, tracking weight, getting good quality sleep and working on time management H. Patient will follow up in 4 weeks for weight management Total time spent today was 60 minutes of which greater than 50% was spent on coordinating and counseling After consultation and careful review of medical history, this patient would benefit from Contrave based off of the following criteria met: Patient is over the age of 18, has a BMI of 32.76. Additional comorbidities include atrial fibrillation, Dinorah's, osteoporosis, and restless leg syndrome. Patient has trialed other methods of weight loss including improving diet, exercise without success over three months. This medication is prescribed by or in consultation with a board certified obesity and weight management physician (Dr. Lexi Dominguez or Dr. George Dominguez). Case discussed with collaborating physician Roldan Dominguez who reviewed the assessment and plan. Chart, medications, labs, vital signs reviewed. Dictation was accomplished with the use of Ankota voice recognition software, prone to medical misidentifications and grammatical errors. This is unintentional and the practitioner does try to identify and correct these, but some could still be present. Please do not hesitate to contact practitioner for clarification. All questions answered to patients satisfaction. Patient verbalized understanding of diagnosis and treatments explained. To call sooner prior to next visit it any questions/concerns arise. 02/21/2025 Encounter for examination of blood pressure with abnormal findings (ICD-10 - Z01.31) Megan is a 64-year-old female with history of obesity who presents to the office today for weight management consult. Medical history, labs, allergies, medications, and social history reviewed with the patient. Provided education on healthy diet and lifestyle which includes high-protein, low carbohydrate, high-fiber, and a variety of fruits and vegetables. Patient encouraged to exercise with emphasis on resistance training minimum 3 times per week to maintain muscle mass and cardio to burn fat. All patient questions answered. Patient will follow-up in 2 to 4 weeks for weight management. 02/21/2025: Weight 203 pounds, BMI 32.76. Seca scan completed and discussed results with the patient. Patient has trialed several diets including weight watchers and hypnotism. Body composition analysis, 52% of body weight is fat mass amounting 106 pounds. She has 44 pounds of muscle mass which is increased. Visceral adiposity of 2.1 L. Weight circumference at 38 inches. Patient insured by Medicare, has no history of a major adverse cardiovascular event including myocardial infarction, stroke, or peripheral vascular disease. We discussed obesity medications including GLP-1's and oral medications. Reports ultimate goal will be to begin a GLP-1 medication. At this time we will trial use of Contrave. Discussed proper use of the medication and side effects. Discussed proper titration. Will monitor blood pressure and heart rate with concomitant use of metoprolol. Discussed goals of diet and exercise, follow-up in 6 weeks. # Atrial fibrillation: Continue metoprolol 50 mg 1 tablet twice daily. Continue Eliquis 5 mg 1 tablet twice daily. Continue follow-up with PCP and cardiology. # Restless leg syndrome: Continue gabapentin 300 mg 1 capsule daily. # Dinorah's: Last TSH 0.40. Continue Levoxyl 100 mcg once daily. # Osteoporosis: Continue Evenity subcutaneous injection. Patient was reassured and welcomed to the practice. We discussed that we stress a hollistic medical approach with emphasis on lifestyle modification. Patient was informed that a healthy lifestyle with exercise and good eating habits can help reduce their risk of medical complications. Patient is explained that obesity increases their risk of diabetes, cardiovascular disease, or organ damage. We spent a lot of time discussing the relationship between food, exercise, sleep, mental health and obesity. Patient was counseled on the importance EATING local, organic food when possible. Patient was educated on clean 15 and dirty dozen. I provided information about reading books called The Food Rules by Shmuel Velazquez and Eat Fat Get Lean by Dr Bryn Baugh. Self education is important in the journey for weight management. Patient was offered diagnostic testing/ SECA scale. We want to measure visceral adiposity, advanced body composition, adverse lipids, fatty acid balance, risk for heart disease and atherosclerosis, markers of inflammation and genetic susceptibility. Patient was counseled on weight management and was advised to lose weight using A. Meal Replacement Products Patient was educated on the replacement products called optifast. This is a good way of taking fixed amount of calories. It has been shown in studies to be ineffective weight management tool. This however has to be coupled with lifestyle intervention as well as laboratory data and EKG monitoring. It is impossible to know how a person will tolerate complete meal replacement. The side effects of meal replacement and weight loss could include syncopal attacks, dizziness, gallstones, potential cholecystectomy, possible heart attack and even . The benefits of meal replacement would be potential weight loss but no guarantees can be made. Meal replacement products are not covered by insurance. Once the patient has bought these products we cannot return them B. Lifestyle management which includes several strategies as below 1. Eat a low carbohydrate good fat good protein diet. Eliminate refined carbohydrates from the diet. Limit sugared beverages. Eat local organic when possible. Cook your own meals. Read food labels. Focus on healthy snacks. Portion control and food with low glycemic index 2. Exercise regularly. Try to get at least 6000 steps a day. Use a predominant to track activity level. Consider using apps like 7 minute excercise, myinnocutispal, lose it, stick as needed for self-monitoring and weight management. Consider group exercises. Consider hiring a personal injury specialist. Regular exercise is keita to sustainable health and prevents as a buffer against weight regain 3. Sleep is most important for healing. Try to sleep at least 6-8 hours a night. A good quality sleep needs a sleep ritual with ideal room temperature of around 68. It might help to take a shower and have no electronics in the room and sleep in a very dark room without artificial light. Start sleep routine and get up early in the morning and go to bed on time. 4. Make a social connection. Surround yourself with positive people with positive energy. Connect with friends and family. 5. Get into the habit of meditating and mindfulness while doing everything. 6. Go outside and connect with nature. C. Prescription medications Patient was educated on the use of prescription medications for medical weight loss. This is a growing list and includes phentermine, Topamax,Qsymia, contrave, belviq and saxenda, wegovy etc. All prescription medications could have side effects including but not limited to kidney stones, seizure disorder cardiac arrhythmias heart attack pancreatitis, GI effects, Etc. Patient was encouraged to read the prescription insert and have coaching with their pharmacist and make an informed decision about taking medication and know that these medications are being prescribed with good intentions and we do not know how a patient would react to the medication. Some medications are FDA approved for weight loss and there is also off label use depending on patient's inability to afford medications in an attempt to lose weight D. Behavioral counseling was done to establish a relationship between food and an mood. Patient was provided information about local counseling and psychiatry and Dr Patton at [facility]. We would like to cover regular topics and build on low glycemic eating exercise mindful eating, using yoga and meditation along with deep breathing and connecting with friends and family. E. MASS PAT reviewed, Patient's current medications were reviewed and opinion was given on medication that can cause weight gain and can be substituted F. Patient was assessed for risk with obesity including and not limiting to atherosclerosis heart disease stroke kidney disease, restrictive lung disease, irritable bowel syndrome and overall mortality. Risk of developing prediabetes diabetes and metabolic syndrome was discussed G. Therapeutic plan: We have decided to make therapeutic plan which would include choosing wisely on calories restricting portion getting active, tracking weight, getting good quality sleep and working on time management H. Patient will follow up in 4 weeks for weight management Total time spent today was 60 minutes of which greater than 50% was spent on coordinating and counseling After consultation and careful review of medical history, this patient would benefit from Contrave based off of the following criteria met: Patient is over the age of 18, has a BMI of 32.76. Additional comorbidities include atrial fibrillation, Dinorah's, osteoporosis, and restless leg syndrome. Patient has trialed other methods of weight loss including improving diet, exercise without success over three months. This medication is prescribed by or in consultation with a board certified obesity and weight management physician (Dr. Lexi Dominguez or Dr. George Dominguez). Case discussed with collaborating physician Roldan Dominguez who reviewed the assessment and plan. Chart, medications, labs, vital signs reviewed. Dictation was accomplished with the use of Ankota voice recognition software, prone to medical misidentifications and grammatical errors. This is unintentional and the practitioner does try to identify and correct these, but some could still be present. Please do not hesitate to contact practitioner for clarification. All questions answered to patients satisfaction. Patient verbalized understanding of diagnosis and treatments explained. To call sooner prior to next visit it any questions/concerns arise. Plan Of Treatment Next Appt Details Provider Name:DENIZ DIAS , 04/10/2025 10:00:00 AM, [address] [facility], [facility] [address], [place], [address], Insurance Providers Payer Name Payer Address Payer Phone Subscriber Number Group Number Insured Name Patient Relationship to Insured Coverage Start Date Coverage End Date Medicare Part B J14 [address] [facility] [id number] MEGAN GARCIA Self - patient is the insured 3 MEDEX [address] [place] [address] [id number] MEGAN GARCIA Self - patient is the insured 3 Medical (General) History Surgical History Surgery Date(Month/Year) shoulder surgery l
--- OUTSIDE RECORDS SUMMARY | 2025-03-11 13:40 | XMS_ITS | Clinical Summary ---
Author Organization [facility] Address [address] [place] [address] Phone Care Team Providers Care Bologna Maker Name Role Phone Jose Frausto MD Primary Care Provider [phone] Allergies Active Allergy Reactions Criticality Noted Date Comments Azithromycin 11/04/2020 Diphtheria, Pertussis, Tetanus Vaccine 11/04/2020 Levofloxacin 11/04/2020 [place]opuikan-Mslukstza-Gehtfbt 11/05/19 21 Sulfa (Sulfonamide Antibiotics) 10/2020 Tetanus [...] 1 dose. Prior to MRI. 4 Active Eliquis 5 mg tablet TAKE ONE TABLET BY MOUTH TWICE A DAY 180 tablet 2 5 Active Evenity Inject 2.34 mL (210 mg total) under the skin. 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 30 each 02/05/20 Active metoprolol tartrate (LOPRESSOR) 50 mg tabletIndications :Paroxysmal atrial fibrillation (CMS/HCC V24, CMS/HCC V28) Take 1.5 tablets (75 mg total) by mouth 2 (two) times a day. 270 tablet 3 Active Active Problems Problem Noted Date Diagnosed [...] has history of paroxysmal atrial fibrillation. Her [id number] score is 2 representing a 2.2% risk [...] Description 02/03/2025 8:30 AM EDT Ancillary Procedure [facility] [address] [place] [address] Paroxysmal atrial fibrillation (CMS/HCC V24, CMS/HCC V28) 01/27/2025 Telephone [facility] [address] [facility] [address] [place] [address] Nick Henry MD 12/10/2024 8:20 AM EDT Office Visit [facility] [address] [facility] [address] [place] [address] Nick Henry MD Paroxysmal atrial fibrillation (CMS/HCC V24, [...] Care Team (Late st Contact Info) Description 03/24/2025 11:10 AM EDT Consult [facility] [address] [facility] [address] [place] [id number] Jose Frausto MD [address] [place] [address] [address] [place] [phone] 04/07/2025 9:30 AM EDT Ancillary Procedure [facility] [address] [place] [phone] Health Maintenance Due Date Last Done Comments [...] Depression Screening 07/03/2024 COVID-19 Vaccine ( season) 2025 03/26/2024, 05/15/2023, 07/13/2022, Additional history exists Influenza [...] Diagnost ic Narrative 02/04/2025 5:10 PM EDT [facility] DEPARTMENT [address] [place] [address], [id number], [place] [address] TEL: FAX: Type of test: 24 hour Holter Monitor Date of test: 02/03/25 Ordering provider: Jose Licona NP Reason for Test: Paroxysmal Atrial Fibrillation [employer]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[employer] Findings: 1: Atrial Fibrillation/ Flutter noted throughout [...] been called adjustments were made to medications Nick Henry MD FACC FACP us Serge Licona NP [facility] PROCEDU RES Final Result * ECG 12 lead (12/10/2024 8:37 AM EDT) Pathologist [facility] Ventricular Rate ECG 57 BPM GEMUSE Atrial Rate 57 BPM GEMUSE P-R Interval 130 ms GEMUSE QRS Duration 90 ms GEMUSE Q-T Interval 450 ms GEMUSE QTc 438 ms GEMUSE P Wave [place] 54 degrees GEMUSE R [place] 89 degrees GEMUSE T [place] 63 degrees GEMUSE ECG Interpretation Sinus bradycardia Otherwise normal ECG When compared with ECG of 02-OCT-2013 09:30, Nonspecific T wave abnormality no longer evident in Inferior leads T wave amplitude has increased in Anterolateral leads Confirmed by Annmarie HENRY JAMES ([id number]) on 12/10/2024 3:36:23 PM GEMUSE 12/10/2024 8:37 AM EDT 12/10/2024 3:36 PM EDT us Nick Henry MD ECG ORDERABLES Final Result GEMUSE from Last 3 Months Insurance MEDICARE [facility] Care Teams Bologna Maker Relationship Specialty Start Date End Date Jose Frausto MD [address] [place] [phone] PCP - General Cardiology 03/06/25
[2025-03-11 14:07] LABS: Free T4 (Free Thyroxine) 1.15 ng/dL (0.71-1.85); Thyroid Stimulating Hormone 0.39 uIU/mL (0.32-4.0)
== END 2025-03-11 11:17 | disposition home or self-care (01) ==
LOC: HO.HMGCLDS 11:16
PROVIDERS: PCP Internal Medicine; Visit Provider Internal Medicine
DX: E03.9 Hypothyroidism, unspecified (principal)
CPT/HCPCS: 36415; 84439; 84443; 86376

== ENCOUNTER 2025-03-13 09:47 | Outpatient (AMB) | payer MEDICARE, SELFPAY ==
--- OUTSIDE RECORDS SUMMARY | 2025-02-04 05:15 | XMS_ITS ---
Author Organization [facility] [address] Address [address] [place] [address] Care Team Providers Care Certified Lactation Educator Name Role Phone SHANEL NUÑEZ Primary Care Provider Unav ailable DENIZ DIAS Unavailable [phone] Encounters Encounter Location Date Provider Diagnosis [facility] [address] [place] [address] 02/04/2025 DENIZ DIAS Plan Of Treatment Next Appt Details Provider Name:DENIZ DIAS , 04/10/2025 10:00:00 AM, [address], [address], [place], [address], Progress Notes * MEGAN GARCIA RISHIADOB:[birth year] (64 yo F)Acc No.[id number]:02/04/2025 Patient: MEGAN MOSES Provider: Cosmo DIAS :1960 A ge:64 Y S ex:Female Date:02/04/2025 Address:[address] [place] [address] [place] [facility] Pcp:SHANEL NUÑEZ Subjective: * Chief Complaints: * * Medical History: Objective: * Vitals: Assessment: Plan: * Treatment: * Images: Billing Information: * Visit Code: * Procedure Codes: * Electronic signature of MARYJANE DIAS PA-C, [id number] on 03/13/2025 at 11:36 AM EDT Sign off status: Pending * Provider: Cosmo DIAS Date: 0 02/04/2025 Generated for Printi ng/Faxing/eTransmitting on: 0 03/13/2025 11:36 AM EDT
--- NOTE | 2025-03-13 09:51 | MHC.OFFVIS ---
Vital Signs 03/13/25 09:54 Height 5 ft 6.57 in Weight 207 lb 10.807 oz BMI 32.9 BP 116/64 Blood Pressure Location Rt brachial Position Sitting Pulse 64 Pulse Source Pulse Oximeter Pulse Oximetry (%) 96 Oxygen Delivery Method Room Air Intake Visit Reasons: Osteoporosis f/u Evenity #11 Intake Note: Patient present today for Osteoporosis follow up and Evenity injection. Take Out Waiter Required: No Accompanied by: Self / Same As Patient Allergies levofloxacin (Levaquin) Allergy (Unknown, Verified 03/13/25 09:55) hives Sulfa (Sulfonamide Antibiotics) Allergy (Unknown, Verified 03/13/25 09:55) itchy, hives sulfamethoxazole (From Bactrim) Allergy (Unknown, Verified 03/13/25 09:55) itchy, hives Tetanus Vaccines and Toxoid Allergy (Unknown, Verified 03/13/25 09:55) convulsion trimethoprim (From Bactrim) Allergy (Unknown, Verified 03/13/25 09:55) itchy, hives codeine cough syrup Allergy (Unknown, Uncoded 03/13/25 09:55) hives zpack Adverse Reaction (Unknown, Uncoded 03/13/25 09:55) vomiting Medication List - Last Reconciled 03/13/25 by Angel Winters MD apixaban (Eliquis) 5 mg PO BID cholecalciferol (vitamin D3) 50 mcg PO DAILY escitalopram oxalate 10 mg PO DAILY gabapentin 600 mg (2 x 300 mg) PO ONCE 30 days MDD 600mg Levoxyl (levothyroxine) 100 mcg PO Q2D NS Levoxyl (levothyroxine) 88 mcg PO Q2D 90 days NS lorazepam 1 mg PO BEDTIME PRN melatonin 3 mg PO BEDTIME PRN 3 months MDD 3mg metoprolol tartrate 50 mg PO BID romosozumab-aqqg (Evenity) 210 mg (2.34 mL) subcut .q month zolpidem 5 mg PO BEDTIME PRN HPI Comments Details: 64 YO Female is seen in consultation at the request of PCP for Osteoporosis. First diagnosed in Jul 2023 . Received treatment in the past with Boniva , 1 mo several yrs ago . Could not Tolerated treatment because of GERD No history of pathologic fracture or ONJ. Has several servings of dietary calcium per day in the form of cheese , ice cream . Not Takes Calcium supplement . Takes 2000 IU of Vitamin D daily. Takes PPI intermittedly , anticoagulant, antiepileptic or glucocorticoid medication. Not Does weight bearing exercise Fracture history: No Height loss: No PROVIDER RELATIONS SPECIALIST history: menarche at age 12 - menopause at age 48 Denies history of Kidney stones: Denies family history of Osteoporosis or hip fracture. UTD on dental cleanings and sees dentist every 6 months. No planned upcoming dental work or extractions. No smoking DXA dated 07/27/23 :FINDINGS: AP SPINE L1-L4: Current: BMD 0.768 g/cm2, Z-score -2.5, T-score -3.4, osteoporosis, 11.1% decrease from previous, 14.9% decrease from baseline (<5% change is not significant). Prior: BMD 0.864 g/cm2. Baseline: BMD 0.902 g/cm2. LEFT FEMUR, NECK: Current: BMD 0.778 g/cm2, Z-score -0.8, T-score -1.9, osteopenia. Prior: BMD 0.808 g/cm2. Baseline: BMD 0.876 g/cm2. LEFT FEMUR, TOTAL: Current: BMD 0.776 g/cm2, Z-score -1.1, T-score -1.8, osteopenia, 1.4% decrease from previous, 10.3% decrease from baseline (<5% change is not significant). Prior: BMD 0.787 g/cm2. Baseline: BMD 0.865 g/cm2. IDENTIFIED RISK FACTORS: Menopause. HISTORY OF FRACTURE: None listed. MEDICATIONS: Vitamin D. MM/XR DEXA axial skeleton IMPRESSION: 1. DIAGNOSIS: Osteoporosis based on the lowest T-score value of -3.4 in the lumbar spine applying World Health Organization criteria. Labs: Secondary workup was negative Currently on Evenity injection # 11. Tolerating the Evenity nicely The patient is a 64-year-old female presenting with osteoporosis management. She is currently receiving her 11th injection for osteoporosis treatment and is due for a bone density test in July. The bone density has been very low, and there is a consideration to transition to Prolia, which is administered every six months. The patient has a history of atrial fibrillation, which was attributed to thyroid dysfunction. Her thyroid levels were recently checked and found to be normal, with a TSH level of 0.39. 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 [facility] Medical History Obesity (BMI 30.0-34.9) Restless legs syndrome (RLS) Sleep paralysis Insomnia Snoring Hypersomnia Seasonal allergies Recurrent isolated sleep paralysis Cervical radiculopathy due to degenerative joint disease of spine Depression with anxiety Degenerative disc disease, cervical Anxiety with flying Cervicalgia Hair loss Dysphagia Chronic insomnia Fatigue Dyslipidemia Essential hypertension Postmenopause Atrophic vaginitis Paroxysmal atrial fibrillation Osteoporosis Acquired hypothyroidism Surgical History History of prior ablation treatment Family History Father Hx of CABG Craig's palsy Thyroid disorder Myocardial infarction Mother HTN (hypertension) Hypothyroidism Sister Hypothyroidism Multiple sclerosis Pancreatic cancer Breast cancer Brother No problems noted. Brother No problems noted. Brother No problems noted. Sister Substance use disorder Sister No problems noted. Son No problems noted. Social History Housing: House Alcohol intake: current Patient Tobacco Use Status: Never used Tobacco e-Cigarette/Vaping Use: Never Used service: No Current occupational status: retired Cognitive needs: No Hearing needs: No Vision needs: Yes Physical Exam Vital Signs: Last Vital Signs Pulse 64 03/13/25 09:54 BP 116/64 03/13/25 09:54 Pulse Ox 96 03/13/25 09:54 Oxygen Delivery Method Room Air 03/13/25 09:54 BMI result Body Mass Index 32.9 Office Meds romosozumab-aqqg 210 mg/2.34 mL(105 mg/1.17 mL x2)subcutaneous syringe Performing Provider: Angel Winters MD Performing Location: [facility] Endocrinology Administered by: Marielena Shine RN on 03/13/25 10:28 Dose Route Admin Location Dispensed Lot Number Expiration Date NDC Equal Opportunity Representative 210 mg subcut bilateral upper arms 2.34 mL [id number] 04/01/27 45989-299-55 [employer] Total Dispensed Waste 2.34 mL 0 % Comments: No adverse reactions reported from previous injection. Pt tolerated injection well. Pt scheduled in 4 weeks for next appt. No further questions at this time. Assessment & Plan Assessment & Plan (1) Osteoporosis: Code(s): M81.0 - Age-related osteoporosis without current pathological fracture Category: Medical Qualifiers: Osteoporosis type: age-related Presence of current pathological fracture: without current pathological fracture Qualified Code(s): M81.0 - Age-related osteoporosis without current pathological fracture Plan: . This is a 64-year-old white female with a history of osteoporosis. Secondary workup was negative. Currently on Evenity for 11 months Plan is to continue the Evenity for full 1 year course which will be proceeded by anti resorptive agent most likely Prolia with 1st injection in 2 months 1. Osteoporosis The patient is currently receiving her 11th injection for osteoporosis treatment. A bone density test is scheduled for July to assess the current status. Transition to Prolia is considered, which requires blood work prior to administration to monitor calcium levels due to potential side effects. The patient had an opportunity to ask questions regarding treatment plan. The patient expressed understanding and agreement with the above treatment plan. Patient was informed and verbally consented to the use of an ambient scribe for clinic note documentation during this visit. Orders: Orders Basic Metabolic Panel Fasting 2 Months M81.0 - Age-related osteoporosis without current pathological fracture Calcium 2 Months M81.0 - Age-related osteoporosis without current pathological fracture Albumin Level 2 Months M81.0 - Age-related osteoporosis without current pathological fracture AMB Romosozumab Injection Patient Supplied Today M81.0 - Age-related osteoporosis without current pathological fracture XR DEXA axial skeleton 4 Months M81.0 - Age-related osteoporosis without current pathological fracture Coding Level of Care Code Est Pt Level 3 (11014) Diagnoses Age-related osteoporosis without current pathological fracture M81.0 Osteoporosis type: age-related Presence of current pathological fracture: without current pathological fracture
[2025-03-13 09:54] VITALS: BP 116/64; PULSE 64; O2SAT 96; BMI 32.9
--- OUTSIDE RECORDS SUMMARY | 2025-03-13 11:36 | XMS_ITS | Clinical Summary ---
Author Organization [facility] [employer] Address [address] [place] [address] Phone Care Team Providers Care Nursing Officer Name Role Phone Jose Frausto MD Primary Care Provider [phone] Allergies Active Allergy Reactions Criticality Noted Date Comments Azithromycin 11/04/2020 Diphtheria, Pertussis, Tetanus Vaccine 11/04/2020 Levofloxacin 11/04/2020 Eaqqykvei-Kwzavdnhv-Tswjrvo 11/05/19 21 Sulfa (Sulfonamide Antibiotics) 10/2020 Tetanus [...] has history of paroxysmal atrial fibrillation. Her [id number]-VQQh score is 2 representing a 2.2% risk [...] 02/03/2025 8:30 AM EDT Ancillary Procedure [facility] - [address] [place] [address] Paroxysmal atrial fibrillation (CMS/[facility] V24, CMS/HCC V28) 01/27/2025 Telephone [facility] - [address] [place] [address] Nick Henry MD from Last 3 Months Surgical History Surgery [...] Info) Description 03/24/2025 11:10 AM EDT Consult [facility] - [address] [facility] [address] [place] [phone] Jose Frausto MD [address] [place] [address] Dr [address] [place] [phone] 04/07/2025 9:30 AM EDT Ancillary Procedure [facility] - [address] [place] [phone] Health Maintenance Due Date Last Done Comments [...] Paroxysmal atrial fibrillation (CMS/HCC V24, CMS/HCC V28) from Last 3 Months Results * CARDIAC HOLTER MONITOR (REPORT GENERATED IN HOUSE) (02/03/2025 8:35 AM EDT) Anatomical Region Laterality Modality Cardiac Diagnost ic Narrative 02/04/2025 5:[address] 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
--- OUTSIDE RECORDS SUMMARY | 2025-03-13 11:36 | XMS_ITS | Patient Health Record ---
Author Organization [facility] [address] Address [address] [place] [address] Care Team Providers Care Order Entry Administrator Name Role Phone SHANEL NUÑEZ Primary Care Provider Dodie DENIZ Flores Unavailable [phone] Allergies No Known Allergies Reason For Referral [...] Status Risk Notes Problem Abnormal blood pressure (13437700) Encounter for examination of blood pressure with abnormal findings (Z01.31) Active confirmed Problem Restless legs syndrome (12245947) Restless leg syndrome (G25.81) Active confirmed Problem BMI 30+ - obesity (241101735) BMI 32.0-32.9,adult (Z68.32) Active confirmed Problem Adult-onset obesity (863103571) Adult-onset obesity (E66.9) Active confirmed Problem Osteoporosis (62915977) Osteoporosis (M81.0) Active confirmed Problem Atrial fibrillation (32485073) Atrial fibrillation (I48.91) Active confirmed Vital Signs Heart Rate 57 /min 02/21/2025 Oximetry 97 % 02/21/2025 Blood pressure diastolic 80 mm Hg 02/21/2025 Height 66 in 02/21/2025 Blood pressure systolic 142 mm Hg 02/21/2025 Weight 203 lbs 02/21/2025 BMI 32.76 kg/m2 02/21/2025 Encounters Encounter Location Date Provider Diagnosis [facility] [address] [address] 02/21/2025 DENIZ DIAS Adult-onset obesity E66.9 ; BMI 32.0-32.9,adult Z68.32 ; Atrial fibrillation I48.91 ; Restless leg syndrome G25.81 ; Dinorah thyroiditis E06.3 ; Osteoporosis M81.0 and Encounter for examination of blood pressure with abnormal findings Z01.31 [facility] [address] [facility] [address] [facility] [address] [place] [address] 01/29/2025 DENIZ DIAS [facility] [address] [address] 02/21/2025 DENIZ DIAS Adult-onset obesity E66.9 [facility] [address] [address] 02/26/2025 DENIZ DIAS Assessments Encounter Date Diagnosis [...] Consider using apps like 7 minute excercise, myResolverpal, lose it, stick as needed for self-monitoring and weight management. Consider group exercises. Consider hiring a security trainer. Regular exercise is keita to sustainable health [...] counseling and psychiatry and Dr Patton at [facility]. We would like to cover regular topics [...] Dictation was accomplished with the use of Gamook voice recognition software, prone to medical misidentifications [...] management. Consider group exercises. Consider hiring a security trainer. Regular exercise is keita to sustainable health [...] counseling and psychiatry and Dr Patton at [facility]. We would like to cover regular topics [...] Dictation was accomplished with the use of Gamook voice recognition software, prone to medical misidentifications [...] Consider using apps like 7 minute excercise, GoHealthpal, lose it, stick as needed for self-monitoring and weight management. Consider group exercises. Consider hiring a security trainer. Regular exercise is keita to sustainable health [...] counseling and psychiatry and Dr Patton at [facility]. We would like to cover regular topics [...] Dictation was accomplished with the use of Gamook voice recognition software, prone to medical misidentifications [...] level. Consider using apps like 7 minute exceprettysecretsise, GoHealthpal, lose it, stick as needed for self-monitoring and weight management. Consider group exercises. Consider hiring a security trainer. Regular exercise is keita to sustainable health [...] counseling and psychiatry and Dr Patton at [facility]. We would like to cover regular topics [...] Dominguez). Case discussed with collaborating physician Roldan Domniguez who reviewed the assessment and plan. Chart, medications, labs, vital signs reviewed. Dictation was accomplished with the use of Gamook voice recognition software, prone to medical misidentifications [...] management. Consider group exercises. Consider hiring a security trainer. Regular exercise is keita to sustainable health [...] counseling and psychiatry and Dr Patton at [facility]. We would like to cover regular topics [...] Dictation was accomplished with the use of Gamook voice recognition software, prone to medical misidentifications [...] Consider using apps like 7 minute excercise, GoHealthpal, lose it, stick as needed for self-monitoring and weight management. Consider group exercises. Consider hiring a security trainer. Regular exercise is keita to sustainable health [...] counseling and psychiatry and Dr Patton at [facility]. We would like to cover regular topics [...] Dictation was accomplished with the use of Gamook voice recognition software, prone to medical misidentifications [...] Consider using apps like 7 minute excercise, myResolverpal, lose it, stick as needed for self-monitoring and weight management. Consider group exercises. Consider hiring a security trainer. Regular exercise is keita to sustainable health [...] counseling and psychiatry and Dr Patton at [facility]. We would like to cover regular topics [...] Dictation was accomplished with the use of Gamook voice recognition software, prone to medical misidentifications [...] Name:DENIZ DIAS , 04/10/2025 10:00:00 AM, 299 [facility], [facility] [address], [place], [address], Insurance Providers Payer Name Payer Address Payer Phone Subscriber Number Group Number Insured Name Patient Relationship to Insured Coverage Start Date Coverage End Date Medicare Part B J14 [address] [facility] [place] [id number] MEGAN GARCIA Self - patient is the insured 3 MEDEX [address] [place] [address] [id number] MEGAN GARCIA Self - patient is the insured 3 Medical (General) History Surgical History Surgery Date(Month/Year) shoulder surgery l
== END 2025-03-13 10:27 | disposition home or self-care (01) ==
LOC: HO.ENCR 09:48
PROVIDERS: PCP Internal Medicine; Visit Provider Internal Medicine Endocrinology, Diabetes & Metabolism
DX: M81.0 Age-related osteoporosis without current pathological fracture (principal)

== ENCOUNTER → 2025-03-13 09:47 | Outpatient (BNVA) | payer MEDICARE, SELFPAY | PROVIDERS: PCP Internal Medicine; Visit Provider Internal Medicine Endocrinology, Diabetes & Metabolism | DX: M81.0 Age-related osteoporosis without current pathological fracture (principal) | CPT/HCPCS: 96372; 99212; J3111 ==

== ENCOUNTER 2025-04-07 12:06 | Outpatient (AMB) | payer MEDICARE, SELFPAY ==
--- OUTSIDE RECORDS SUMMARY | 2025-02-04 05:15 | XMS_ITS ---
Author Organization [facility] [address] Address [address] [place] [address] Care Team Providers Care Ada Accommodation Consultant Name Role Phone SHANEL NUÑEZ Primary Care Provider Unav ailable DENIZ DIAS Unavailable [phone] Encounters Encounter Location Date Provider Diagnosis [facility] [address] [place] [address] 02/04/2025 DENIZ DIAS Plan Of Treatment Next Appt Details Provider Name:DENIZ DIAS , 05/26/2025 09:00:00 AM, [address], [address], [place], [address], Progress Notes * MEGAN GARCIA RISHIADOB:[birth year] (65 yo F)Acc No.[id number]:02/04/2025 Patient: MEGAN MOSES Provider: Cosmo DIAS :1960 A ge:64 Y S ex:Female Date:02/04/2025 Address:[address] [place] [address] D[place]ne [facility] Pcp:SHANEL NUÑEZ Subjective: * Chief Complaints: * * Medical History: Objective: * Vitals: Assessment: Plan: * Treatment: * Images: Billing Information: * Visit Code: * Procedure Codes: * Electronic signature of MARYJANE DIAS PA-C, [id number] on 04/07/2025 at 02:33 PM EDT Sign off status: Pending * Provider: Cosmo DIAS Date: 0 02/04/2025 Generated for Printi ng/Faxing/eTransmitting on: 1 02:33 PM EDT
--- OUTSIDE RECORDS SUMMARY | 2025-04-07 09:30 | XMS_ITS | Encounter Summary ---
Author Organization [facility] Address [address] [place] [address] Care Team Providers Care Donation Specialist Name Role Phone Iliana Lopez MD Primary Care Provider [phone] Reason for Visit * Reason Comments 24 Hour Holter Monitor * Cardiac Stress Testing (Routine) - Authorized Specialty Diagnoses / Procedures Referred By Contberta obrien Referred To Contact Cardiology Diagnoses Paroxysmal atrial fibrillation (CMS/HCC V24, CMS/HCC V28) Procedures Cardiac holter monitor (<= 48 hours) OK ECG EXTERNAL UP TO 48 HOURS RECORDING OK ECG EXTERNAL < 48 HOURS CONTINUOUS RECORDING/STORAGE R&I BY A PHYS/QHP OK EXTERNAL ECG UP TO 48 HRS INCL RECORDING SCANNING ANLYS W REPORT Nick Henry MD [address] [place] [address] Dr [address] [place] [phone] Phone: tel: fax: [facility] Referral ID Status Reason Start Date Expiration Date V isits Requested Visits Authorized [id number] Authorized 02/04/2025 02/04/2026 1 1 Encounter Details Date Type Department Care Team (Latest Contact Info) Description 04/07/2025 9:30 AM EDT Ancillary Procedure [facility] - [address] [place] [phone] Paroxysmal atrial fibrillation (CMS/HCC V24, CMS/HCC V28) Social History Tobacco Use Types Packs/Day Years [...] on file documented as of this encounter Plan of Treatment Upcoming Encounters Date Type Department Care Team (Latest Contact Info) Description 05/07/2025 11:30 AM EST Hospital Encounter [facility] Cardiac Secondary Education Professor [address] [place] [address] Jose Frausto MD [address] [place] [address] Paroxysmal atrial fibrillation (CMS/HCC V24, CMS/HCC V28) 05/07/2025 11:30 AM EST - 05/07/2025 1:[address] [facility] Cardiac Secondary Education Professor [address] [place] [address] Jose Frausto MD [address] [address] Ablation Atrial Fibrillation [94751 (CPT )] 06/04/2025 2:40 PM EST Office Visit [facility] - [address] [address] Belle Gilmore NP [address] [address] Pending Results Name Type Priority Associated Diagnoses Date /Time Cardiac holter monitor (<= 48 hours) Cardiac Services Routine Paroxysmal atrial fibrillation (CMS/HCC V24, CMS/HCC V28) 04/07/2025 9:09 AM EDT documented as of this encounter Visit Diagnoses Diagnosis Paroxysmal atrial fibrillation (CMS/HCC V24, CMS/HCC V28)- Primary Atrial fibrillation Paroxysmal atrial fibrillation (CMS/HCC V24, CMS/HCC V28) Atrial fibrillation Paroxysmal atrial fibrillation (CMS/HCC V24, CMS/HCC V28) Atrial fibrillation documented in this encounter Care Teams Donation Specialist Relationship Specialty Start Date End Date Iliana Lopez MD [address] [place] [address] PCP - General Internal Medicine 03/24/25 documented as of this encounter
--- OUTSIDE RECORDS SUMMARY | 2025-04-07 10:00 | XMS_ITS | Encounter Summary ---
Author Organization [facility] Address [address] [place] [address] Care Team Providers Care Health Care Coach Name Role Phone Iliana Lopez MD Primary Care Provider [phone] Reason for Visit * Reason Comments EKG only Encounter Details Date Type Department Care Team (Latest Contact Info) Description 04/07/2025 10:00 AM EDT Clinical Support [facility] - [facility] [address] [facility] [address] [place] [address] Paroxysmal atrial fibrillation (CMS/HCC V24, CMS/HCC V28) (Primary Dx) Social History Tobacco Use Types Packs/Day Years [...] as of this encounter Progress Notes * Heidi Egan MA - 04/07/2025 10:00 AM EDT Patient came in today for a EKG only for transitioning from Propafeone to Flecainide 100mg BID due to extreme nauseuosness. Patient came in with no symptoms and stated she is now back in A-Fib which she was alerted on her Cardia Mobil. EKG was shown to Dr. Frausto as Belle was out the office and he stated the patient is to continue the Flecainide and Metoprolol as her HR is in a good range. Patient was made aware to call if any symptoms occur while continuing the Flecainide. documented in this encounter Plan of Treatment Upcoming Encounters Date Type Department Care Team (Latest Contact Info) Description 05/07/2025 11:30 AM EST Hospital Encounter [facility] Cardiac Electric Crane Operator [address] [place] [phone] Jose Frausto MD [address] [place] [address] Paroxysmal atrial fibrillation (CMS/HCC V24, CMS/HCC V28) 05/07/2025 11:30 AM EST - 05/07/2025 1:30 PM EST Surgery [facility] Cardiac Electric Crane Operator [address] [place] [phone] Jose Frausto MD [address] [place] [address] Ablation Atrial Fibrillation [09102 (CPT )] 06/04/2025 2:40 PM EST Office Visit [facility] - [address] [place] [phone] Belle Gilmore NP [address] [place] [phone] Pending Results Name Type Priority Associated Diagnoses Date /Time ECG 12 lead ECG Routine Paroxysmal atrial fibrillation (CMS/HCC V24, CMS/HCC V28) 04/07/2025 9:49 AM EDT documented as of this encounter Procedures Procedure Name Priority Date/Time Associated Diagnosis Comments ECG 12-LEAD Routine 04/07/2025 9:49 AM EDT Paroxysmal atrial fibrillation (CMS/HCC V24, CMS/HCC V28) documented in this encounter Visit Diagnoses Diagnosis Paroxysmal atrial fibrillation (CMS/HCC V24, CMS/HCC V28)- Primary Atrial fibrillation Paroxysmal atrial fibrillation (CMS/HCC V24, CMS/HCC V28)- Primary Atrial fibrillation Paroxysmal atrial fibrillation ([facility] V24, [facility] V28) Atrial fibrillation documented in this encounter Care Teams Health Care Coach Relationship Specialty Start Date End Date Iliana Lopez MD [address] [facility] [place] [address] PCP - General Internal Medicine 03/24/25 documented as of this encounter
--- OUTSIDE RECORDS SUMMARY | 2025-04-07 14:34 | XMS_ITS | Clinical Summary ---
Author Organization [facility] [employer] Address [address] [facility] [place] [address] Phone Care Team Providers Care Tree Topper Name Role Phone Iliana Lopez MD Primary Care Provider [phone] Allergies Active Allergy Reactions Criticality Noted Date Comments Azithromycin 11/04/2020 Diphtheria, Pertussis, Tetanus Vaccine 11/04/2020 Levofloxacin 11/04/2020 Gbwixjtrk-Kxkmjkqet-Whbcsfx 11/05/19 21 Sulfa (Sulfonamide Antibiotics) 10/2020 Tetanus [...] year Active levothyroxine (SYNTHROID, LEVOTHROID) 100 mcg tabletIndicatio ns:Hypothyroidi sm due to Dinorah thyroiditis Take 1 tablet (100 mcg total) by mouth 1 (one) time each day before breakfast. 30 each 02/05/20 25 026 Active metoprolol tartrate (LOPRESSOR) 50 mg tabletIndicatio ns:Paroxysmal atrial fibrillation (CMS/HCC V24, CMS/HCC V28) Take 1.5 tablets (75 mg total) by mouth 2 (two) times a day. 270 tablet 3 02/05/20 25 Active gabapentin (NEURONTIN) 300 mg capsule Take 1 capsule (300 mg total) by mouth at bedtime. 03/01/20 25 Active LevoxyL 88 mcg tablet Take 0.88 mcg by mouth. Every other day 03/13/20 25 Active flecainide (TAMBOCOR) 100 mg tablet Take 1 tablet (100 mg total) by mouth every 12 (twelve) hours. 60 tablet 11 04/03/20 25 026 Active escitalopram (LEXAPRO) 5 mg tablet Take 1 tablet (5 mg total) by mouth 1 (one) time each day. 025 Discontinued(Do se adjustment) propafenone (RYTHMOL) 225 mg tablet Take 1 tablet (225 mg total) by mouth every 8 (eight) hours. 180 tablet 3 03/24/20 025 Discontinued Active Problems Problem Noted Date [...] continue on her metoprolol. Assessment & Plan (03/24/2025 11:56 AM EDT): Elevated blood pressure on today's visit. She is currently on metoprolol which I will continue. She will pursue efforts at weight loss and monitor her blood pressure on a lower sodium diet. I would have a low threshold to use an ARB. Assessment & Plan (12/10/2024 5:15 PM EDT): History of hypertension on medical management Orders: ECG 12 lead Paroxysmal atrial fibrillation ([facility] V24, CMS /[facility] V28) 11/04/2020 Overview (07/24/2024): Last Assessment & Plan: Patient has history of paroxysmal atrial fibrillation. Her [id number] score is 2 representing a 2.2% risk for thromboembolism. She meets criteria for anticoagulation. Discussed her risk of stroke and that aspirin would not adequately protect her. We discussed options and patient is agreeable to starting Eliquis 5 mg twice daily. I prescribed this for her today. Stop aspirin. Assessment & Plan (03/24/2025 11:56 AM EDT): This delightful 65-year-old female has paroxysmal atrial fibrillation with a very high atrial fibrillation burden is over 93% on her Holter monitor. She has had a week or 2 where she is in sinus rhythm and feels much better and then can be frequently in A-fib with palpitations and dyspnea. We talked about pharmacologic approach to rhythm control as well as repeat ablation and we ultimately decided to do both starting her on propafenone to be added to her current metoprolol medication. We went through the small risks of drug related side effects and proarrhythmia. We are going to repeat the ablation with a mapping of pulmonary veins and using PFA to reisolate the veins in her posterior wall as needed. I did support potentially using a GIP GLP inhibitor to lose weight. I encouraged healthy diet and minimization of alcohol. Assessment & Plan (12/10/2024 5:15 PM EDT): Patient with a history of paroxysmal atrial fibrillation remains chronically anticoagulated Orders: ECG 12 lead Encounters Date Type Department Care Team Description 04/07/2025 10:00 AM EDT Clinical Support [facility] Cardiology [facility] [address] [place] [address] Paroxysmal atrial fibrillation (CMS/HCC V24, CMS/HCC V28) (Primary Dx) 04/07/2025 9:30 AM EDT Ancillary Procedure [facility] [address] [place] [address] Paroxysmal atrial fibrillation (CMS/HCC V24, CMS/HCC V28) 03/27/2025 Telephone [facility] [address] [place] [address] William Frausto MD 03/24/2025 11:10 AM EDT Consult [facility] [address] [place] [address] William Frausto MD Paroxysmal atrial fibrillation (CMS/HCC V24, CMS/HCC V28) (Primary Dx); Essential hypertension 02/03/2025 8:30 AM EDT Ancillary Procedure [facility] [address] [place] [address] Paroxysmal atrial fibrillation (CMS/HCC V24, CMS/HCC V28) 01/27/2025 Telephone [facility] Cardiology [facility] [place] [address] [place] [phone] Nick Henry MD from Last 3 Months [...] Sign Reading Time Taken Comments Blood Pressure 126/82 03/24/2025 11:01 AM EDT Pulse 58 03/24/2025 11:01 AM EDT Temperature - - Respiratory Rate - - Oxygen Saturation 98% 03/24/2025 11:01 AM EDT Inhaled Oxygen Concentration - - Weight 94.8 kg (209 lb) 03/24/2025 11:01 AM EDT Height 167.6 cm (5' 6 ) 03/24/2025 11:01 AM EDT Body Mass Index 33.73 03/24/2025 11:01 AM EDT Plan of Treatment Upcoming Encounters Date Type Department Care Team (Latest Contact Info) Description 05/07/2025 11:30 AM EST Hospital Encounter [facility] Cardiac Occupational Safety And Health Manager [address] [place] [phone] William Frausto MD [address] [address] Paroxysmal atrial fibrillation (CMS/HCC V24, CMS/HCC V28) 05/07/2025 11:30 AM EST - 05/07/2025 1:30 PM EST Surgery [facility] Cardiac Occupational Safety And Health Manager [address] [place] [phone] William Frausto MD [address] [address] Ablation Atrial Fibrillation [91034 (CPT )] 06/04/2025 2:40 PM EST Office Visit [facility] - [address] [place] [address] Belle Gilmore NP [address] [place] [phone] Health Maintenance Due Date Last Done Comments [...] (CMS/HCC V24, CMS/HCC V28) ECG 12-LEAD Routine 03/24/2025 11:57 AM EDT Paroxysmal atrial fibrillation (CMS/HCC V24, CMS/HCC V28) CARDIAC HOLTER MONITOR (REPORT GENERATED IN HOUSE) Routine 02/03/2025 8:35 AM EDT Paroxysmal atrial fibrillation (CMS/HCC V24, CMS/HCC V28) from Last 3 Months Results * ECG 12 lead (03/24/2025 11:57 AM EDT) Ventricular Rate ECG 58 BPM GEMUSE Atrial Rate 58 BPM GEMUSE P-R Interval 124 ms GEMUSE QRS Duration 82 ms GEMUSE Q-T Interval 460 ms GEMUSE QTc 451 ms GEMUSE P Wave Lignum 45 degrees GEMUSE R Lignum 86 degrees GEMUSE T Lignum 78 degrees GEMUSE ECG Interpretation Sinus bradycardia Otherwise normal ECG When compared with ECG of 10-DEC-2024 08:37, No significant change was found Confirmed by Annmarie FRAUSTO, WILLIAM ([id number]) on 03/27/2025 1:40:12 PM GEMUSE 03/24/2025 11:1 0 AM EDT 03/27/2025 1:40 PM EDT us William Frausto MD ECG ORDERABLES Edited Result - Final GEMUSE * CARDIAC HOLTER MONITOR (REPORT GENERATED IN HOUSE) (02/03/2025 8:35 AM EDT) Anatomical Region Laterality Modality Cardiac Diagnost ic Narrative 02/04/2025 5:10 PM EDT [facility] DI[facility]ST[facility]ING DEPARTMENT 300 [facility], [id number], [place] [address] TEL: FAX: Type of test: 24 hour Holter Monitor Date of test: 02/03/25 Ordering provider: William Licona NP Reason for Test: Paroxysmal Atrial Fibrillation [employer]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
--- OUTSIDE RECORDS SUMMARY | 2025-04-07 14:34 | XMS_ITS | Patient Health Record ---
Author Organization [facility] [address] Address [address] [place] [address] Care Team Providers Care Seat Installer Name Role Phone SHANEL NUÑEZ Primary Care Provider Dodie DENIZ Flores Unavailable [phone] Allergies No Known Allergies Reason For Referral [...] utaneous weekly; Duration: 28 days 03/04/2025 Active Zepbound 5 MG/0.5ML Inject 5 mg (0.5ml) Subcutaneous once weekly; Duration: 30 days 03/24/2025 Active Gabapentin 300 MG 1 capsule Orally Once a day; Duration: 30 days Restless leg Active Evenity 105 MG/1.17ML Subcutaneous; Dura tion: 28 Days Active Problems Problem Type SNOMED Code ICD Code Onset Dates Problem Status W/U Status Risk Notes Problem Abnormal blood pressure (80859104) Encounter for examination of blood pressure with abnormal findings (Z01.31) Active confirmed Problem Restless legs syndrome (83704676) Restless leg syndrome (G25.81) Active confirmed Problem BMI 30+ - obesity (301448849) BMI 32.0-32.9,adult (Z68.32) Active confirmed Problem Adult-onset obesity (901676228) Adult-onset obesity (E66.9) Active confirmed Problem Osteoporosis (91529785) Osteoporosis (M81.0) Active confirmed Problem Atrial fibrillation (79820770) Atrial fibrillation (I48.91) Active confirmed Vital Signs Heart Rate 57 /min 02/21/2025 Oximetry 97 % 02/21/2025 Blood pressure diastolic 80 mm Hg 02/21/2025 Height 66 in 02/21/2025 Blood pressure systolic 142 mm Hg 02/21/2025 Weight 203 lbs 02/21/2025 BMI 32.76 kg/m2 02/21/2025 Encounters Encounter Location Date Provider Diagnosis [facility] [address] 02/21/2025 DENIZ LARISSA Adult-onset obesity E66.9 ; BMI 32.0-32.9,adult Z68.32 ; Atrial fibrillation I48.91 ; Restless leg syndrome G25.81 ; Dinorah thyroiditis E06.3 ; Osteoporosis M81.0 and Encounter for examination of blood pressure with abnormal findings Z01.31 [facility] [address] [address] 01/29/2025 DENIZ BIRKS [facility] [address] 02/21/2025 DENIZ LARISSA Adult-onset obesity E66.9 [facility] [address] [address] 02/26/20[address] BIRKS [facility] [address] [place] [address] 03/24/2025 DENIZ BIRKS [facility] [address] 04/04/2025 DENIZ BIRKS [facility] [address] 04/07/2025 DENIZ DIAS Assessments Encounter Date Diagnosis (ICD [...] Consider using apps like 7 minute excercise, myMaicoinnesspal, lose it, stick as needed for self-monitoring and weight management. Consider group exercises. Consider hiring a regional trainer. Regular exercise is keita to sustainable [...] counseling and psychiatry and Dr Patton at [employer]. We would like to cover regular topics [...] Dictation was accomplished with the use of Wakozi voice recognition software, prone to medical misidentifications [...] management. Consider group exercises. Consider hiring a regional trainer. Regular exercise is keita to sustainable [...] counseling and psychiatry and Dr Patton at [employer]. We would like to cover regular topics [...] Dictation was accomplished with the use of [employer]i voice recognition software, prone to medical misidentifications [...] Consider using apps like 7 minute excercise, myCaring.compal, lose it, stick as needed for self-monitoring and weight management. Consider group exercises. Consider hiring a regional trainer. Regular exercise is keita to sustainable [...] counseling and psychiatry and Dr Patton at [employer]. We would like to cover regular topics [...] Dictation was accomplished with the use of [employer]i voice recognition software, prone to medical misidentifications [...] books called The Food Rules by Shmuel Pollen and Eat Fat Get Lean by Dr [...] management. Consider group exercises. Consider hiring a regional trainer. Regular exercise is keita to sustainable [...] counseling and psychiatry and Dr Patton at [employer]. We would like to cover regular topics [...] Dictation was accomplished with the use of W[employer]ozi voice recognition software, prone to medical misidentifications [...] Consider using apps like 7 minute excercise, [facility] System[facility], lose it, stick as needed for self-monitoring and weight management. Consider group exercises. Consider hiring a regional trainer. Regular exercise is keita to sustainable [...] counseling and psychiatry and Dr Patton at [employer]. We would like to cover regular topics [...] Dictation was accomplished with the use of Wakozi voice recognition software, prone to medical misidentifications [...] Consider using apps like 7 minute excercise, Genophennesspal, lose it, stick as needed for self-monitoring and weight management. Consider group exercises. Consider hiring a regional trainer. Regular exercise is keita to sustainable [...] counseling and psychiatry and Dr Patton at [employer]. We would like to cover regular topics [...] Dictation was accomplished with the use of W[employer]i voice recognition software, prone to medical misidentifications [...] level. Consider using apps like 7 minute exceCyActiveise, [facility] Healthcare Systemspal, lose it, stick as needed for self-monitoring and weight management. Consider group exercises. Consider hiring a regional trainer. Regular exercise is keita to sustainable [...] counseling and psychiatry and Dr Patton at [employer]. We would like to cover regular topics [...] Dictation was accomplished with the use of Wakozi voice recognition software, prone to medical misidentifications [...] Name:DENIZ DIAS , 05/26/2025 09:00:00 AM, [address] [facility], [facility], [place], [address], Insurance Providers Payer Name Payer Address Payer Phone Subscriber Number Group Number Insured Name Patient Relationship to Insured Coverage Start Date Coverage End Date Medicare Part B J14 [address] [place] [address] [id number] MEGAN GARCIA Self - patient is the insured 3 MEDEX [address] [place] [address] [id number] MEGAN GARCIA Self - patient is the insured 3 Medical (General) History Surgical History Surgery Date(Month/Year) shoulder surgery l
--- OUTSIDE RECORDS SUMMARY | 2025-04-07 14:34 | XMS_ITS | Encounter Summary ---
Author Organization [facility] Address [address] [place] [address] Care Team Providers Care Solutions Specialist Name Role Phone Iliana Lopez MD Primary Care Provider [phone] Reason for Visit * Reason Onset Date Comments Procedure 03/27/2025 PFA Afib Ablatio n 11.5.25 Encounter Details Date Type Department Care Team (Late st Contact Info) Description 03/27/2025 Telephone [facility] [address] [facility] [address] [place] [phone] Jose Frausto MD 300 [facility] [address] [place] [address] Social History Tobacco Use Types Packs/Day Years [...] on file documented as of this encounter Ordered Prescriptions Prescription Sig Dispense Quantity Refills Last Filled Start Date End Date flecainide (TAMBOCOR) 100 mg tablet Take 1 tablet (100 mg total) by mouth every 12 (twelve) hours. 60 tablet 11 04/03/2025 04/03/2026 documented in this encounter Progress Notes * Ambar Celis RN - 04/03/2025 10:27 AM EDT Spoke w/pt w/SL's recommendations. Pt wrote down instructions and repeated back instructions correctly. Booked EKG for 04/07/25 @ 10:00 after Holter monitor placement. Ok w/LB. Add-on email sent. * Belle Gilmore NP - 04/03/2025 10:12 AM EDTAddended by: BELLE GILMORE on: 04/03/2025 10:12 AM Modules accepted: Orders * Belle Gilmore NP - 04/03/2025 10:11 AM EDT Will transition patient from propafenone to flecainide, prescription for 100 mg twice daily was sent to her pharmacy. I would ask that she stop the propafenone on Monday, begin flecainide on Monday and schedule her to come in for an EKG on Monday, thank you! * Lakia Sorenson - 03/27/2025 1:45 PM EDT Spoke with patient about procedure. Scheduled on 05.07.[address] Frausto at [facility] at 1130am Mailing packet to patient today Packet mailed to patient includes instructions with medications, follow-up, lab orders, pre/post procedural care, my direct number and pamphlet for procedure Confirmed address on file Arrival time 1030am Bloodwork to be done within 30 days of and or at least a week before procedure at any lab of choice, *[facility], [facility] or [facility]* (Labs are not fasting) - ATTACHED TO PACKET (3 papers stapled together) Medication instructions are to hold: ELIQUIS morning of procedure Packet instructs the patient if they start any new medications to call the office. It may need special instructions to avoid any cancellations You can take all your regular morning medications with some water These instructions are given verbal and written and understood Patient aware of importance of NOT missing any anticoagulation for 4 weeks. - if you do call us to reschedule do not wait to arrive at procedure date. Patient is made aware in office visit as well as in packet that in order to successfully have they're AFIB Ablation. they have to be taking they're blood thinner 30 days before and 60 days after uninterrupted. Any elective procedures before and after ablation like dental work or elective surgeries need to be consulted with our office. This avoids any high risks of stroke or other serious complications. They are notified to call our office. Patient aware if they do NOT follow these instructions or show up to procedure they will have to berescheduled to next available which could take up to 6 to 10 weeks. Patient will have to be fasting from midnight night before procedure. Patient made aware that they will need to make arrangements for transportation to procedure and upon discharge at the hospital - no ride will means they will cancel procedure Patient is to report to [facility] to the 3rd floor - Elevator near Patient Registration Patient agreed to all instructions and date, time and location above via phone Case Request sent documented in this encounter Plan of Treatment Upcoming Encounters Date Type Department Care Team (Latest Contact Info) Description 05/07/2025 11:30 AM EST Hospital Encounter [facility] Cardiac Wheel Adjuster [address] [place] [address] Jose Frausto MD [address] [address] Paroxysmal atrial fibrillation (CMS/HCC V24, CMS/HCC V28) 05/07/2025 11:30 AM EST - 05/07/2025 1:30 PM EST Surgery [facility] Cardiac Wheel Adjuster [address] [place] [address] Jose Frausto MD [address] [address] Ablation Atrial Fibrillation [90017 (CPT )] 06/04/2025 2:40 PM EST Office Visit [facility] [address] [place] [phone] Belle Gilmore NP [address] [place] [phone] Scheduled Orders Name Type Priority Associated Diagnoses Orde r Schedule Complete blood count Lab Routine Paroxysmal atrial fibrillation ([facility] V24, [facility] V28) 1 Occurrences starting 03/27/2025 until 03/27/2026 Prothrombin time with INR Lab Routine Paroxysmal atrial fibrillation ([facility] V24, [facility] V28) 1 Occurrences starting 03/27/2025 until 03/27/2026 Basic metabolic panel Lab Routine Paroxysmal atrial fibrillation ([facility] V24, [facility] V28) 1 Occurrences starting 03/27/2025 until 03/27/2026 documented as of this encounter Visit Diagnoses Diagnosis Paroxysmal atrial fibrillation ([facility] V24, [facility] V28)- Primary Atrial fibrillation Paroxysmal atrial fibrillation ([facility] V24, [facility] V28)- Primary Atrial fibrillation Paroxysmal atrial fibrillation ([facility] V24, [facility] V28) Atrial fibrillation documented in this encounter Discontinued Medications Medication Sig Discontinue Reason Start Date End Da te propafenone (RYTHMOL) 225 mg tablet Take 1 tablet (225 mg total) by mouth every 8 (eight) hours. 03/24/2025 04/03/2025 documented as of this encounter Care Teams Solutions Specialist Relationship Specialty Start Date End Date Iliana Lopez MD [address] [place] [address] PCP - General Internal Medicine 03/24/25 documented as of this encounter
== END 2025-04-07 12:28 | disposition home or self-care (01) ==
LOC: HO.HMGAL 12:06
PROVIDERS: PCP Internal Medicine; Visit Provider Registered Nurse Emergency
DX: J30.89 Other allergic rhinitis (principal)
CPT/HCPCS: 95117; 95165

== ENCOUNTER 2025-04-09 08:19 | Outpatient (AMB) | payer MEDICARE, SELFPAY ==
--- NOTE | 2025-04-09 08:45 | AM.OFFVISNUR ---
Intake Visit Reasons: Evenity #12 Allergies levofloxacin (Levaquin) Allergy (Unknown, Verified 03/13/25 09:55) hives Sulfa (Sulfonamide Antibiotics) Allergy (Unknown, Verified 03/13/25 09:55) itchy, hives sulfamethoxazole (From Bactrim) Allergy (Unknown, Verified 03/13/25 09:55) itchy, hives Tetanus Vaccines and Toxoid Allergy (Unknown, Verified 03/13/25 09:55) convulsion trimethoprim (From Bactrim) Allergy (Unknown, Verified 03/13/25 09:55) itchy, hives codeine cough syrup Allergy (Unknown, Uncoded 03/13/25 09:55) hives zpack Adverse Reaction (Unknown, Uncoded 03/13/25 09:55) vomiting Office Meds romosozumab-aqqg 210 mg/2.34 mL(105 mg/1.17 mL x2)subcutaneous syringe Performing Provider: Angel Winters MD Performing Location: [facility] Administered by: Marielena Shine RN on 04/09/25 08:45 Dose Route Admin Location Dispensed Lot Number Expiration Date [facility] [employer] 210 mg subcut bilateral upper arms 2.34 mL [id number] 06/01/27 36232-713-41 [employer] Total Dispensed Waste 2.34 mL 0 % Comments: No adverse reactions reported from previous injection. Pt tolerated injection well. Pt scheduled in about 4 weeks for first prolia injection. No further questions at this time. Assessment & Plan Assessment & Plan Orders: Orders AMB Romosozumab Injection Patient Supplied Today M81.0 - Age-related osteoporosis without current pathological fracture Coding
== END 2025-04-09 08:42 | disposition home or self-care (01) ==
LOC: HO.ENCR 08:20
PROVIDERS: PCP Internal Medicine; Visit Provider Internal Medicine Endocrinology, Diabetes & Metabolism
DX: M81.0 Age-related osteoporosis without current pathological fracture (principal)

== ENCOUNTER → 2025-04-09 08:19 | Outpatient (BNVA) | payer MEDICARE, SELFPAY | PROVIDERS: PCP Internal Medicine; Visit Provider Internal Medicine Endocrinology, Diabetes & Metabolism | DX: M81.0 Age-related osteoporosis without current pathological fracture (principal); Z79.620 Long term (current) use of immunosuppressive biologic | CPT/HCPCS: 96372; J3111 ==

== ENCOUNTER 2025-04-16 08:16 | Outpatient (AMB) | payer MEDICARE, SELFPAY ==
--- OUTSIDE RECORDS SUMMARY | 2025-02-04 05:15 | XMS_ITS ---
Author Organization [facility] [address] Address [address] [place] [address] Care Team Providers Care Food Consultant Name Role Phone SHANEL NUÑEZ Primary Care Provider Unav ailable DENIZ DIAS Unavailable [phone] Encounters Encounter Location Date Provider Diagnosis [facility] [address] [place] [address] 02/04/2025 DENIZ DIAS Plan Of Treatment Next Appt Details Provider Name:DENIZ DIAS , 05/26/2025 09:00:00 AM, [address], [address], [place], [address], Progress Notes * MEGAN GARCIA RISHIADOB:[birth year] (65 yo F)Acc No.[id number]:02/04/2025 Patient: MEGAN MOSES Provider: Cosmo DIAS :1960 A ge:64 Y S ex:Female Date:02/04/2025 Address:[address] [place] [address] [place] [facility] Pcp:SHANEL NUÑEZ Subjective: * Chief Complaints: * * Medical History: Objective: * Vitals: Assessment: Plan: * Treatment: * Images: Billing Information: * Visit Code: * Procedure Codes: * Electronic signature of MARYJANE DIAS PA-C, [id number] on 04/16/2025 at 08:35 AM EDT Sign off status: Pending * Provider: Cosmo DIAS Date: 0 02/04/2025 Generated for Printi ng/Faxing/eTransmitting on: 1 08:35 AM EDT
[2025-04-16 08:28] VITALS: BP 140/80; PULSE 56
--- NOTE | 2025-04-16 08:28 | A.OFFVIS_ITS ---
Vital Signs 04/16/25 08:28 Height 5 ft 6 in BP 140/80 H Blood Pressure Location Rt brachial Position Sitting Pulse 56 Pulse Source Pulse Oximeter Intake Visit Reasons: follow up Intake Note: Compliance requested Wharfmaster Required: No Accompanied by: Self / Same As Patient Allergies levofloxacin (Levaquin) Allergy (Unknown, Verified 04/16/25 08:30) hives Sulfa (Sulfonamide Antibiotics) Allergy (Unknown, Verified 04/16/25 08:30) itchy, hives sulfamethoxazole (From Bactrim) Allergy (Unknown, Verified 04/16/25 08:30) itchy, hives Tetanus Vaccines and Toxoid Allergy (Unknown, Verified 04/16/25 08:30) convulsion trimethoprim (From Bactrim) Allergy (Unknown, Verified 04/16/25 08:30) itchy, hives codeine cough syrup Allergy (Unknown, Uncoded 03/13/25 09:55) hives zpack Adverse Reaction (Unknown, Uncoded 03/13/25 09:55) vomiting HPI Comments Details: 65y/o female with Afib presents for evaluation of Insomnia and Restless leg syndrome. HST AHI c/w AHI <2 and oxygen Nadirs to 82%. 07/15/2024 PSG c/w AHI 2 oxygen Bharathi 87%, REM AHI is 14 with periodic limb movements, few associated with arousals. WILLIS Compliance Requested. She washes her mask, rinses hoses and changes filters. She continues to have difficulty falling asleep and staying asleep after her bathroom breaks at night usually 2x / night. She wakes up choking and gasping for air, her mouth gets very dry at night and she takes a sip of water. She goes to bed around 10pm tosses and turns until 2am, and her legs bother, she can't relax, moves into a separate room and will fall asleep in colder temperatures. She wakes up fatigued. She denies napping through the day. She has vivid dreams. She has sleep paralysis occasionally and she pulls the cover over her head denies h/o childhood trauma. Denies migraines. She has occipital neuralgia, with shooting pain from occipital lobe to the L. ear, lasts seconds, she moves her head and it goes away. She wears a neck-brace at night to sleep. She is pending a nerve ablation consult with pain management, currently she gets nerve blocks and this improves the pain for one day. She has vertigo spontaneously in bed, denies n/v, vision and gait impairment. Meclizine doesn't help her symptoms much. She has Gill maneuvers with her chiropractor, as needed. RLS symptoms syndrome, PSG shows she does have frequent movements of the limbs. She still has bilateral numbness, tingling and burning in legs with continued discomfort through the night, and it does improve when she moves her legs. She denies cramps and spasms which cause her to wake up at night. Her mood is good, diet is poor and she is seeing weight management/ director strategic planning at [facility] and we discussed walking daily for 30 min. Memory is stable. [facility] Medical History Low ferritin Obesity (BMI 30.0-34.9) Restless legs syndrome (RLS) Sleep paralysis Insomnia Snoring Hypersomnia Seasonal allergies Recurrent isolated sleep paralysis Cervical radiculopathy due to degenerative joint disease of spine Depression with anxiety Degenerative disc disease, cervical Anxiety with flying Cervicalgia Hair loss Dysphagia Chronic insomnia Fatigue Dyslipidemia Essential hypertension Postmenopause Atrophic vaginitis Paroxysmal atrial fibrillation Osteoporosis Acquired hypothyroidism Surgical History History of prior ablation treatment Family History Father Hx of CABG Craig's palsy Thyroid disorder Myocardial infarction Mother HTN (hypertension) Hypothyroidism Sister Hypothyroidism Multiple sclerosis Pancreatic cancer Breast cancer Brother No problems noted. Brother No problems noted. Brother No problems noted. Sister Substance use disorder Sister No problems noted. Son No problems noted. Social History Housing: House Alcohol intake: current Patient Tobacco Use Status: Never used Tobacco e-Cigarette/Vaping Use: Never Used service: No Current occupational status: retired Cognitive needs: No Hearing needs: No Vision needs: Yes Physical Exam Vital Signs: Last Vital Signs Pulse 56 04/16/25 08:28 BP 140/80 H 10/15/25 08:28 Const Orientation/consciousness: patient oriented x3 Eyes Pupils: Equal, round and reactive pupils present Neuro General: patient oriented x3 and moves all extremities Cranial nerves: Yes CN's II-XII intact bilaterally, Yes Facial sensation intact/muscles of mastication intact, Yes Equal, round and reactive pupils present, Yes Normal accommodation reflex present, Yes Bilaterally intact EOM present, Yes Normal facial strength present, Yes Midline tongue present, Yes Ability to bilaterally rotate head present (pain on Ext and Flexion) and Yes Ability to bilaterally elevate shoulders present Cognition (Neuro): normal cognition Gait exam (Neuro): Normal gait present Motor exam (neuro): 5/5 motor strength present throughout and Normal motor muscle tone present throughout Psych Appearance: grossly normal Mental Status: mental status grossly normal Thought process: Normal thought process present Thought content: Normal thought content present Results Reviewed Results Reviewed: WILLIS compliance is requested Assessment & Plan Assessment & Plan (1) Chronic insomnia: Comment: Melatonin 3 mg po and she has ambien. Code(s): F51.04 - Psychophysiologic insomnia Category: Medical (2) Periodic limb movements of sleep: Code(s): G47.61 - Periodic limb movement disorder Category: Medical (3) Lumbosacral spondylosis: Comment: EMG?NCS? in future? radiculopathy- treatment would not change. Code(s): M47.817 - Spondylosis without myelopathy or radiculopathy, lumbosacral region Category: Medical Qualifiers: Spinal osteoarthritis complication: with radiculopathy Qualified Code(s): M47.27 - Other spondylosis with radiculopathy, lumbosacral region (4) Restless legs syndrome (RLS): Comment: gabapentin 600mg po at bedtime Code(s): G25.81 - Restless legs syndrome Category: Medical (5) Hypersomnia: Code(s): G47.10 - Hypersomnia, unspecified Category: Medical (6) Insomnia: Code(s): G47.00 - Insomnia, unspecified Category: Medical Qualifiers: Insomnia type: psychophysiologic Qualified Code(s): F51.04 - Psychophysiologic insomnia (7) Sleep paralysis: Code(s): G47.8 - Other sleep disorders Category: Medical Plan Insomnia PSG - Completed on Jul 14, 2024 - no evidence of WILLIS, continue melatonin 3mg po daily 3 hours from bedtime. Continue Ambien 5mg po daily at night may alternate as needed with melatonin every other night. RLS / PLMD continue gabapentin 300mg po BID daily at bedtime Vestibular Neuritis Layrinthitis continue chiropractor visits for gill maneuvers, and occipital blocks with pain management prn. Will F/U in 3 months for cpap compliance. Medications: New ferrous sulfate 325mg po daily at bedtime 325 mg PO DAILY 90 tabs 3RF anemia 3 months MDD 65mg G47.61 - Periodic limb movement disorder, R79.0 - Abnormal level of blood mineral Refilled melatonin take one 3mg capsule 3 hours prior to bedtime for insomnia. 3 mg PO BEDTIME PRN 90 caps 0RF sleep 3 months MDD 3mg F51.04 - Psychophysiologic insomnia Patient Instructions: Sleep Hygiene provided: set a scheduled bedtime and wake time to help regulate the circadian rhythm and balance the release of pituitary hormones. Sleep in a dark room, temperatures below 68 degrees, and no devices n bed. Limit caffeinated products 6 hours prior to bed, and limit fluids 2-4 hours prior to bed. Gentle night yoga, diffusing essential oils, and playing soft music can be relaxing. Coding Level of Care Code Est Pt Level 4 (32621) Diagnoses Chronic insomnia F51.04 Periodic limb movements of sleep G47.61 Osteoarthritis of spine with radiculopathy, lumbosacral region M47.27 Spinal osteoarthritis complication: with radiculopathy Restless legs syndrome (RLS) G25.81 Hypersomnia G47.10 Psychophysiological insomnia F51.04 Insomnia type: psychophysiologic Sleep paralysis G47.8
--- OUTSIDE RECORDS SUMMARY | 2025-04-16 08:35 | XMS_ITS | Clinical Summary ---
Author Organization [facility] Repair Report Address [address] [place] [address] Phone Care Team Providers Care Accountant Bookkeeper Name Role Phone Iliana Lopez MD Primary Care Provider [phone] Allergies Active Allergy Reactions Criticality Noted Date Comments Azithromycin 11/04/2020 Diphtheria, Pertussis, Tetanus Vaccine 11/04/2020 Levofloxacin 11/04/2020 Rbkdniqjp-Wdgjqivgb-Onymqws 11/05/19 21 Sulfa (Sulfonamide Antibiotics) 10/2020 Tetanus [...] Orders: ECG 12 lead Paroxysmal atrial fibrillation ([facility] V24, CMS /[facility] V28) 11/04/2020 Overview (07/24/2024): Last Assessment & Plan: Patient has history of paroxysmal atrial fibrillation. Her [id number] score is 2 representing a 2.2% risk [...] Description 04/07/2025 10:00 AM EDT Clinical Support [facility] - [address] [place] [address] Paroxysmal atrial fibrillation (CMS/HCC V24, CMS/HCC V28) (Primary Dx) 04/07/2025 9:30 AM EDT Ancillary Procedure [facility] - [address] [place] [address] Paroxysmal atrial fibrillation (CMS/HCC V24, CMS/HCC V28) 03/27/2025 Telephone [facility] - [address] [place] [address] Jose Frausto MD 03/24/2025 11:10 AM EDT Consult [facility] - [address] [place] [address] Jose Frausto MD Paroxysmal atrial fibrillation (CMS/HCC V24, CMS/HCC V28) (Primary Dx); Essential hypertension 02/03/2025 8:30 AM EDT Ancillary Procedure [facility] - [address] [place] [address] Paroxysmal atrial fibrillation (CMS/HCC V24, CMS/HCC V28) 01/27/2025 Telephone [facility] [place] [address] [place] [phone] Nick Henry MD from Last 3 Months [...] 05/07/2025 11:30 AM EST Hospital Encounter [facility] Cardiac Site Leasing Agent [address] [place] [phone] Jose Frausto MD [address] [address] Paroxysmal atrial fibrillation (CMS/HCC V24, CMS/HCC V28) 05/07/2025 11:30 AM EST - 05/07/2025 1:30 PM EST Surgery [facility] Cardiac Site Leasing Agent [address] [place] [phone] Jose Frausto MD [address] [address] Ablation Atrial Fibrillation [06993 (CPT )] 06/04/2025 2:40 PM EST Office Visit [facility] - [address] [place] [address] Belle Gilmore NP [address] [place] [phone] Health Maintenance Due Date Last Done Comments [...] HOLTER MONITOR (REPORT GENERATED IN HOUSE) Routine 04/07/2025 9:09 AM EDT Paroxysmal atrial fibrillation (CMS/HCC V24, CMS/HCC V28) ECG 12-LEAD Routine 03/24/2025 11:57 AM EDT Paroxysmal atrial fibrillation (CMS/HCC V24, CMS/HCC V28) CARDIAC HOLTER MONITOR (REPORT GENERATED IN HOUSE) Routine 02/03/2025 8:35 AM EDT Paroxysmal atrial fibrillation (CMS/HCC V24, CMS/HCC V28) from Last 3 Months Results * ECG 12 lead (04/07/2025 9:49 AM EDT) Only the most recent of2 resultswithin the time period is included. Ventricular Rate ECG 88 BPM GEMUSE Atrial Rate 220 BPM GEMUSE QRS Duration 100 ms GEMUSE Q-T Interval 368 ms GEMUSE QTc 445 ms GEMUSE R Cascade 99 degrees GEMUSE T Cascade 68 degrees GEMUSE ECG Interpretation Atrial flutter with variable A-V block Rightward axis Nonspecific ST abnormality Abnormal ECG When compared with ECG of 24-MAR-2025 11:10, Atrial fibrillation has replaced NSR Confirmed by Annmarie FRAUSTO JOHN ([id number]) on 04/11/2025 8:07:42 AM GEMUSE 04/07/2025 9:49 AM EDT 04/11/2025 8:07 AM EDT Belle Gilmore [employer]BER ECG ORDERABLES Final Result GEMUSE * CARDIAC HOLTER MONITOR (REPORT GENERATED IN HOUSE) (04/07/2025 9:09 AM EDT) Anatomical Region Laterality Modality Cardiac Diagnost ic Narrative 04/13/2025 1:13 PM EDT [facility] DIAGNOSTIC TESTING DEPARTMENT [address] [facility], [place] [address] TEL: FAX: Type of test: 24 hour Holter Monitor Date of test: 04/07/25 Ordering provider: Nick Henry MD Reason for Test: Paroxysmal Atrial Fibrillation [employer] Associate Findings: 1: Atrial Fibrillation/ Flutter noted from beginning of recording until 11:42 pm. Normal Sinus Rhythm/ Sinus Bradycardia noted for the remainder of the recording period. Total time in AFib/Flutter was 14 hrs 26 mins. 2: Heart rate range was 46 bpm (Sinus)- 141 bpm (Atrial Flutter) with an average of 85 bpm. 3: Rare PACs with a few atrial pairs. Rare PVCs with one couplet. 4: No pauses noted. Longest R-R 1.8 sec during conversion from Atrial Flutter to Sinus Rhythm. 5: Diary returned with palpitations and SOB noted on stairs. No specific time given for EKG correlation. Patient also noted not really feeling any discomfort, just a fast heartbeat. By the morning, heartbeat back to normal . Impression: Paroxysmal atrial fibrillation with no significant pauses. Fairly decent rate control. Patient is anticoagulated Nick Henry MD FACC FACP us Nick Henry MD [facility] CARDIAC SERVICES PROCEDURES Final Result * CARDIAC HOLTER MONITOR (REPORT GENERATED IN HOUSE) (02/03/2025 8:35 AM EDT) Anatomical Region Laterality Modality Cardiac Diagnost ic Narrative 02/04/2025 5:10 PM EDT [facility] DIAGNOSTIC TESTING DEPARTMENT [address] [facility], [address] [address] TEL: FAX: Type of test: 24 hour Holter Monitor Date of test: 02/03/25 Ordering provider: Jose Licona NP Reason for Test: Paroxysmal Atrial Fibrillation [employer] Associate Findings: 1: Atrial Fibrillation/ Flutter noted throughout [...] Result from Last 3 Months Insurance MEDICARE [facility] Care Teams Accountant Bookkeeper Relationship Specialty Start Date End Date Iliana Lopez MD [address] [facility] [place] [address] PCP - General Internal Medicine 03/24/25
--- OUTSIDE RECORDS SUMMARY | 2025-04-16 08:36 | XMS_ITS | Patient Health Record ---
Author Organization [facility] [address] Address [address] [place] [address] Care Team Providers Care Fitter Tacker Name Role Phone SHANEL NUÑEZ Primary Care Provider Dodie DENIZ Flores Unavailable [phone] Allergies No Known Allergies Reason For Referral [...] Status Risk Notes Problem Abnormal blood pressure (46862821) Encounter for examination of blood pressure with abnormal findings (Z01.31) Active confirmed Problem Restless legs syndrome (73547384) Restless leg syndrome (G25.81) Active confirmed Problem BMI 30+ - obesity (935381310) BMI 32.0-32.9,adult (Z68.32) Active confirmed Problem Adult-onset obesity (429724084) Adult-onset obesity (E66.9) Active confirmed Problem Osteoporosis (45080712) Osteoporosis (M81.0) Active confirmed Problem Atrial fibrillation (26150783) Atrial fibrillation (I48.91) Active confirmed Vital Signs Heart Rate 57 /min 02/21/2025 Oximetry 97 % 02/21/2025 Blood pressure diastolic 80 mm Hg 02/21/2025 Height 66 in 02/21/2025 Blood pressure systolic 142 mm Hg 02/21/2025 Weight 203 lbs 02/21/2025 BMI 32.76 kg/m2 02/21/2025 Encounters Encounter Location Date Provider Diagnosis [facility] [address] 02/21/2025 DENIZ LARISSA Adult-onset obesity E66.9 ; BMI 32.0-32.9,adult Z68.32 ; Atrial fibrillation I48.91 ; Restless leg syndrome G25.81 ; Dinorah thyroiditis E06.3 ; Osteoporosis M81.0 and Encounter for examination of blood pressure with abnormal findings Z01.31 [facility] [address] [address] 01/29/2025 DENIZ BIRKS [facility] [address] 02/21/2025 DENIZ LARISSA Adult-onset obesity E66.9 [facility] [address] [address] 02/26/20[address] BIRKS [facility] [address] [place] [address] 03/24/2025 DENIZ BIRKS [facility] [address] 04/04/2025 DENIZ BIRKS [facility] [address] 04/07/2025 DENIZ DIAS Assessments Encounter Date [...] Consider using apps like 7 minute excercise, myDesign Within Reachnesspal, lose it, stick as needed for self-monitoring and weight management. Consider group exercises. Consider hiring a labor trainer. Regular exercise is keita to sustainable [...] counseling and psychiatry and Dr Patton at [facility]. We would like to cover regular topics [...] Dictation was accomplished with the use of [employer] voice recognition software, prone to medical misidentifications [...] management. Consider group exercises. Consider hiring a labor trainer. Regular exercise is keita to sustainable [...] counseling and psychiatry and Dr Patton at [facility]. We would like to cover regular topics [...] Dictation was accomplished with the use of [employer] voice recognition software, prone to medical misidentifications [...] Consider using apps like 7 minute excercise, myAppleTreeBookpal, lose it, stick as needed for self-monitoring and weight management. Consider group exercises. Consider hiring a labor trainer. Regular exercise is keita to sustainable [...] counseling and psychiatry and Dr Patton at [facility]. We would like to cover regular topics [...] Dictation was accomplished with the use of [employer] voice recognition software, prone to medical misidentifications [...] management. Consider group exercises. Consider hiring a labor trainer. Regular exercise is keita to sustainable [...] counseling and psychiatry and Dr Patton at [facility]. We would like to cover regular topics [...] Dictation was accomplished with the use of [employer] voice recognition software, prone to medical misidentifications [...] Consider using apps like 7 minute excercise, OncoStem Diagnosticspal, lose it, stick as needed for self-monitoring and weight management. Consider group exercises. Consider hiring a labor trainer. Regular exercise is keita to sustainable [...] counseling and psychiatry and Dr Patton at [facility]. We would like to cover regular topics [...] Dictation was accomplished with the use of [employer] voice recognition software, prone to medical misidentifications [...] Consider using apps like 7 minute excercise, Ventarionesspal, lose it, stick as needed for self-monitoring and weight management. Consider group exercises. Consider hiring a labor trainer. Regular exercise is keita to sustainable [...] counseling and psychiatry and Dr Patton at [facility]. We would like to cover regular topics [...] Dictation was accomplished with the use of [employer] voice recognition software, prone to medical misidentifications [...] level. Consider using apps like 7 minute excebeBetter Healthise, OncoStem Diagnosticspal, lose it, stick as needed for self-monitoring and weight management. Consider group exercises. Consider hiring a labor trainer. Regular exercise is keita to sustainable [...] counseling and psychiatry and Dr Patton at [facility]. We would like to cover regular topics [...] Dictation was accomplished with the use of [employer] voice recognition software, prone to medical misidentifications [...] Name:DENIZ DIAS , 05/26/2025 09:00:00 AM, [address] [facility], [facility], [place], [address], Insurance Providers Payer Name Payer Address Payer Phone Subscriber Number Group Number Insured Name Patient Relationship to Insured Coverage Start Date Coverage End Date Medicare Part B J14 [address] [place] [address] [id number] MEGAN GARCIA Self - patient is the insured 3 MEDEX [address] [place] [address] [phone] [id number] MEGAN GARCIA Self - patient is the insured 3 Medical (General) History Surgical History Surgery Date(Month/Year) shoulder surgery l
== END 2025-04-16 09:10 | disposition home or self-care (01) ==
LOC: HO.HSMC 08:16
PROVIDERS: PCP Internal Medicine; Visit Provider Physician Assistant Medical
DX: F51.04 Psychophysiologic insomnia (principal); G47.61 Periodic limb movement disorder; M47.27 Other spondylosis with radiculopathy, lumbosacral region; G25.81 Restless legs syndrome; G47.10 Hypersomnia, unspecified; G47.8 Other sleep disorders
CPT/HCPCS: 99214

== ENCOUNTER → 2025-04-16 08:16 | Outpatient (BNVA) | payer MEDICARE, SELFPAY | PROVIDERS: PCP Internal Medicine; Visit Provider Physician Assistant Medical | DX: F51.04 Psychophysiologic insomnia (principal); G47.61 Periodic limb movement disorder; G25.81 Restless legs syndrome; G47.10 Hypersomnia, unspecified; G47.8 Other sleep disorders; M47.27 Other spondylosis with radiculopathy, lumbosacral region | CPT/HCPCS: 99212 ==

== ENCOUNTER 2025-05-06 09:21 | Outpatient (REF) | payer MEDICARE, SELFPAY ==
--- OUTSIDE RECORDS SUMMARY | 2025-02-04 04:15 | XMS_ITS ---
Author Organization [facility] [address] Address [address] [place] [address] Care Team Providers Care Graduating Machine Operator Name Role Phone SHANEL NUÑEZ Primary Care Provider Unav ailable DENIZ DIAS Unavailable [phone] Encounters Encounter Location Date Provider Diagnosis [facility] [address] [place] [address] 02/04/2025 DENIZ DIAS Plan Of Treatment Next Appt Details Provider Name:DENIZ DIAS , 05/26/2025 09:00:00 AM, [address], [address], [place], [address], Progress Notes * MEGAN GARCIA RISHIADOB:[birth year] (65 yo F)Acc No.[id number]:02/04/2025 Patient: MEGAN MOSES Provider: Cosmo DIAS :1960 A ge:64 Y S ex:Female Date:02/04/2025 Address:[address] [place] [address] [place] [facility] Pcp:SHANEL NUÑEZ Subjective: * Chief Complaints: * * Medical History: Objective: * Vitals: Assessment: Plan: * Treatment: * Images: Billing Information: * Visit Code: * Procedure Codes: * Electronic signature of MARYJANE DIAS PA-C, [id number] on 05/06/2025 at 10:17 AM EST Sign off status: Pending * Provider: Cosmo DIAS Date: 0 02/04/2025 Generated for Printi ng/Fasamirg/eTransmitting on: 1 07/06/2024 10:17 AM EST
--- OUTSIDE RECORDS SUMMARY | 2025-05-06 10:17 | XMS_ITS | Encounter Summary ---
Author Organization [facility] Address [address] [place] [address] Care Team Providers Care Locomotive Switch Operator Name Role Phone Iliana Lopez MD Primary Care Provider [phone] Reason for Visit * Reason Onset Date Comments Ablation 05/05/2025 Encounter Details Date Type Department Care Team (Late st Contact Info) Description 05/05/2025 Telephone [facility] - [facility] [address] [facility] [address] [place] [address] Jose Frausto MD [address] [place] [address] [place] [phone] Social History Tobacco Use Types Packs/Day Years [...] on file Sexual Orientation Not on file Travel History Travel Start Travel End [facility] 04/28/2025 05/01/2025 documented as of this encounter Progress Notes * Angella Table - 05/05/2025 8:05 AM EST Patient called and stated that she is supposed to have an ablation done on 05/07. She said she has acold, and is not sure if she should cancel or reschedule. Patient would like a call back after 3:00today at [phone]. documented in this encounter Plan of Treatment Upcoming Encounters Date Type Department Care Team (Latest Contact Info) Description 05/07/2025 11:30 AM EST Hospital Encounter [facility] Cardiac Siding Coreboard Inspector [address] [place] [phone] Jose Frausto MD [address] [place] [address] Dr Rahman [address] [place] [address] Paroxysmal atrial fibrillation (CMS/HCC V24, CMS/HCC V28) 05/07/2025 11:30 AM EST - 05/07/2025 1:30 PM EST Surgery [facility] Cardiac Siding Coreboard Inspector [address] [place] [phone] Jose Frausto MD [address] [place] [address] Dr Rahman [address] [place] [address] Ablation Atrial Fibrillation [43000 (CPT )] 06/04/2025 2:40 PM EST Office Visit [facility] - [address] [place] [address] Belle Gilmore NP [address] [place] [address] Dr Rahman [address] [place] [address] documented as of this encounter Visit Diagnoses Not on filedocumented in this encounter Care Teams Locomotive Switch Operator Relationship Specialty Start Date End Date Iliana Lopez MD [address] [place] [address] PCP - General Internal Medicine 03/24/25 documented as of this encounter
--- OUTSIDE RECORDS SUMMARY | 2025-05-06 10:18 | XMS_ITS | Patient Health Record ---
Author Organization [facility] [address] Address [address] [place] [address] Care Team Providers Care Surveillance Specialist Name Role Phone SHANEL NUÑEZ Primary Care Provider Dodie DENIZ Flores Unavailable [phone] Allergies No Known Allergies Reason For Referral [...] Status Risk Notes Problem Abnormal blood pressure (76981610) Encounter for examination of blood pressure with abnormal findings (Z01.31) Active confirmed Problem Restless legs syndrome (20270685) Restless leg syndrome (G25.81) Active confirmed Problem BMI 30+ - obesity (463576792) BMI 32.0-32.9,adult (Z68.32) Active confirmed Problem Adult-onset obesity (281489919) Adult-onset obesity (E66.9) Active confirmed Problem Osteoporosis (29470888) Osteoporosis (M81.0) Active confirmed Problem Atrial fibrillation (98598369) Atrial fibrillation (I48.91) Active confirmed Vital Signs Heart Rate 57 /min 02/21/2025 Oximetry 97 % 02/21/2025 Blood pressure diastolic 80 mm Hg 02/21/2025 Height 66 in 02/21/2025 Blood pressure systolic 142 mm Hg 02/21/2025 Weight 203 lbs 02/21/2025 BMI 32.76 kg/m2 02/21/2025 Encounters Encounter Location Date Provider Diagnosis [facility] [address] 02/21/2025 DENIZ BIRKS Adult-onset obesity E66.9 ; BMI 32.0-32.9,adult Z68.32 ; Atrial fibrillation I48.91 ; Restless leg syndrome G25.81 ; Dinorah thyroiditis E06.3 ; Osteoporosis M81.0 and Encounter for examination of blood pressure with abnormal findings Z01.31 [facility] [address] [address] 01/29/2025 DENIZ BIRKS [facility] [address] [address] 02/21/2025 DENIZ BIRKS Adult-onset obesity E66.9 [facility] [address] [address] 02/26/2025 DENIZ BIRKS [facility] [address] [place] [address] 03/24/2025 DENIZ BIRKS [facility] [address] [address] 04/04/2025 DENIZ BIRKS [facility] [address] [address] 04/07/2025 DENIZ BIRKS [facility] [address] 04/16/2025 DENIZ DIAS Assessments Encounter Date Diagnosis (ICD [...] Consider using apps like 7 minute excercise, myfitLocPlanetpal, lose it, stick as needed for self-monitoring and weight management. Consider group exercises. Consider hiring a associate trainer. Regular exercise is keita to sustainable [...] counseling and psychiatry and Dr Patton at [employer]. We would like to cover regular topics [...] Dictation was accomplished with the use of [employer] voice recognition software, prone to medical misidentifications [...] Consider using apps like 7 minute excercise, myMuxlimpal, lose it, stick as needed for self-monitoring and weight management. Consider group exercises. Consider hiring a associate trainer. Regular exercise is keita to sustainable [...] counseling and psychiatry and Dr Patton at [employer]. We would like to cover regular topics [...] Dictation was accomplished with the use of [employer] voice recognition software, prone to medical misidentifications [...] Consider using apps like 7 minute excercise, myMuxlimpal, lose it, stick as needed for self-monitoring and weight management. Consider group exercises. Consider hiring a associate trainer. Regular exercise is keita to sustainable [...] counseling and psychiatry and Dr Patton at [employer]. We would like to cover regular topics [...] Dictation was accomplished with the use of [employer] voice recognition software, prone to medical misidentifications [...] management. Consider group exercises. Consider hiring a associate trainer. Regular exercise is keita to sustainable [...] counseling and psychiatry and Dr Patton at [employer]. We would like to cover regular topics [...] Dictation was accomplished with the use of [employer] voice recognition software, prone to medical misidentifications [...] Consider using apps like 7 minute excercise, myMuxlimpal, lose it, stick as needed for self-monitoring and weight management. Consider group exercises. Consider hiring a associate trainer. Regular exercise is keita to sustainable [...] counseling and psychiatry and Dr Patton at [employer]. We would like to cover regular topics [...] Dictation was accomplished with the use of [employer] voice recognition software, prone to medical misidentifications [...] Consider using apps like 7 minute excercise, [employer], lose it, stick as needed for self-monitoring and weight management. Consider group exercises. Consider hiring a associate trainer. Regular exercise is keita to sustainable [...] counseling and psychiatry and Dr Patton at [employer]. We would like to cover regular topics [...] Dictation was accomplished with the use of [employer] voice recognition software, prone to medical misidentifications [...] Consider using apps like 7 minute excercise, myMuxlimpal, lose it, stick as needed for self-monitoring and weight management. Consider group exercises. Consider hiring a associate trainer. Regular exercise is keita to sustainable [...] counseling and psychiatry and Dr Patton at [employer]. We would like to cover regular topics [...] Dictation was accomplished with the use of [employer] voice recognition software, prone to medical misidentifications [...] Name:DENIZ DIAS , 05/26/2025 09:00:00 AM, [address] [facility], [facility] [address], [place], [address], Insurance Providers Payer Name Payer Address Payer Phone Subscriber Number Group Number Insured Name Patient Relationship to Insured Coverage Start Date Coverage End Date Medicare Part B J14 [address] [place] [address] [id number] MEGAN GARCIA Self - patient is the insured 3 MEDEX [address] [place] [address] [id number] MEGAN GARCIA Self - patient is the insured 3 Medical (General) History Surgical History Surgery Date(Month/Year) shoulder surgery l
--- OUTSIDE RECORDS SUMMARY | 2025-05-06 10:18 | XMS_ITS | Clinical Summary ---
Author Organization [facility] Address [address] [facility] [place] [address] Phone Care Team Providers Care [facility] [employer] [employer] Name Role Phone Iliana Lopez MD Primary Care Provider [phone] Allergies Active Allergy Reactions Criticality Noted Date Comments Azithromycin 11/04/2020 Diphtheria, Pertussis, Tetanus Vaccine 11/04/2020 Levofloxacin 11/04/2020 Jdnirzhtf-Pqrliwyxe-Efuysoz 11/05/19 21 Sulfa (Sulfonamide Antibiotics) 10/2020 Tetanus [...] time each day before breakfast. 30 each 5 02/05/20 26 Active metoprolol tartrate (LOPRESSOR) 50 mg tabletIndications :Paroxysmal atrial fibrillation (CMS/HCC V24, CMS/HCC V28) Take 1.5 tablets (75 mg total) by mouth 2 (two) times a day. 270 tablet 3 5 Active gabapentin (NEURONTIN) 300 mg capsule Take 1 capsule (300 mg total) by mouth at bedtime. 5 Active LevoxyL 88 mcg tablet Take 0.88 mcg by mouth. Every other day Active flecainide (TAMBOCOR) 100 mg tablet Take 1 tablet (100 mg total) by mouth every 12 (twelve) hours. 60 tablet 11 5 04/03/20 26 Active Active Problems Problem Noted Date Diagnosed [...] Orders: ECG 12 lead Paroxysmal atrial fibrillation (CMS/[facility] V24, CMS /HCC V28) 11/04/2020 Overview (07/24/2024): Last Assessment & Plan: Patient has history of paroxysmal atrial fibrillation. Her [id number] score is 2 representing a 2.2% risk [...] Encounters Date Type Department Care Team Description 05/05/2025 Telephone [facility] - [address] [place] [address] Jose Frausto MD 04/07/2025 10:00 AM EDT Clinical Support [facility] - [address] [place] [address] Paroxysmal atrial fibrillation (CMS/HCC V24, CMS/HCC V28) (Primary Dx) 04/07/2025 9:30 AM EDT Ancillary Procedure [facility] [address] [place] [address] Paroxysmal atrial fibrillation (CMS/HCC V24, CMS/HCC V28) 03/27/2025 Telephone [facility] - [address] [place] [address] Jose Frausto MD 03/24/2025 11:10 AM EDT Consult [facility] - [address] [place] [address] Jose Frausto MD Paroxysmal atrial fibrillation (CMS/HCC V24, CMS/HCC V28) (Primary Dx); Essential hypertension 02/03/2025 8:30 AM EDT Ancillary Procedure [facility] - [address] [place] [address] Paroxysmal atrial fibrillation (CMS/HCC V24, CMS/HCC V28) from Last 3 Months Surgical History Surgery [...] file Travel History Travel Start Travel End [facility] 04/28/2025 05/01/2025 Obstetrics History Last Filed Vital Signs Vital [...] 05/07/2025 11:30 AM EST Hospital Encounter [facility] Super[address] [place] [phone] Jose Frausto MD [address] [place] [address] Dr Rahman [address] [place] [phone] Paroxysmal atrial fibrillation (CMS/HCC V24, CMS/HCC V28) 05/07/2025 11:30 AM EST - 05/07/2025 1:[address] [facility] Card[facility] Supervisor [address] [place] [phone] Jose Frausto MD [address] [place] [address] Dr Rahman [address] [place] [phone] Ablation Atrial Fibrillation [51568 (CPT )] 06/04/2025 2:40 PM EST Office Visit [facility] - [address] [place] [phone] Belle Gilmore, LETY [address] [place] [address] [place] [address] Health Maintenance Due Date Last Done Comments [...] Procedure Name Priority Date/Time Associated Diagnosis Comments EXTERNAL CLINICAL LAB Routine 04/18/2025 2:11 PM EDT ECG 12-LEAD Routine 04/07/2025 9:49 AM EDT [...] V28) from Last 3 Months Results * External clinical lab (04/18/2025 2:11 PM EDT) Historical Provider MD LAB BLOOD ORDERABLES Edit ed Result - Final * ECG 12 lead (04/07/2025 9:49 AM EDT) Only the most recent of2 resultswithin the time period is included. Ventricular Rate ECG 88 BPM GEMUSE Atrial Rate 220 BPM GEMUSE QRS Duration 100 ms GEMUSE Q-T Interval 368 ms GEMUSE QTc 445 ms GEMUSE R Ethel 99 degrees GEMUSE T Ethel 68 degrees GEMUSE ECG Interpretation Atrial flutter with variable A-V block Rightward axis Nonspecific ST abnormality Abnormal ECG When compared with ECG of 24-MAR-2025 11:10, Atrial fibrillation has replaced NSR Confirmed by Annmarie FRAUSTO JOHN ([id number]) on 04/11/2025 8:07:42 AM GEMUSE 04/07/2025 9:49 AM EDT 04/11/2025 8:07 AM EDT Belle Gilmore NP ECG ORDERABLES Final Result GEMUSE * CARDIAC HOLTER MONITOR (REPORT GENERATED IN HOUSE) (04/07/2025 9:09 AM EDT) Anatomical Region Laterality Modality Cardiac Diagnost ic Narrative 04/13/2025 1:13 PM EDT [facility] CARDIOLOGY [facility] DIAGNOSTIC TESTING DEPARTMENT [address] [place] [address] TEL: FAX: Type of test: 24 hour Holter Monitor Date of test: 04/07/25 Ordering provider: Nick Henry MD Reason for Test: Paroxysmal Atrial Fibrillation PVCA Svp Of Digital Findings: 1: Atrial Fibrillation/ Flutter noted from [...] is anticoagulated Nick Henry MD FACC FACP Nick Henry MD CV CARDIAC SERVICES PROCEDURES Final Result * CARDIAC HOLTER MONITOR (REPORT GENERATED IN HOUSE) (02/03/2025 8:35 AM EDT) Anatomical Region Laterality Modality Cardiac Diagnost ic Narrative 02/04/2025 5:10 PM EDT [facility] CARDIOLOGY [facility] DIAGNOSTIC TESTING DEPARTMENT [address] [place] [address] TEL: FAX: Type of test: 24 hour Holter Monitor Date of test: 02/03/25 Ordering provider: Jose Licona NP Reason for Test: Paroxysmal Atrial Fibrillation PVCA Svp Of Digital Findings: 1: Atrial Fibrillation/ Flutter noted throughout [...] Result from Last 3 Months Insurance MEDICARE [facility] Care Teams [employer] Relationship Specialty Start Date End Date Iliana Lopez MD [address] [place] [address] PCP - General Internal Medicine 03/24/25
[2025-05-06 11:23] LABS: Albumin Level 3.8 g/dL (3.5-5.0); Anion Gap 9 (12-20); Blood Urea Nitrogen 10 mg/dL (9-16); Calcium 8.2 mg/dL (8.4-10.2); Carbon Dioxide 29 mmol/L (22-29); Chloride 108 mmol/L (96-108); Estimated Glomerular Filt Rate 59; Potassium 3.7 mmol/L (3.3-5.1); Sodium 142 mmol/L (135-145)
[2025-05-06 11:39] LABS: Free T4 (Free Thyroxine) 1.13 ng/dL (0.71-1.85)
[2025-05-06 11:41] LABS: Thyroid Stimulating Hormone 1.50 uIU/mL (0.32-4.0)
== END 2025-05-06 09:22 | disposition home or self-care (01) ==
LOC: HO.HMGCLDS 09:21
PROVIDERS: Absent Provider Internal Medicine Endocrinology, Diabetes & Metabolism; PCP Internal Medicine; Visit Provider Internal Medicine
DX: M81.0 Age-related osteoporosis without current pathological fracture (principal); E03.9 Hypothyroidism, unspecified
CPT/HCPCS: 36415; 80048; 82040; 84439; 84443; 84481

== ENCOUNTER 2025-05-12 09:54 | Outpatient (REF) | payer MEDICARE, SELFPAY ==
--- OUTSIDE RECORDS SUMMARY | 2025-05-07 10:09 | XMS_ITS | Encounter Summary ---
Author Organization [facility] Address [address] [place] [address] Care Team Providers Care Emergency Specialist Name Role Phone Iliana Lopez MD Primary Care Provider [phone] Reason for Visit * Auth/Cert (Routine) Specialty Diagnoses / Procedures Referred By Contac t Referred To Contact Diagnoses Paroxysmal atrial fibrillation (CMS/HCC V24, CMS/HCC V28) aFIB Procedures MD EVAL ELECTROPHYSIOLOGIC COMPREHENSIVE TRANSEPTAL CATH Ablation Atrial Fibrillation Jose Frausto MD [address] [place] [address] Dr Rahman [address] [place] [phone] Phone: tel: fax: [facility] [address] [place] [address] Phone: tel: Referral ID Status Reason Start Date Expiration Date Visits Re quested Visits Authorized [id number] 1 1 Encounter Details Date Type Department Care Team (Latest Contact Info) Description 05/07/2025 10:09 AM EST - 05/07/2025 11:59 PM EST Hospital Encounter [facility] [address] [place] [address] Jose Frausto MD [address] [place] [address] Dr Rahman [address] [place] [phone] Paroxysmal atrial fibrillation (CMS/HCC V24, CMS/HCC V28) Discharge Disposition: Home or Self Care Social History Tobacco Use Types Packs/Day Years [...] file Travel History Travel Start Travel End [facility] 04/28/2025 05/01/2025 documented as of this encounter Last Filed Vital Signs Vital Sign Reading Time Taken Comments Blood Pressure 138/81 05/07/2025 4:15 PM EST Pulse 75 05/07/2025 4:15 PM EST Temperature 36.3 C (97.3 F) 05/07/2025 10:34 AM EST Respiratory Rate 14 05/07/2025 3:05 PM EST Oxygen Saturation 98% 05/07/2025 4:15 PM EST Inhaled Oxygen Concentration - - Weight 89.8 kg (198 lb) 05/07/2025 10:21 AM EST Height 167.6 cm (5' 6 ) 05/07/2025 10:21 AM EST Body Mass Index 31.96 05/07/2025 10:21 AM EST documented in this encounter Discharge Instructions * Discharge Instructions* Laila Jones NP - 05/07/2025 2:24 PM EST ELECTROPHYSIOLOGY & CATHETER ABLATION DISCHARGE INSTRUCTIONS Resume Eliquis after 8:30 pm tonight No heavy lifting for 5-7 days. Limit stair climbing today. You may shower tomorrow Keep incision site covered with a bandaid for 1-2 days. Minor skin redness or ???sunburn-like?? irritation on your back may occur from x-ray exposure. If you observe blistering, notify the ???triage nurse?? at [phone] Remain at home the day of discharge. You may be up and about unless otherwise directed by your physician. Continue your usual diet - a low cholesterol, low fat, lower sodium diet is encouraged If you smoke, you are encouraged to quit Follow any instructions you have received from your provider. If you have any questions, call [phone] Please contact our office if you experience any of the following: temperature of 101, redness, drainage, swelling or increased discomfort from the groin site. Since your coordination and judgment may be altered by medication and sedation/anesthesia, a responsible adult must drive you home from the hospital. You should have someone with you at home tonight. You should not drive, operate machinery, drink alcohol or sign any legal documents for 24 hours. Any depressant medication, such as sleeping pills, should be avoided for 24 hours unless otherwise directed by your physician. documented in this encounter Medications at Time of Discharge cholecalciferol (VITAMIN D-3) 50 mcg (2,000 unit) tablet Take 1 tablet (2,000 Units total) by mouth 1 (one) time each day. Eliquis 5 mg tablet TAKE ONE TABLET BY MOUTH TWICE A DAY 180 tablet 2 10/10/2024 gabapentin (NEURONTIN) 300 mg capsule Take 1 capsule (300 mg total) by mouth at bedtime. 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 30 each 02/04/2025 LevoxyL 88 mcg tablet Take 0.88 mcg by mouth. Every other day 03/13/2025 metoprolol tartrate (LOPRESSOR) 50 mg tabletIndications: Paroxysmal atrial fibrillation (CMS/HCC V24, CMS/HCC V28) Take 1.5 tablets (75 mg total) by mouth 2 (two) times a day. 270 tablet 3 02/04/2025 Evenity Inject 2.34 mL (210 mg total) under the skin. Once injection monthly for 1 year LORazepam (ATIVAN) 1 mg tablet Take 1 Tablet by mouth Once for 1 dose. Prior to MRI. 03/11/2024 flecainide (TAMBOCOR) 100 mg tablet Take 1 tablet (100 mg total) by mouth every 12 (twelve) hours. 60 tablet 11 04/03/2025 5 documented as of this encounter Discharge Disposition Disposition Code Departure Means Destination Home or Self Care documented in this encounter H&P Notes * Laila Jones NP - 05/07/2025 11:30 AM EST No changes in medical history since office visit Source Note - Laila Jones NP - 05/06/2025 9:14 AM EST Images from the original note were not included. Consult 03/24/2025 [facility] [address] Jose Frausto MD Cardiology Paroxysmal atrial fibrillation (CMS/HCC V24, CMS/HCC V28) +1 more Dx EP EVAL PER DR. MURRY, ABLATION TALK ; Referred by Iliana Lopez MD Reason for Visit Progress Notes Jose Frausto MD (Physician) Cardiology Expand All Collapse All Dear Iliana Lopez MD: Thank you for requesting cardiology consultation on your patient, Libra Sandoval. As you know, thisis a 65-year-old female with a history of paroxysmal atrial fibrillation status post cryoballoon ablation in 2013 having done well for many years until recently when she started having palpitations and shortness of breath. She had documented recurrence of atrial fibrillation. She was started on Eliquis and has a AVN2FB2-QGSi score of 2 for age and female gender. She does have known hypothyroidismand does take thyroid replacement with her levels being on the low side. Is a bit overweight and speaking weight loss options. She had some cardiac imaging studies that showed a small atrial septal defect. Is unclear if this is from the prior ablation and residual defect that did not close but my notes do not mention this noticing an ASD at the time of her procedure. She has a modest shunt and noatrial or ventricular enlargement. She has normal LV function and no coronary disease. An ambulatory monitor showed that she was in atrial fibrillation 93.6% of the time with an average heart rate of96 and a maximum of 185. There were frequent PVCs. Resting heart rate in sinus rhythm is 58 bpm. She has an occasional alcoholic beverage but does not drink heavily. She has had no syncope or presyncope. She has no chest pain. Paroxysmal atrial fibrillation (CMS/HCC V24, CMS/HCC V28) This delightful 65-year-old female has paroxysmal atrial [...] encouraged healthy diet and minimization of alcohol. Essential hypertension Elevated blood pressure on today's visit. She is currently on metoprolol which I will continue. Shewill pursue efforts at weight loss and monitor her blood pressure on a lower sodium diet. I would have a low threshold to use an ARB. PAST MEDICAL HISTORY: Patient Active Problem List Diagnosis Date Noted ASD (atrial septal defect) 05/24/2023 Dyslipidemia 04/27/2022 Essential hypertension 11/04/2020 Paroxysmal atrial fibrillation ([facility] V24, [facility] V28) 11/04/2020 SOCIAL HISTORY: Social History Tobacco Use Smoking status: Former Types: Cigarettes Smokeless tobacco: Never Substance Use Topics Alcohol use: Yes Comment: occasional ACTIVE MEDICATIONS: Medications Taking[]Expand by Default Outpatient Medications Marked as Taking for the 03/24/25 encounter (Consult) with Jose Frausto MD Medication Sig Dispense Refill cholecalciferol (VITAMIN D-3) 50 mcg (2,000 unit) tablet Take 1 tablet (2,000 Units total) by mouth1 (one) time each day. Eliquis 5 mg tablet TAKE ONE TABLET BY MOUTH TWICE A DAY 180 tablet 2 Evenity Inject 2.34 mL (210 mg total) under the skin. Once injection monthly for 1 year gabapentin (NEURONTIN) 300 mg capsule Take 1 capsule (300 mg total) by mouth at bedtime. LevoxyL 88 mcg tablet Take 0.88 mcg by mouth. Every other day LORazepam (ATIVAN) 1 mg tablet Take 1 Tablet by mouth Once for 1 dose. Prior to MRI. metoprolol tartrate (LOPRESSOR) 50 mg tablet Take 1.5 tablets (75 mg total) by mouth 2 (two) times a day. 270 tablet 3 ALLERGIES: Allergies Allergies Allergen Reactions Azithromycin Diphtheria, Pertussis, Tetanus Vaccine Levofloxacin Uarajbrip-Cwejewmnz-Drppqux Sulfa (Sulfonamide Antibiotics) Tetanus Antitoxin Trimethoprim PHYSICAL EXAM: Vitals Vitals: 03/24/25 1101 BP: 126/82 Pulse: 58 SpO2: 98% Weight: 94.8 kg (209 lb) Height: 1.676 m (66 ) APPEARANCE: Alert and in no acute distress EYES: PERRL, conjunctiva and sclera normal NECK: Neck supple, 2+ carotid pulses, No bruits. HEART: RRR with normal S1 and S2, no murmurs, no gallops, no JVD appreciated LUNG: clear to auscultation ABDOMEN: Bowel sounds normoactive, no bruits, soft, non-tender, without organomegaly or palpable masses, no abdominal bruits EXTREMITIES: Extremities warm and well perfused without clubbing, cyanosis, or edema NEURO: Awake, alert and oriented x 3, Cranial nerves II-XII grossly intact SKIN: Skin color, texture, turgor normal. No rashes or lesions. PSYCH: Mood and affect are appopriate. MSK: Moves all extremities ASSESSMENT/PLAN: Problem List Items Addressed This Visit Essential hypertension Elevated blood pressure on today's visit. She is currently on metoprolol which I will continue. Shewill pursue efforts at weight loss and monitor her blood pressure on a lower sodium diet. I would have a low threshold to use an ARB. Paroxysmal atrial fibrillation (CMS/HCC V24, CMS/HCC V28) - Primary This delightful 65-year-old female has paroxysmal atrial [...] encouraged healthy diet and minimization of alcohol. Relevant Medications propafenone (RYTHMOL) 225 mg tablet Other Relevant Orders ECG 12 lead (Completed) Case Request EP Lab: Ablation Atrial Fibrillation (Completed) Orders Placed This Encounter Procedures ECG 12 lead The [facility] team will continue to co-manage this patient following the plan of care as established by my initial visit and as per AHA guidelines for ongoing management and surveillance of atrial fibrillation. This will include medication titration, initiation of appropriate medications and further titration, and diagnostic studies to manage this disease process. Thank you for requesting cardiology consultation on this delightful patient. Sincerely, Cosigned by Jose Frausto MD at 05/06/2025 12:24 PM EST * Laila Jones NP - 05/06/2025 9:14 AM EST Images from the original note were not included. Consult 03/24/2025 [facility] [address] Jose Frausto MD Cardiology Paroxysmal atrial fibrillation (CMS/HCC V24, CMS/HCC V28) +1 more Dx EP EVAL PER DR. MURRY, ABLATION TALK ; Referred by Iliana Lopez MD Reason for Visit Progress Notes Jose Frausto MD (Physician) Cardiology Expand All Collapse All Dear Iliana Lopez MD: Thank you for requesting cardiology consultation on your patient, Libra aSndoval. As you know, thisis a 65-year-old female with a history of paroxysmal atrial fibrillation status post cryoballoon ablation in 2013 having done well for many years until recently when she started having palpitations and shortness of breath. She had documented recurrence of atrial fibrillation. She was started on Eliquis and has a CCA6IG3-FARv score of 2 for age and female gender. She does have known hypothyroidismand does take thyroid replacement with her levels being on the low side. Is a bit overweight and speaking weight loss options. She had some cardiac imaging studies that showed a small atrial septal defect. Is unclear if this is from the prior ablation and residual defect that did not close but my notes do not mention this noticing an ASD at the time of her procedure. She has a modest shunt and noatrial or ventricular enlargement. She has normal LV function and no coronary disease. An ambulatory monitor showed that she was in atrial fibrillation 93.6% of the time with an average heart rate of96 and a maximum of 185. There were frequent PVCs. Resting heart rate in sinus rhythm is 58 bpm. She has an occasional alcoholic beverage but does not drink heavily. She has had no syncope or presyncope. She has no chest pain. Paroxysmal atrial fibrillation ([facility] V24, [facility] V28) This delightful 65-year-old female has paroxysmal atrial [...] encouraged healthy diet and minimization of alcohol. Essential hypertension Elevated blood pressure on today's visit. She is currently on metoprolol which I will continue. Shewill pursue efforts at weight loss and monitor her blood pressure on a lower sodium diet. I would have a low threshold to use an ARB. PAST MEDICAL HISTORY: Patient Active Problem List Diagnosis Date Noted ASD (atrial septal defect) 05/24/2023 Dyslipidemia 04/27/2022 Essential hypertension 11/04/2020 Paroxysmal atrial fibrillation ([facility] V24, [facility] V28) 11/04/2020 SOCIAL HISTORY: Social History Tobacco Use Smoking status: Former Types: Cigarettes Smokeless tobacco: Never Substance Use Topics Alcohol use: Yes Comment: occasional ACTIVE MEDICATIONS: Medications Taking[]Expand by Default Outpatient Medications Marked as Taking for the 03/24/25 encounter (Consult) with Jose Frausto MD Medication Sig Dispense Refill cholecalciferol (VITAMIN D-3) 50 mcg (2,000 unit) tablet Take 1 tablet (2,000 Units total) by mouth1 (one) time each day. Eliquis 5 mg tablet TAKE ONE TABLET BY MOUTH TWICE A DAY 180 tablet 2 Evenity Inject 2.34 mL (210 mg total) under the skin. Once injection monthly for 1 year gabapentin (NEURONTIN) 300 mg capsule Take 1 capsule (300 mg total) by mouth at bedtime. LevoxyL 88 mcg tablet Take 0.88 mcg by mouth. Every other day LORazepam (ATIVAN) 1 mg tablet Take 1 Tablet by mouth Once for 1 dose. Prior to MRI. metoprolol tartrate (LOPRESSOR) 50 mg tablet Take 1.5 tablets (75 mg total) by mouth 2 (two) times a day. 270 tablet 3 ALLERGIES: Allergies Allergies Allergen Reactions Azithromycin Diphtheria, Pertussis, Tetanus Vaccine Levofloxacin Dipwgnibg-Djlumclry-Vqrttxl Sulfa (Sulfonamide Antibiotics) Tetanus Antitoxin Trimethoprim PHYSICAL EXAM: Vitals Vitals: 03/24/25 1101 BP: 126/82 Pulse: 58 SpO2: 98% Weight: 94.8 kg (209 lb) Height: 1.676 m (66 ) APPEARANCE: Alert and in no acute distress EYES: PERRL, conjunctiva and sclera normal NECK: Neck supple, 2+ carotid pulses, No bruits. HEART: RRR with normal S1 and S2, no murmurs, no gallops, no JVD appreciated LUNG: clear to auscultation ABDOMEN: Bowel sounds normoactive, no bruits, soft, non-tender, without organomegaly or palpable masses, no abdominal bruits EXTREMITIES: Extremities warm and well perfused without clubbing, cyanosis, or edema NEURO: Awake, alert and oriented x 3, Cranial nerves II-XII grossly intact SKIN: Skin color, texture, turgor normal. No rashes or lesions. PSYCH: Mood and affect are appopriate. MSK: Moves all extremities ASSESSMENT/PLAN: Problem List Items Addressed This Visit Essential hypertension Elevated blood pressure on today's visit. She is currently on metoprolol which I will continue. Shewill pursue efforts at weight loss and monitor her blood pressure on a lower sodium diet. I would have a low threshold to use an ARB. Paroxysmal atrial fibrillation (CMS/HCC V24, CMS/HCC V28) - Primary This delightful 65-year-old female has paroxysmal atrial [...] encouraged healthy diet and minimization of alcohol. Relevant Medications propafenone (RYTHMOL) 225 mg tablet Other Relevant Orders ECG 12 lead (Completed) Case Request EP Lab: Ablation Atrial Fibrillation (Completed) Orders Placed This Encounter Procedures ECG 12 lead The [facility] team will continue to co-manage this patient following the plan of care as established by my initial visit and as per AHA guidelines for ongoing management and surveillance of atrial fibrillation. This will include medication titration, initiation of appropriate medications and further titration, and diagnostic studies to manage this disease process. Thank you for requesting cardiology consultation on this delightful patient. Sincerely, Cosigned by Jose Frausto MD at 05/06/2025 12:24 PM EST documented in this encounter Procedure Notes * Matilde Patrick RN - 05/07/2025 4:32 PM EST Given lunch. * Matilde Patrick RN - 05/07/2025 4:31 PM EST Oob to chair. Up to br voided. Right groin site dry and intact left groin site staining unchanged. * Matilde Patrick RN - 05/07/2025 3:04 PM EST Right groin dressing dry and intact. Left groin dressing with slight stain. Will continue to monitor. documented in this encounter Plan of Treatment Upcoming Encounters Date Type Department Care Team (Late st Contact Info) Description 06/04/2025 2:40 PM EST Office Visit [facility] [address] [place] [address] Belle Gilmore, LETY [address] [place] [address] [place] [address] documented as of this encounter Procedures Procedure Name Priority Date/Time Associated Diagnosis Comments ABLATION A-FIB Routine 05/07/2025 2:35 PM EST Paroxysmal atrial fibrillation (CMS/HCC V24, CMS/HCC V28) POCT ACTIVATED CLOTTING TIME, KAOLIN Routine 05/07/2025 2:13 PM EST POCT ACTIVATED CLOTTING TIME, KAOLIN Routine 05/07/2025 1:56 PM EST POCT ACTIVATED CLOTTING TIME, KAOLIN Routine 05/07/2025 1:35 PM EST POCT ACTIVATED CLOTTING TIME, KAOLIN Routine 05/07/2025 1:17 PM EST RECHECK ABORH Routine 05/07/2025 10:47 AM EST TYPE AND SCREEN Routine 05/07/2025 10:47 AM EST documented in this encounter Results * ABLATION A-FIB (05/07/2025 2:35 PM EST) Anatomical Region Laterality Modality X-Ray Angiograph y Narrative 05/08/2025 7:02 AM EST Successful typical atrial flutter ablation (cavotricuspid isthmus). Successful touchup of the pulmonary veins with the posterior wall being isolated and the antrum of the right pulmonary veins ablated. Clinical Background This 65-year-old female had a paroxysmal atrial fibrillation in 2013. She presents with recurrent atrial fibrillation and atrial flutter. Procedure Details After obtaining written informed consent the patient was brought to the EP laboratory in the fasting state and was placed under anesthesia. After the usual sterile prep and local anesthesia with 1% lidocaine I placed 3 femoral venous sheaths in the left and right femoral veins using ultrasound guidance. I advanced a decapolar catheter to the heart and placed in the coronary sinus using both fluoroscopy and 3D mapping with the [employer] NavX system. The patient was in a right sided atrial flutter and I ultimately placed an advisor grid catheter to the heart made a detailed activation map of the right atrium showing typical counterclockwise atrial flutter. A post pacing interval in the tricuspid isthmus confirmed isthmus dependence and I placed a tacticath for sensing irrigated catheter into the heart after the standard prep and delivered lesions from the tricuspid annulus to the inferior vena cava terminated the atrial flutter to sinus rhythm with confirming bidirectional block with delay of 150 to 170 ms across the ablation line confirmed by pacing medial and lateral. I then performed a transseptal puncture using a CASTT transseptal sheath. I advanced a guidewire at the left upper pulm vein and advanced the sheath and the dilator to the mid chamber and then remove the dilator and wire. I irrigated the sheath with heparinized saline throughout the procedure. I gave additional heparin as needed to maintain an ACT of 300 seconds or greater. I then created a detailed three-dimensional activation map using [employer] NavX system identifying the 4 pulmonary veins and the posterior wall as well as the remainder of the body of the chamber. The 4 veins were largely isolated with activation into the antrum of the right sided veins. The roof had what looks like a prior ablation line although the patient had only a cryoballoon ablation and it was slow conduction across the mid roof. I used a pulse select catheter from CASTT after the standard prep and I delivered lesions across the roof. The posterior wall was so small and irregular with its electrical signal that I isolated the posterior wall down to just below the left and right inferior pulmonary veins. Subsequent mapping showed isolation of all 4 veins and the posterior wall and I remove the catheters from the left heart. I confirm persistence of bidirectional block in the isthmus and then removed all catheters. Protamine was given to achieve reversal of the heparin and Vascade Lausier devices and a 5-minute manual hold carried out to achieve hemostasis of both right lower femoral veins. Patient was then extubated and returned recovery in stable condition with no immediate complications. us Jose Frausto MD CV ELECTROPHYSIOLOGY PROCEDURE S Final Result * (ABNORMAL) POCT activated clotting time,kaolin (05/07/2025 2:13 PM EST) Activated Clotting Time Kaolin 317(H) 74 - 137 sec 05/07/2025 3:49 PM EST [facility] Blood Venous blood specimen / Unknown 05/07/2025 2:13 PM EST 05/07/2025 3:50 PM EST us Jose Frausto MD LAB POINT OF CARE TE ST DOCKED DEVICE UNSOLICITED RESULTS Final Result Performing Organization Address [facility]/ZIP Co de Phone Number [facility] [address] [place] [address], [place] [phone] * (ABNORMAL) POCT activated clotting time,kaolin (05/07/2025 1:56 PM EST) Activated Clotting Time Kaolin 291(H) 74 - 137 sec 05/07/2025 3:49 PM EST [facility] Blood Venous blood specimen / Unknown 05/07/2025 1:56 PM EST 05/07/2025 3:51 PM EST us Jose Frausto MD LAB POINT OF CARE TE ST DOCKED DEVICE UNSOLICITED RESULTS Final Result Performing Organization Address City/[facility]/ZIP Co de Phone Number [facility] [address] [place] [address], [place] [phone] * (ABNORMAL) POCT activated clotting time,kaolin (05/07/2025 1:35 PM EST) Activated Clotting Time Kaolin 301(H) 74 - 137 sec 05/07/2025 3:49 PM EST [facility] Blood Venous blood specimen / Unknown 05/07/2025 1:35 PM EST 05/07/2025 3:51 PM EST Jose Frausto MD LAB POINT OF CARE TE ST DOCKED DEVICE UNSOLICITED RESULTS Final Result [facility] [address] [place] [address], [place] [phone] * POCT activated clotting time,kaolin (05/07/2025 1:17 PM EST) Activated Clotting Time Kaolin 122 74 - 137 sec 05/07/2025 3:49 PM EST [facility] Blood Venous blood specimen / Unknown 05/07/2025 1:17 PM EST 05/07/2025 3:50 PM EST Jose Frausto MD LAB POINT OF CARE TE ST DOCKED DEVICE UNSOLICITED RESULTS Final Result [facility] [address] [place] [address], [place] [phone] * Recheck blood typing (05/07/2025 10:47 AM EST) ABO Group A 05/07/2025 1:08 PM EST [facility] Rh Type Positive 05/07/2025 1:08 PM EST [facility] Blood Venous blood specimen / Unknown Venipuncture / Unknown 05/07/2025 10:47 AM EST 05/07/2025 12:13 PM EST Laila A [employer] [facility] BLOOD BANK TEST ORDERA BLES Final Result Performing Organization Address City/[facility]/ZIP Co de Phone Number [facility] [address] [place] [address], [place] [phone] * Type and screen (05/07/2025 10:47 AM EST) ABO Group A 05/07/2025 1:00 PM EST [facility] Rh Type Positive 05/07/2025 1:00 PM EST [facility] Antibody Screen Negative 05/07/2025 1:00 PM EST [facility] Blood Venous blood specimen / Unknown Venipuncture / Unknown 05/07/2025 10:47 AM EST 05/07/2025 12:13 PM EST Laila A [employer] LAB BLOOD BANK TEST ORDERA BLES Final Result Performing Organization Address [facility]/ZIP Co de Phone Number [facility] [address] [place] [address], [place] [phone] documented in this encounter Visit Diagnoses Diagnosis Paroxysmal atrial fibrillation (CMS/HCC V24, CMS/HCC V28)- Primary Atrial fibrillation Typical atrial flutter (CMS/HCC V24, CMS/HCC V28) Paroxysmal atrial fibrillation (CMS/HCC V24, CMS/HCC V28) Atrial fibrillation documented in this encounter Admitting Diagnoses Diagnosis Paroxysmal atrial fibrillation (CMS/HCC V24, CMS/HCC V28) Atrial fibrillation documented in this encounter Discontinued Medications Medication Sig Discontinue Reason Start Date End Da te flecainide (TAMBOCOR) 100 mg tablet Take 1 tablet (100 mg total) by mouth every 12 (twelve) hours. Stop Taking at Discharge 04/03/2025 05/08/2025 documented as of this encounter Active and Recently Administered Medications Times are shown in EST. PRN Medication Order 05/05/2025 05/06/2025 05/07/2025 heparin (UFH) injection (CANCELED) As needed, Starting on Mon05/07/25 at 1325, Intraprocedure 1323 (Given - Provid er: Elena London RN)1358 (Given - Provider: Elena London RN) protamine injection (CANCELED) As needed, Starting on Mon05/07/25 at 1420, Intraprocedure 1420 (Given - Provid er: Elena London RN) documented in this encounter Orders Medications Ordered That Yayo ht Not Have Been Administered Count Last Ordered Date First Ordered Date heparin (UFH) injection 1 05/07/2025 protamine injection 1 05/07/2025 Diet Count Last Ordered Date First Orde red Date ADULT DISCHARGE DIET 1 05/07/2025 Nursing Count Last Ordered Date First Orde red Date DISCHARGE INSTRUCTIONS 1 05/07/2025 Discharge Count Last Ordered Date First Orde red Date DISCHARGE PATIENT 1 05/07/2025 documented in this encounter Care Teams Emergency Specialist Relationship Specialty Start Date End Date Iliana Lopez MD [address] [place] [address] PCP - General Internal Medicine 03/24/25 documented as of this encounter
--- OUTSIDE RECORDS SUMMARY | 2025-05-07 11:30 | XMS_ITS | Encounter Summary ---
Author Organization [facility] Address [address] [place] [address] Care Team Providers Care Manager Trading Name Role Phone Iliana Lopez MD Primary Care Provider [phone] Reason for Visit * Auth/Cert (Routine) Specialty Diagnoses / Procedures Referred By Contac t Referred To Contact Diagnoses Paroxysmal atrial fibrillation ([facility] V24, [facility] V28) aFIB Procedures [facility] EVAL ELECTROPHYSIOLOGIC COMPREHENSIVE TRANSEPTAL CATH Ablation Atrial Fibrillation Jose Frausto MD [address] [place] [address] Dr Rahman [address] [place] [phone] Phone: tel: fax: [facility] Cardiac Ring Packer [address] [place] [address] Phone: tel: Referral ID Status Reason Start Date Expiration Date Visits Re quested Visits Authorized [id number] 1 1 Encounter Details Date Type Department Care Team (Late st Contact Info) Description 05/07/2025 11:30 AM EST - 05/07/2025 1:[address] [facility] Cardiac Ring Packer [address] [place] [address] Jose Frausto MD [address] [place] [address] Dr Rahman [address] [place] [phone] Ablation Atrial Fibrillation [90675 (CPT )] Surgery Details Date/Time Status Location OR Service Patient Class Case Class Case Type Trauma Case? 05/07/2025 11:30 AM Posted [facility] Cardiac Ring Packer Cath /EP Rm Cardiovascular (Cath/EP) Interventional Procedure F - Elective Panel 1 Procedure LRB Anes Op Region Wound Class Comments Ablation Atrial Fibrillation N/A general PFA 2 hour case Surgeon Surgeon Role Service Panel Jose Frausto MD Primary Cardiovascular (Cath/ EP) 1 documented in this encounter Social History Tobacco Use Types Packs/Day Years [...] file Travel History Travel Start Travel End [facility] 04/28/2025 05/01/2025 documented as of this encounter Last Filed Vital Signs Vital Sign Reading Time Taken Comments Blood Pressure 154/91 05/07/2025 10:34 AM EST Pulse 90 05/07/2025 10:34 AM EST Temperature 36.3 C (97.3 F) 05/07/2025 10:34 AM EST Respiratory Rate 18 05/07/2025 10:34 AM EST Oxygen Saturation 98% 05/07/2025 10:34 AM EST Inhaled Oxygen Concentration - - Weight [...] observe blistering, notify the ???triage nurse?? at [phone] Remain at home the day of discharge. You may be up and about unless otherwise directed by your physician. Continue your usual diet - a low cholesterol, low fat, lower sodium diet is encouraged If you smoke, you are encouraged to quit Follow any instructions you have received from your provider. If you have any questions, call [phone] Please contact our office if you experience [...] original note were not included. Consult 03/24/2025 [facility] [address] Jose Frausto MD Cardiology Paroxysmal [...] was started on Eliquis and has a NHI9KN2-MAXf score of 2 for age and female [...] has no chest pain. Paroxysmal atrial fibrillation ([facility] V24, [facility] V28) This delightful 65-year-old female has paroxysmal [...] currently on metoprolol which I will continue. Missywill pursue efforts at weight loss and monitor her blood pressure on a lower sodium diet. I would have a low threshold to use an ARB. PAST MEDICAL HISTORY: Patient Active Problem List Diagnosis Date Noted ASD (atrial septal defect) 05/24/2023 Dyslipidemia 04/27/2022 Essential hypertension 11/04/2020 Paroxysmal atrial fibrillation ([facility] V24, [facility] V28) 11/04/2020 SOCIAL HISTORY: Social History Tobacco [...] Reactions Azithromycin Diphtheria, Pertussis, Tetanus Vaccine Levofloxacin Swhwcqiwr-Skurfmlgv-Aobzixr Sulfa (Sulfonamide Antibiotics) Tetanus Antitoxin Trimethoprim PHYSICAL [...] original note were not included. Consult 03/24/2025 [facility] [address] Jose Frausto MD Cardiology Paroxysmal [...] was started on Eliquis and has a KAX7IJ3-WPEp score of 2 for age and female [...] 04/27/2022 Essential hypertension 11/04/2020 Paroxysmal atrial fibrillation ([facility] V24, [facility] V28) 11/04/2020 SOCIAL HISTORY: Social History Tobacco [...] Reactions Azithromycin Diphtheria, Pertussis, Tetanus Vaccine Levofloxacin Voqobigoa-Ukfedlbxx-Qcqsuab Sulfa (Sulfonamide Antibiotics) Tetanus Antitoxin Trimethoprim PHYSICAL [...] Description 06/04/2025 2:40 PM EST Office Visit [facility] [address] [place] [phone] Belle Gilmore NP [address] [place] [address] [place] [address] documented as of this encounter Procedures Procedure [...] both fluoroscopy and 3D mapping with the [employer] NavX system. The patient was in a [...] then performed a transseptal puncture using a [employer] transseptal sheath. I advanced a guidewire at [...] created a detailed three-dimensional activation map using [employer] NavX system identifying the 4 pulmonary veins [...] I used a pulse select catheter from [employer] after the standard prep and I delivered [...] in stable condition with no immediate complications. Jose Frausto MD CV ELECTROPHYSIOLOGY PROCEDURE S Final Result * (ABNORMAL) POCT activated clotting time,kaolin (05/07/2025 2:13 PM EST) Activated Clotting Time Kaolin 317(H) 74 - 137 sec 05/07/2025 3:[address] [facility] Blood Venous blood specimen / Unknown 05/07/2025 2:13 PM EST 05/07/2025 3:50 PM EST Jose Frausto MD LAB POINT OF CARE TE ST DOCKED DEVICE UNSOLICITED RESULTS Final Result [facility] [address] [place] [address], [place] [phone] * (ABNORMAL) POCT activated clotting time,kaolin (05/07/2025 1:56 PM EST) Activated Clotting Time Kaolin 291(H) 74 - 137 sec 05/07/2025 3:[address] [facility] Blood Venous blood specimen / Unknown 05/07/2025 1:56 PM EST 05/07/2025 3:51 PM EST Jose Frausto MD LAB POINT OF CARE TE ST DOCKED DEVICE UNSOLICITED RESULTS Final Result Performing Organization Address [facility] de Phone Number [facility] [address] [place] [address], [place] [phone] * (ABNORMAL) POCT activated clotting time,kaolin (05/07/2025 1:35 PM EST) Activated Clotting Time Kaolin 301(H) 74 - 137 sec 05/07/2025 3:[address] [facility] Blood Venous blood specimen / Unknown 05/07/2025 1:35 PM EST 05/07/2025 3:51 PM EST Jose Frausto MD LAB POINT OF CARE TE ST DOCKED DEVICE UNSOLICITED RESULTS Final Result Performing Organization Address [facility] de Phone Number [facility] [address] [place] [address], [place] [phone] * POCT activated clotting time,kaolin (05/07/2025 1:17 PM EST) Pathologist [facility] Activated Clotting Time Kaolin 122 74 - 137 sec 05/07/2025 3:[address] [facility] Blood Venous blood specimen / Unknown 05/07/2025 1:17 PM EST 05/07/2025 3:50 PM EST us Jose Frausto MD LAB POINT OF CARE TE ST DOCKED DEVICE UNSOLICITED RESULTS Final Result Performing Organization Address [facility] Co de Phone Number [facility] [address] [place] [address], [place] [phone] * Recheck blood typing (05/07/2025 10:47 AM EST) ABO Group A 05/07/2025 1:[address] [facility] Rh Type Positive 05/07/2025 1:[address] [facility] Blood Venous blood specimen / Unknown Venipuncture / Unknown 05/07/2025 10:47 AM EST 05/07/2025 12:13 PM EST us Laila A [employer] HOME [employer]PER[employer] LAB BLOOD BANK TEST ORDERA BLES Final Result Performing Organization Address City/[facility]/ZIP Co de Phone Number [facility] [address] [place] [address], [place] [phone] * Type and screen (05/07/2025 10:47 AM EST) ABO Group A 05/07/2025 1:[address] [facility] Rh Type Positive 05/07/2025 1:[address] [facility] Antibody Screen Negative 05/07/2025 1:[address] [facility] Blood Venous blood specimen / Unknown Venipuncture / Unknown 05/07/2025 10:47 AM EST 05/07/2025 12:13 PM EST us Laila A Styspeck HOME SUPERVISOR LAB BLOOD BANK TEST ORDERA BLES Final Result Performing Organization Address [facility]/ZIP Co de Phone Number [facility] [address] [place] [address], [place] [phone] documented in this encounter Visit Diagnoses Diagnosis Paroxysmal atrial fibrillation (CMS/HCC V24, CMS/HCC V28)- Primary Atrial fibrillation Typical atrial flutter (CMS/HCC V24, CMS/HCC V28) Paroxysmal atrial fibrillation (CMS/HCC V24, CMS/HCC V28) Atrial fibrillation documented in this encounter Admitting Diagnoses Diagnosis Paroxysmal atrial fibrillation (CMS/HCC V24, CMS/HCC V28) Atrial fibrillation documented in this encounter Administered Medications Inactive Administered Medications - up to 3 most recent administrations Medication Order MAR Action Action Date Dose Rate Site heparin (UFH) injection As needed, Starting on Mon05/07/25 at 1325, Intraprocedure Given 05/07/2025 1:58 PM EST 2,000 Units Given 05/07/2025 1:23 PM EST 13,000 Units protamine injection As needed, Starting on Mon05/07/25 at 1420, Intraprocedure Given 05/07/2025 2:20 PM EST 50 mg documented in this encounter Discontinued Medications Medication [...] London RN) documented in this encounter Orders Diet Count Last Ordered Date First Orde red Date ADULT DISCHARGE DIET 1 05/07/2025 Nursing Count Last Ordered Date First Orde red Date DISCHARGE INSTRUCTIONS 1 05/07/2025 Discharge Count Last Ordered Date First Orde red Date DISCHARGE PATIENT 1 05/07/2025 documented in this encounter Care Teams Manager Trading Relationship Specialty Start Date End Date Iliana Lopez MD [address] [place] [address] PCP - General Internal Medicine 03/24/25 documented as of this encounter
--- OUTSIDE RECORDS SUMMARY | 2025-05-07 12:30 | XMS_ITS | Encounter Summary ---
Author Organization [facility] Address [address] [place] [address] Care Team Providers Care Analysis Specialist Name Role Phone Iliana Lopez MD Primary Care Provider [phone] Reason for Visit * Auth/Cert (Routine) Specialty Diagnoses / Procedures Referred By Contac t Referred To Contact Diagnoses Paroxysmal atrial fibrillation ([facility] V24, [facility] V28) aFIB Procedures [place] EVAL ELECTROPHYSIOLOGIC COMPREHENSIVE TRANSEPTAL CATH Ablation Atrial Fibrillation Jose Frausto MD [address] [place] [address] [address] Phone: tel: fax: [facility] Cardiac A&P Technician [address] [place] [address] Phone: tel: Referral ID Status Reason Start Date Expiration Date Visits Re quested Visits Authorized [id number] 1 1 Encounter Details Date Type Department Care Team (Late st Contact Info) Description 05/07/2025 12:30 PM EST Anesthesia Event [facility] Cardiac A&P Technician [address] [place] [address] Radames Hogue MD [address] [place] [id number] Otilia Abdul CRNA [address] [place] [address] Anesthesia Record Procedure Summary Procedure Name Responsible Anesthesiologist Anesthesia Start Time Anesthesia Stop Time Ablation Atrial Fibrillation Radames Hogue MD 05/07/25 1230 05/07/25 1437 Events Date Time Event Comment 05/07/2025 1104 Proc Start 1230 An Start 1230 An Start Data The patient wa s reevaluated immediately before moderate or deep sedation use and before anesthesia induction. 1230 In Room 1238 George Noninvasive art erial line put on by love DAVIDSON 1240 An Induction 1242 An Intubation 1257 Anesthesia Ready 1420 Proc Fin 1432 An Extubation 1432 an stop data 1435 Out of Room 1437 an stop data 1437 Handoff to RN I completed my handoff to the receiving nurse during which we: 1. Identified the patient 2. Identified the responsible provider 3. Reviewed the pertinent medical history 4. Discussed the surgical course 5. Reviewed intra-op anesthesia management and issues during anesthesia 6. Set expectations for post-procedure period 7. Allowed opportunity for questions and acknowledgement of understanding. 1437 An Stop Meds Name Total fentaNYL (SUBLIMAZE) injection 100 mcg propofol (DIPRIVAN) injection 10 mg/mL 2 00 mg rocuronium 90 mg ondansetron 2 mg/mL 4 mg phenylephrine (ROSA-SYNEPHRINE) 100 mcg/m L syringe 10 mL 940 mcg dexamethasone (DECADRON) injection 4 mg/ mL 4 mg lidocaine PF (XYLOCAINE-MPF) local injec tion 2% 100 mg phenylephrine (ROSA-SYNEPHRIN E) 20,000 mcg in sodium chloride 0.9 % 250 mL infusion 46.8 mg sugammadex (BRIDION) injection 100 mg/mL 200 mg lactated Ringer's infusion 0 mL * Agents Name O2 N2O Air Sevoflurane Inspired Sevoflurane * Blood No blood administrations on file. Lines, Drains, and Airways Type Details Placement Removal Peripheral IV Placement Date: 11/24; Placement Time: 1042; Catheter Size: 20 G; Orientation: Left; Location: Antecubital; Site Prep: Chlorhexidine; Inserted by: kasi cat; Insertion Attempts: 1; Patient Tolerance: Tolerated well; Removal Date: 05/07/25; Removal Time: 1718 05/07/25 1042 by Kasi Patrick RN 05/07/25 1718 by Kasi Patrick RN Peripheral IV Placement Date: 11/24; Placement Time: 1058; Catheter Size: 22 G; Orientation: Anterior, Right; Location: Forearm; Site Prep: Chlorhexidine; Inserted by: terrell denton; Insertion Attempts: 2; Patient Tolerance: Tolerated well; Removal Date: 05/07/25; Removal Time: 1720 05/07/25 1058 by Kasi Patrick RN 05/07/25 1720 by Kasi Patrick RN ETT Placement Date: 11/24; Placement Time: 1259 (created via procedure documentation); Mask Ventilation: 1; Technique: Direct laryngoscopy; Type: ETT; Cuffed: Yes; Blade Size: 3; Location: Oral; Insertion Attempts: 1; Placement Verification: Auscultation, Capnometry; Removal Date: 05/07/25; Removal Time: 1432 05/07/25 1259 by Otilia Abdul CRNA 05/07/25 1432 by Bisi Sandhu CRNA Venous Sheath 05/07/25; 1315; 7 Fr .; Left; Femoral; No; No; Lisbet; 05/07/25; 1427; (vascades); 5 min(s) 05/07/25 1315 by Elena London RN 05/07/25 1427 by Elena London RN Venous Sheath 05/07/25; 1315; 10 F r.; Left; Femoral; No; No; Lisbet; 05/07/25; 1427; Manual (vascades); 5 min(s) 05/07/25 1315 by Elena London RN 05/07/25 1427 by Elena London RN Venous Sheath 05/07/25; 1315; (14) ; Right; Femoral; No; No; Lisbet; 05/07/25; 1427; Manual (vascades); 5 min(s) 05/07/25 1315 by Elena London RN 05/07/25 1427 by Elena London RN documented in this encounter Social History Tobacco [...] file Travel History Travel Start Travel End [facility] 04/28/2025 05/01/2025 documented as of this encounter Progress Notes * Radames Houge MD - 05/07/2025 3:32 PM EST Addendum created 05/07/25 1532 by Radames Hogue MD Intraprocedure Event edited, Intraprocedure Staff edited * Radames Hogue MD - 05/07/2025 3:08 PM EST Addendum created 05/07/25 1508 by Radames Hogue MD Intraprocedure Event edited, Intraprocedure Staff edited * Radames Hogue MD - 05/07/2025 3:07 PM EST 65 y.o. female scheduled for Paroxysmal atrial fibrillation (CMS/HCC V24, CMS/HCC V28) [Ablation Atrial Fibrillation] Ht Readings from Last 1 Encounters: 05/07/25 1.676 m (66 ) Wt Readings from Last 1 Encounters: 05/07/25 89.8 kg (198 lb) Body mass index is 31.96 kg/m??. Medical History[1] Surgical History[2] Anesthesia complications Denies Allergies[3] Prior to Admission medications Medication Sig Start Date End Date Taking? Authorizing Provider cholecalciferol (VITAMIN D-3) 50 mcg (2,000 unit) tablet Take 1 tablet (2,000 Units total) by mouth1 (one) time each day. Yes Historical Provider, MD Nicholson 5 mg tablet TAKE ONE TABLET BY MOUTH TWICE A DAY 10/10/24 Yes Loida Gaines NP flecainide (TAMBOCOR) 100 mg tablet Take 1 tablet (100 mg total) by mouth every 12 (twelve) hours. 04/03/25 04/03/26 Yes Belle Gilmore NP gabapentin (NEURONTIN) 300 mg capsule Take 1 capsule (300 mg total) by mouth at bedtime. 03/01/25 Yes Historical Provider, levothyroxine (SYNTHROID, LEVOTHROID) 100 mcg tablet Take 1 tablet (100 mcg total) by mouth 1 (one)time each day before breakfast. 02/04/25 02/04/26 Yes Nick Henry MD LevoxyL 88 mcg tablet Take 0.88 mcg by mouth. Every other day 03/13/25 Yes Historical Provider, metoprolol tartrate (LOPRESSOR) 50 mg tablet Take 1.5 tablets (75 mg total) by mouth 2 (two) times a day. 02/04/25 Yes Nick Henry MD Evenity Inject 2.34 mL (210 mg total) under the skin. Once injection monthly for 1 year Historical Provider, LORazepam (ATIVAN) 1 mg tablet Take 1 Tablet by mouth Once for 1 dose. Prior to MRI. 03/11/24 Historical Provider, MD Bradshaw have personally reviewed all the patient's medications with them prior to anesthesia. Current In-hospital Medications MEDSSCHEDULED[4] MEDSCONTINUOUS[5] MEDSPRN[6] Social History[7] Is the patient a current smoker (e.g. cigarette, cigar, pip, e-cigarette, or mariajuana)? Yes [] No[] Patient previously instructed to abstain from smoking on the day of procedure? Yes [] No[] Patient smoked on the day of procedure? Yes [] No[] ASPIRE smoking VBR: [] Not interested in quitting [] Interested in quitting- referred to treatment [] Interested in quitting - treatment provided Visit Vitals BP 120/78 Pulse 70 Temp 36.3 ??C (97.3 ??F) Resp (!) 8 Ht 1.676 m (66 ) Wt 89.8 kg (198 lb) SpO2 94% BMI 31.96 kg/m?? Smoking Status Former BSA 1.99 m?? LABS: No results found for: WBC , HGB , HCT , MCV , PLT No results found for: GLUCOSE , CALCIUM , NA , K , CO2 , CL , BUN , CREATININE No results found for: INR , PROTIME No results found for: PTT Relevant Problems Cardio (+) Essential hypertension (+) Paroxysmal atrial fibrillation (CMS/HCC V24, CMS/[facility] V28) Clinical information reviewed: Allergies Meds Anesthesia Plan ASA 2 Anesthesia Plan: general General Anesthesia Considerations: ETT Anesthesia Considerations general ETT Anesthesia Risks Discussed dental injury, nausea, pain, sore throat, corneal abrasion, allergic reaction and serious complications Induction method: intravenous Postoperative administration of opioids is intended. Anesthetic plan and risks discussed with patient. Use of blood products discussed with patient who. Anesthesia Plan discussed with BLOCKER METAL BASE. Anesthesia Evaluation Airway Mallampati: II Thyromental distance: >3 FB Neck ROM: fullnot intubatedno noted risk Dental Pulmonary breath sounds clear to auscultation Cardiovascular (+) hypertension Rhythm: regular Rate: normal Neuro/Psych Mental Status: alert and oriented GI/Hepatic/Renal Endo/Other (+) hypothyroidism Abdominal Abdomen: soft. Bowel sounds: normal. PONV RISK SCORE: 3 Vitals: 05/07/25 1034 05/07/25 1451 05/07/25 1455 05/07/25 1500 BP: (!) 154/91 126/79 120/78 Pulse: 90 68 69 70 Resp: 18 18 (!) 7 (!) 8 Temp: 36.3 ??C (97.3 ??F) SpO2: 98% 98% 95% 94% Weight: Height: SpO2 Readings from Last 1 Encounters: 05/07/25 94% No results found for: WBC , RBC , HGB , HCT , PLT , MCV Allergies[8] STOP BANG: No data recorded NPO Status: No data recorded [1] Past Medical History: Diagnosis Date Acquired hypothyroidism DX:Acquired hypothyroidism Atrophic vaginitis DX:Atrophic vaginitis Chronic insomnia DX:Chronic insomnia Fatigue DX:Fatigue Osteoporosis DX:Osteoporosis Postmenopause DX:Postmenopause [2] Past Surgical History: Procedure Laterality Date OTHER SURGICAL HISTORY PROCEDURE: HISTORY OTHER; COMMENT: History of prior ablation treatment [3] Allergies Allergen Reactions Azithromycin Codeine Hives Diphtheria, Pertussis, Tetanus Vaccine Levofloxacin Bnctvdngg-Cdbkrhkdj-Wwufxcu Sulfa (Sulfonamide Antibiotics) Tetanus Antitoxin Trimethoprim [4] [5] [6] [7] Social History Tobacco Use Smoking status: Former Types: Cigarettes Smokeless tobacco: Never Substance Use Topics Alcohol use: Yes Comment: occasional Drug use: Never [8] Allergies Allergen Reactions Azithromycin Codeine Hives Diphtheria, Pertussis, Tetanus Vaccine Levofloxacin Pyppysmfp-Bocwwemoo-Pnkurpl Sulfa (Sulfonamide Antibiotics) Tetanus Antitoxin Trimethoprim * Radames Hogue MD - 05/07/2025 3:07 PM EST Patient: Libra Sandoval Procedure Summary Date: 05/07/25 Room / Location: [facility] CATH/EP ROOM / [facility] Cardiac A&P Technician Anesthesia Start: 1230 Anesthesia Stop: 1445 Procedure: Ablation Atrial Fibrillation Diagnosis: Paroxysmal atrial fibrillation (CMS/HCC V24, CMS/HCC V28) (aFIB) Providers: oJse Frausto MD Responsible Provider: Radames Hogue MD Anesthesia Type: general ASA Status: Not recorded Anesthesia Plan: general Last Vitals: Vitals Value Taken Time BP 120/78 05/07/25 15:00 05/07/25 15:07 Pulse 70 05/07/25 15:00 Resp 8 05/07/25 15:00 SpO2 94 % 05/07/25 15:00 No data recorded Anesthesia Post Evaluation Patient location during evaluation: PACU Patient participation: complete - patient participated Level of consciousness: awake and alert Pain management: adequate Airway patency: patent Anesthetic complications: no Cardiovascular status: acceptable and hemodynamically stable Respiratory status: acceptable and spontaneous ventilation Hydration status: acceptable Comments: Patient seen and evaluated prior to discharge from PACU. Note may have been written at a later time due to clinical necessity. Nausea: No Vomiting: No There were no known notable events for this encounter. * Otilia Abdul CRNA - 05/07/2025 12:59 PM ESTAssociated Order(s): Intubation General Information and Staff Patient location during procedure: OR Resident/BLOCKER METAL BASE: Otilia Abdul CRNA Performed: resident/BLOCKER METAL BASE/CAA Performed by: Otilia Abdul CRNA Authorized by: Radames Hogue MD Intubation Airway not difficult Reason: elective Final Airway Details Successful airway: ETT Cuffed: yes Successful intubation technique: direct laryngoscopy Adjuncts used in placement: intubating stylet Endotracheal tube insertion site: oral Blade: Amanda Blade size: #3 ETT size (mm): 7.0 Cormack-Lehane Classification: grade I - full view of glottis Placement verified by: chest auscultation and capnometry Measured from: lips ETT to lips (cm): 20 Final airway type: endotracheal airway Indications and Patient Condition Indications for airway management: anesthesia Sedation level: Yes Preoxygenated: yesSoft Tissue Damage: No Dentition Unchanged: Yes Patient position: sniffing Mask difficulty assessment: 1 - vent by mask documented in this encounter Plan of Treatment Upcoming Encounters Date Type Department Care Team (Late st Contact Info) Description 06/04/2025 2:40 PM EST Office Visit [facility] - [address] [facility] [address] [place] [address] Belle Gilmore NP [address] [place] [address] [place] [address] documented as of this encounter Procedures Procedure Name Priority Date/Time Associated Diagnosis Comments TH AN ENDOTRACHEAL(NO CHARGE) Routine 05/07/2025 12:59 PM EST documented in this encounter Results * TH AN ENDOTRACHEAL(NO CHARGE) (05/07/2025 12:59 PM EST) Narrative Otilia Abdul CRNA - 05/07/2025 12:59 PM EST Otilia Abdul CRNA 05/07/2025 12:59 PM General Information and Staff Patient location during procedure: OR Resident/BLOCKER METAL BASE: Otilia Abdul CRNA Performed: resident/BLOCKER METAL BASE/CAA Performed by: Otilia Abdul CRNA Authorized by: Radames Hogue MD Intubation Airway not difficult Reason: elective Final Airway Details Successful airway: ETT Cuffed: yes Successful intubation technique: direct laryngoscopy Adjuncts used in placement: intubating stylet Endotracheal tube insertion site: oral Blade: Amanda Blade size: #3 ETT size (mm): 7.0 Cormack-Lehane Classification: grade I - full view of glottis Placement verified by: chest auscultation and capnometry Measured from: lips ETT to lips (cm): 20 Final airway type: endotracheal airway Indications and Patient Condition Indications for airway management: anesthesia Sedation level: Yes Preoxygenated: yesSoft Tissue Damage: No Dentition Unchanged: Yes Patient position: sniffing Mask difficulty assessment: 1 - vent by mask us Radames Hogue MD ANESTHESIA ORDERABLES Final Re sult documented in this encounter Visit Diagnoses Not on filedocumented in this encounter Administered Medications Inactive Administered Medications - up to 3 most recent administrations Medication Order MAR Action Action Date Dose Rate Site dexAMETHasone (DECADRON) injection intravenous, As needed, Starting on Mon05/07/25 at 1308, Anesthesia Intraprocedure Given 05/07/2025 1:08 PM EST 4 mg fentaNYL (PF) (SUBLIMAZE) injection intravenous, As needed, Starting on Mon05/07/25 at 1238, Anesthesia Intraprocedure Given 05/07/2025 12:40 PM EST 50 mcg Given 05/07/2025 12:38 PM EST 50 mcg lactated Ringer's infusion intravenous, Continuous PRN, Starting on Mon05/07/25 at 1228, Anesthesia Intraprocedure New Bag 05/07/2025 12:28 PM EST lidocaine (PF) (XYLOCAINE-MPF) 2 % injection injection, As needed, Starting on Mon05/07/25 at 1240, Anesthesia Intraprocedure Given 05/07/2025 12:40 PM EST 100 mg ondansetron (PF) (ZOFRAN) injection intravenous, As needed, Starting on Mon05/07/25 at 1419, Anesthesia Intraprocedure Given 05/07/2025 2:19 PM EST 4 mg phenylephrine (ROSA-SYNEPHRINE) 20,000 mcg in sodium chloride 0.9 % 250 mL infusion intravenous, Continuous PRN, Starting on Mon05/07/25 at 1245, Anesthesia Intraprocedure Rate/Dose Change 05/07/2025 2:15 PM EST 22.5 mcg/kg/min 1515.375 mL/hr Rate/Dose Change 05/07/2025 1:56 PM EST 0.223 mcg/kg/min 1 5 mL/hr Rate/Dose Change 05/07/2025 1:15 PM EST 0.334 mcg/kg/min 2 2.5 mL/hr phenylephrine (ROSA-SYNEPHRINE) injection intravenous, As needed, Starting on Mon05/07/25 at 1244, Anesthesia Intraprocedure Given 05/07/2025 2:16 PM EST 4 0 mcg Given 05/07/2025 1:25 PM EST 100 mcg Given 05/07/2025 1:14 PM EST 100 mcg propofoL (DIPRIVAN) injection intravenous, As needed, Starting on Mon05/07/25 at 1240, Anesthesia Intraprocedure Given 05/07/2025 12:[address] 200 mg rocuronium (ZEMURON) injection intravenous, As needed, Starting on Mon05/07/25 at 1240, Anesthesia Intraprocedure Given 05/07/2025 2:07 PM EST 1 0 mg Given 05/07/2025 1:43 PM EST 10 mg Given 05/07/2025 12:40 PM EST 70 mg sugammadex (BRIDION) 100 mg/mL injection intravenous, As needed, Starting on Mon05/07/25 at 1426, Anesthesia Intraprocedure Given 05/07/2025 2:26 PM EST 2 00 mg documented in this encounter Care Teams Analysis Specialist Relationship Specialty Start Date End Date Iliana Lopez MD [address] [place] [address] PCP - General Internal Medicine 03/24/25 documented as of this encounter
--- OUTSIDE RECORDS SUMMARY | 2025-05-12 11:22 | XMS_ITS | Encounter Summary ---
Author Organization [facility] Address [address] [place] [address] Care Team Providers Care Metallurgical Technician Name Role Phone lIiana Lopez MD Primary Care Provider [phone] Reason for Visit * Reason Onset Date Comments Ablation 05/05/2025 Encounter Details Date Type Department Care Team (Late st Contact Info) Description 05/05/2025 Telephone [facility] - [facility] [address] [facility] [address] [place] [address] Jose Frausto MD [address] [place] [address] [place] [id number] Social History Tobacco Use Types Packs/Day Years [...] file Travel History Travel Start Travel End [facility] 04/28/2025 05/01/2025 documented as of this encounter Progress Notes * Angella Table - 05/05/2025 8:05 AM EST Patient called and stated that she is supposed to have an ablation done on 05/07. She said she has acold, and is not sure if she should cancel or reschedule. Patient would like a call back after 3:00today at [phone]. documented in this encounter Plan of Treatment Upcoming Encounters Date Type Department Care Team (Late st Contact Info) Description 06/04/2025 2:40 PM EST Office Visit [facility] - [address] [place] [address] Belle Gilmore, PROJECT PRODUCT MANAGER [address] [place] [address] [place] [address] documented as of this encounter Visit Diagnoses Not on filedocumented in this encounter Care Teams Metallurgical Technician Relationship Specialty Start Date End Date Iliana Lopez MD [address] [place] [address] PCP - General Internal Medicine 03/24/25 documented as of this encounter
--- OUTSIDE RECORDS SUMMARY | 2025-05-12 11:22 | XMS_ITS | Clinical Summary ---
Author Organization [facility] [employer] Address [address] [facility] [place] [address] Phone Care Team Providers Care Rustic Fence Builder Name Role Phone Iliana Lopez MD Primary Care Provider [phone] Allergies Active Allergy Reactions Criticality Noted Date Comments Azithromycin 11/04/2020 Codeine Hives 05/07/2025 Diphtheria, Pertussis, Tetanus Vaccine 11/04/2020 Levofloxacin 11/04/2020 Ndaupznxc-Apkeqifqk-Alnoalk 11/05/19 21 Sulfa (Sulfonamide Antibiotics) 10/2020 Tetanus [...] 26 Active metoprolol tartrate (LOPRESSOR) 50 mg tabletIndication s:Paroxysmal atrial fibrillation (CMS/HCC V24, CMS/HCC V28) Take 1.5 tablets (75 mg total) by mouth 2 (two) times a day. 270 tablet 3 5 Active gabapentin (NEURONTIN) 300 mg capsule Take 1 capsule (300 mg total) by mouth at bedtime. 5 Active LevoxyL 88 mcg tablet Take 0.88 mcg by mouth. Every other day 5 Active flecainide (TAMBOCOR) 100 mg tablet Take 1 tablet (100 mg total) by mouth every 12 (twelve) hours. 60 tablet 11 5 05/08/20 25 Discontin ued(Stop Taking at Discharge ) Active Problems Problem Noted Date Diagnosed Date [...] Orders: ECG 12 lead Paroxysmal atrial fibrillation (CMS/[facility] V24, CMS /[facility] V28) 11/04/2020 Overview (07/24/2024): Last Assessment & Plan: Patient has history of paroxysmal atrial fibrillation. Her [id number] score is 2 representing a 2.2% risk [...] Encounters Date Type Department Care Team Description 05/07/2025 12:30 PM EST Anesthesia Event [facility] Cardiac Data Coordinator [address] [place] [address] Radames Hogue MD Burton OtiliaMARTIN 05/07/2025 11:30 AM EST - 05/07/2025 1:30 PM EST Surgery [facility] Cardiac Data Coordinator [address] [place] [address] Jose Frausto MD Ablation Atrial Fibrillation [51150 (CPT )] 05/07/2025 10:09 AM EST - 05/07/2025 11:59 PM EST Hospital Encounter [facility] Cardiac Data Coordinator [address] [place] [address] Jose Frausto MD Paroxysmal atrial fibrillation (CMS/HCC V24, CMS/HCC V28) Discharge Disposition: Home or Self Care 05/05/2025 Telephone [facility] - [address] [place] [address] Jose Frausto MD 04/07/2025 10:00 AM EDT Clinical Support [facility] - [address] [place] [address] Paroxysmal atrial fibrillation (CMS/HCC V24, CMS/HCC V28) (Primary Dx) 04/07/2025 9:30 AM EDT Ancillary Procedure [facility] - [address] [place] [address] Paroxysmal atrial fibrillation (CMS/HCC V24, CMS/HCC V28) 03/27/2025 Telephone [facility] - [address] [place] [address] Jose Fruasto MD 03/24/2025 11:10 AM EDT Consult [facility]iology [facility] - [address] [place] [address] Jose Frausto MD Paroxysmal atrial fibrillation (CMS/HCC V24, CMS/HCC V28) (Primary Dx); Essential hypertension from Last 3 Months Surgical History Surgery [...] file Travel History Travel Start Travel End [facility] 04/28/2025 05/01/2025 Obstetrics History Last Filed [...] Mass Index 31.96 05/07/2025 10:21 AM EST Plan of Treatment Upcoming Encounters Date Type Department Care Team (Late st Contact Info) Description 06/04/2025 2:40 PM EST Office Visit [facility] - [address] [place] [address] Belle Gilmore, DRY WALL APPLICATOR [address] [place] [address] [place] [address] Health Maintenance Due Date Last Done Comments [...] on patient's age to complete this topic Medical Devices Implanted Type Area Clearing Hand Device Identifier Shelf Expiration Date Model / Serial / Lot Device Clsur Vascade Mvp 6-12f [facility] Art - [id number] - [id number] Implanted:Qty: 2 on 05/07/2025 by Jose Frausto MD at [facility] Vascular Closure Devices Left: Vein [employer]- [employer] MED ITEMS 03/03/2027 [id number] / [id number] / Plug Fem Artery Closure Vascade Mvp Collagen Ster - [id number] - [id number] Implanted:Qty: 1 on 05/07/2025 by Jose Frausto MD at [facility] Vascular Grafts Right: Vein [employer]- [employer] ITEMS 06/07/2026 [id number] / [id number] / Procedures Procedure Name Priority Date/Time Associated Diagnosis Comments ABLATION A-FIB Routine 05/07/2025 2:35 PM EST Paroxysmal atrial fibrillation (CMS/HCC V24, CMS/HCC V28) POCT ACTIVATED CLOTTING TIME, KAOLIN Routine 05/07/2025 2:13 PM EST POCT ACTIVATED CLOTTING TIME, KAOLIN Routine 05/07/2025 1:56 PM EST POCT ACTIVATED CLOTTING TIME, KAOLIN Routine 05/07/2025 1:35 PM EST POCT ACTIVATED CLOTTING TIME, KAOLIN Routine 05/07/2025 1:17 PM EST TH AN ENDOTRACHEAL(NO CHARGE) Routine 05/07/2025 12:59 PM EST RECHECK ABORH Routine 05/07/2025 10:47 AM EST TYPE AND SCREEN Routine 05/07/2025 10:47 AM EST EXTERNAL CLINICAL LAB Routine 04/18/2025 2:11 PM EDT ECG 12-LEAD Routine 04/07/2025 9:49 AM EDT Paroxysmal atrial fibrillation (CMS/HCC V24, CMS/HCC V28) CARDIAC HOLTER MONITOR (REPORT GENERATED IN HOUSE) Routine 04/07/2025 9:09 AM EDT Paroxysmal atrial fibrillation (CMS/HCC V24, CMS/HCC V28) ECG 12-LEAD Routine 03/24/2025 11:57 AM EDT Paroxysmal atrial fibrillation (CMS/HCC V24, CMS/HCC V28) from Last 3 Months Results * ABLATION A-FIB (05/07/2025 2:35 PM [...] both fluoroscopy and 3D mapping with the VivaRay NavX system. The patient was in a [...] then performed a transseptal puncture using a [employer] transseptal sheath. I advanced a guidewire at [...] created a detailed three-dimensional activation map using ANGELA NavX system identifying the 4 pulmonary veins [...] I used a pulse select catheter from [employer] after the standard prep and I delivered [...] activated clotting time,kaolin (05/07/2025 2:13 PM EST) Only the most recent of4 resultswithin the time period is included. Activated Clotting Time Kaolin 317(H) 74 - 137 sec 05/07/2025 3:49 PM EST [facility]) [facility] Blood Venous blood specimen / Unknown 05/07/2025 2:13 PM EST 05/07/2025 3:50 PM EST Jose Frausto MD LAB POINT OF CARE TE ST DOCKED DEVICE UNSOLICITED RESULTS Final Result [facility] ([facility]) [facility] [address] [place] [address], [place] [phone] * TH AN ENDOTRACHEAL(NO CHARGE) (05/07/2025 12:59 PM EST) Narrative Otilia Abdul CRNA - 05/07/2025 12:59 PM EST Otilia Abdul CRNA 05/07/2025 12:59 PM General Information and Staff Patient location during procedure: OR Resident/FERMENTATION SCIENTIST: Otilia Abdul CRNA Performed: resident/FERMENTATION SCIENTIST/CAA Performed by: Otilia Abdul CRNA Authorized by: [...] difficulty assessment: 1 - vent by mask Radames Hogue MD ANESTHESIA ORDERABLES Final Re sult * Recheck blood typing (05/07/2025 10:47 AM EST) ABO Group A 05/07/2025 1:08 PM EST [facility] Rh Type Positive 05/07/2025 1:08 PM EST [facility] Blood Venous blood specimen / Unknown Venipuncture / Unknown 05/07/2025 10:47 AM EST 05/07/2025 12:13 PM EST us Laila Jones DRY WALL APPLICATOR LAB BLOOD BANK TEST ORDERA BLES Final Result [facility] [address] [place] [address], [place] [phone] * Type and screen (05/07/2025 10:47 AM EST) ABO Group A 05/07/2025 1:00 PM EST [facility] Rh Type Positive 05/07/2025 1:00 PM EST [facility] Antibody Screen Negative 05/07/2025 1:00 PM EST [facility] Blood Venous blood specimen / Unknown Venipuncture / Unknown 05/07/2025 10:47 AM EST 05/07/2025 12:13 PM EST Laila Jones DRY WALL APPLICATOR LAB BLOOD BANK TEST ORDERA BLES Final Result Performing Organization Address City/[facility]/ZIP Co de Phone Number [facility] [address] [place] [address], [place] [phone] * External clinical lab (04/18/2025 2:11 PM [...] ms GEMUSE QTc 445 ms GEMUSE R [place] 99 degrees GEMUSE T [place] 68 degrees GEMUSE ECG Interpretation Atrial flutter with variable A-V block Rightward axis Nonspecific ST abnormality Abnormal ECG When compared with ECG of 24-MAR-2025 11:10, Atrial fibrillation has replaced NSR Confirmed by Annmarie FRAUSTO JOHN ([id number]) on 04/11/2025 8:07:42 AM GEMUSE 04/07/2025 9:49 AM EDT 04/11/2025 8:07 AM EDT Belle Gilmore DRY WALL APPLICATOR ECG ORDERABLES Final Result GEMUSE * CARDIAC HOLTER MONITOR (REPORT GENERATED IN HOUSE) (04/07/2025 9:09 AM EDT) Anatomical Region Laterality Modality Cardiac Diagnost ic Narrative 04/13/2025 1:13 PM EDT [facility] DEPARTMENT [address] [facility], [place] [address] TEL: FAX: Type of test: 24 hour Holter Monitor Date of test: 04/07/25 Ordering provider: Nick Henry MD Reason for Test: Paroxysmal Atrial Fibrillation PVCA Sales Assistant Displays Findings: 1: Atrial Fibrillation/ Flutter noted from [...] MD CV CARDIAC SERVICES PROCEDURES Final Result from Last 3 Months Insurance MEDICARE [facility] Care Teams Rustic Fence Builder Relationship Specialty Start Date End Date Iliana Lopez MD [address] [place] [address] PCP - General Internal Medicine 03/24/25
[2025-05-12 11:33] LABS: Calcium 9.2 mg/dL (8.4-10.2)
== END 2025-05-12 09:55 | disposition home or self-care (01) ==
LOC: HO.10HDL 09:54
PROVIDERS: Visit Provider Internal Medicine Endocrinology, Diabetes & Metabolism
DX: M81.0 Age-related osteoporosis without current pathological fracture (principal)
CPT/HCPCS: 36415; 82306; 82310

== ENCOUNTER 2025-05-12 10:46 | Outpatient (AMB) | payer MEDICARE, SELFPAY | END 2025-05-12 10:46 | disposition home or self-care (01) | LOC: HO.HMGAL 10:46 | PROVIDERS: PCP Internal Medicine; Visit Provider Registered Nurse Emergency | DX: J30.89 Other allergic rhinitis (principal) | CPT/HCPCS: 95117; 95165 ==

== ENCOUNTER 2025-05-13 08:54 | Outpatient (AMB) | payer MEDICARE, SELFPAY ==
--- OUTSIDE RECORDS SUMMARY | 2025-02-04 04:15 | XMS_ITS ---
Author Organization [facility] [address] Address [address] [place] [address] Care Team Providers Care Tester Operator Name Role Phone SHANEL NUÑEZ Primary Care Provider Unav ailable DENIZ DIAS Unavailable [phone] Encounters Encounter Location Date Provider Diagnosis [facility] [address] [place] [address] 02/04/2025 DENIZ DIAS Plan Of Treatment Next Appt Details Provider Name:DENIZ DIAS , 05/26/2025 09:00:00 AM, [address], [address], [place], [address], Progress Notes * MEGAN GARCIA RISHIADOB:[birth year] (65 yo F)Acc No.[id number]:02/04/2025 Patient: MEGAN MOSES Provider: Cosmo DIAS :1960 A ge:64 Y S ex:Female Date:02/04/2025 [facility] [place] Pcp:SHANEL NUÑEZ * Electronic signature of MARYJANE DIAS PA-C, [id number] on 05/13/2025 at 09:19 AM EST Sign off status: Pending * Provider: Cosmo DIAS Date: 0 02/04/2025 Generated for Printi ng/Faxing/eTransmitting on: 1 07/13/2024 09:19 AM EST
--- OUTSIDE RECORDS SUMMARY | 2025-05-07 10:09 | XMS_ITS | Encounter Summary ---
Author Organization [facility] Address [address] [place] [address] Care Team Providers Care Financial Institution Manager Name Role Phone Iliana Lopez MD Primary Care Provider [phone] Reason for Visit * Auth/Cert (Routine) Specialty Diagnoses / Procedures Referred By Contac t Referred To Contact Diagnoses Paroxysmal atrial fibrillation (CMS/HCC V24, CMS/HCC V28) aFIB Procedures MT EVAL ELECTROPHYSIOLOGIC COMPREHENSIVE TRANSEPTAL CATH Ablation Atrial Fibrillation Jose Frausto MD [address] [place] [address] Dr Rahman [address] [place] [phone] Phone: tel: fax: [facility] [place] [address] Phone: tel: Referral ID Status Reason Start Date Expiration Date Visits Re quested Visits Authorized [id number] 1 1 Encounter Details Date Type Department Care Team (Latest Contact Info) Description 05/07/2025 10:09 AM EST - 05/07/2025 11:59 PM EST Hospital Encounter [facility] [address] [place] [address] Jose Frausto MD [address] [place] [address] Dr Rahman [address] [place] [phone] Paroxysmal atrial fibrillation (CMS/HCC V24, CMS/HCC [...] file Travel History Travel Start Travel End [facility] 04/28/2025 05/01/2025 documented as of this [...] observe blistering, notify the ???triage nurse?? at [phone] Remain at home the day of discharge. You may be up and about unless otherwise directed by your physician. Continue your usual diet - a low cholesterol, low fat, lower sodium diet is encouraged If you smoke, you are encouraged to quit Follow any instructions you have received from your provider. If you have any questions, call [phone] Please contact our office if you experience [...] TWICE A DAY 180 tablet 2 10/10/2024 Evenity Inject 2.34 mL (210 mg total) under the skin. Once injection monthly for 1 year gabapentin (NEURONTIN) 300 mg capsule Take 1 capsule (300 mg total) by mouth at bedtime. 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 30 each 02/04/2025 6 LevoxyL 88 mcg tablet Take 0.88 mcg by mouth. Every other day 03/13/2025 LORazepam (ATIVAN) 1 mg tablet Take 1 Tablet by mouth Once for 1 dose. Prior to MRI. 03/11/2024 metoprolol tartrate (LOPRESSOR) 50 mg tabletIndications: Paroxysmal atrial fibrillation (CMS/HCC V24, CMS/HCC V28) Take 1.5 tablets (75 mg total) by mouth 2 (two) times a day. 270 tablet 3 02/04/2025 flecainide (TAMBOCOR) 100 mg tablet Take 1 [...] original note were not included. Consult 03/24/2025 [facility] [address] Jose Frausto MD Cardiology [...] was started on Eliquis and has a [id number] score of 2 for age and female [...] 04/27/2022 Essential hypertension 11/04/2020 Paroxysmal atrial fibrillation ([facility] V24, [facility] V28) 11/04/2020 SOCIAL HISTORY: Social History Tobacco [...] Reactions Azithromycin Diphtheria, Pertussis, Tetanus Vaccine Levofloxacin Fzlxynils-Fvkrcbohw-Lkswuhk Sulfa (Sulfonamide Antibiotics) Tetanus Antitoxin Trimethoprim PHYSICAL [...] original note were not included. Consult 03/24/2025 [facility] [address] Jose Frausto MD Cardiology [...] was started on Eliquis and has a [id number] score of 2 for age and female [...] has no chest pain. Paroxysmal atrial fibrillation ([facility] V24, [facility] V28) This delightful 65-year-old female has paroxysmal [...] 04/27/2022 Essential hypertension 11/04/2020 Paroxysmal atrial fibrillation ([facility] V24, [facility] V28) 11/04/2020 SOCIAL HISTORY: Social History Tobacco [...] Reactions Azithromycin Diphtheria, Pertussis, Tetanus Vaccine Levofloxacin Gxdaudklz-Hgbhfbadt-Xsqkjld Sulfa (Sulfonamide Antibiotics) Tetanus Antitoxin Trimethoprim PHYSICAL [...] Description 06/04/2025 2:40 PM EST Office Visit [facility] [address] [place] [address] Belle Gilmore, LETY [address] [place] [address] [place] [address] documented as of this encounter Procedures Procedure [...] both fluoroscopy and 3D mapping with the [employer] NavX system. The patient was in a [...] then performed a transseptal puncture using a [employer] transseptal sheath. I advanced a guidewire at [...] created a detailed three-dimensional activation map using [employer] NavX system identifying the 4 pulmonary veins [...] I used a pulse select catheter from [employer] after the standard prep and I delivered [...] - 137 sec 05/07/2025 3:49 PM EST [facility] Blood Venous blood specimen / Unknown 05/07/2025 2:13 PM EST 05/07/2025 3:50 PM EST us Jose Frausto MD LAB POINT OF CARE TE ST DOCKED DEVICE UNSOLICITED RESULTS Final Result Performing Organization Address [facility]/ZIP Co de Phone Number [facility] [address] [place] [address], [place] [phone] * (ABNORMAL) POCT activated clotting time,kaolin (05/07/2025 1:56 PM EST) Activated Clotting Time Kaolin 291(H) 74 - 137 sec 05/07/2025 3:49 PM EST [facility] Blood Venous blood specimen / Unknown 05/07/2025 1:56 PM EST 05/07/2025 3:51 PM EST us Jose Frausto MD LAB POINT OF CARE TE ST DOCKED DEVICE UNSOLICITED RESULTS Final Result Performing Organization Address City/[facility]/ZIP Co de Phone Number [facility] [address] [place] [address], [place] [phone] * (ABNORMAL) POCT activated clotting time,kaolin (05/07/2025 1:35 PM EST) Activated Clotting Time Kaolin 301(H) 74 - 137 sec 05/07/2025 3:49 PM EST [facility] Blood Venous blood specimen / Unknown 05/07/2025 1:35 PM EST 05/07/2025 3:51 PM EST Jose Frausto MD LAB POINT OF CARE TE ST DOCKED DEVICE UNSOLICITED RESULTS Final Result [facility] [address] [place] [address], [place] [phone] * POCT activated clotting time,kaolin (05/07/2025 1:17 PM EST) Activated Clotting Time Kaolin 122 74 - 137 sec 05/07/2025 3:49 PM EST [facility] Blood Venous blood specimen / Unknown 05/07/2025 1:17 PM EST 05/07/2025 3:50 PM EST Jose Frausto MD LAB POINT OF CARE TE ST DOCKED DEVICE UNSOLICITED RESULTS Final Result [facility] [address] [place] [address], [place] [phone] * Recheck blood typing (05/07/2025 10:47 AM EST) ABO Group A 05/07/2025 1:08 PM EST [facility] Rh Type Positive 05/07/2025 1:08 PM EST [facility] Blood Venous blood specimen / Unknown Venipuncture / Unknown 05/07/2025 10:47 AM EST 05/07/2025 12:13 PM EST Laila A [employer] MEDICAL OFFICE SCHEDULER LAB BLOOD BANK TEST ORDERA BLES Final Result Performing Organization Address City/[facility]/ZIP Co de Phone Number [facility] [address] [place] [address], [place] [phone] * Type and screen (05/07/2025 10:47 AM EST) ABO Group A 05/07/2025 1:00 PM EST [facility] Rh Type Positive 05/07/2025 1:00 PM EST [facility] Antibody Screen Negative 05/07/2025 1:00 PM EST [facility] Blood Venous blood specimen / Unknown Venipuncture / Unknown 05/07/2025 10:47 AM EST 05/07/2025 12:13 PM EST Laila A [employer] MEDICAL OFFICE SCHEDULER LAB BLOOD BANK TEST ORDERA BLES Final Result Performing Organization Address [facility]/ZIP Co de Phone Number [facility] [address] [place] [address], [place] [phone] documented in this encounter Visit Diagnoses Diagnosis [...] 05/07/2025 documented in this encounter Care Teams Financial Institution Manager Relationship Specialty Start Date End Date Iliana Lopez MD [address] [place] [address] PCP - General Internal Medicine 03/24/25 documented as of this encounter
--- NOTE | 2025-05-13 09:09 | AM.OFFVISNUR ---
Intake Visit Reasons: Prolia #1 Allergies levofloxacin (Levaquin) Allergy (Unknown, Verified 04/16/25 08:30) hives Sulfa (Sulfonamide Antibiotics) Allergy (Unknown, Verified 04/16/25 08:30) itchy, hives sulfamethoxazole (From Bactrim) Allergy (Unknown, Verified 04/16/25 08:30) itchy, hives Tetanus Vaccines and Toxoid Allergy (Unknown, Verified 04/16/25 08:30) convulsion trimethoprim (From Bactrim) Allergy (Unknown, Verified 04/16/25 08:30) itchy, hives codeine cough syrup Allergy (Unknown, Uncoded 03/13/25 09:55) hives zpack Adverse Reaction (Unknown, Uncoded 03/13/25 09:55) vomiting Office Meds Prolia 60 mg/mL subcutaneous syringe Performing Provider: Angel Winters MD Performing Location: [facility] Endocrinology Administered by: Solange Ibrahim RN on 05/13/25 09:09 Dose Route Admin Location Dispensed Lot Number Expiration Date [facility] Website Designer 60 mg subcut left upper arm 1 mL [id number] 03/02/27 11055-212-27 AMGEN Total Dispensed Waste 1 mL 0 % Comments: Patient here for first prolia injection following completion of evenity series. Patient aware to watch for signs/symptoms of adverse reaction such as redness, warmth or swelling at injection site. Patient tolerated injection well and observed x15 minutes without any s/sx of adverse reaction. Patient's repeat calcium WNL and per Dr. Singh martinay to proceed with prolia injection. Patient scheduled for next injection in x6 months. Assessment & Plan Assessment & Plan Orders: Orders AMB Denosumab Injection Practice Supplied Today M81.0 - Age-related osteoporosis without current pathological fracture Coding
--- OUTSIDE RECORDS SUMMARY | 2025-05-13 09:19 | XMS_ITS | Encounter Summary ---
Author Organization [facility] Address [address] [place] [address] Care Team Providers Care Moveman Name Role Phone Iliana Lopez MD Primary Care Provider [phone] Reason for Visit * Reason Onset Date Comments Ablation 05/05/2025 Encounter Details Date Type Department Care Team (Late st Contact Info) Description 05/05/2025 Telephone [facility] - [facility] [address] [facility] [address] [place] [address] Jose Frausto MD [address] [place] [address] [place] [address] Social History Tobacco Use Types Packs/Day Years [...] History Travel Start Travel End [facility] 04/28/2025 05/01/2025 documented as of this encounter Progress Notes * Angella Table - 05/05/2025 8:05 AM EST Patient called and stated that she is supposed to have an ablation done on 05/07. She said she has acold, and is not sure if she should cancel or reschedule. Patient would like a call back after 3:00today at [phone]. documented in this encounter Plan of Treatment Upcoming Encounters Date Type Department Care Team (Late st Contact Info) Description 06/04/2025 2:40 PM EST Office Visit [facility] - [address] [place] [address] Belle Gilmore, STRIP MILL OPERATOR [address] [place] [address] [place] [address] documented as of this encounter Visit Diagnoses Not on filedocumented in this encounter Care Teams Moveman Relationship Specialty Start Date End Date Iliana Lopez MD [address] [place] [address] PCP - General Internal Medicine 03/24/25 documented as of this encounter
--- OUTSIDE RECORDS SUMMARY | 2025-05-13 09:19 | XMS_ITS | Patient Health Record ---
Author Organization [facility] [address] Address [address] [place] [address] Care Team Providers Care National Flatbed Truck Driver Name Role Phone SHANEL NUÑEZ Primary Care Provider Dodie DENIZ Flores Unavailable [phone] Allergies No Known Allergies Reason For Referral No Information Medications Medication SIG (Take, Route, Frequency, Duration) Notes Start Date End Date Status Metoprolol Tartrate 50 MG Tablet TAKE ONE TABLET BY MOUTH TWICE A DAY Oral; Duration: 90 Days Active Contrave 8-90 MG Tablet Extended Release 12 Hour 1 tablet in the morning Orally Once [...] the evening. 02/21/2025 Active Levoxyl 100 MCG Tablet Oral; Duration: 90 Days Active Eliquis 5 MG Tablet TAKE ONE TABLET BY M OUTH TWICE A DAY Oral; Duration: 90 Days Active Wegovy 0.25 MG/0.5ML Solution Auto-injector Inject 0.25 mg Subcutaneous weekly; Duration: 28 days 03/04/2025 Active Zepbound 5 MG/0.5ML Solution Inject 5 mg (0.5ml) Subcutaneous once weekly; Duration: 30 days 03/24/2025 Active Gabapentin 300 MG Capsule 1 capsule Orally Once a day; Duration: 30 days Restless leg Active Evenity 105 MG/1.17ML Solution Prefilled Syringe Subcutaneous; Duration: 28 Days Active Social History Section Notes: former smoker 1 drink per month Problems Problem Type SNOMED Code ICD Code Onset Dates Problem Status W/U Status Risk Notes Problem Abnormal blood pressure (57659308) Encounter for examination of blood pressure with abnormal findings (Z01.31) Active confirmed Problem Restless legs syndrome (47137424) Restless leg syndrome (G25.81) Active confirmed Problem BMI 30+ - obesity (330975390) BMI 32.0-32.9,adult (Z68.32) Active confirmed Problem Adult-onset obesity (880554536) Adult-onset obesity (E66.9) Active confirmed Problem Osteoporosis (23448475) Osteoporosis (M81.0) Active confirmed Problem Atrial fibrillation (02501569) Atrial fibrillation (I48.91) Active confirmed Vital Signs Heart Rate 57 /min 02/21/2025 Oximetry 97 % 02/21/2025 Blood pressure diastolic 80 mm Hg 02/21/2025 Height 66 in 02/21/2025 Blood pressure systolic 142 mm Hg 02/21/2025 Weight 203 lbs 02/21/2025 BMI 32.76 kg/m2 02/21/2025 Encounters Encounter Location Date Provider Diagnosis [facility] [address] 02/21/2025 DENIZ BIRKS Adult-onset obesity E66.9 ; BMI 32.0-32.9,adult Z68.32 ; Atrial fibrillation I48.91 ; Restless leg syndrome G25.81 ; Dinorah thyroiditis E06.3 ; Osteoporosis M81.0 and Encounter for examination of blood pressure with abnormal findings Z01.31 [facility] [address] [address] 01/29/2025 DENIZ BIRKS [facility] [address] [facility] [address] 02/21/2025 DENIZ BIRKS Adult-onset obesity E66.9 [facility] [address] [facility] [address] 02/26/2025 DENIZ BIRKS [facility] [address] [place] [address] 03/24/2025 DENIZ BIRKS [facility] [address] [address] 04/04/2025 DENIZ BIRKS [facility] [address] [facility] [address] 04/07/2025 DENIZ BIRKS [facility] [address] [address] 04/16/2025 DENIZ DAIS Assessments Encounter Date Diagnosis (ICD Code) Assessment [...] Consider group exercises. Consider hiring a personal banking officer. Regular exercise is keita to sustainable health [...] counseling and psychiatry and Dr Patton at [facility]. We would like to cover regular topics [...] Dictation was accomplished with the use of [employer] voice recognition software, prone to medical misidentifications [...] Consider using apps like 7 minute excercise, Clear Metalspal, lose it, stick as needed for self-monitoring and weight management. Consider group exercises. Consider hiring a personal banking officer. Regular exercise is keita to sustainable health [...] counseling and psychiatry and Dr Patton at [facility]. We would like to cover regular topics [...] Dictation was accomplished with the use of [employer] voice recognition software, prone to medical misidentifications [...] Consider using apps like 7 minute excercise, myTradehillpal, lose it, stick as needed for self-monitoring and weight management. Consider group exercises. Consider hiring a personal banking officer. Regular exercise is keita to sustainable health [...] counseling and psychiatry and Dr Patton at [facility]. We would like to cover regular topics [...] Dictation was accomplished with the use of [employer] voice recognition software, prone to medical misidentifications [...] and Eat Fat Get Lean by Dr Byrn Baugh. Self education is important in the [...] Consider using apps like 7 minute excercise, [employer], lose it, stick as needed for self-monitoring and weight management. Consider group exercises. Consider hiring a personal banking officer. Regular exercise is keita to sustainable health [...] counseling and psychiatry and Dr Patton at [facility]. We would like to cover regular topics [...] Dictation was accomplished with the use of [employer] voice recognition software, prone to medical misidentifications [...] Consider using apps like 7 minute excercise, [employer], lose it, stick as needed for self-monitoring and weight management. Consider group exercises. Consider hiring a personal banking officer. Regular exercise is keita to sustainable health [...] counseling and psychiatry and Dr Patton at [facility]. We would like to cover regular topics [...] Dictation was accomplished with the use of [employer] voice recognition software, prone to medical misidentifications [...] Consider using apps like 7 minute excercise, myTradehillpal, lose it, stick as needed for self-monitoring and weight management. Consider group exercises. Consider hiring a personal banking officer. Regular exercise is keita to sustainable health [...] counseling and psychiatry and Dr Patton at [facility]. We would like to cover regular topics [...] Dictation was accomplished with the use of [employer] voice recognition software, prone to medical misidentifications [...] Consider group exercises. Consider hiring a personal banking officer. Regular exercise is keita to sustainable health [...] counseling and psychiatry and Dr Patton at [facility]. We would like to cover regular topics [...] Dictation was accomplished with the use of [employer] voice recognition software, prone to medical misidentifications [...] Name:DENIZ DIAS , 05/26/2025 09:00:00 AM, [address] [facility], [facility] [address], [place], [address], Insurance Providers Payer Name Payer Address Payer Phone Subscriber Number Group Number Insured Name Patient Relationship to Insured Coverage Start Date Coverage End Date Medicare Part B J14 [address] [place] [address] [id number] MEGAN GARCIA Self - patient is the insured 3 MEDEX [address] [place] [address] [id number] MEGAN GARCIA Self - patient is the insured 3 Medical (General) History Surgical History Surgery Date(Month/Year) shoulder surgery l
--- OUTSIDE RECORDS SUMMARY | 2025-05-13 09:19 | XMS_ITS | Clinical Summary ---
Author Organization [facility] Address [address] [facility] [place] [address] Phone Care Team Providers Care Business Services Intern Name Role Phone Iliana Lopez MD Primary Care Provider [phone] Allergies Active Allergy Reactions Criticality Noted Date Comments Azithromycin 11/04/2020 Codeine Hives 05/07/2025 Diphtheria, Pertussis, Tetanus Vaccine 11/04/2020 Levofloxacin 11/04/2020 Xkysopuvj-Yvxhldvjl-Ztatwsg 11/05/19 21 Sulfa (Sulfonamide Antibiotics) 10/2020 Tetanus [...] Orders: ECG 12 lead Paroxysmal atrial fibrillation (CMS/[facility] V24, CMS /[facility] V28) 11/04/2020 Overview (07/24/2024): Last Assessment & Plan: Patient has history of paroxysmal atrial fibrillation. Her IMI4XO5-MEAc score is 2 representing a 2.2% risk [...] Description 05/07/2025 12:30 PM EST Anesthesia Event [facility] [employer] [address] [place] [address] Radames Hogue MD Burton OtiliaMARTIN 05/07/2025 11:30 AM EST - 05/07/2025 1:30 PM EST Surgery [facility] [employer] [employer] [address] [place] [address] Jose Frausto MD Ablation Atrial Fibrillation [67834 (CPT )] 05/07/2025 10:09 AM EST - 05/07/2025 11:59 PM EST Hospital Encounter [facility] [employer] [address] [place] [address] Jose Frausto MD Paroxysmal atrial fibrillation (CMS/HCC V24, CMS/HCC V28) Discharge Disposition: Home or Self Care 05/05/2025 Telephone [facility] Cardiology [facility] - [address] [place] [address] Jose Frausto MD 04/07/2025 10:00 AM EDT Clinical Support [facility] - [address] [place] [address] Paroxysmal atrial fibrillation (CMS/HCC V24, CMS/HCC V28) (Primary Dx) 04/07/2025 9:30 AM EDT Ancillary Procedure [facility] Cardiology [facility] - [address] [place] [address] Paroxysmal atrial fibrillation (CMS/HCC V24, CMS/HCC V28) 03/27/2025 Telephone [facility] Cardiology [facility] - [address] [place] [address] Jose Frausto MD 03/24/2025 11:10 AM EDT Consult [facility] Cardiology [facility] - [address] [place] [address] Jose Frausto MD Paroxysmal atrial fibrillation (CMS/HCC [...] Travel End [facility] 04/28/2025 05/01/2025 Obstetrics History Last Filed Vital [...] Description 06/04/2025 2:40 PM EST Office Visit [facility] - [address] [place] [address] Belle Gilmore, SUPERVISOR INSTRUMENT REPAIR [address] [place] [address] [place] [address] Health Maintenance Due Date Last Done Comments [...] this topic Medical Devices Implanted Type Area Pediatric Neuropsychologist Device Identifier Shelf Expiration Date Model / Serial / Lot Device Clsur Vascade Mvp 6-12f [facility] Art - [id number] - [id number] Implanted:Qty: 2 on 05/07/2025 by Jose Frausto MD at [facility] Vascular Closure Devices Left: Vein [employer] 03/03/2027 [id number] / [id number] / Plug Fem Artery Closure Vascade Mvp Collagen Ster - [id number] - [id number] Implanted:Qty: 1 on 05/07/2025 by Jose Frausto MD at [facility] Vascular Grafts Right: Vein [employer] 06/07/2026 [id number] / [id number] / Procedures Procedure Name Priority Date/Time [...] both fluoroscopy and 3D mapping with the [employer] NavX system. The patient was in a [...] then performed a transseptal puncture using a [employer] transseptal sheath. I advanced a guidewire at [...] I used a pulse select catheter from [employer] after the standard prep and I delivered [...] - 137 sec 05/07/2025 3:49 PM EST [facility] Blood Venous blood specimen / Unknown 05/07/2025 2:13 PM EST 05/07/2025 3:50 PM EST Jose Frausto MD LAB POINT OF CARE TE ST DOCKED DEVICE UNSOLICITED RESULTS Final Result [facility] [address] [place] [address], [place] [phone] * TH AN ENDOTRACHEAL(NO CHARGE) (05/07/2025 12:59 PM EST) Narrative Otilia Abdul CRNA - 05/07/2025 12:59 PM EST Otilia Abdul CRNA 05/07/2025 12:59 PM General Information and Staff Patient location during procedure: OR Resident/TRACK LAYER HEAD: Otilia Abdul CRNA Performed: resident/TRACK LAYER HEAD/CAA Performed by: Otilia Abdul CRNA Authorized by: [...] 05/07/2025 12:13 PM EST us Laila Jones SUPERVISOR INSTRUMENT REPAIR LAB BLOOD BANK TEST ORDERA BLES Final Result [facility] [address] [place] [address], [place] [phone] * Type and screen (05/07/2025 10:47 AM EST) ABO Group A 05/07/2025 1:00 PM EST [facility] Rh Type Positive 05/07/2025 1:00 PM EST [facility] Antibody Screen Negative 05/07/2025 1:00 PM EST [facility] Blood Venous blood specimen / Unknown Venipuncture / Unknown 05/07/2025 10:47 AM EST 05/07/2025 12:13 PM EST Laila Jones SUPERVISOR INSTRUMENT REPAIR LAB BLOOD BANK TEST ORDERA BLES Final Result Performing Organization Address City/[facility]/ZIP Co de Phone Number [facility] [address] [place] [address], [place] [phone] * External clinical lab (04/18/2025 2:11 PM [...] ms GEMUSE QTc 445 ms GEMUSE R Harrell 99 degrees GEMUSE T Harrell 68 degrees GEMUSE ECG Interpretation Atrial flutter with variable A-V block Rightward axis Nonspecific ST abnormality Abnormal ECG When compared with ECG of 24-MAR-2025 11:10, Atrial fibrillation has replaced NSR Confirmed by Annmarie FRAUSTO JOHN ([id number]) on 04/11/2025 8:07:42 AM GEMUSE 04/07/2025 9:49 AM EDT 04/11/2025 8:07 AM EDT Belle Gilmore SUPERVISOR INSTRUMENT REPAIR ECG ORDERABLES Final Result GEMUSE * CARDIAC HOLTER MONITOR (REPORT GENERATED IN HOUSE) (04/07/2025 9:09 AM EDT) Anatomical Region Laterality Modality Cardiac Diagnost ic Narrative 04/13/2025 1:13 PM EDT [facility]PART[facility] [address] [id number], [place] [address] TEL: FAX: Type of test: 24 hour Holter Monitor Date of test: 04/07/25 Ordering provider: Nick Henry MD Reason for Test: Paroxysmal Atrial Fibrillation [employer] Adviser Sales Findings: 1: Atrial Fibrillation/ Flutter noted from [...] Result from Last 3 Months Insurance MEDICARE [facility] Care Teams Business Services Intern Relationship Specialty Start Date End Date Iliana Lopez MD [address] [place] [address] PCP - General Internal Medicine 03/24/25
== END 2025-05-13 09:07 | disposition home or self-care (01) ==
LOC: HO.ENCR 08:55
PROVIDERS: PCP Internal Medicine; Visit Provider Internal Medicine Endocrinology, Diabetes & Metabolism
DX: M81.0 Age-related osteoporosis without current pathological fracture (principal)

== ENCOUNTER → 2025-05-13 08:54 | Outpatient (BNVA) | payer MEDICARE, SELFPAY | PROVIDERS: PCP Internal Medicine; Visit Provider Internal Medicine Endocrinology, Diabetes & Metabolism | DX: M81.0 Age-related osteoporosis without current pathological fracture (principal); Z79.620 Long term (current) use of immunosuppressive biologic | CPT/HCPCS: 96372; J0897 ==

== ENCOUNTER 2025-06-09 12:49 | Outpatient (AMB) | payer MEDICARE, SELFPAY | END 2025-06-09 12:50 | disposition home or self-care (01) | LOC: HO.HMGAL 12:49 | PROVIDERS: PCP Internal Medicine; Visit Provider Registered Nurse Emergency | DX: J30.89 Other allergic rhinitis (principal) | CPT/HCPCS: 95117; 95165 ==